=== PATIENT | male | born 1940 | race Caucasian/White ===

== ENCOUNTER 2016-09-23 11:57 | Inpatient (IN) | payer MEDICARE, BC ==
[2016-09-23] MEDS ORDERED: SODIUM CHLORIDE 0.9% 500 ML IV ONE ×2 (12:07→14:13)
[2016-09-23] MEDS ORDERED: ACETAMINOPHEN TAB 500 MG TAB PO STA (12:08)
[2016-09-23 12:25] LABS: Glucose,Whole Blood 149 mg/dL (75-99)
[2016-09-23 12:27] LABS: Basophils % (A) 0 %; CH 32.6; CHCM 36.2; Eosinophils # (A) 0.1 k/uL (0-0.7); Eosinophils % (A) 2 %; HCT 41.7 % (39.0-53.0); HGB 14.3 gm/dL (13.0-17.5); Luc # (Auto) 0.07; Luc % (Auto) 1; Lymphocytes # (A) 0.6 k/uL (1.0-4.8); Lymphocytes % (A) 7 %; MCH 31.2 pg (25.0-35.0); MCHC 34.4 g/dL (31.0-37.0); MCV 90.7 fL (80.0-100.0); Mean Platelet Volume 7.1; Monocytes # (A) 0.5 k/uL (0-1.0); Monocytes % (A) 5 %; Neutrophils # (A) 7.9 k/uL (1.3-7.7); Neutrophils % (A) 86 %; RBC 4.59 m/uL (4.30-5.90); WBC 9.2 k/uL (3.8-10.6); WBC (Perox) 9.36
[2016-09-23 12:37] LABS: ALT 36 U/L (21-72); AST 19 U/L (17-59); Alkaline Phosphatase 99 U/L (38-126); Anion Gap 12 mmol/L; Blood Urea Nitrogen 16 mg/dL (9-20); Calcium 8.7 mg/dL (8.4-10.2); Carbon Dioxide 26 mmol/L (22-30); Chloride 105 mmol/L (98-107); Glucose 163 mg/dL (74-99); Non-African American GFR(MDRD) >60 (>60 ml/min/1.73 sqM); Partial Thromboplastin Time 23.5 sec (22.0-30.0); Potassium 3.6 mmol/L (3.5-5.1); Prothrombin Time 10.5 sec (9.0-12.0); Sodium 143 mmol/L (137-145); Total Bilirubin 0.9 mg/dL (0.2-1.3); Total Protein 6.7 g/dL (6.3-8.2)
[2016-09-23 12:47] LABS: Creatine Kinase 52 U/L (55-170)
--- NOTE | 2016-09-23 12:52 | ED ---
General Adult HPI - General Chief complaint: Altered Mental Status Stated complaint: Altered Mental Time Seen by Provider: 09/23/16 12:00 Source: patient, EMS, RN notes reviewed Mode of arrival: EMS Limitations: no limitations - History of Present Illness Initial comments: This is a 76-year-old male who presents to the emergency department according to family because of altered mental status. The states he started becoming altered last evening and becoming somewhat chilled. According to he had noted a little cough. Patient is normally alert and oriented 1 but can follow simple commands today he cannot. states his altered mental status worsened throughout the night and today he was not able to even do simple things that she would ask so she brought him to the emergency department. She has not noted a fever at home she has not noted any difficulty breathing there has not been any recent vomiting or diarrhea. She does state yesterday he fell and she believes he did hit his head. states yesterday he did fall out of bed and she believes he hit his head on the floor. He did not however lose consciousness. Patient weighs too weak to ambulate which is unusual for the patient. - Related Data Home Medications Medication Instructions Recorded Confirmed Donepezil [Aricept] 15 mg PO HS 07/29/16 09/23/16 Dm/PE/Acetaminophen/Doxylamine 1 cap PO BID PRN 09/23/16 09/23/16 [[facility] [facility] Day-Night [facility]] Previous Rx's Medication Instructions Recorded Memantine [Namenda] 10 mg PO BID #60 tab 02/24/15 Allergies Allergy/AdvReac Type Severity Reaction Status Date / Time No Known Allergies Allergy Verified 09/23/16 13:12 Review of Systems ROS Statement: Those systems with pertinent positive or pertinent negative responses have been documented in the HPI. ROS Other: All systems not noted in ROS Statement are negative. Past Medical History Past Medical History: Dementia, Memory Impairment, Prostate Disorder Additional Past Medical History / Comment(s): Dementia/ALZHEIMERS History of Any Multi-Drug Resistant Organisms: None Reported Past Surgical History: No Surgical Hx Reported Additional Past Surgical History / Comment(s): darrian rotator cuff Additional Past Anesthesia/Blood Transfusion Reaction / Comment(s): difficulty coming out Past Psychological History: No Psychological Hx Reported Smoking Status: Former smoker Past Alcohol Use History: Rare Past Drug Use History: None Reported - Past Family History Father Family Medical History: Cancer Additional Family Medical History / Comment(s): lung ca Mother Family Medical History: Cancer Additional Family Medical History / Comment(s): ovarian cancer Son(s) Family Medical History: Cancer Additional Family Medical History / Comment(s): rhabdomyo sarcoma General Exam - General Exam Comments Initial Comments: GENERAL: Patient is well-developed and well-nourished. Patient is nontoxic and well- hydrated and is in no acute distress. ENT: Neck is soft and supple. No significant lymphadenopathy is noted. Oropharynx is clear. Moist mucous membranes. Neck has full range of motion without eliciting any pain. EYES: The sclera were anicteric and conjunctiva were pink and moist. Extraocular movements were intact and pupils were equal round and reactive to light. Eyelids were unremarkable. PULMONARY: Unlabored respirations. No rales or rhonchi were heard however the patient gives poor effort as it doesn't appear as though he understands my command CARDIOVASCULAR: There is a regular rate and rhythm without any murmurs gallops or rubs. ABDOMEN: Soft and nontender with normal bowel sounds. SKIN: Skin is clear with no lesions or rashes and otherwise unremarkable. NEUROLOGIC: Patient is alert and oriented 1. Cranial nerves II through XII are grossly intact. Motor and sensory are also intact. MUSCULOSKELETAL: Normal extremities with adequate strength and full range of motion. No lower extremity swelling or edema. No calf tenderness. LYMPHATICS: No significant lymphadenopathy is noted PSYCHIATRIC: Normal psychiatric evaluation. Limitations: no limitations Course Vital Signs 09/23/16 09/23/16 09/23/16 12:00 13:06 13:21 Temperature 99.2 F Pulse Rate 98 94 92 Respiratory 20 18 18 Rate Blood Pressure 160/79 131/70 131/70 O2 Sat by Pulse 94 L 93 L 96 Oximetry Medical Decision Making - Medical Decision Making EKG shows normal sinus rhythm at 100 bpm IA interval is on a 66 dresses 80 QT interval 342 QTC is 441 per patient's EKG shows no ST segment elevation or depression or T-wave inversion noted. Chest x-ray shows no obvious pneumonia. I went back into reevaluate the patient family stated that the patient was improving since she's been emergency department. - Lab Data Result diagrams: 09/23/16 12:10 09/23/16 12:10 Lab Results 01/09/23/16 09/23/16 Range/Units 12:10 12:10 12:10 WBC 9.2 (3.8-10.6) k/uL RBC 4.59 (4.30-5.90) m/uL Hgb 14.3 (13.0-17.5) gm/dL Hct 41.7 (39.0-53.0) % MCV 90.7 (80.0-100.0) fL MCH 31.2 (25.0-35.0) pg MCHC 34.4 (31.0-37.0) g/dL RDW 13.0 (11.5-15.5) % Plt Count 251 (150-450) k/uL Neutrophils % 86 % Lymphocytes % 7 % Monocytes % 5 % Eosinophils % 2 % Basophils % 0 % Neutrophils # 7.9 H (1.3-7.7) k/uL Lymphocytes # 0.6 L (1.0-4.8) k/uL Monocytes # 0.5 (0-1.0) k/uL Eosinophils # 0.1 (0-0.7) k/uL Basophils # 0.0 (0-0.2) k/uL PT (9.0-12.0) sec INR (<1.1) APTT (22.0-30.0) sec D-Dimer (<0.60) mg/L FEU Sodium 143 (137-145) mmol/L Potassium 3.6 (3.5-5.1) mmol/L Chloride 105 (98-107) mmol/L Carbon Dioxide 26 (22-30) mmol/L Anion Gap 12 mmol/L BUN 16 (9-20) mg/dL Creatinine 1.13 (0.66-1.25) mg/dL Est GFR (MDRD) Af Amer >60 (>60 ml/min/1.73 sqM) Est GFR (MDRD) Non-Af >60 (>60 ml/min/1.73 sqM) Glucose 163 H (74-99) mg/dL POC Glucose (mg/dL) (75-99) mg/dL POC Glu Attorney ID Plasma Lactic Acid Zohaib (0.7-2.0) mmol/L Calcium 8.7 (8.4-10.2) mg/dL Total Bilirubin 0.9 (0.2-1.3) mg/dL AST 19 (17-59) U/L ALT 36 (21-72) U/L Alkaline Phosphatase 99 (38-126) U/L Total Creatine Kinase 52 L (55-170) U/L CK-MB (CK-2) 0.6 (0.0-2.4) ng/mL CK-MB (CK-2) Rel Index 1.2 Troponin I <0.012 (0.000-0.034) ng/mL Total Protein 6.7 (6.3-8.2) g/dL Albumin 3.8 (3.5-5.0) g/dL Urine Color Urine Appearance (Clear) Urine pH (5.0-8.0) Ur Specific [place] (1.001-1.035) Urine Protein (Negative) Urine Glucose (UA) (Negative) Urine Ketones (Negative) Urine Blood (Negative) Urine Nitrate (Negative) Urine Bilirubin (Negative) Urine Urobilinogen (<2.0) mg/dL Ur Leukocyte Esterase (Negative) Urine RBC (0-5) /hpf Urine WBC (0-5) /hpf Urine Mucus (None) /hpf Influenza Type A RNA (Not Detectd) Influenza Type B (PCR) (Not Detectd) 09/23/16 09/23/16 09/23/16 Range/Units 12:10 12:10 12:10 WBC (3.8-10.6) k/uL RBC (4.30-5.90) m/uL Hgb (13.0-17.5) gm/dL Hct (39.0-53.0) % MCV (80.0-100.0) fL MCH (25.0-35.0) pg MCHC (31.0-37.0) g/dL RDW (11.5-15.5) % Plt Count (150-450) k/uL Neutrophils % % Lymphocytes % % Monocytes % % Eosinophils % % Basophils % % Neutrophils # (1.3-7.7) k/uL Lymphocytes # (1.0-4.8) k/uL Monocytes # (0-1.0) k/uL Eosinophils # (0-0.7) k/uL Basophils # (0-0.2) k/uL PT 10.5 (9.0-12.0) sec INR 1.0 (<1.1) APTT 23.5 (22.0-30.0) sec D-Dimer 0.57 (<0.60) mg/L FEU Sodium (137-145) mmol/L Potassium (3.5-5.1) mmol/L Chloride (98-107) mmol/L Carbon Dioxide (22-30) mmol/L Anion Gap mmol/L BUN (9-20) mg/dL Creatinine (0.66-1.25) mg/dL Est GFR (MDRD) Af Amer (>60 ml/min/1.73 sqM) Est GFR (MDRD) Non-Af (>60 ml/min/1.73 sqM) Glucose (74-99) mg/dL POC Glucose (mg/dL) (75-99) mg/dL POC Glu Attorney ID Plasma Lactic Acid Zohaib 1.6 (0.7-2.0) mmol/L Calcium (8.4-10.2) mg/dL Total Bilirubin (0.2-1.3) mg/dL AST (17-59) U/L ALT (21-72) U/L Alkaline Phosphatase (38-126) U/L Total Creatine Kinase (55-170) U/L CK-MB (CK-2) (0.0-2.4) ng/mL CK-MB (CK-2) Rel Index Troponin I (0.000-0.034) ng/mL Total Protein (6.3-8.2) g/dL Albumin (3.5-5.0) g/dL Urine Color Urine Appearance (Clear) Urine pH (5.0-8.0) Ur Specific [place] (1.001-1.035) Urine Protein (Negative) Urine Glucose (UA) (Negative) Urine Ketones (Negative) Urine Blood (Negative) Urine Nitrate (Negative) Urine Bilirubin (Negative) Urine Urobilinogen (<2.0) mg/dL Ur Leukocyte Esterase (Negative) Urine RBC (0-5) /hpf Urine WBC (0-5) /hpf Urine Mucus (None) /hpf Influenza Type A RNA (Not Detectd) Influenza Type B (PCR) (Not Detectd) 09/23/16 09/23/16 09/23/16 Range/Units 12:22 12:25 13:35 WBC (3.8-10.6) k/uL RBC (4.30-5.90) m/uL Hgb (13.0-17.5) gm/dL Hct (39.0-53.0) % MCV (80.0-100.0) fL MCH (25.0-35.0) pg MCHC (31.0-37.0) g/dL RDW (11.5-15.5) % Plt Count (150-450) k/uL Neutrophils % % Lymphocytes % % Monocytes % % Eosinophils % % Basophils % % Neutrophils # (1.3-7.7) k/uL Lymphocytes # (1.0-4.8) k/uL Monocytes # (0-1.0) k/uL Eosinophils # (0-0.7) k/uL Basophils # (0-0.2) k/uL PT (9.0-12.0) sec INR (<1.1) APTT (22.0-30.0) sec D-Dimer (<0.60) mg/L FEU Sodium (137-145) mmol/L Potassium (3.5-5.1) mmol/L Chloride (98-107) mmol/L Carbon Dioxide (22-30) mmol/L Anion Gap mmol/L BUN (9-20) mg/dL Creatinine (0.66-1.25) mg/dL Est GFR (MDRD) Af Amer (>60 ml/min/1.73 sqM) Est GFR (MDRD) Non-Af (>60 ml/min/1.73 sqM) Glucose (74-99) mg/dL POC Glucose (mg/dL) 149 H (75-99) mg/dL POC Glu Attorney ID Kaila Anthony Plasma Lactic Acid Zohaib (0.7-2.0) mmol/L Calcium (8.4-10.2) mg/dL Total Bilirubin (0.2-1.3) mg/dL AST (17-59) U/L ALT (21-72) U/L Alkaline Phosphatase (38-126) U/L Total Creatine Kinase (55-170) U/L CK-MB (CK-2) (0.0-2.4) ng/mL CK-MB (CK-2) Rel Index Troponin I (0.000-0.034) ng/mL Total Protein (6.3-8.2) g/dL Albumin (3.5-5.0) g/dL Urine Color Yellow Urine Appearance Clear (Clear) Urine pH 5.5 (5.0-8.0) Ur Specific [place] 1.016 (1.001-1.035) Urine Protein Negative (Negative) Urine Glucose (UA) 1+ H (Negative) Urine Ketones Negative (Negative) Urine Blood Trace H (Negative) Urine Nitrate Negative (Negative) Urine Bilirubin Negative (Negative) Urine Urobilinogen <2.0 (<2.0) mg/dL Ur Leukocyte Esterase Negative (Negative) Urine RBC 10 H (0-5) /hpf Urine WBC 1 (0-5) /hpf Urine Mucus Rare H (None) /hpf Influenza Type A RNA Not Detected (Not Detectd) Influenza Type B (PCR) Not Detected (Not Detectd) Disposition Clinical Impression: Altered mental status Disposition: ADMITTED IP TO THIS HOSP Referrals: Tyrone Ferrera MD [Primary Care Provider] - 1-2 days Time of Disposition: 14:12
[2016-09-23 13:00] LABS: Creatine Kinase MB 0.6 ng/mL (0.0-2.4); Troponin I <0.012 ng/mL (0.000-0.034)
--- NOTE | 2016-09-23 13:16 | CT ---
EXAMINATION TYPE: CT brain wo con DATE OF EXAM: 09/23/2016 12:47 PM COMPARISON: Prior head CT 23 February 2015 HISTORY: Altered mental status CT DLP: 1054.2 mGycm Automated exposure control for dose reduction was used. FINDINGS: There is no acute intracranial hemorrhage, mass effect, or midline shift identified. The ventricles and sulci are stable, periventricular white matter demyelination is present, there is cortical atroph y, some prominence of the lateral ventricles. The globes are intact and the visualized sinuses are r emarkable for inflammatory change within the ethmoid air cells, maxillary sinus and sphenoid. IMPRESSION: No acute intracranial hemorrhage, mass effect, or midline shift is seen. Difficult to exclude normal pressure hydrocephalus.
--- NOTE | 2016-09-23 13:17 | XR ---
EXAMINATION TYPE: XR chest 2V DATE OF EXAM: 09/23/2016 12:47 PM COMPARISON: Prior chest x-ray April HISTORY: Altered mental status TECHNIQUE: Frontal and lateral views of the chest are obtained. FINDINGS: Lung volumes are low and the patient is rotated, there are overlying cardiac leads. Heart size may be accentuated by technique. No pneumothorax or pleural effusion evident. Interstitium is mi ldly prominent. IMPRESSION: Expiratory rotated exam, difficult to exclude pulmonary venous hypertension and intersti tial edema, follow-up as indicated
[2016-09-23 13:48] LABS: Appearance,Urine Clear (Clear); Bilirubin,Urine Negative (Negative); Glucose,Urine (UA) 1+ (Negative); Ketones,Urine Negative (Negative); Leukocyte Esterase,Urine Negative (Negative); Mucus,Urine Rare /hpf; Nitrite,Urine Negative (Negative); PH, Urine 5.5 (5.0-8.0); Particle Count 1013; Protein,Urine Negative (Negative); RBC,Urine 10 /hpf (0-5); Specific Gravity,Urine 1.016 (1.001-1.035); UA Billing (MACRO vs. MICRO) MICRO; Urobilinogen,Urine <2.0 mg/dL (<2.0); WBC,Urine 1 /hpf (0-5)
[2016-09-23] MEDS ORDERED: SODIUM CHLORIDE 0.9% 1,000 ML IV ONE (14:13)
[2016-09-23 16:11] VITALS: BMI 26.4
[2016-09-23] MEDS: HEPARIN SODIUM,PORCINE 5,000 UNIT/ML 1 ML VIAL SQ SCH (22:39)
[2016-09-23] MEDS: LEVOFLOXACIN 500 MG TAB PO SCH (22:39)
[2016-09-23] MEDS: DEXTROSE 5%-0.2% NACL 1,000 ML IV SCH (22:40)
[2016-09-23] MEDS: MEMANTINE 10 MG TAB PO SCH (22:40)
[2016-09-24] MEDS: DEXTROSE 5%-0.2% NACL 1,000 ML IV SCH (05:29)
[2016-09-24] MEDS: ASPIRIN 81 MG CHEW PO SCH (08:18)
[2016-09-24] MEDS: MEMANTINE 10 MG TAB PO SCH ×2 (08:18→20:21)
[2016-09-24] MEDS: HEPARIN SODIUM,PORCINE 5,000 UNIT/ML 1 ML VIAL SQ SCH ×2 (08:18→20:22)
[2016-09-24] MEDS: IPRATROPIUM-ALBUTEROL 3 ML NEB INHALATION SCH ×4 (08:27→20:06)
--- NOTE | 2016-09-24 10:02 | P.PN ---
Subjective Principal diagnosis: 76-year-old male being seen on rounds this morning. Patient pulled his IV out sitting up in feeding self. Patient's pleasant oriented to self only. Objective - Vital Signs Vital signs: Vital Signs Temp 96.4 F L 09/24/16 07:00 Pulse 88 09/24/16 08:37 Resp 18 09/24/16 07:00 BP 150/71 09/24/16 07:00 Pulse Ox 95 09/24/16 08:28 Intake & Output 09/23/16 09/24/16 09/24/16 18:59 06:59 18:59 Output Total 150 Balance -150 Weight 81 kg Output: Urine 150 Other: Voiding Method Urinal # Voids 2 - Exam GENERAL APPEARANCE: 76-year-old male patient is alert, oriented, to self only pleasant cooperative pulled IV out in no acute distress. VITAL SIGNS: Reviewed HEENT: Head is normocephalic and atraumatic. Pupils are equal and reactive. The nares are patent. Oropharynx is clear without lesions. NECK: Supple without lymphadenopathy. Traches midline. HEART: S1, S2. Regular rate and rhythm. LUNGS: No crackles or wheezes are heard. Sats are 95% on room air ABDOMEN: Soft, nontender, nondistended with good bowel sounds. No peritoneal signs. No palpable organomegaly or masses. EXTREMITIES: Normal skin color and turgor. No cyanosis, rash, ulceration, clubbing or edema. Radial pedal pulses are 2/4 bilaterally. NEUROLOGICAL: No focal deficits. Strength and sensation are grossly intact. 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 Impression and the plan of care have been dictated as directed. Leandra Salazar nurse practitioner acting as a scribe for dr shrestha
--- NOTE | 2016-09-24 10:24 | XR ---
EXAMINATION TYPE: XR chest 2V DATE OF EXAM: 09/24/2016 10:20 AM HISTORY: Shortness of breath. COMPARISON: 09/23/2016 TECHNIQUE: Single view of the chest is submitted. FINDINGS: Demonstrated are scattered senescent parenchymal change. Mild strandy basilar densities may reflect atelectasis, parenchymal scar or developing infiltrate. Co rrelate clinically. The heart is stable. Hilar and mediastinal structures are within normal limits. Degenerative changes are seen of the dorsal spine. IMPRESSION: 1. Mild strandy basilar densities may reflect atelectasis, parenchymal scar or developing infiltrate . Correlate clinically.
[2016-09-24] MEDS ORDERED: INFLUENZA VACCINE (3YR+) 60 MCG/0.5 ML SYRINGE IM ONE (10:43)
[2016-09-24] MEDS ORDERED: PNEUMOCOCCAL VACC-PNEUMOVAX 23 25 MCG/0.5 ML VIAL IM ONE (10:44)
[2016-09-24 11:46] LABS: Basophils % (A) 0 %; CH 32.3; CHCM 34.6; Eosinophils # (A) 0.1 k/uL (0-0.7); Eosinophils % (A) 1 %; HCT 42.7 % (39.0-53.0); HDW 3.11; HGB 14.3 gm/dL (13.0-17.5); Luc # (Auto) 0.09; Luc % (Auto) 1; Lymphocytes # (A) 0.6 k/uL (1.0-4.8); Lymphocytes % (A) 8 %; MCH 31.5 pg (25.0-35.0); MCHC 33.5 g/dL (31.0-37.0); Mean Platelet Volume 6.5; Monocytes # (A) 0.4 k/uL (0-1.0); Monocytes % (A) 5 %; Neutrophils # (A) 6.5 k/uL (1.3-7.7); Neutrophils % (A) 84 %; RBC 4.54 m/uL (4.30-5.90); WBC 7.7 k/uL (3.8-10.6); WBC (Perox) 8.14
[2016-09-24 11:51] LABS: ALT 34 U/L (21-72); AST 20 U/L (17-59); Alkaline Phosphatase 89 U/L (38-126); Anion Gap 9 mmol/L; Blood Urea Nitrogen 12 mg/dL (9-20); Calcium 8.4 mg/dL (8.4-10.2); Carbon Dioxide 26 mmol/L (22-30); Chloride 102 mmol/L (98-107); Glucose 206 mg/dL (74-99); Non-African American GFR(MDRD) >60 (>60 ml/min/1.73 sqM); Potassium 3.4 mmol/L (3.5-5.1); Sodium 137 mmol/L (137-145); Total Bilirubin 0.8 mg/dL (0.2-1.3); Total Protein 6.6 g/dL (6.3-8.2)
[2016-09-24] MEDS: TOBRA-DEXAMET 0.3-0.1% OPHTH DROPS 2.5 ML BTL BOTH EYES SCH ×3 (12:58→20:21)
--- NOTE | 2016-09-24 18:59 | HP ---
DATE OF ADMISSION: 09/23/2016 CHIEF COMPLAINT: Confusion. HISTORY OF PRESENT ILLNESS: This is another admission for this 76-year-old white male with dementia. He has been ( ) at home and has done fairly well. Dementia is profound. He is on Aricept and Namenda. Family brought him to the hospital when he had a change in mentation, seemed to be agitated was less responsive and seemed to be having difficulty talking. The day before they thought he developed URI. He had no vomiting, diarrhea, urinary complaints, etc., they did not think he had a temperature. In the emergency room, there was no significant abnormality. It was felt that this could be delirium secondary to infection. REVIEW OF SYSTEMS: Unobtainable. Past medical history, family history, personal and social histories are otherwise fairly unremarkable and he has been in good health other than the dementia. He is not allergic to any medication. He is only on the two drugs mentioned. He has a history of hyperlipidemia, elevated PSA, BPH, and vitamin D deficiency. He used to drink moderately and never smoked. PHYSICAL EXAMINATION: VITAL SIGNS: Blood pressure is 106/78 with a pulse of 94 and regular, temperature 99.2, respirations 33. GENERAL: Appeared to be in no acute distress. SKIN: Skin color is normal. Skin is warm and dry. Lymph nodes are not enlarged. Head, ears, eyes, nose, mouth, and throat were normal. NECK: Neck veins not distended. Carotids normal. CHEST: Clear. There are no rales or rhonchi. CARDIAC: demonstrates sinus rhythm and there are no murmurs or extra sounds. ABDOMEN: Soft and nontender. EXTREMITIES: Normal. He did not have any focal neurologic deficits could be identified. He was arousable, but confused, but his speech was normal. Cranial nerves are intact. He was admitted to the hospital with diagnoses: 1. Delirium. 2. Probable upper respiratory tract infection with bronchitis. 3. Dementia. 4. Benign prostatic hypertrophy. 5. Hyperlipidemia. 6. Mild dehydration. PLAN: 1. IV fluids. 2. Blood cultures. 3. Updrafts. 4. ( ) for IV antibiotics. 5. Frequent monitoring of his neurologic status and vital signs.
--- NOTE | 2016-09-24 20:19 | PN ---
DATE OF SERVICE: 09/24/2016 CHIEF COMPLAINT: Delirium. HISTORY OF PRESENT ILLNESS: This gentleman seems to be doing a little bit better; certainly not any worse. He is awake and alert but confused. PHYSICAL EXAMINATION: He has no focal neurologic findings. Carotids are normal. He is in sinus rhythm. IMPRESSION: 1. Delirium. 2. Dementia. PLAN: 1. Await results of labs. 2. Occupational therapy. 3. Continue with antibiotics and updrafts.
[2016-09-24] MEDS: LEVOFLOXACIN 500 MG TAB PO SCH (20:21)
[2016-09-24] MEDS: DONEPEZIL 5 MG TAB PO SCH (20:22)
[2016-09-25] MEDS: TOBRA-DEXAMET 0.3-0.1% OPHTH DROPS 2.5 ML BTL BOTH EYES SCH ×6 (01:34→20:13)
[2016-09-25] MEDS: IPRATROPIUM-ALBUTEROL 3 ML NEB INHALATION PRN (04:06)
[2016-09-25] MEDS: IPRATROPIUM-ALBUTEROL 3 ML NEB INHALATION SCH ×4 (08:10→19:28)
[2016-09-25] MEDS: ASPIRIN 81 MG CHEW PO SCH (08:42)
[2016-09-25] MEDS: MEMANTINE 10 MG TAB PO SCH ×2 (08:42→20:14)
[2016-09-25] MEDS: HEPARIN SODIUM,PORCINE 5,000 UNIT/ML 1 ML VIAL SQ SCH ×2 (08:43→20:14)
--- NOTE | 2016-09-25 10:15 | P.PN ---
Subjective 76-year-old being seen on rounds this morning the son is at the bedside who had spent the night with the patient the son reports he noted that the patient was having periods of apnea not breathing last night lasting about 8 seconds. Additionally the son reports patient was coughing up greenish secretions. Additionally the patient was reportedly experiencing audible wheezing during the night this morning the patient is sitting up in a chair. Is pleasant oriented to self and place. Patient is audibly wheezing currently has a nasal cannula at 2 L with the sats documented 94%. According to the son last night the patient's oxygen was off the pulse ox sat was in the 80s the son states that he sees his father frequently in the outpatient setting and on the day of the event patient was more short of breath and coughing seemed to be choking the son is worried the patient may have aspirated Objective - Vital Signs Vital signs: Vital Signs Temp 97.4 F L 09/25/16 07:00 Pulse 72 09/25/16 08:22 Resp 17 09/25/16 08:00 BP 131/72 09/25/16 07:00 Pulse Ox 96 09/25/16 07:00 - Exam Physical exam 76-year-old male sitting up in a chair pleasant cooperative oriented to person and place appears in no acute distress Lungs diminished at the bases with bilateral prolonged expiratory wheezing noted a dry nonproductive cough noted Heart S1-S2 audible and regular no murmur abdomen soft nontender no reports of nausea vomiting incontinent of urine Extremities no edema noted no calf tenderness - Labs CBC & Chem 7: 09/24/16 11:14 09/24/16 11:14 Assessment and Plan Plan: Impression Chronic encephalopathy with behavior changes Abnormal CAT scan of the brain 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 Progressive dementia with memory impairment Chronic debility Present on admission conjunctivitis involving bilateral eyes Present on admission acute encephalopathy unclear etiology History of a fall 24 hours before admission with a CAT scan of the brain in the emergency room no acute findings Shortness of breath with audible wheezing suspect due to aspiration pneumonia Plan Repeat the chest x-ray this morning Resume home meds as appropriate DVT and GI prophylaxis PT OT eval Treat the conjunctivitis with eyedrops as ordered Start IV antibiotic Levaquin and Rocephin Pulmonary consultation Pulmicort as ordered Aspiration precautions Short burst of IV Solu-Medrol monitor the response Aerosol bronchodilators as ordered The above dictated assessment and findings were discussed with dr shrestha . Impression and the plan of care have been dictated as directed. Leandra Salazar nurse practitioner acting as a scribe for dr shrestha
[2016-09-25 10:54] LABS: Basophils % (A) 0 %; CH 32.4; Eosinophils # (A) 0.2 k/uL (0-0.7); Eosinophils % (A) 2 %; HCT 41.5 % (39.0-53.0); HDW 3.24; HGB 14.6 gm/dL (13.0-17.5); Luc # (Auto) 0.15; Luc % (Auto) 2; Lymphocytes % (A) 13 %; MCH 32.8 pg (25.0-35.0); MCHC 35.2 g/dL (31.0-37.0); MCV 93.2 fL (80.0-100.0); Mean Platelet Volume 6.4; Monocytes # (A) 0.7 k/uL (0-1.0); Monocytes % (A) 9 %; Neutrophils # (A) 5.6 k/uL (1.3-7.7); Neutrophils % (A) 74 %; RBC 4.45 m/uL (4.30-5.90); RDW 13.2 % (11.5-15.5); WBC 7.6 k/uL (3.8-10.6); WBC (Perox) 7.23
[2016-09-25 11:06] LABS: ALT 26 U/L (21-72); AST 23 U/L (17-59); Alkaline Phosphatase 78 U/L (38-126); Anion Gap 13 mmol/L; Blood Urea Nitrogen 10 mg/dL (9-20); Calcium 8.7 mg/dL (8.4-10.2); Carbon Dioxide 23 mmol/L (22-30); Chloride 104 mmol/L (98-107); Glucose 217 mg/dL (74-99); Non-African American GFR(MDRD) >60 (>60 ml/min/1.73 sqM); Sodium 140 mmol/L (137-145); Total Bilirubin 0.8 mg/dL (0.2-1.3); Total Protein 6.5 g/dL (6.3-8.2)
[2016-09-25 11:14] LABS: Potassium 3.5 mmol/L (3.5-5.1)
[2016-09-25] MEDS: methylPREDNISolone SOD SUCCI 40 MG/ML 1 ML VIAL IV SCH ×2 (11:33→17:31)
[2016-09-25] MEDS: FAMOTIDINE 20 MG/2 ML VIAL IV SCH ×2 (11:34→20:14)
[2016-09-25] MEDS: LEVOFLOXACIN 500MG-D5W PMX 500 MG in DEXTROSE/WATER 1 100ML.BAG IVPB SCH (11:34)
[2016-09-25] MEDS: BUDESONIDE 0.5 MG/2 ML NEBU INHALATION SCH ×2 (11:48→19:28)
--- NOTE | 2016-09-25 11:50 | XR ---
EXAMINATION TYPE: XR chest 2V DATE OF EXAM: 09/25/2016 10:36 AM COMPARISON: 09/24/2016 HISTORY: 76-year-old male rule out pneumonia TECHNIQUE: Frontal and lateral views FINDINGS: Low lung volumes and accentuated heart size, likely upper limits of normal. Some strandy atelectasis remaining at the lung bases. There is accentuated peribronchial opacities as compared to recent prior . No zaria consolidation or significant pleural effusion. Suture anchors in the right humeral head fr om prior cuff repair. IMPRESSION: Hypoventilatory changes. New peribronchial densities could reflect bronchitis or uncontrolled asthma. No zaria airspace disease seen.
[2016-09-25 12:22] LABS: Glucose,Whole Blood 194 mg/dL (75-99)
[2016-09-25] MEDS: INSULIN LISPRO (humaLOG) 300 UNIT/3 ML VIAL SQ SCH ×3 (12:52→20:20)
--- NOTE | 2016-09-25 15:27 | CONS ---
DATE OF CONSULTATION: 09/25/2016 Reason for consult is pneumonia. HISTORY OF PRESENTING ILLNESS: Mr. Ky Vaughn is a 76-year-old male, sees Dr. Ferrera for primary care activity. This patient presented into the emergency department with problem was associated with progressive breathing difficulty, increasing shortness of breath and cough. In addition to that, patient has been having some altered mental status as well, which appears to be more major reason for bringing him into the hospital. Symptoms started a few days prior to coming to the hospital. He had some chills as well and because of increased confusion, was brought into the emergency department. It appears that patient has been having intermittent falls as well; however, no loss of consciousness reported, though. Patient does have a baseline dementia. Past medical history is significant for dementia, memory impairment, history of prostate disorder. Past surgical history of bilateral rotator cuff surgery. FAMILY HISTORY AND SOCIAL HISTORY: Significant for smoking, denies any substance use or alcohol consumption. ALLERGIES: No known drug allergy. Medications at home include Namenda 10 mg p.o. 2 times a day. Also on ( ) as needed. Aricept is 15 mg daily. FAMILY HISTORY AND SOCIAL HISTORY: As dictated above. Strong history of lung cancer on paternal side. History of ovarian cancer on maternal side. History of sarcoma involving the son, though. Current medications while in the hospital include DuoNeb unit dose updraft 4 times a day, aspirin 81 mg daily, Pulmicort 2 times a day. Also on Rocephin 1 gm daily, donepezil 15 mg, Pepcid 20 mg q.12, heparin 5000 units subQ, Levaquin is 500 mg daily. Namenda is 10 mg 3 times a day. Solu-Medrol 40 q.8. On examination, blood pressure 130/70, respirations 17, pulse 73, temperature is 97.4, saturation of 96% on 2 L oxygen. HEENT: Atraumatic, normocephalic. Pharynx is clear. NECK: Supple without any lymphadenopathy, jugular venous distention or carotid bruit. No significant lymphadenopathy is present. Coarse breath sounds bilaterally is present with expiratory rhonchi. HEART: Regular rate and rhythm, S1 and S2 audible. ABDOMEN: Soft. No rebound or rigidity. EXTREMITIES: +1 peripheral pulses. NEUROLOGICAL EXAMINATION: Not much change from the baseline. Labs are reviewed. Medications reviewed as well. White cell count is 9,200, hemoglobin and hematocrit are 14 and 41, platelets are 251,000. PT, INR, PTT chemistry is normal as well. Urinalysis unremarkable, influenza A and B are negative. Culture results and report including urine and blood culture, no growth so far. Current medications reviewed as well. The last chest x-ray performed on 09/24 reviewed and compared with 09/23/2016 x-ray, possible pneumonia at the bases bilaterally cannot be excluded. IMPRESSION: 1. Community-acquired pneumonia. 2. Purulent tracheobronchitis. 3. Altered mental status, likely related to a systemic inflammatory response syndrome like process versus sepsis related to above, with baseline dementia. 4. Normal pressure hydrocephalus. Plan and recommendation is continue antibiotics, supportive care. Will send sputum for culture, continue breathing treatments. Continue aspiration precautions. I agree with short course of IV steroids. Will follow.
[2016-09-25 16:49] LABS: Glucose,Whole Blood 264 mg/dL (75-99)
[2016-09-25] MEDS: DONEPEZIL 5 MG TAB PO SCH (20:14)
[2016-09-25 20:28] LABS: Glucose,Whole Blood 272 mg/dL (75-99)
[2016-09-26] MEDS: methylPREDNISolone SOD SUCCI 40 MG/ML 1 ML VIAL IV SCH ×2 (00:22→09:53)
[2016-09-26] MEDS: TOBRA-DEXAMET 0.3-0.1% OPHTH DROPS 2.5 ML BTL BOTH EYES SCH ×7 (00:23→23:40)
[2016-09-26] MEDS: IPRATROPIUM-ALBUTEROL 3 ML NEB INHALATION PRN (01:06)
--- NOTE | 2016-09-26 05:32 | PN ---
CHIEF COMPLAINT: Aspiration pneumonia. HISTORY OF PRESENT ILLNESS: This gentleman is doing better each day. He is much more awake and alert. He is sitting up in a chair eating. He remains confused. He is afebrile. PHYSICAL EXAM: He has rhonchi bilaterally anteriorly and posteriorly. The cardiac exam is normal. IMPRESSION: 1. Probable aspiration pneumonia. 2. Dementia. PLAN: Probably keep on IV fluids and antibiotics for another day or 2.
[2016-09-26 07:21] LABS: Glucose,Whole Blood 251 mg/dL (75-99)
[2016-09-26] MEDS: INSULIN LISPRO (humaLOG) 300 UNIT/3 ML VIAL SQ SCH ×4 (07:59→22:03)
[2016-09-26] MEDS: MEMANTINE 10 MG TAB PO SCH ×2 (07:59→20:22)
[2016-09-26] MEDS: ASPIRIN 81 MG CHEW PO SCH (07:59)
[2016-09-26] MEDS: BUDESONIDE 0.5 MG/2 ML NEBU INHALATION SCH ×2 (08:09→20:48)
[2016-09-26] MEDS: IPRATROPIUM-ALBUTEROL 3 ML NEB INHALATION SCH ×4 (08:09→20:48)
--- NOTE | 2016-09-26 09:31 | P.PN ---
Subjective 76-year-old being seen on rounds. Sitting up in bed taking a diet. at bedside updated on plan of care questions answered the reportedly spent the night patient reportedly had episodes of confusion pulled IV out. Patient had no further episodes of the descending with the oxygen off during the night currently on room air sats were documented at 97% this morning patient is afebrile chest x-ray report done yesterday possible bronchitis peribronchial opacity is noted Objective - Vital Signs Vital signs: Vital Signs Temp 97.6 F 09/26/16 07:00 Pulse 76 09/26/16 08:21 Resp 17 09/26/16 07:00 BP 93/68 09/26/16 07:00 Pulse Ox 97 09/26/16 07:00 Intake & Output 09/25/16 09/26/16 09/26/16 18:59 06:59 18:59 Intake Total 650 Balance 650 Intake: Oral 650 Other: Voiding Method Urinal Urinal Incontinent Incontinent # Voids 1 2 - Exam Physical exam 76-year-old male sitting up in bed taking a diet oriented to person and place pleasant cooperative Lungs diminished at the bases no audible wheezing noted currently on room air no use of accessory muscles to breathe no cough noted sets 97% room air Heart S1-S2 audible and regular no murmur noted Abdomen soft nontender no reports of nausea vomiting Extremities no evidence of edema upper or lower extremities - Labs CBC & Chem 7: 09/25/16 10:39 09/25/16 10:39 Labs: Abnormal Lab Results - Last 24 Hours (Table) 09/25/16 09/25/16 09/25/16 Range/Units 10:39 12:20 16:46 Glucose 217 H (74-99) mg/dL POC Glucose (mg/dL) 194 H 264 H (75-99) mg/dL 09/25/16 09/26/16 Range/Units 20:18 07:19 Glucose (74-99) mg/dL POC Glucose (mg/dL) 272 H 251 H (75-99) mg/dL Assessment and Plan Plan: Impression Chronic encephalopathy with behavior changes Abnormal CAT scan of the brain 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 Progressive dementia with memory impairment Chronic debility Present on admission conjunctivitis involving bilateral eyes Present on admission acute encephalopathy unclear etiology History of a fall 24 hours before admission with a CAT scan of the brain in the emergency room no acute findings Shortness of breath with audible wheezing suspect due to aspiration pneumonia with bronchitis Plan DC IV Solu-Medrol short taper oral prednisone Resume home meds as appropriate DVT and GI prophylaxis PT OT eval Treat the conjunctivitis with eyedrops as ordered Start IV antibiotic Levaquin and Rocephin Set up for visiting nurse home care when discharged Pulmicort as ordered Aspiration precautions Aerosol bronchodilators as ordered The above dictated assessment and findings were discussed with dr shrestha . Impression and the plan of care have been dictated as directed. Leandra Salazar nurse practitioner acting as a scribe for dr shrestha
[2016-09-26] MEDS: LEVOFLOXACIN 500MG-D5W PMX 500 MG in DEXTROSE/WATER 1 100ML.BAG IVPB SCH (09:40)
[2016-09-26] MEDS: HEPARIN SODIUM,PORCINE 5,000 UNIT/ML 1 ML VIAL SQ SCH ×2 (09:44→20:22)
[2016-09-26] MEDS: FAMOTIDINE 20 MG/2 ML VIAL IV SCH (10:47)
[2016-09-26 11:42] LABS: Glucose,Whole Blood 214 mg/dL (75-99)
--- NOTE | 2016-09-26 12:25 | PN ---
Ky Vaughn is a 76-year-old male, seen, evaluated and examined. This patient admitted to hospital with altered mental status and pneumonia. Clinically patient is doing well. Patient, however, noted by family members to have apneic events. Blood pressure is 93/68, respiratory rate 17, pulse 96, temperature 98, saturation 97% on 2 liters oxygen. HEENT: Unremarkable. NECK: Supple. LUNGS: Good air entry bilaterally. HEART: Regular rate and rhythm. ABDOMEN: Soft. NEUROLOGICAL EXAMINATION: Examination not much change. Labs reviewed. Medications reviewed as well. Urine cultures and blood cultures no growth so far. The radiographic studies including a chest x-ray performed yesterday reviewed and compared with the prior x-ray suggestive of bilateral patchy pneumonia predominantly in the bases. Current medications reviewed. 1. Duoneb. 2. Pulmicort. 3. Rocephin. 4. Donepezil. 5. Pepcid. 6. Heparin. 7. Levaquin. 8. Tobrex eye drops. IMPRESSION: 1. Bilateral pneumonia. 2. Episodes of apnea most likely sleep-disordered breathing and sleep apnea to be evaluated further in outpatient setting. 3. Dementia and Alzheimer's disease. PLAN: As above. Continue antibiotics, supportive care. Follow clinical course closely. Further recommendations pending. Plan of care as per clinical response of the patient.
[2016-09-26 17:34] LABS: Glucose,Whole Blood 180 mg/dL (75-99)
[2016-09-26] MEDS: DONEPEZIL 5 MG TAB PO SCH (20:21)
[2016-09-26] MEDS: FAMOTIDINE 20 MG TAB PO SCH (20:22)
[2016-09-26 21:35] LABS: Glucose,Whole Blood 141 mg/dL (75-99)
[2016-09-27] MEDS: IPRATROPIUM-ALBUTEROL 3 ML NEB INHALATION PRN (02:14)
[2016-09-27] MEDS: TOBRA-DEXAMET 0.3-0.1% OPHTH DROPS 2.5 ML BTL BOTH EYES SCH ×6 (03:33→23:49)
[2016-09-27 07:21] LABS: Glucose,Whole Blood 127 mg/dL (75-99)
[2016-09-27] MEDS: IPRATROPIUM-ALBUTEROL 3 ML NEB INHALATION SCH ×4 (07:45→19:53)
[2016-09-27] MEDS: BUDESONIDE 0.5 MG/2 ML NEBU INHALATION SCH ×2 (07:45→19:53)
[2016-09-27] MEDS: MEMANTINE 10 MG TAB PO SCH ×2 (08:46→22:50)
[2016-09-27] MEDS: LEVOFLOXACIN 500 MG TAB PO SCH (08:46)
[2016-09-27] MEDS: FAMOTIDINE 20 MG TAB PO SCH ×2 (08:47→22:50)
[2016-09-27] MEDS: HEPARIN SODIUM,PORCINE 5,000 UNIT/ML 1 ML VIAL SQ SCH ×2 (08:47→22:48)
[2016-09-27] MEDS: ASPIRIN 81 MG CHEW PO SCH (08:47)
[2016-09-27] MEDS: INSULIN LISPRO (humaLOG) 300 UNIT/3 ML VIAL SQ SCH ×4 (08:47→21:52)
--- NOTE | 2016-09-27 10:06 | PN ---
Mr. Vaughn is a 76-year-old male admitted to the hospital with altered mental status. He is relatively more awake and alert. He is breathing comfortably, no obvious distress present. Hemodynamic status is stable. Last set of vitals include blood pressure is 130/70, respiratory rate 16, pulse 85, temperature 98, saturation 94%. HEENT: Unremarkable. NECK: Supple. LUNGS: Good air entry bilaterally. HEART: Regular rate and rhythm. Abdomen is soft. NEUROLOGICAL EXAMINATION: Otherwise, awake, alert. Labs reviewed. Medications reviewed as well. IMPRESSION: 1. Bilateral basal pneumonia. 2. Acute chronic obstructive pulmonary disease exacerbation. 3. ( ) associated with apnea, intermittent while sleeping. 4. Purulent tracheobronchitis. PLAN AND RECOMMENDATION: Continue antibiotics, supportive care. Follow clinical course closely. Follow this patient in outpatient setting. Will follow.
[2016-09-27 12:22] LABS: Glucose,Whole Blood 176 mg/dL (75-99)
--- NOTE | 2016-09-27 13:53 | P.PN ---
Subjective 76-year-old being seen on rounds. Sitting up in bed taking a diet. at bedside updated on plan of care. Patient is noted to be less confused this morning is oriented to self and place. Reportedly has been cooperative this been no agitated behavior continues to have intermittent episodes of audibly wheezing nasal cannula at 2 L keeping a sat 92% harsh nonproductive cough noted Objective - Vital Signs Vital signs: Vital Signs Temp 98.1 F 09/27/16 07:00 Pulse 80 09/27/16 11:37 Resp 19 09/27/16 08:00 BP 146/90 09/27/16 07:00 Pulse Ox 97 09/27/16 07:00 Intake & Output 09/26/16 09/27/16 09/27/16 18:59 06:59 18:59 Intake Total 310 Balance 310 Intake: IV 110 0.9 NS @ 10 ml/hr 110 Oral 200 Other: Voiding Method Urinal Incontinent Incontinent Incontinent # Voids 2 1 # Bowel Movements 1 - Exam Physical exam 76-year-old sitting up in bed feeding self pleasant less confused oriented to self at bedside there were no new events noted during the night Lungs coarse rhonchi throughout with bilateral prolonged expiratory wheezing noted harsh nonproductive cough noted nasal cannula at 2 L sats are 92% Heart S1-S2 audible and regular no chest pain noted no murmur Abdomen soft nontender incontinent of urine no stool Extremities no edema noted to the upper or lower extremities - Labs CBC & Chem 7: 09/25/16 10:39 09/25/16 10:39 Labs: Abnormal Lab Results - Last 24 Hours (Table) 09/26/16 09/26/16 09/27/16 Range/Units 17:32 21:31 07:15 POC Glucose (mg/dL) 180 H 141 H 127 H (75-99) mg/dL 09/27/16 Range/Units 12:21 POC Glucose (mg/dL) 176 H (75-99) mg/dL Assessment and Plan Plan: Impression Chronic encephalopathy with behavior changes Abnormal CAT scan of the brain 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 Progressive dementia with memory impairment Chronic debility Present on admission conjunctivitis involving bilateral eyes Present on admission acute encephalopathy unclear etiology History of a fall 24 hours before admission with a CAT scan of the brain in the emergency room no acute findings Shortness of breath with audible wheezing suspect due to aspiration pneumonia with bronchitis Plan DC IV Solu-Medrol short taper oral prednisone Resume home meds as appropriate DVT and GI prophylaxis PT OT eval Treat the conjunctivitis with eyedrops as ordered Start IV antibiotic Levaquin and Rocephin Indicates that home care is not indicated that she has adequate support Pulmicort as ordered Aspiration precautions Aerosol bronchodilators as ordered The above dictated assessment and findings were discussed with dr shrestha . Impression and the plan of care have been dictated as directed. Leandra Salazar nurse practitioner acting as a scribe for dr shrestha
[2016-09-27] MEDS: predniSONE 20 MG TAB PO SCH (16:27)
[2016-09-27 16:47] LABS: Glucose,Whole Blood 126 mg/dL (75-99)
--- NOTE | 2016-09-27 19:55 | PN ---
DATE OF SERVICE: 09/26/2016 CHIEF COMPLAINT: Aspiration pneumonia. HISTORY OF PRESENT ILLNESS: This gentleman is continuing to have some respiratory issues. He still has a lot of lung congestion and wheezing. Pulse ox was adequate. PHYSICAL EXAMINATION: He has generalized rhonchi throughout with wheezing and decreased breath sounds. Cardiac demonstrates tachycardia. The abdomen is soft. IMPRESSION: 1. Aspiration pneumonia. 2. Dementia. PLAN: Continue with inpatient treatment until his lungs have improved enough to safely go home.
--- NOTE | 2016-09-27 20:07 | PN ---
DATE OF SERVICE: 09/27/2016 CHIEF COMPLAINT: Aspiration pneumonia. HISTORY OF PRESENT ILLNESS: This patient is doing a little bit better, but intermittently he becomes extremely congested and short of breath. He has difficulty coughing up secretions. PHYSICAL EXAMINATION: He is awake and alert, but very confused. Chest demonstrates rhonchi and rales bilaterally, although they are slightly better than yesterday. IMPRESSION: 1. Aspiration pneumonia. 2. Dementia. PLAN: Continue on current program until he is clear enough to go home.
[2016-09-27 21:41] LABS: Glucose,Whole Blood 250 mg/dL (75-99)
[2016-09-27] MEDS: DONEPEZIL 5 MG TAB PO SCH (22:50)
[2016-09-28] MEDS: TOBRA-DEXAMET 0.3-0.1% OPHTH DROPS 2.5 ML BTL BOTH EYES SCH ×5 (04:32→21:37)
[2016-09-28 07:42] LABS: Glucose,Whole Blood 132 mg/dL (75-99)
[2016-09-28] MEDS: IPRATROPIUM-ALBUTEROL 3 ML NEB INHALATION SCH ×4 (07:45→19:51)
[2016-09-28] MEDS: BUDESONIDE 0.5 MG/2 ML NEBU INHALATION SCH ×2 (07:45→19:50)
[2016-09-28] MEDS: INSULIN LISPRO (humaLOG) 300 UNIT/3 ML VIAL SQ SCH ×4 (08:07→21:37)
[2016-09-28] MEDS: MEMANTINE 10 MG TAB PO SCH ×2 (08:07→20:21)
[2016-09-28] MEDS: predniSONE 20 MG TAB PO SCH (08:07)
[2016-09-28] MEDS: LEVOFLOXACIN 500 MG TAB PO SCH (08:07)
[2016-09-28] MEDS: ASPIRIN 81 MG CHEW PO SCH (08:07)
[2016-09-28] MEDS: FAMOTIDINE 20 MG TAB PO SCH ×2 (08:07→20:21)
[2016-09-28] MEDS: HEPARIN SODIUM,PORCINE 5,000 UNIT/ML 1 ML VIAL SQ SCH ×2 (08:09→21:21)
--- NOTE | 2016-09-28 10:32 | P.PN ---
Subjective 76-year-old male being seen on rounds. A sitter at the bedside. Patient reportedly per nursing has had episodes of confusion during the night. Currently patient is up sitting in a chair. On room air sats are documented 93% . Patient's afebrile. Patient continues to have intermittent episodes of confusion. Pleasant cooperative oriented to self and place no recall of event. No shortness of breath noted no cough noted Objective - Vital Signs Vital signs: Vital Signs Temp 97.1 F L 09/28/16 07:00 Pulse 82 09/28/16 08:00 Resp 20 09/28/16 07:00 BP 136/85 09/28/16 07:00 Pulse Ox 93 L 09/28/16 07:00 Intake & Output 09/27/16 09/28/16 09/28/16 18:59 06:59 18:59 Intake Total 110 Balance 110 Intake: IV 110 0.9 NS @ 10 ml/hr 110 Other: Voiding Method Incontinent Incontinent # Voids 2 1 # Bowel Movements 1 - Exam Physical exam 76-year-old male sitting up in a chair appears in no acute distress pleasant oriented to person and place Lungs diminished at the bases otherwise adequate air movement no wheezing noted this morning no cough noted no shortness of breath with conversation no use of accessory muscles to breathe on room air sats are 95% Heart S1-S2 audible and regular denying chest pain no murmur Abdomen soft nontender is incontinent of urine no nausea no vomiting Extremities no edema noted to the upper or lower extremity - Labs CBC & Chem 7: 09/25/16 10:39 09/25/16 10:39 Labs: Abnormal Lab Results - Last 24 Hours (Table) 09/27/16 09/27/16 09/27/16 Range/Units 12:21 16:45 21:30 POC Glucose (mg/dL) 176 H 126 H 250 H (75-99) mg/dL 09/28/16 Range/Units 07:39 POC Glucose (mg/dL) 132 H (75-99) mg/dL Assessment and Plan Plan: Impression Chronic encephalopathy with behavior changes Abnormal CAT scan of the brain 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 Progressive dementia with memory impairment Chronic debility Present on admission conjunctivitis involving bilateral eyes Present on admission acute encephalopathy unclear etiology History of a fall 24 hours before admission with a CAT scan of the brain in the emergency room no acute findings Shortness of breath with audible wheezing suspect due to aspiration pneumonia with bronchitis Plan DC IV Solu-Medrol and oral prednisone suspect contributes to increased confusion Resume home meds as appropriate DVT and GI prophylaxis PT OT eval Treat the conjunctivitis with eyedrops as ordered Start IV antibiotic Levaquin and Rocephin Indicates that home care is not indicated that she has adequate support Pulmicort as ordered Aspiration precautions Aerosol bronchodilators as ordered The above dictated assessment and findings were discussed with dr shrestha . Impression and the plan of care have been dictated as directed. Leandra Salazar nurse practitioner acting as a scribe for dr shrestha
[2016-09-28 11:45] LABS: Glucose,Whole Blood 234 mg/dL (75-99)
--- NOTE | 2016-09-28 15:36 | P.CONS ---
History of Present Illness - Chief Complaint Gait disturbance and confusion - History of Present Illness Had the op to see patient for inpatient rehab consultation with regard to gait disturbance and confusion. He was admitted to [facility] with mental status change. Chest x-rays followed and demonstrated only hypoventilation. Head CT consistent consistent with possible NPH. PT reports supervision for mobility. Ablates 125 feet apparently without device. OT discontinued as patient was thought to be at premorbid functional level. Speech therapy prescribed. Previous functional history: As elicited from patient. 76-year-old right- handed white male who is single and retired. He is unable to give me any other answers to any specific questions including home versus apartment, number floors , etc. Review of Systems Review of systems: The patient was a a poor historian and review of systems elicited from chart and exam. ENT: Denies sneezes or discharge. Eyes: Denies discharge or photophobia. Cardiac: Denies chest pain or palpitation. Pulmonary: Denies cough or shortness of breath. Gastrointestinal: Denies nausea, emesis, constipation, diarrhea. Genitourinary: Denies discharge or frequency. Musculoskeletal: Denies muscle or bone aches. Neurologic: In general confusion. Endocrine: Denies shakes or sweats. Oncology: Denies cancers. Dermatologic: Denies rash, itching, pruritus. ALLERGY/immunology: Denies sneezes, rashes. Past Medical History Past Medical History: Dementia, Memory Impairment, Prostate Disorder Additional Past Medical History / Comment(s): Dementia/ALZHEIMERS History of Any Multi-Drug Resistant Organisms: None Reported Past Surgical History: No Surgical Hx Reported Additional Past Surgical History / Comment(s): darrian rotator cuff. FAMILY STATES OVER 30 YEARS AGO PT HAD SOME TYPE OF PROSTATE PROCEDURE. UNCERTAIN WHAT. Past Anesthesia/Blood Transfusion Reactions: No Reported Reaction Additional Past Anesthesia/Blood Transfusion Reaction / Comm: difficulty coming out Past Psychological History: No Psychological Hx Reported Smoking Status: Never smoker Past Alcohol Use History: Rare Past Drug Use History: None Reported - Past Family History Father Family Medical History: Cancer Additional Family Medical History / Comment(s): lung ca Mother Family Medical History: Cancer Additional Family Medical History / Comment(s): ovarian cancer Son(s) Family Medical History: Cancer Additional Family Medical History / Comment(s): rhabdomyo sarcoma (SON). ADRENOCORTICOSARCONOMA (GRANDSON) Medications and Allergies Home Medications Medication Instructions Recorded Confirmed Type Donepezil [Aricept] 15 mg PO HS 07/29/16 09/23/16 History Dm/PE/Acetaminophen/Doxylamine 1 cap PO BID PRN 09/23/16 09/23/16 History [Tammy-Wellington Plus Day-Night Cp] Allergies Allergy/AdvReac Type Severity Reaction Status Date / Time No Known Allergies Allergy Verified 09/23/16 13:12 Physical Exam Vitals: Vital Signs Temp Pulse Pulse Resp BP Pulse Ox 09/28/16 15:00 96.7 F L 84 19 139/78 93 L 09/28/16 11:45 86 09/28/16 11:44 84 09/28/16 08:00 82 20 09/28/16 07:45 78 09/28/16 07:00 97.1 F L 70 20 136/85 93 L 09/27/16 22:13 98.0 F 82 18 138/89 09/27/16 20:03 84 09/27/16 19:53 84 09/27/16 19:24 16 09/27/16 16:20 80 09/27/16 16:12 76 09/27/16 16:00 19 Intake and Output 09/28/16 09/28/16 09/28/16 06:59 14:59 22:59 Intake Total 110 Balance 110 Intake: IV 110 0.9 NS @ 10 ml/hr 110 Other: Voiding Method Incontinent Incontinent # Voids 1 3 Skin: Good color, texture, turgor. General: Medium build and comfortable appearance. Head: Normocephalic, atraumatic. Eyes: Symmetric. Pupils equal round. Ears: Symmetric. Hearing within normal limits. Mouth: Clear. Neck: Supple. Carotid without bruit. Cardiac: Regular rate and rhythm. Lungs: Clear anteriorly and posteriorly. Abdomen: Soft active nontender. Extremities: Normal tone. Neurological: Mental status: Alert, cooperative, pleasant. He was really unable to answer any questions or factual information. Had difficulty following verbal commands, required verbal and physical commands. Cranial nerves: Symmetric facial tone and trapezius. Motor: Active movement all limbs. Sensation: Intact throughout. DTRs: Symmetric and equal throughout. Mobility: Stands from low Yessica chair with standby assist for safety. Results CBC & Chem 7: 09/25/16 10:39 09/25/16 10:39 Labs: Abnormal Lab Results - Last 24 Hours (Table) 09/27/16 09/27/16 09/28/16 Range/Units 16:45 21:30 07:39 POC Glucose (mg/dL) 126 H 250 H 132 H (75-99) mg/dL 09/28/16 Range/Units 11:43 POC Glucose (mg/dL) 234 H (75-99) mg/dL Chest x-ray: report reviewed (. serial chest x-rays followed and note only hypoventilation. ) CT Scan - head: report reviewed (Consistent with NPH) Assessment and Plan Plan: Impression: 1. Gait disturbance. 2. Mental status change. 3. NPH. 4. History of alcohol abuse. 5. History dementia. Comments and plan: At this time safety concerns are noted would appear to be related poor mentation which could be underlying dementia. As I'm not familiar with patient, cannot comments and how this may be different than prior to admission. I do note that the therapies, PT and OT, have discontinued due to obtaining premorbid functional levels. This includes ambulating 175 feet without device or loss of balance. At this time, would appear that patient would require a disposition that entails 24/7 close supervision. He would need to have advanced ADL activities done for him.
[2016-09-28 17:25] LABS: Glucose,Whole Blood 272 mg/dL (75-99)
--- NOTE | 2016-09-28 17:33 | PN ---
DATE OF SERVICE: Mr. Vaughn was seen, evaluated and examined. Mr. Vaughn is a 76-year-old male was admitted to hospital bilateral pneumonia and confusion. Clinically has been doing well. More awake and alert, breathing comfortably. Blood pressure 140/80, respiratory rate 20, pulse 84, temperature 98.7, 93% on 2 liters. HEENT: Unremarkable. NECK: Supple. LUNGS: Good air entry bilaterally. HEART: Regular rate and rhythm. S1 and S2 audible. ABDOMEN: Soft. No rebound or rigidity. EXTREMITIES: +1 peripheral pulses. NEUROLOGICAL EXAMINATION: Examination not much change. Continued to have issues associated with dementia. IMPRESSION AND PLAN: 1. Bilateral pneumonia continue supportive care. Maintain patient on deep venous thrombosis prophylaxis. 2. Episodes of apnea and likely sleep-disordered breathing and sleep apnea to be sleep study is to be considered in outpatient setting. 3. Generalized weakness and medical debility. The patient is being evaluated by the rehab. Patient likely will be placed in an extended care facility as per recommendation of the rehab. We will follow.
[2016-09-28] MEDS: methylPREDNISolone SOD SUCCI 125 MG/2 ML VIAL IV SCH (18:10)
[2016-09-28] MEDS: MONTELUKAST 10 MG TAB PO SCH (20:21)
[2016-09-28] MEDS: DONEPEZIL 5 MG TAB PO SCH (20:21)
[2016-09-28 21:38] LABS: Glucose,Whole Blood 212 mg/dL (75-99)
[2016-09-29] MEDS: TOBRA-DEXAMET 0.3-0.1% OPHTH DROPS 2.5 ML BTL BOTH EYES SCH ×7 (00:46→23:22)
[2016-09-29] MEDS: methylPREDNISolone SOD SUCCI 125 MG/2 ML VIAL IV SCH (00:47)
[2016-09-29] MEDS: BUDESONIDE 0.5 MG/2 ML NEBU INHALATION SCH ×2 (07:42→19:22)
[2016-09-29] MEDS: IPRATROPIUM-ALBUTEROL 3 ML NEB INHALATION SCH ×4 (07:42→19:22)
[2016-09-29 07:44] LABS: Glucose,Whole Blood 199 mg/dL (75-99)
[2016-09-29] MEDS: ASPIRIN 81 MG CHEW PO SCH (08:14)
[2016-09-29] MEDS: LEVOFLOXACIN 500 MG TAB PO SCH (08:14)
[2016-09-29] MEDS: FAMOTIDINE 20 MG TAB PO SCH ×2 (08:14→20:15)
[2016-09-29] MEDS: INSULIN LISPRO (humaLOG) 300 UNIT/3 ML VIAL SQ SCH ×4 (08:14→21:01)
[2016-09-29] MEDS: HEPARIN SODIUM,PORCINE 5,000 UNIT/ML 1 ML VIAL SQ SCH ×2 (08:14→20:15)
[2016-09-29] MEDS: MEMANTINE 10 MG TAB PO SCH ×2 (08:15→20:15)
--- NOTE | 2016-09-29 10:06 | PN ---
DATE OF SERVICE: 09/29/2016 Mr. Ky Vaughn is a 76-year-old male, seen, evaluated and examined on fourth floor. Clinically patient is doing well. Cough, congestion, shortness of breath is improved. Patient has very advanced dementia. His respiratory symptoms have improved significantly. His last set of vitals include blood pressure 129/76, respiratory rate 19, pulse 72 to 80, temperature ( ), saturation is 92% on room air. HEENT: Unremarkable. NECK: Supple. LUNGS: Good air entry bilaterally. HEART: Regular rate and rhythm. ABDOMEN: Soft. NEUROLOGICAL EXAMINATION: Not much change. LABORATORY DATA: Reviewed. Medications reviewed as well. Urine culture no growth. Blood culture no growth. Last few colony count was seen, which was contaminated in the urine culture though. Last chest x-ray performed 09/25/16 reviewed and compared with prior x-ray, some basal pneumonia cannot be excluded. Current medications reviewed and include DuoNeb updraft 4 times a day, aspirin, Rocephin, donepezil, heparin, sliding scale insulin, Levaquin, Singulair and TobraDex eye drop. IMPRESSION: 1. Bilateral pneumonia. 2. Apneic events likely sleep disorder, breathing and sleep apnea to be evaluated further in outpatient setting. 3. Advanced dementia, Alzheimer's disease. PLAN AND RECOMMENDATIONS: As above. Continue supportive care. Will obtain a follow-up chest x-ray on Saturday.
[2016-09-29 12:14] LABS: Glucose,Whole Blood 284 mg/dL (75-99)
--- NOTE | 2016-09-29 15:35 | PN ---
He was seen on 09/29/2016. He is more awake, alert and following commands. On physical examination, blood pressure 129/76, respiratory rate 19, pulse rate of 72, temperature 97.3, O2 sat on room air is 92%. HEENT is unremarkable. Chest reveals occasional wheeze. Cardiovascular system reveals an S1 and S2. Abdomen is soft. There is no pedal edema. IMPRESSION AT THIS TIME: 1. Bronchospasm for which he received a short course of steroids. 2. Pneumonia. 3. Medical debility. 4. Dementia. At this point in time, patient had been seen by physical medicine and rehab. We will try to see if he is a candidate for inpatient or outpatient physical therapy. Would continue bronchodilators, increase his activity level. I did discuss care plan with the family.
[2016-09-29 17:16] LABS: Glucose,Whole Blood 177 mg/dL (75-99)
[2016-09-29] MEDS: MONTELUKAST 10 MG TAB PO SCH (20:15)
[2016-09-29] MEDS: DONEPEZIL 5 MG TAB PO SCH (20:15)
[2016-09-29 21:04] LABS: Glucose,Whole Blood 222 mg/dL (75-99)
[2016-09-30] MEDS: TOBRA-DEXAMET 0.3-0.1% OPHTH DROPS 2.5 ML BTL BOTH EYES SCH ×6 (04:38→22:56)
[2016-09-30 07:41] LABS: Glucose,Whole Blood 110 mg/dL (75-99)
[2016-09-30 08:05] VITALS: RESP 19
[2016-09-30] MEDS: INSULIN LISPRO (humaLOG) 300 UNIT/3 ML VIAL SQ SCH ×4 (08:23→21:40)
[2016-09-30] MEDS: IPRATROPIUM-ALBUTEROL 3 ML NEB INHALATION SCH ×4 (09:07→20:51)
[2016-09-30] MEDS: BUDESONIDE 0.5 MG/2 ML NEBU INHALATION SCH ×2 (09:07→20:51)
[2016-09-30] MEDS: LEVOFLOXACIN 500 MG TAB PO SCH (09:16)
[2016-09-30] MEDS: FAMOTIDINE 20 MG TAB PO SCH ×2 (09:16→21:39)
[2016-09-30] MEDS: ASPIRIN 81 MG CHEW PO SCH (09:16)
[2016-09-30] MEDS: MEMANTINE 10 MG TAB PO SCH ×2 (09:16→21:39)
[2016-09-30] MEDS: HEPARIN SODIUM,PORCINE 5,000 UNIT/ML 1 ML VIAL SQ SCH ×2 (09:17→21:39)
[2016-09-30 12:01] LABS: Glucose,Whole Blood 135 mg/dL (75-99)
[2016-09-30 17:35] LABS: Glucose,Whole Blood 112 mg/dL (75-99)
[2016-09-30 21:35] LABS: Glucose,Whole Blood 176 mg/dL (75-99)
[2016-09-30] MEDS: MONTELUKAST 10 MG TAB PO SCH (21:39)
[2016-09-30] MEDS: DONEPEZIL 5 MG TAB PO SCH (21:40)
[2016-10-01] MEDS: TOBRA-DEXAMET 0.3-0.1% OPHTH DROPS 2.5 ML BTL BOTH EYES SCH ×3 (03:41→13:26)
[2016-10-01 07:35] LABS: Glucose,Whole Blood 106 mg/dL (75-99)
[2016-10-01] MEDS: IPRATROPIUM-ALBUTEROL 3 ML NEB INHALATION SCH ×2 (07:49→11:28)
[2016-10-01] MEDS: BUDESONIDE 0.5 MG/2 ML NEBU INHALATION SCH (07:49)
[2016-10-01] MEDS: INSULIN LISPRO (humaLOG) 300 UNIT/3 ML VIAL SQ SCH ×2 (08:00→13:26)
[2016-10-01] MEDS: HEPARIN SODIUM,PORCINE 5,000 UNIT/ML 1 ML VIAL SQ SCH (08:02)
[2016-10-01] MEDS: FAMOTIDINE 20 MG TAB PO SCH (08:02)
[2016-10-01] MEDS: ASPIRIN 81 MG CHEW PO SCH (08:02)
[2016-10-01] MEDS: MEMANTINE 10 MG TAB PO SCH (08:02)
[2016-10-01] MEDS: LEVOFLOXACIN 500 MG TAB PO SCH (08:02)
[2016-10-01 09:19] VITALS: BP 156/87; TEMP 97.5
--- NOTE | 2016-10-01 09:21 | XR ---
EXAMINATION TYPE: XR chest 2V DATE OF EXAM: 10/01/2016 9:09 AM COMPARISON: 09/25/2016 HISTORY: Shortness of breath TECHNIQUE: Frontal and lateral views of the chest are obtained. FINDINGS: Scattered senescent parenchymal changes noted. Hyperinflation compatible with COPD. No evidence for infiltrate. No evidence for atelectasis. Heart size is stable. Mediastinal structures are stable and grossly unremarkable. No evidence for hilar prominence. Degenerative changes dorsal spine. IMPRESSION: 1. No evidence for acute pulmonary disease.
--- NOTE | 2016-10-01 10:04 | PN ---
DATE OF SERVICE: 09/30/2016 He has remained hemodynamically stable. He does not seem to be in any respiratory distress. On physical examination, his blood pressure is 122/82, respiratory rate 19, pulse rate of 76, temperature 96.9, O2 sat on room air is 96%. HEENT is unremarkable. Chest is clear today. Cardiovascular S1 and S2. Abdomen is soft. There is no pedal edema. IMPRESSION: 1. Bronchospasm. 2. Pneumonia. 3. Medical debility. 4. Dementia. Continue bronchodilators and aerosolized steroids. Increase his activity level. His prognosis at this time is fair.
--- NOTE | 2016-10-01 10:30 | P.DS ---
Providers Date of admission: 09/25/16 09:53 Expected date of discharge: 10/01/16 Attending physician: Tyrone Ferrera Consults: 09/25/16 09:59 Consult Physician Urgent Consulting Provider: Luis Banegas Consult Reason/Comments: Pulmonary management ? asp pneumonia Do you want consulting provider notified?: Yes 09/28/16 13:57 Consult Physician Routine Consulting Provider: Nithin Ball Consult Reason/Comments: medical debility Do you want consulting provider notified?: Yes Primary care physician: Tyrone Ferrera Hospital Course: 76-year-old presented on the day of admission to the emergency room via the EMS system after family noted patient to be significantly confused would not follow simple commands oriented to self only. Patient does have dementia but the states that he the mental status changes were acute and new. Patient additionally was too weak to ambulate which is unusual for the patient. The stated that she did not note any fever at home. But the patient was noted to be having difficulty in breathing. There was no recent nausea vomiting. The states the patient did fall the day before at the house she believes he hit his head. Given the above clinical presentation the patient was admitted to the services of the attending. A pulmonology consultation was obtained. Patient was treated by pulmonology for bilateral pneumonia and bronchospasm with an exacerbation of COPD. Patient received a short course of steroids. Patient was started on aerosol bronchodilators and monitor closely. Patient this admission did have an episode of apnea could be contributed to a sleep disorder breathing also had an episode on room air patient's pulse ox sat was in the 80s. Over the course of the hospitalization the patient's symptoms significantly improved and on the day of discharge the chest x-ray showed an improvement and patient was felt to be back to his baseline and appropriate to proceed with a discharge to home. Patient was seen by Dr. Ball was felt not to be a candidate for inpatient rehab. 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 Ferrera Impression and the plan of care have been dictated as directed. Leandra Salazar nurse practitioner acting as a scribe for Dr. Ferrera. Plan - Discharge Summary New Discharge Prescriptions: Levofloxacin [Levaquin] 500 mg PO Q24H #7 tab Montelukast [Singulair] 10 mg PO HS #30 tab Discharge Medication List Memantine [Namenda] 10 mg PO BID #60 tab 02/24/15 [Rx] Donepezil [Aricept] 15 mg PO HS 07/29/16 [History] Dm/PE/Acetaminophen/Doxylamine [Tammy-[place] Plus Day-Night Cp] 1 cap PO BID PRN 09/23/16 [History] Aspirin 81 mg PO DAILY chew 10/01/16 [Rx] INSULIN LISPRO (humaLOG) [humaLOG (formulary)] 0 unit SQ ACHS vial 10/01/16 [Rx ] Levofloxacin [Levaquin] 500 mg PO Q24H #7 tab 10/01/16 [Rx] Montelukast [Singulair] 10 mg PO HS #30 tab 10/01/16 [Rx] Follow up Appointment(s)/Referral(s): Tyrone Ferrera MD [Primary Care Provider] - 1-2 days Luis Banegas MD [STAFF PHYSICIAN] - 1 Week Emeterio Roman MD [STAFF PHYSICIAN] - 10/03/16 Discharge Disposition: HOME SELF-CARE
[2016-10-01 11:32] VITALS: PULSE 76
[2016-10-01 12:20] LABS: Glucose,Whole Blood 127 mg/dL (75-99)
== END 2016-10-01 14:06 | disposition home or self-care (01) | DRG 190 ==
LOC: EC 11:57 → 4MS4W 14:15 → OBSVTOIN 09-25 09:53
PROVIDERS: ADMIT Family Medicine; ATTEND Family Medicine
DX: J44.0 Chronic obstructive pulmonary disease with (acute) lower respiratory infection (principal); J69.0 Pneumonitis due to inhalation of food and vomit; G93.41 Metabolic encephalopathy; G91.2 (Idiopathic) normal pressure hydrocephalus; G30.9 Alzheimer's disease, unspecified; J20.9 Acute bronchitis, unspecified; F02.80 Dementia in other diseases classified elsewhere, unspecified severity, without behavioral disturbance, psychotic disturbance, mood disturbance, and anxiety; E11.9 Type 2 diabetes mellitus without complications; J44.1 Chronic obstructive pulmonary disease with (acute) exacerbation; G47.30 Sleep apnea, unspecified; H10.9 Unspecified conjunctivitis; J98.01 Acute bronchospasm; Z87.891 Personal history of nicotine dependence; Z79.899 Other long term (current) drug therapy; Z79.82 Long term (current) use of aspirin
CPT/HCPCS: 36415; 70450; 71020; 80053; 81001; 82550; 82553; 83605; 84439; 84443; 84484; 85025; 85379; 85610; 85730; 87040; 87086; 87502; 93005; 94640; 94760; 96360; 96361; 96372; 99285

== ENCOUNTER 2017-04-20 21:03 | Emergency (ER) | payer MEDICARE, BC ==
[2017-04-20 21:23] VITALS: BP 133/96; PULSE 72; RESP 18; TEMP 97.2
[2017-04-20] MEDS ORDERED: SODIUM CHLORIDE 0.9% 1,000 ML IV STA ×2 (21:47)
[2017-04-20 22:19] LABS: Basophils # (A) 0.1 k/uL (0-0.2); Basophils % (A) 1 %; CH 32.8; CHCM 35.1; Eosinophils # (A) 0.2 k/uL (0-0.7); Eosinophils % (A) 3 %; HDW 2.94; HGB 13.8 gm/dL (13.0-17.5); Luc % (Auto) 1; Lymphocytes # (A) 1.3 k/uL (1.0-4.8); Lymphocytes % (A) 18 %; MCH 31.8 pg (25.0-35.0); MCHC 33.8 g/dL (31.0-37.0); MCV 94.2 fL (80.0-100.0); Mean Platelet Volume 7.3; Monocytes # (A) 0.4 k/uL (0-1.0); Monocytes % (A) 6 %; Neutrophils # (A) 5.1 k/uL (1.3-7.7); Neutrophils % (A) 70 %; RBC 4.35 m/uL (4.30-5.90); RDW 13.9 % (11.5-15.5); WBC 7.3 k/uL (3.8-10.6); WBC (Perox) 7.15
[2017-04-20 22:27] LABS: Potassium 4.2 mmol/L (3.5-5.1); Total Bilirubin 0.3 mg/dL (0.2-1.3); Total Protein 6.1 g/dL (6.3-8.2)
[2017-04-20 22:37] LABS: Creatine Kinase 36 U/L (55-170)
[2017-04-20 22:42] LABS: Partial Thromboplastin Time 22.9 sec (22.0-30.0); Prothrombin Time 10.4 sec (9.0-12.0)
[2017-04-20 22:50] LABS: Creatine Kinase MB 0.3 ng/mL (0.0-2.4); Troponin I <0.012 ng/mL (0.000-0.034)
--- NOTE | 2017-04-20 23:07 | XR ---
EXAM: XR Chest, 2 Views CLINICAL HISTORY: Reason: syncope TECHNIQUE: Frontal and lateral views of the chest. COMPARISON: 10/01/16 FINDINGS: Lungs: Unremarkable. No consolidation. Pleural space: Unremarkable. No pneumothorax. Heart: Mild cardiomegaly. Mediastinum: Unremarkable. Bones/joints: Unremarkable. IMPRESSION: No acute findings.
--- NOTE | 2017-04-20 23:09 | CT ---
EXAM: CT Head Without Intravenous Contrast CLINICAL HISTORY: Reason: syncope TECHNIQUE: Axial computed tomography images of the head/brain without intravenous contrast. DLP is 1860.20 mGy-cm. This CT exam was performed using one or more of the following dose reduction techniques: automated exposure control, adjustment of the mA and/or kV according to patient size, and/or use of iterative reconstruction technique. COMPARISON: 09/23/16 FINDINGS: Brain: Unremarkable. No hemorrhage. No significant white matter disease. No edema. Ventricles: Unremarkable. No ventriculomegaly. Bones/joints: Unremarkable. No acute fracture. Soft tissues: Unremarkable. Sinuses: Unremarkable as visualized. No acute sinusitis. Mastoid air cells: Unremarkable as visualized. No mastoid effusion. Other findings: Generalized atrophy. IMPRESSION: No acute findings.
--- NOTE | 2017-04-20 23:32 | ED ---
General Adult HPI - General Chief complaint: Fall Stated complaint: Fall Time Seen by Provider: 04/20/17 21:33 Source: patient, family, EMS, RN notes reviewed, old records reviewed Mode of arrival: EMS Limitations: no limitations - History of Present Illness Initial comments: Chief complaint history of present illness this is a 68-year-old male brought emergency room by his . Patient has been having diarrhea throughout the day. She helped him into the shower after stepping out of the shower he had what appears to been a syncopal episode. Patient does have dementia Alzheimer' s and his level of alertness and response can change significantly from minute to minute. At this time the patient's making jokes. But on the other hand he does not know where he is at. She reports is normal. He is not able to answer questions a normal fashion but she states that's chronic. He has denying pain. She was standing behind him him when he started to collapse. But now is able to stand. - Related Data Home Medications Medication Instructions Recorded Confirmed Donepezil [Aricept] 15 mg PO HS 07/29/16 09/23/16 Dm/PE/Acetaminophen/Doxylamine 1 cap PO BID PRN 09/23/16 09/23/16 [Tammy-[place] Plus Day-Night Cp] Previous Rx's Medication Instructions Recorded Memantine [Namenda] 10 mg PO BID #60 tab 02/24/15 Aspirin 81 mg PO DAILY chew 10/01/16 INSULIN LISPRO (humaLOG) [humaLOG 0 unit SQ ACHS vial 10/01/16 (formulary)] Levofloxacin [Levaquin] 500 mg PO Q24H #7 tab 10/01/16 Montelukast [Singulair] 10 mg PO HS #30 tab 10/01/16 Allergies Allergy/AdvReac Type Severity Reaction Status Date / Time No Known Allergies Allergy Verified 09/23/16 13:12 Review of Systems ROS Statement: Those systems with pertinent positive or pertinent negative responses have been documented in the HPI. Review of systems patient's denying headache. Denies chest pain. Past medical problems significant for dementia, Alzheimer's, prostate disorder. Never had any surgeries. Family history cancers include ovarian and lung cancers. Patient has no ALLERGIES. Nonsmoker quit drinking years ago. ROS Other: All systems not noted in ROS Statement are negative. Past Medical History Past Medical History: Dementia, Memory Impairment, Prostate Disorder Additional Past Medical History / Comment(s): Dementia/ALZHEIMERS History of Any Multi-Drug Resistant Organisms: None Reported Past Surgical History: No Surgical Hx Reported Additional Past Surgical History / Comment(s): darrian rotator cuff. FAMILY STATES OVER 30 YEARS AGO PT HAD SOME TYPE OF PROSTATE PROCEDURE. UNCERTAIN WHAT. Past Anesthesia/Blood Transfusion Reactions: No Reported Reaction Additional Past Anesthesia/Blood Transfusion Reaction / Comment(s): difficulty coming out Past Psychological History: No Psychological Hx Reported Smoking Status: Never smoker Past Alcohol Use History: Rare Past Drug Use History: None Reported - Past Family History Father Family Medical History: Cancer Additional Family Medical History / Comment(s): lung ca Mother Family Medical History: Cancer Additional Family Medical History / Comment(s): ovarian cancer Son(s) Family Medical History: Cancer Additional Family Medical History / Comment(s): rhabdomyo sarcoma (SON). ADRENOCORTICOSARCONOMA (GRANDSON) General Exam - General Exam Comments Initial Comments: General: The patient is awake and alert, in no distress, patient has Alzheimer's and per his he is acting in normal fashion this time. He is able to answer some questions but others not at all. Vital signs temp 97.2 pulse 72 respiratory rate 18 pulse ox 95% room air blood pressure 133/96. equal, round and reactive to light, extra-ocular movements are intact; there is normal conjunctiva bilaterally. No signs of icterus. Ears, nose, mouth and throat: There are moist mucous membranes and no oral lesions. Neck: The neck is supple, there is no tendernes, no carotid bruit. ascular: There is a regular rate and rhythm. No murmur, rub or gallop is appreciated. Respiratory: Lungs are clear to auscultation, respirations are non-labored, breath sounds are equal. No wheezes, stridor, rales, or rhonchi. Gastrointestinal: Soft, non-distended, non-tender abdomen without masses or organomegaly noted. There is no rebound or guarding present. No CVA tenderness. Bowel sounds are unremarkable. Back: There is no tenderness to palpation in the midline. There is no obvious deformity. No rashes noted. Musculoskeletal: Normal ROM, no tenderness, There is no pedal edema. There is no calf tenderness or swelling. Sensation intact. Pulses equal bilaterally 2+. Neurological: Due to his Alzheimer's the patient does not follow commands at all. He does imitate what I was doing . Skin is warm and dry and no rashes or lesions are noted. Limitations: no limitations Course Vital Signs 04/20/17 21:19 Temperature 97.2 F L Pulse Rate 72 Respiratory 18 Rate Blood Pressure 133/96 O2 Sat by Pulse 95 Oximetry Medical Decision Making - Medical Decision Making Medical decision-making. The patient's white count 7.3 hemoglobin 13.8 hematocrit of 41. INR 1.0, potassium 4.2 with a BUN 15 creatinine 1.4 the GFR 49. Sugar 161. Troponin less than 0.012. Urine is clean no signs of infection. CT of the brain was done and reviewed by the radiologist. The findings were reviewed. The final impression is; no acute findings. As read by Dr. Mcadams I discussed with at bedside and the patient's son and appears the patient may have had a vasovagal episode. Neurologically unchanged. He does have Alzheimer's which makes it very difficult to determine memory loss etc. feels as though he is behaving in normal fashion at this time. I discussed the patient with his son who is also emergency room doctor. The was told to change positions slowly make sure he drinks increase fluids. And follow-up in due course for reevaluation by her family doctor. - Lab Data Result diagrams: 04/20/17 22:02 04/20/17 22:02 Lab Results 04/20/17 04/20/17 04/20/17 Range/Units 22:02 22:02 22:02 WBC 7.3 (3.8-10.6) k/uL RBC 4.35 (4.30-5.90) m/uL Hgb 13.8 (13.0-17.5) gm/dL Hct 41.0 (39.0-53.0) % MCV 94.2 (80.0-100.0) fL MCH 31.8 (25.0-35.0) pg MCHC 33.8 (31.0-37.0) g/dL RDW 13.9 (11.5-15.5) % Plt Count 336 (150-450) k/uL Neutrophils % 70 % Lymphocytes % 18 % Monocytes % 6 % Eosinophils % 3 % Basophils % 1 % Neutrophils # 5.1 (1.3-7.7) k/uL Lymphocytes # 1.3 (1.0-4.8) k/uL Monocytes # 0.4 (0-1.0) k/uL Eosinophils # 0.2 (0-0.7) k/uL Basophils # 0.1 (0-0.2) k/uL PT (9.0-12.0) sec INR (<1.2) APTT (22.0-30.0) sec D-Dimer (<0.60) mg/L FEU Sodium 145 (137-145) mmol/L Potassium 4.2 (3.5-5.1) mmol/L Chloride 109 H (98-107) mmol/L Carbon Dioxide 25 (22-30) mmol/L Anion Gap 11 mmol/L BUN 15 (9-20) mg/dL Creatinine 1.40 H (0.66-1.25) mg/dL Est GFR (MDRD) Af Amer 59 (>60 ml/min/1.73 sqM) Est GFR (MDRD) Non-Af 49 (>60 ml/min/1.73 sqM) Glucose 161 H (74-99) mg/dL Calcium 9.0 (8.4-10.2) mg/dL Total Bilirubin 0.3 (0.2-1.3) mg/dL AST 18 (17-59) U/L ALT 26 (21-72) U/L Alkaline Phosphatase 106 (38-126) U/L Total Creatine Kinase 36 L (55-170) U/L CK-MB (CK-2) 0.3 (0.0-2.4) ng/mL CK-MB (CK-2) Rel Index 0.8 Troponin I <0.012 (0.000-0.034) ng/mL Total Protein 6.1 L (6.3-8.2) g/dL Albumin 3.6 (3.5-5.0) g/dL Urine Color Urine Appearance (Clear) Urine pH (5.0-8.0) Ur Specific [place] (1.001-1.035) Urine Protein (Negative) Urine Glucose (UA) (Negative) Urine Ketones (Negative) Urine Blood (Negative) Urine Nitrite (Negative) Urine Bilirubin (Negative) Urine Urobilinogen (<2.0) mg/dL Ur Leukocyte Esterase (Negative) Urine RBC (0-5) /hpf Urine WBC (0-5) /hpf Urine Mucus (None) /hpf 04/20/17 04/21/17 Range/Units 22:02 00:09 WBC (3.8-10.6) k/uL RBC (4.30-5.90) m/uL Hgb (13.0-17.5) gm/dL Hct (39.0-53.0) % MCV (80.0-100.0) fL MCH (25.0-35.0) pg MCHC (31.0-37.0) g/dL RDW (11.5-15.5) % Plt Count (150-450) k/uL Neutrophils % % Lymphocytes % % Monocytes % % Eosinophils % % Basophils % % Neutrophils # (1.3-7.7) k/uL Lymphocytes # (1.0-4.8) k/uL Monocytes # (0-1.0) k/uL Eosinophils # (0-0.7) k/uL Basophils # (0-0.2) k/uL PT 10.4 (9.0-12.0) sec INR 1.0 (<1.2) APTT 22.9 (22.0-30.0) sec D-Dimer 0.44 (<0.60) mg/L FEU Sodium (137-145) mmol/L Potassium (3.5-5.1) mmol/L Chloride (98-107) mmol/L Carbon Dioxide (22-30) mmol/L Anion Gap mmol/L BUN (9-20) mg/dL Creatinine (0.66-1.25) mg/dL Est GFR (MDRD) Af Amer (>60 ml/min/1.73 sqM) Est GFR (MDRD) Non-Af (>60 ml/min/1.73 sqM) Glucose (74-99) mg/dL Calcium (8.4-10.2) mg/dL Total Bilirubin (0.2-1.3) mg/dL AST (17-59) U/L ALT (21-72) U/L Alkaline Phosphatase (38-126) U/L Total Creatine Kinase (55-170) U/L CK-MB (CK-2) (0.0-2.4) ng/mL CK-MB (CK-2) Rel Index Troponin I (0.000-0.034) ng/mL Total Protein (6.3-8.2) g/dL Albumin (3.5-5.0) g/dL Urine Color Light Yellow Urine Appearance Clear (Clear) Urine pH 6.5 (5.0-8.0) Ur Specific [place] 1.006 (1.001-1.035) Urine Protein Negative (Negative) Urine Glucose (UA) Negative (Negative) Urine Ketones Negative (Negative) Urine Blood Moderate H (Negative) Urine Nitrite Negative (Negative) Urine Bilirubin Negative (Negative) Urine Urobilinogen <2.0 (<2.0) mg/dL Ur Leukocyte Esterase Negative (Negative) Urine RBC 19 H (0-5) /hpf Urine WBC 3 (0-5) /hpf Urine Mucus Rare H (None) /hpf Disposition Clinical Impression: Vasovagal episode Disposition: HOME SELF-CARE Condition: Fair Instructions: Fall Prevention for Older Adults (ED), Hypotension (ED), Syncope (ED) Additional Instructions: Encourage more fluids. Change positions slowly especially after having had bowel movements and getting out of a warm bed. Follow-up with family physician Referrals: Tyrone Ferrera MD [Primary Care Provider] - 1-2 days Time of Disposition: 00:34
[2017-04-21 00:21] LABS: Appearance,Urine Clear (Clear); Bilirubin,Urine Negative (Negative); Glucose,Urine (UA) Negative (Negative); Ketones,Urine Negative (Negative); Leukocyte Esterase,Urine Negative (Negative); Mucus,Urine Rare /hpf; Nitrite,Urine Negative (Negative); PH, Urine 6.5 (5.0-8.0); Particle Count 2506; Protein,Urine Negative (Negative); RBC,Urine 19 /hpf (0-5); Specific Gravity,Urine 1.006 (1.001-1.035); UA Billing (MACRO vs. MICRO) MICRO; Urobilinogen,Urine <2.0 mg/dL (<2.0); WBC,Urine 3 /hpf (0-5)
== END 2017-04-21 00:50 | disposition home or self-care (01) ==
LOC: EC 21:03
DX: R55 Syncope and collapse (principal); R19.7 Diarrhea, unspecified; F03.90 Unspecified dementia, unspecified severity, without behavioral disturbance, psychotic disturbance, mood disturbance, and anxiety; Z79.899 Other long term (current) drug therapy
CPT/HCPCS: 36415; 70450; 71020; 80053; 81001; 82550; 82553; 84484; 85025; 85379; 85610; 85730; 93005; 96360; 96361; 99284

== ENCOUNTER 2017-10-12 13:20 | Inpatient (IN) | payer MEDICARE, BC ==
--- NOTE | 2017-10-12 14:11 | ED ---
General Adult HPI - General Chief complaint: Weakness Stated complaint: Weakness Time Seen by Provider: 10/12/17 13:59 Source: patient, family, EMS, RN notes reviewed Mode of arrival: EMS Limitations: altered mental status - History of Present Illness Initial comments: Patient is a pleasantly demented 77-year-old male presenting to the emergency department concerns for weakness. History is provided by the . Patient states he feels fine and has no complaints. states no change in mental status. Patient was slightly off balance last night. This morning has been unable to get patient out of the bed. Unclear of any isolated area of weakness. No reported fevers. No change in appetite. - Related Data Home Medications Medication Instructions Recorded Confirmed Donepezil [Aricept] 5 mg PO HS 07/29/16 10/12/17 Donepezil [Aricept] 10 mg PO HS 08/13/17 10/12/17 Previous Rx's Medication Instructions Recorded Memantine [Namenda] 10 mg PO BID #60 tab 02/24/15 Allergies Allergy/AdvReac Type Severity Reaction Status Date / Time No Known Allergies Allergy Verified 10/12/17 14:08 Review of Systems ROS Statement: Those systems with pertinent positive or pertinent negative responses have been documented in the HPI. ROS Other: All systems not noted in ROS Statement are negative. Constitutional: Denies: fever Eyes: Reports: other (Chronic eye redness) ENT: Denies: epistaxis Respiratory: Denies: dyspnea Cardiovascular: Denies: chest pain Endocrine: Denies: polydipsia Gastrointestinal: Denies: vomiting Genitourinary: Denies: hematuria Musculoskeletal: Denies: arthralgia Skin: Denies: rash Neurological: Reports: weakness Past Medical History Past Medical History: Dementia, Memory Impairment, Prostate Disorder Additional Past Medical History / Comment(s): Dementia/ALZHEIMERS History of Any Multi-Drug Resistant Organisms: None Reported Past Surgical History: No Surgical Hx Reported Additional Past Surgical History / Comment(s): darrian rotator cuff. FAMILY STATES OVER 30 YEARS AGO PT HAD SOME TYPE OF PROSTATE PROCEDURE. UNCERTAIN WHAT. Past Anesthesia/Blood Transfusion Reactions: No Reported Reaction Additional Past Anesthesia/Blood Transfusion Reaction / Comment(s): difficulty coming out Past Psychological History: No Psychological Hx Reported Smoking Status: Never smoker Past Alcohol Use History: Rare Past Drug Use History: None Reported - Past Family History Father Family Medical History: Cancer Additional Family Medical History / Comment(s): lung ca Mother Family Medical History: Cancer Additional Family Medical History / Comment(s): ovarian cancer Son(s) Family Medical History: Cancer Additional Family Medical History / Comment(s): rhabdomyo sarcoma (SON). ADRENOCORTICOSARCONOMA ([place]) General Exam Limitations: altered mental status General appearance: alert, in no apparent distress Head exam: Present: atraumatic Eye exam: Present: conjunctival injection (Right eye which is reported as normal ) ENT exam: Present: normal exam Neck exam: Present: normal inspection Respiratory exam: Present: normal lung sounds bilaterally Cardiovascular Exam: Present: regular rate, normal rhythm GI/Abdominal exam: Present: soft. Absent: tenderness Extremities exam: Present: normal inspection, full ROM. Absent: tenderness Neurological exam: Present: alert, altered, CN II-XII intact. Absent: motor sensory deficit Expanded Patient oriented to: Present: person. Absent: place, time Motor strength exam: RUE: 5, LUE: 5, RLE: 5, LLE: 5 Eye Response: (4) open spontaneously Motor Response: (6) obeys commands Verbal Response: (4) confused conversation Psychiatric exam: Present: normal affect, normal mood Skin exam: Present: normal color Course Vital Signs 10/12/17 13:31 Temperature 98.8 F Pulse Rate 59 L Respiratory 18 Rate Blood Pressure 169/81 O2 Sat by Pulse 97 Oximetry - Reevaluation(s) Reevaluation #1: 10/12/17 15:56 Patient was reevaluated and resting comfortably in bed. Patient and family are fully updated on results and plan. Case was discussed with Dr. Ferrera, who will admit his patient. No consults at this time. EKG Findings - EKG Comments: EKG Findings:: Normal sinus rhythm 60. FL 178. QRS 88. QT 444. QTC 444. Left axis. Normal QRS. Nonspecific ST-T. Medical Decision Making - Lab Data Result diagrams: 10/12/17 13:35 10/12/17 13:35 Lab Results 10/12/17 10/12/17 10/12/17 Range/Units 13:35 13:35 13:35 WBC 6.0 (3.8-10.6) k/uL RBC 4.17 L (4.30-5.90) m/uL Hgb 12.9 L (13.0-17.5) gm/dL Hct 38.7 L (39.0-53.0) % MCV 92.9 (80.0-100.0) fL MCH 31.0 (25.0-35.0) pg MCHC 33.4 (31.0-37.0) g/dL RDW 12.9 (11.5-15.5) % Plt Count 345 (150-450) k/uL Neutrophils % 61 % Lymphocytes % 26 % Monocytes % 6 % Eosinophils % 4 % Basophils % 1 % Neutrophils # 3.7 (1.3-7.7) k/uL Lymphocytes # 1.6 (1.0-4.8) k/uL Monocytes # 0.4 (0-1.0) k/uL Eosinophils # 0.2 (0-0.7) k/uL Basophils # 0.1 (0-0.2) k/uL PT (9.0-12.0) sec INR (<1.2) APTT (22.0-30.0) sec Sodium 147 H (137-145) mmol/L Potassium 4.8 (3.5-5.1) mmol/L Chloride 109 H (98-107) mmol/L Carbon Dioxide 28 (22-30) mmol/L Anion Gap 10 mmol/L BUN 20 (9-20) mg/dL Creatinine 2.50 H (0.66-1.25) mg/dL Est GFR (MDRD) Af Amer 30 (>60 ml/min/1.73 sqM) Est GFR (MDRD) Non-Af 25 (>60 ml/min/1.73 sqM) Glucose 128 H (74-99) mg/dL Plasma Lactic Acid [place] (0.7-2.0) mmol/L Calcium 9.1 (8.4-10.2) mg/dL Phosphorus 3.2 (2.5-4.5) mg/dL Magnesium 2.5 H (1.6-2.3) mg/dL Total Bilirubin 0.6 (0.2-1.3) mg/dL AST 17 (17-59) U/L ALT 20 L (21-72) U/L Alkaline Phosphatase 101 (38-126) U/L Total Creatine Kinase 33 L (55-170) U/L CK-MB (CK-2) 0.3 (0.0-2.4) ng/mL CK-MB (CK-2) Rel Index 0.9 Troponin I <0.012 (0.000-0.034) ng/mL Total Protein 6.4 (6.3-8.2) g/dL Albumin 3.7 (3.5-5.0) g/dL TSH 2.260 (0.465-4.680) mIU/L Free T4 0.89 (0.78-2.19) ng/dL Free T3 pg/mL 3.2 (2.8-5.3) pg/ml Urine Color Urine Appearance (Clear) Urine pH (5.0-8.0) Ur Specific [place] (1.001-1.035) Urine Protein (Negative) Urine Glucose (UA) (Negative) Urine Ketones (Negative) Urine Blood (Negative) Urine Nitrite (Negative) Urine Bilirubin (Negative) Urine Urobilinogen (<2.0) mg/dL Ur Leukocyte Esterase (Negative) Urine RBC (0-5) /hpf Urine WBC (0-5) /hpf Urine Bacteria (None) /hpf Urine Mucus (None) /hpf 10/12/17 10/12/17 10/12/17 Range/Units 13:35 13:35 14:35 WBC (3.8-10.6) k/uL RBC (4.30-5.90) m/uL Hgb (13.0-17.5) gm/dL Hct (39.0-53.0) % MCV (80.0-100.0) fL MCH (25.0-35.0) pg MCHC (31.0-37.0) g/dL RDW (11.5-15.5) % Plt Count (150-450) k/uL Neutrophils % % Lymphocytes % % Monocytes % % Eosinophils % % Basophils % % Neutrophils # (1.3-7.7) k/uL Lymphocytes # (1.0-4.8) k/uL Monocytes # (0-1.0) k/uL Eosinophils # (0-0.7) k/uL Basophils # (0-0.2) k/uL PT 10.2 (9.0-12.0) sec INR 1.0 (<1.2) APTT 23.9 (22.0-30.0) sec Sodium (137-145) mmol/L Potassium (3.5-5.1) mmol/L Chloride (98-107) mmol/L Carbon Dioxide (22-30) mmol/L Anion Gap mmol/L BUN (9-20) mg/dL Creatinine (0.66-1.25) mg/dL Est GFR (MDRD) Af Amer (>60 ml/min/1.73 sqM) Est GFR (MDRD) Non-Af (>60 ml/min/1.73 sqM) Glucose (74-99) mg/dL Plasma Lactic Acid [place] 1.3 (0.7-2.0) mmol/L Calcium (8.4-10.2) mg/dL Phosphorus (2.5-4.5) mg/dL Magnesium (1.6-2.3) mg/dL Total Bilirubin (0.2-1.3) mg/dL AST (17-59) U/L ALT (21-72) U/L Alkaline Phosphatase (38-126) U/L Total Creatine Kinase (55-170) U/L CK-MB (CK-2) (0.0-2.4) ng/mL CK-MB (CK-2) Rel Index Troponin I (0.000-0.034) ng/mL Total Protein (6.3-8.2) g/dL Albumin (3.5-5.0) g/dL TSH (0.465-4.680) mIU/L Free T4 (0.78-2.19) ng/dL Free T3 pg/mL (2.8-5.3) pg/ml Urine Color Yellow Urine Appearance Clear (Clear) Urine pH 6.0 (5.0-8.0) Ur Specific [place] 1.009 (1.001-1.035) Urine Protein Negative (Negative) Urine Glucose (UA) Trace H (Negative) Urine Ketones Negative (Negative) Urine Blood Negative (Negative) Urine Nitrite Negative (Negative) Urine Bilirubin Negative (Negative) Urine Urobilinogen <2.0 (<2.0) mg/dL Ur Leukocyte Esterase Moderate H (Negative) Urine RBC 3 (0-5) /hpf Urine WBC 13 H (0-5) /hpf Urine Bacteria Rare H (None) /hpf Urine Mucus Rare H (None) /hpf - Radiology Data Radiology results: image reviewed (Chest x-ray shows retrocardiac opacity which could be atelectasis or pneumonia. Computed tomography scan of the brain reveals no acute abnormality.) Disposition Clinical Impression: General weakness, Ataxia Disposition: ADMITTED IP TO THIS HOSP Referrals: Tyrone Ferrera MD [Primary Care Provider] - 1-2 days Decision Time: 15:57
[2017-10-12 14:24] LABS: Basophils # (A) 0.1 k/uL (0-0.2); Basophils % (A) 1 %; Eosinophils # (A) 0.2 k/uL (0-0.7); Eosinophils % (A) 4 %; HCT 38.7 % (39.0-53.0); HGB 12.9 gm/dL (13.0-17.5); Lymphocytes # (A) 1.6 k/uL (1.0-4.8); Lymphocytes % (A) 26 %; MCHC 33.4 g/dL (31.0-37.0); MCV 92.9 fL (80.0-100.0); Mean Platelet Volume 6.8; Monocytes # (A) 0.4 k/uL (0-1.0); Monocytes % (A) 6 %; Neutrophils # (A) 3.7 k/uL (1.3-7.7); Neutrophils % (A) 61 %; Platelet Count 345 k/uL (150-450); RBC 4.17 m/uL (4.30-5.90); RDW 12.9 % (11.5-15.5)
[2017-10-12 14:32] LABS: Partial Thromboplastin Time 23.9 sec (22.0-30.0); Prothrombin Time 10.2 sec (9.0-12.0)
[2017-10-12 14:34] LABS: Albumin 3.7 g/dL (3.5-5.0); Calcium 9.1 mg/dL (8.4-10.2); Magnesium 2.5 mg/dL (1.6-2.3); Phosphorus 3.2 mg/dL (2.5-4.5); Potassium 4.8 mmol/L (3.5-5.1); Total Bilirubin 0.6 mg/dL (0.2-1.3); Total Protein 6.4 g/dL (6.3-8.2)
--- NOTE | 2017-10-12 14:42 | CT ---
EXAMINATION TYPE: CT brain wo con DATE OF EXAM: 10/12/2017 COMPARISON: April 20, 2017 HISTORY: Weakness CT DLP: 2235.6 mGycm Automated exposure control for dose reduction was used. FINDINGS: Diffuse cortical atrophy is identified. There are also chronic white matter ischemic changes. There i s no acute hemorrhage or major vessel territorial infarct. No mass mass effect or midline shift is id entified. The ventricles and sulci demonstrate atrophic changes. The paranasal sinuses and mastoid air cells ar e well aerated. IMPRESSION: NO ACUTE ABNORMALITY IS IDENTIFIED.
--- NOTE | 2017-10-12 14:45 | XR ---
EXAMINATION TYPE: XR chest 2V DATE OF EXAM: 10/12/2017 COMPARISON: August 13, 2017 HISTORY: Weakness and chest pain TECHNIQUE: Frontal and lateral views of the chest are obtained. FINDINGS: There is a retrocardiac opacity best seen on lateral view which could be related to atelec tasis or pneumonia. No pneumothorax or pleural effusion is identified. The cardiac silhouette is unch anged. IMPRESSION: Retrocardiac opacity could be atelectasis or pneumonia.
[2017-10-12 14:50] LABS: Creatine Kinase 33 U/L (55-170); T4, Free (Free Thyroxine) 0.89 ng/dL (0.78-2.19)
[2017-10-12 15:03] LABS: Creatine Kinase MB 0.3 ng/mL (0.0-2.4); Troponin I <0.012 ng/mL (0.000-0.034)
[2017-10-12] MEDS ORDERED: SODIUM CHLORIDE 0.9% 1,000 ML IV STA (15:07)
[2017-10-12 15:08] LABS: Appearance,Urine Clear (Clear); Bacteria,Urine Rare /hpf; Bilirubin,Urine Negative (Negative); Blood,Urine Negative (Negative); Color,Urine Yellow; Glucose,Urine (UA) Trace (Negative); Ketones,Urine Negative (Negative); Leukocyte Esterase,Urine Moderate (Negative); Mucus,Urine Rare /hpf; Nitrite,Urine Negative (Negative); Protein,Urine Negative (Negative); RBC,Urine 3 /hpf (0-5); Specific Gravity,Urine 1.009 (1.001-1.035); Urobilinogen,Urine <2.0 mg/dL (<2.0); WBC,Urine 13 /hpf (0-5)
[2017-10-12] MEDS ORDERED: NALOXONE 0.4 MG/ML 1 ML VIAL IV PRN (15:54)
[2017-10-12] MEDS ORDERED: cefTRIAXone IN SWFI 1,000 MG/10 ML SYRINGE IVP STA (16:15)
[2017-10-12] MEDS: SODIUM CHLORIDE 0.9% 1,000 ML IV SCH (16:22)
[2017-10-12 17:48] VITALS: BMI 24.3
[2017-10-12] MEDS: CIPROFLOXACIN 0.3% OPHTH SOLN 5 ML BTL BOTH EYES SCH ×2 (18:20→21:33)
[2017-10-12] MEDS: MEMANTINE 10 MG TAB PO SCH (19:34)
[2017-10-12] MEDS: DONEPEZIL 10 MG TAB PO SCH (19:35)
[2017-10-12] MEDS: cefTRIAXone IN SWFI 1,000 MG/10 ML SYRINGE IVP SCH (20:54)
[2017-10-13] MEDS: SODIUM CHLORIDE 0.9% 1,000 ML IV SCH ×3 (03:28→18:54)
[2017-10-13 06:01] LABS: Albumin 3.4 g/dL (3.5-5.0); Calcium 8.9 mg/dL (8.4-10.2); Magnesium 2.5 mg/dL (1.6-2.3); Potassium 4.2 mmol/L (3.5-5.1); Total Bilirubin 0.2 mg/dL (0.2-1.3); Total Protein 5.9 g/dL (6.3-8.2)
[2017-10-13] MEDS: cefTRIAXone IN SWFI 1,000 MG/10 ML SYRINGE IVP SCH ×2 (08:39→20:49)
[2017-10-13] MEDS: MEMANTINE 10 MG TAB PO SCH ×2 (08:39→20:49)
[2017-10-13] MEDS: CIPROFLOXACIN 0.3% OPHTH SOLN 5 ML BTL BOTH EYES SCH ×4 (08:39→20:50)
--- NOTE | 2017-10-13 08:53 | US ---
EXAMINATION TYPE: US carotid duplex BILAT DATE OF EXAM: 10/13/2017 COMPARISON: US CLINICAL HISTORY: Ataxia. Patient seemed very confused and unable to answer questions EXAM MEASUREMENTS: RIGHT: Peak Systolic Velocity (PSV) cm/sec ----- Right CCA: 52.3 ----- Right ICA: 62.7 ----- Right ECA: 96.6 ICA/CCA ratio: 1.2 RIGHT: End Diastole cm/sec ----- Right CCA: 10.4 ----- Right ICA: 14.7 ----- Right ECA: 5.4 LEFT: Peak Systolic Velocity (PSV) cm/sec ----- Left CCA: 67.4 ----- Left ICA: 61.2 ----- Left ECA: 72.8 ICA/CCA ratio: 0.9 LEFT: End Diastole cm/sec ----- Left CCA: 7.9 ----- Left ICA: 15.9 ----- Left ECA: 6.8 VERTEBRALS (direction of flow): Right Vertebral: Antegrade Left Vertebral: Antegrade Rhythm: Normal No significant stenosis seen, no elevated velocities, mild plaque noted. IMPRESSION: I DO NOT SEE EVIDENCE OF A HEMODYNAMICALLY SIGNIFICANT STENOSIS IN EITHER CAROTID SYSTEM. Criteria for Assigning % of Stenosis / Diameter reduction (Estimation based on the indirect measurements of the internal carotid artery velocities (ICA PSV). 1. Normal (no stenosis)=ICA PSV < 125 cm/s: ratio < 2.0: ICA EDV<40 cm/s. 2. Less than 50% stenosis=ICA PSV < 125 cm/s: ratio < 2.0: ICA EDV<40 cm/s. 3. 50 to 69% stenosis=ICA PSV of 125 to 230 cm/s: ration 2.0 ? 4.0: ICA EDV 40-100 cm/s. 4. Greater than 70% stenosis to near occlusion= ICA PSV > 230 cm/s: ratio > 4.0: ICA EDV > 100 cm/s. 5. Near occlusion= ICA PSV velocities may be low or undetectable: variable ratio and ICA EDV. 6. Total occlusion=unable to detect flow.
--- NOTE | 2017-10-13 08:54 | US ---
EXAMINATION TYPE: US kidneys/renal and bladder DATE OF EXAM: 10/13/2017 COMPARISON: Previous study dated 07/21/2013 CLINICAL HISTORY: renal failure. EXAM MEASUREMENTS: Right Kidney: 12.9 x 6.3 x 5.9 cm Left Kidney: 12.7 x 5.4 x 5.9 cm exam limited, was done portable and patient unable to cooperate. Also limited by bowel gas obscuring part of kidneys Right Kidney: moderate hydro Left Kidney: moderate hydro Bladder: wnl Bilateral Jets seen: no There is moderate, bilateral hydronephrosis. Neither ureteral jet is visualized. IMPRESSION: MODERATE, BILATERAL HYDRONEPHROSIS OF UNKNOWN ETIOLOGY.
[2017-10-13] MEDS ORDERED: LISINOPRIL 20 MG TAB PO STA (11:43)
--- NOTE | 2017-10-13 13:12 | CT ---
EXAMINATION TYPE: CT abdomen pelvis wo con DATE OF EXAM: 10/13/2017 COMPARISON: NONE HISTORY: Patient poor historian. Hydronephrosis. CT DLP: 1135 mGycm Automated exposure control for dose reduction was used. FINDINGS: There is some dependent atelectasis in the portions of the lungs. There is no pleural or pe ricardial fluid. The heart is mildly enlarged. Within the abdomen, the liver, spleen and gallbladder appear normal. Both adrenal glands appear normal. There is bilateral hydronephrosis and hydroureter to the level of the bladder. Bladder wall appears m ildly thickened. The prostate gland is enlarged. I do not see evidence of obstructing calculi or neph rolithiasis. Limited views of the pancreas are unremarkable. There is no significant retroperitoneal, iliac or inguinal adenopathy. There are scattered diverticula within the sigmoid colon. I do not see radiographic evidence of diver ticulitis. The appendix is normal. Small bowel loops are normal in caliber. There is no free fluid and no free air. There is degenerative disc disease, facet arthropathy and hypertrophic spondylosis throughout the spi ne. IMPRESSION: 1. BILATERAL HYDRONEPHROSIS AND HYDROURETER TO THE LEVEL OF THE BLADDER. 2. ENLARGED PROSTATE WITH THICKENING OF THE BLADDER WALL LIKELY ON THE BASIS OF CHRONIC BLADDER OUTLE T OBSTRUCTION. 3. CARDIOMEGALY. 4. MILD, UNCOMPLICATED DIVERTICULOSIS OF THE SIGMOID COLON. 5. DEGENERATIVE CHANGES WITHIN THE SPINE.
--- NOTE | 2017-10-13 15:38 | P.CNNES ---
History of Present Illness Consult date: 10/13/17 Reason for Consult: Patient admitted with generalized weakness and dementia. History of Present Illness: This patient is a 77-year-old right-handed white male who was admitted to Hospital with symptoms of generalized weakness. According to his who provided the medical history states that he has been having increasing lethargy and inability to ambulate at home. He is normally very active according to the but due to the severe snow and bad weather he has not been able to get outdoors at all. Over the last several months he has been confined to the home. He has some degree of medical debility secondary to deconditioning. Apparently he has very strong otherwise and gets about his day fairly well. He has a history of underlying dementia for which she is on a combination of Aricept and Namenda. feels that his dementia symptoms also or not shown much change or improvement. He does attend a day program through [employer] 5 days a week. Due to his weakness he was brought into the emergency room for further evaluation. He did have a computed tomography scan of the brain performed which revealed no acute abnormality. There was some degree of ventriculomegaly likely secondary to diffuse cortical atrophy. No evidence of acute stroke or hemorrhage. There was evidence of diffuse cortical atrophy. The patient also underwent carotid Doppler study which came back negative for any significant carotid artery stenosis. The feels that his current dose of Aricept and Namenda have not been helping him much. She is wondering whether he would benefit from discontinuation of one of the medications. We explained to the patient this would be hard to know without actually discontinuing the medication for the patient. Each individual is going to respond differently. The patient does seem to be able to follow some simple commands fairly well. He appears to be deconditioned and may benefit from physical therapy evaluation and possible subacute rehab at [facility]. The patient underwent ultrasound of the kidneys and bladder. There is moderate degree of bilateral hydronephrosis noted etiology undetermined. Patient was seen by urology today and he will need a Estevez catheter placement. He has been started on Rocephin but apparently does not have clear evidence of urinary tract infection. We will await further recommendations from physical therapy and occupational therapy regarding this patient's overall assessment. Neurology is now been consulted for further evaluation and recommendations. Review of Systems Constitutional: Denies chills, Denies fever Eyes: denies blurred vision, denies pain Ears, nose, mouth and throat: Denies headache, Denies sore throat Cardiovascular: Denies chest pain, Denies shortness of breath Respiratory: Denies cough Gastrointestinal: Denies abdominal pain, Denies diarrhea, Denies nausea, Denies vomiting Musculoskeletal: Denies myalgias Integumentary: Denies pruritus, Denies rash Neurological: Reports change in mentation, Reports confusion, Reports memory loss, Denies numbness, Denies weakness Psychiatric: Denies anxiety, Denies depression Endocrine: Denies fatigue, Denies weight change Past Medical History Past Medical History: Asthma, Dementia, Memory Impairment, Prostate Disorder Additional Past Medical History / Comment(s): Dementia/ALZHEIMERS, chronic bronchitis, per pt aspirates a lot History of Any Multi-Drug Resistant Organisms: None Reported Past Surgical History: No Surgical Hx Reported Additional Past Surgical History / Comment(s): darrian rotator cuff. FAMILY STATES OVER 30 YEARS AGO PT HAD SOME TYPE OF PROSTATE PROCEDURE. UNCERTAIN WHAT. Past Anesthesia/Blood Transfusion Reactions: No Reported Reaction Additional Past Anesthesia/Blood Transfusion Reaction / Comment(s): difficulty coming out Past Psychological History: No Psychological Hx Reported Smoking Status: Never smoker Past Alcohol Use History: Rare Past Drug Use History: None Reported - Past Family History Father Family Medical History: Cancer Additional Family Medical History / Comment(s): lung ca Mother Family Medical History: Cancer Additional Family Medical History / Comment(s): ovarian cancer Son(s) Family Medical History: Cancer Additional Family Medical History / Comment(s): rhabdomyo sarcoma (SON). ADRENOCORTICOSARCONOMA (GRANDSON) Medications and Allergies Home Medications Medication Instructions Recorded Confirmed Type Memantine [Namenda] 10 mg PO BID #60 tab 02/24/15 10/12/17 Rx Donepezil [Aricept] 5 mg PO HS 07/29/16 10/12/17 History Donepezil [Aricept] 10 mg PO HS 08/13/17 10/12/17 History Ciprofloxacin Ophth Soln [Cipro 2 drops BOTH EYES QID 10/12/17 10/12/17 History 0.3% Ophth Soln] Allergies Allergy/AdvReac Type Severity Reaction Status Date / Time No Known Allergies Allergy Verified 10/12/17 14:08 Physical Examination - Vital Signs Vital Signs: Vital Signs Temp Pulse Pulse Resp BP BP Pulse Ox 10/13/17 12:00 97.2 F L 67 16 177/85 95 10/13/17 08:00 96.9 F L 60 18 175/86 93 L 10/13/17 04:00 60 18 176/90 97 10/13/17 03:32 18 10/12/17 23:01 18 10/12/17 22:57 61 18 160/82 95 10/12/17 19:18 18 10/12/17 19:15 97.7 F 75 18 174/81 97 10/12/17 18:13 56 L 16 10/12/17 17:00 97 10/12/17 16:50 97.6 F 56 L 16 186/84 96 10/12/17 16:21 97.0 F L 60 18 162/76 98 10/12/17 13:31 98.8 F 59 L 18 169/81 97 Intake and Output 10/12/17 10/13/17 10/13/17 22:59 06:59 14:59 Intake Total 800 Balance 800 Intake: IV 600 Sodium Chloride 0.9% 1, 600 000 ml @ 120 mls/hr IV . Q8H20M [facility] Rx#:[id number] Oral 200 Other: Voiding Method Diaper Diaper Diaper # Voids 1 1 1 # Bowel Movements 1 1 Weight 77.111 kg - Constitutional General appearance: average body habitus, cooperative - EENT EENT: PERRL, mucous membranes moist - Respiratory Respiratory: lungs clear, normal breath sounds - Cardiovascular Cardiovascular: regular rate, normal S1, normal S2 Extremities: no peripheral edema bilaterally - Gastrointestinal Gastrointestinal: normoactive bowel sounds - Integumentary Integumentary: normal - Neurologic Cranial nerve examination: PERRL, EOMI, V1/V2/V3 grossly intact, face symmetric , tongue midline, intact gag reflex, intact corneal reflex, normal palatal elevation Speech examination: intact Sensorimotor examination: intact Detailed motor examination: grossly full strength in all extremities Motor examination - right side: 4/5: biceps, triceps, wrist flexion, wrist extension, package checker, hip flexors, knee extensors, dorsiflexion, toe extension (EHL) , plantarflexion Motor examination - left side: 4/5: biceps, triceps, wrist flexion, wrist extension, package checker, hip flexors, knee extensors, dorsiflexion, toe extension (EHL) , plantarflexion Detailed sensory examination: intact Reflex and gait examination: intact Reflexes: 1+: ankle, bicep, knee, tricep - Musculoskeletal Musculoskeletal: no pain - Psychiatric Psychiatric: mood/affect appropriate, cooperative Results - Laboratory Findings CBC and BMP: 10/12/17 13:35 10/13/17 05:27 Abnormal Lab Findings: Abnormal Labs 10/12/17 10/12/17 10/12/17 13:35 13:35 13:35 RBC 4.17 L Hgb 12.9 L Hct 38.7 L Sodium 147 H Chloride 109 H Creatinine 2.50 H Glucose 128 H Magnesium 2.5 H AST ALT 20 L Total Creatine Kinase 33 L Total Protein Albumin Urine Glucose (UA) Ur Leukocyte Esterase Urine WBC Urine Bacteria Urine Mucus 10/12/17 10/13/17 14:35 05:27 RBC Hgb Hct Sodium 148 H Chloride 113 H Creatinine 2.40 H Glucose 119 H Magnesium 2.5 H AST 11 L ALT Total Creatine Kinase Total Protein 5.9 L Albumin 3.4 L Urine Glucose (UA) Trace H Ur Leukocyte Esterase Moderate H Urine WBC 13 H Urine Bacteria Rare H Urine Mucus Rare H Assessment and Plan (1) Dementia of the Alzheimer's type Current Visit: Yes Status: Acute Code(s): G30.9 - ALZHEIMER'S DISEASE, UNSPECIFIED; F02.80 - DEMENTIA IN OTH DISEASES CLASSD ELSWHR W/O BEHAVRL DISTURB SNOMED Code(s): 82430948 (2) Acute encephalopathy Current Visit: Yes Status: Acute Code(s): G93.40 - ENCEPHALOPATHY, UNSPECIFIED SNOMED Code(s): 38387099 (3) Acquired hydronephrosis due to obstruction of bladder Current Visit: Yes Status: Acute Priority: High Code(s): N13.30 - UNSPECIFIED HYDRONEPHROSIS; N32.89 - OTHER SPECIFIED DISORDERS OF BLADDER SNOMED Code(s): 434334995 (4) General weakness Current Visit: Yes Status: Acute Code(s): R53.1 - WEAKNESS SNOMED Code(s) : 67466578 Plan: This patient is a 77-year-old male who was admitted to hospital with generalized weakness. He underwent a ultrasound of the kidneys and pelvis which reveals bilateral hydronephrosis. He will have to undergo further urological treatment with a Estevez catheter placement. He shouldn't has a long- standing history of underlying dementia. He is currently been taking a combination of Aricept and Namenda. He has been evaluated in the dementia clinic at [facility] for this condition in the past. The patient apparently has been very deconditioned over the last several months as he is been confined to his home and not able to ambulate outdoors. We would recommend physical therapy and occupational therapy consultation to see if he would benefit from inpatient rehab. is wondering whether he needs to continue on both Aricept and Namenda as he is not showing much improvement with his underlying dementia of the Alzheimer's type. We recommend to leave him on his current dose at this time until his strength improves and he is much more ambulatory. We will await further recommendations from urology regarding his bilateral hydronephrosis. He should also be monitored for early renal failure. He is being placed on Rocephin as precautionary means for UTI presentation. We will await to see if this helps improve his overall mental status as well. His overall prognosis at this time remains guarded. Time with Patient: Greater than 30
--- NOTE | 2017-10-13 16:39 | P.GSCN ---
History of Present Illness Consult date: 10/13/17 Reason for Consult: Hydronephrosis Requesting physician: Tyrone Ferrera History of present illness: The patient is a 77 year old male evaluated by Dr. Thurston in 2015 for evaluation of voiding difficulty and inconitnence. He has progressive Alzheimers dementia. His post-void residual at that time was 286 cc. He was given a trial of Rapaflo , but his states that this did not help and she recalls quitting the medication due to side effects. He is incontinent of urine. She is unaware of him having difficulty voiding. Review of Systems - Constitutional Reports weakness, Denies fever - Genitourinary Reports incontinence, Denies hematuria Past Medical History Past Medical History: Asthma, Dementia, Memory Impairment, Prostate Disorder Additional Past Medical History / Comment(s): Dementia/ALZHEIMERS, chronic bronchitis, per pt aspirates a lot History of Any Multi-Drug Resistant Organisms: None Reported Past Surgical History: No Surgical Hx Reported Additional Past Surgical History / Comment(s): darrian rotator cuff. FAMILY STATES OVER 30 YEARS AGO PT HAD SOME TYPE OF PROSTATE PROCEDURE. UNCERTAIN WHAT. Past Anesthesia/Blood Transfusion Reactions: No Reported Reaction Additional Past Anesthesia/Blood Transfusion Reaction / Comm: difficulty coming out Past Psychological History: No Psychological Hx Reported Smoking Status: Never smoker Past Alcohol Use History: Rare Past Drug Use History: None Reported - Past Family History Father Family Medical History: Cancer Additional Family Medical History / Comment(s): lung ca Mother Family Medical History: Cancer Additional Family Medical History / Comment(s): ovarian cancer Son(s) Family Medical History: Cancer Additional Family Medical History / Comment(s): rhabdomyo sarcoma (SON). ADRENOCORTICOSARCONOMA (GRANDSON) Medications and Allergies Home Medications Medication Instructions Recorded Confirmed Type Memantine [Namenda] 10 mg PO BID #60 tab 02/24/15 10/12/17 Rx Donepezil [Aricept] 5 mg PO HS 07/29/16 10/12/17 History Donepezil [Aricept] 10 mg PO HS 08/13/17 10/12/17 History Ciprofloxacin Ophth Soln [Cipro 2 drops BOTH EYES QID 10/12/17 10/12/17 History 0.3% Ophth Soln] Allergies Allergy/AdvReac Type Severity Reaction Status Date / Time No Known Allergies Allergy Verified 10/12/17 14:08 Surgical - Exam Vital Signs Temp Pulse Resp BP Pulse Ox 98.8 F 59 L 18 169/81 97 10/12/17 13:31 10/12/17 13:31 10/12/17 13:31 10/12/17 13:31 10/12/17 13:31 - General well developed, well nourished, no distress - Respiratory normal respiratory effort - Abdomen Abdomen: soft, non tender, no masses, no guarding, no rigid, no rebound, distended (Suprapubic distention is noted) - Genitourinary normal penis with no external lesions, testicles non-tender - Rectum Prostate mildly enlarged, smooth in consistency Rectum: normal sphincter tone, no masses, other - Psychiatric oriented to person, no memory intact Results - Labs 10/12/17 13:35 10/13/17 05:27 Abnormal Lab Results - Last 24 Hours (Table) 10/12/17 10/12/17 10/12/17 Range/Units 13:35 13:35 13:35 RBC 4.17 L (4.30-5.90) m/uL Hgb 12.9 L (13.0-17.5) gm/dL Hct 38.7 L (39.0-53.0) % Sodium 147 H (137-145) mmol/L Chloride 109 H (98-107) mmol/L Creatinine 2.50 H (0.66-1.25) mg/dL Glucose 128 H (74-99) mg/dL Magnesium 2.5 H (1.6-2.3) mg/dL AST (17-59) U/L ALT 20 L (21-72) U/L Total Creatine Kinase 33 L (55-170) U/L Total Protein (6.3-8.2) g/dL Albumin (3.5-5.0) g/dL Urine Glucose (UA) (Negative) Ur Leukocyte Esterase (Negative) Urine WBC (0-5) /hpf Urine Bacteria (None) /hpf Urine Mucus (None) /hpf 10/12/17 10/13/17 Range/Units 14:35 05:27 RBC (4.30-5.90) m/uL Hgb (13.0-17.5) gm/dL Hct (39.0-53.0) % Sodium 148 H (137-145) mmol/L Chloride 113 H (98-107) mmol/L Creatinine 2.40 H (0.66-1.25) mg/dL Glucose 119 H (74-99) mg/dL Magnesium 2.5 H (1.6-2.3) mg/dL AST 11 L (17-59) U/L ALT (21-72) U/L Total Creatine Kinase (55-170) U/L Total Protein 5.9 L (6.3-8.2) g/dL Albumin 3.4 L (3.5-5.0) g/dL Urine Glucose (UA) Trace H (Negative) Ur Leukocyte Esterase Moderate H (Negative) Urine WBC 13 H (0-5) /hpf Urine Bacteria Rare H (None) /hpf Urine Mucus Rare H (None) /hpf Microbiology - Last 24 Hours (Table) 10/12/17 14:35 Urine Culture - Preliminary Urine,Voided Diabetes panel 10/12/17 10/13/17 Range/Units 13:35 05:27 Sodium 147 H 148 H (137-145) mmol/L Potassium 4.8 4.2 (3.5-5.1) mmol/L Chloride 109 H 113 H (98-107) mmol/L Carbon Dioxide 28 27 (22-30) mmol/L BUN 20 19 (9-20) mg/dL Creatinine 2.50 H 2.40 H (0.66-1.25) mg/dL Glucose 128 H 119 H (74-99) mg/dL Calcium 9.1 8.9 (8.4-10.2) mg/dL AST 17 11 L (17-59) U/L ALT 20 L 23 (21-72) U/L Alkaline Phosphatase 101 116 (38-126) U/L Total Protein 6.4 5.9 L (6.3-8.2) g/dL Albumin 3.7 3.4 L (3.5-5.0) g/dL Thyroid panel 10/12/17 Range/Units 13:35 TSH 2.260 (0.465-4.680) mIU/L Calcium panel 10/12/17 10/13/17 Range/Units 13:35 05:27 Calcium 9.1 8.9 (8.4-10.2) mg/dL Phosphorus 3.2 (2.5-4.5) mg/dL Albumin 3.7 3.4 L (3.5-5.0) g/dL Pituitary panel 10/12/17 10/13/17 Range/Units 13:35 05:27 Sodium 147 H 148 H (137-145) mmol/L Potassium 4.8 4.2 (3.5-5.1) mmol/L Chloride 109 H 113 H (98-107) mmol/L Carbon Dioxide 28 27 (22-30) mmol/L BUN 20 19 (9-20) mg/dL Creatinine 2.50 H 2.40 H (0.66-1.25) mg/dL Glucose 128 H 119 H (74-99) mg/dL Calcium 9.1 8.9 (8.4-10.2) mg/dL TSH 2.260 (0.465-4.680) mIU/L Adrenal panel 10/12/17 10/13/17 Range/Units 13:35 05:27 Sodium 147 H 148 H (137-145) mmol/L Potassium 4.8 4.2 (3.5-5.1) mmol/L Chloride 109 H 113 H (98-107) mmol/L Carbon Dioxide 28 27 (22-30) mmol/L BUN 20 19 (9-20) mg/dL Creatinine 2.50 H 2.40 H (0.66-1.25) mg/dL Glucose 128 H 119 H (74-99) mg/dL Calcium 9.1 8.9 (8.4-10.2) mg/dL Total Bilirubin 0.6 0.2 (0.2-1.3) mg/dL AST 17 11 L (17-59) U/L ALT 20 L 23 (21-72) U/L Alkaline Phosphatase 101 116 (38-126) U/L Total Protein 6.4 5.9 L (6.3-8.2) g/dL Albumin 3.7 3.4 L (3.5-5.0) g/dL - Imaging CT scan - abdomen: report reviewed, image reviewed Assessment and Plan (1) Urinary retention Current Visit: Yes Status: Acute Priority: High Code(s): R33.9 - RETENTION OF URINE, UNSPECIFIED SNOMED Code(s): 722553966 (2) Acquired hydronephrosis due to obstruction of bladder Current Visit: Yes Status: Acute Priority: High Code(s): N13.30 - UNSPECIFIED HYDRONEPHROSIS; N32.89 - OTHER SPECIFIED DISORDERS OF BLADDER SNOMED Code(s): 183363344 Plan: The patient is a 77-year-old white male with a known history of BPH. He was admitted with weakness. A computed tomography scan shows evidence of bilateral hydronephrosis, likely due to urinary retention. A Estevez catheter will be placed, and my expectation is that his renal function will improve. 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 It will be my recommendation that he be discharged home with a Estevez catheter, and arrangements will be made for him to undergo urodynamic testing in our office in approximately 3 weeks.
[2017-10-13] MEDS: DONEPEZIL 10 MG TAB PO SCH (20:49)
[2017-10-14] MEDS: SODIUM CHLORIDE 0.9% 1,000 ML IV SCH ×2 (02:54→09:15)
[2017-10-14 07:14] LABS: Calcium 8.7 mg/dL (8.4-10.2); Potassium 4.4 mmol/L (3.5-5.1)
[2017-10-14] MEDS: CIPROFLOXACIN 0.3% OPHTH SOLN 5 ML BTL BOTH EYES SCH ×4 (07:53→21:27)
[2017-10-14] MEDS: MEMANTINE 10 MG TAB PO SCH ×2 (07:53→21:27)
[2017-10-14] MEDS: cefTRIAXone IN SWFI 1,000 MG/10 ML SYRINGE IVP SCH ×2 (07:54→21:27)
[2017-10-14] MEDS ORDERED: LISINOPRIL 20 MG TAB PO SCH (09:00)
[2017-10-14] MEDS ORDERED: DEXTROSE 5% IN WATER 1,000 ML IV ONE (10:36)
[2017-10-14] MEDS ORDERED: LISINOPRIL 20 MG TAB PO STA (10:41)
--- NOTE | 2017-10-14 14:43 | PN ---
PROGRESS NOTE CHIEF COMPLAINT: Debility and failure to thrive. HISTORY OF PRESENT ILLNESS: This gentleman is doing a little bit better, but he is a bit more awake and alert. Hydration is improved. Estevez catheter was replaced and there was gross hematuria. There is no blood on the initial urine from the emergency room. Blood pressure is also still slightly elevated. PHYSICAL EXAM: Chest is clear. The cardiac exam is normal. Abdomen is soft, nontender. IMPRESSION: 1. Dementia. 2. Dehydration. 3. Renal failure. 4. Hydronephrosis. 5. Hematuria. 6. Elevated blood pressure. PLAN: 1. Increase Lotensin from 20 to 40 mg a day. 2. Change IV fluids to improve his hypernatremia and hyperkalemia. MMODL / IJN: [id number] /
--- NOTE | 2017-10-14 15:01 | PN ---
PROGRESS NOTE CHIEF COMPLAINT: Weakness, malaise and general debility. HISTORY OF PRESENT ILLNESS: This gentleman is doing better. Color is improved and he is more alert since he is being rehydrated. His sodium and chloride are slightly elevated. He has been seen by Urology and Estevez catheter has been placed. There is gross hematuria. PHYSICAL EXAM: Vital signs revealed his blood pressure is still up slightly. He is more responsive and alert. Chest is clear and the cardiac exam is normal. The abdomen is soft, nontender. IMPRESSION: 1. General weakness and debility. 2. Dehydration. 3. Obstructive uropathy. 4. Renal failure with hydronephrosis. 5. Dementia. 6. Electrolyte imbalance. 7. Hematuria. PLAN: 1. Change IV solution. 2. Continue with rehydration and Estevez catheter drainage. MMODL / SHARANN: [id number] /
--- NOTE | 2017-10-14 16:28 | HP ---
HISTORY AND PHYSICAL CHIEF COMPLAINT: Weakness, malaise and inability to ambulate. HISTORY OF PRESENT ILLNESS: This is another admission for this 77-year-old white male with dementia. Dementia has become profound. In the last several days, patient's family has noted that they were unable to get him to stand. Normally he can stand, walk and move about. They brought him to the hospital. It looks like he may have a UTI and he was dehydrated. He is admitted for further evaluation and rule out sepsis. He was not running a fever. He has not been complaining of any pain, shortness of breath, nausea, vomiting, diarrhea, urinary complaints, etc. PAST MEDICAL HISTORY, FAMILY HISTORY, PERSONAL AND SOCIAL HISTORIES: Unobtainable, but are significant in that he is taking Aricept and Namenda. He has never smoked and did not abuse alcohol. His blood pressure is slightly elevated. PHYSICAL EXAMINATION: Blood pressure is 172/94 with a pulse 78, respirations of 32 and he is afebrile. In general, he appeared to be slightly dehydrated. He was awake and alert, but disoriented and not appropriately responsive. Head, ears, eyes, nose, mouth, and throat were normal except for some slight crusting of mucus on the eyelids. Mucous membranes are somewhat dehydrated. Neck was supple. Neck veins were not distended. Chest is clear to auscultation. Cardiac exam demonstrated sinus rhythm. No murmurs or extra sounds. Abdomen is soft. No masses or visceromegaly. Extremities are normal and neurologically he is profoundly demented, but had no focal neurologic signs or symptoms. She is admitted to the hospital diagnoses: 1. Acute deterioration in ability to ambulate. 2. Dehydration. 3. Probable urinary tract infection. 4. Rule out sepsis. 5. Rule out acute neurologic event. PLAN: 1. Bed rest. 2. IV fluids. 3. Urine culture. 4. Antibiotics. 5. Consult with Neurology. 6. OT and PT. MMODL / IJN: [id number] /
--- NOTE | 2017-10-14 18:43 | P.PN ---
Subjective Progress Note Date: 10/14/17 This patient is a 77-year-old male who was admitted with generalized weakness and worsening dementia. Patient's dementia has been progressively getting worse. He is also been noted by family is having increasing difficulty to ambulate. He was brought into the emergency room and underwent a computed tomography scan of the brain which came back negative for any evidence of acute stroke or hemorrhage. There was evidence of moderate frontotemporal cortical atrophy noted on CAT scan. Patient is being treated for dementia and is currently on a combination of Aricept and Namenda. He was seen by physical therapy this morning but was not able to participate due to fatigue and tiredness. According to his he is more active in the late afternoon. He usually is very slow at home in the morning hours as well. Physical therapy is going to work with him tomorrow afternoon. We would like to see the assessment from physical therapy in terms of his strength and gait. Would recommend evaluation by Dr. Ball for possible subacute rehab. It appears he would benefit from some short-term inpatient rehab to strengthen his overall gait and walking ability. As noted his computed tomography scan of the brain failed to reveal any acute changes of stroke or hemorrhage. His weakness seems to be more generalized in nature at this time. He was seen by urology for evaluation of hydronephrosis. He is having a Estevez catheter in place at this time. He is being treated for urinary tract infection as well. We have discussed his findings today in detail with the patient's at bedside. She would like to get a Yessica chair in the room so that he may sit up during the day. We have recommended this to the nurse property maintenance supervisor on the floor today. We will continue to monitor his progress closely. His overall prognosis at this time remains guarded. Objective - Vital Signs Vital signs: Vital Signs Temp 97.2 F L 10/14/17 15:00 Pulse 71 10/14/17 15:00 Resp 16 10/14/17 15:00 BP 166/82 10/14/17 15:00 Pulse Ox 96 10/14/17 15:00 Intake & Output 10/13/17 10/14/17 10/14/17 18:59 06:59 18:59 Intake Total 1320 1200 Output Total 1225 2200 1900 Balance -1225 -880 -700 Intake: IV 480 Sodium Chloride 0.9% 1, 480 000 ml @ 120 mls/hr IV . Q8H20M [facility] Rx#:[id number] Intake, IV Titration 840 Amount Sodium Chloride 0.9% 1, 840 000 ml @ 120 mls/hr IV . Q8H20M [facility] Rx#:[id number] Oral 0 1200 Output: Urine 1225 2200 1900 Uretheral (Estevez) 1900 Other: Voiding Method Diaper Indwelling Catheter Indwelling Catheter Indwelling Catheter # Voids 1 # Bowel Movements 1 1 - Exam Physical examination: PHYSICAL EXAMINATION: Patient is resting comfortably in bed. VITAL SIGNS: Blood pressure is [165/82]. Heart rate is [71]. Respiration is [16] . Temperature is [97.2]. HEENT: Head is atraumatic, neck is supple, there were no carotid bruits. CHEST: Lungs are clear to auscultation and percussion. CARDIAC: S1, S2 normal rate and rhythm. There is no murmur. ABDOMEN: Soft and nontender. Bowel sounds are present. EXTREMITIES: There is no pedal edema. Peripheral pulses are present. Neurological examination: Patient's neurological examination is unchanged from yesterday. - Labs CBC & Chem 7: 10/12/17 13:35 10/14/17 06:21 Labs: Abnormal Lab Results - Last 24 Hours (Table) 10/14/17 Range/Units 06:21 Sodium 152 H (137-145) mmol/L Chloride 119 H (98-107) mmol/L Creatinine 2.23 H (0.66-1.25) mg/dL Glucose 113 H (74-99) mg/dL Microbiology - Last 24 Hours (Table) 10/12/17 14:35 Urine Culture - Final Urine,Voided Assessment and Plan (1) Dementia of the Alzheimer's type Current Visit: Yes Status: Acute Code(s): G30.9 - ALZHEIMER'S DISEASE, UNSPECIFIED; F02.80 - DEMENTIA IN OTH DISEASES CLASSD ELSWHR W/O BEHAVRL DISTURB SNOMED Code(s): 01007167 (2) Acute encephalopathy Current Visit: Yes Status: Acute Code(s): G93.40 - ENCEPHALOPATHY, UNSPECIFIED SNOMED Code(s): 75810273 (3) Acquired hydronephrosis due to obstruction of bladder Current Visit: Yes Status: Acute Priority: High Code(s): N13.30 - UNSPECIFIED HYDRONEPHROSIS; N32.89 - OTHER SPECIFIED DISORDERS OF BLADDER SNOMED Code(s): 663688281 (4) General weakness Current Visit: Yes Status: Acute Code(s): R53.1 - WEAKNESS SNOMED Code(s) : 42057006 Plan: This patient is a 77-year-old male who has a history of advanced dementia. He was admitted to Hospital with inability to ambulate and generalized weakness. He is being treated for bilateral hydronephrosis and was seen by urology. He has a Estevez catheter in place. He is being treated for probable urinary tract infection as well. Patient is to be evaluated further by physical therapy. We have also suggested evaluation for subacute rehab for more aggressive PT/OT evaluation. Would consider consultation with Dr. Ball for further evaluation. He is being treated for advanced dementia and is currently on a combination of Aricept and Namenda. Would recommend to continue on the same. We will await PT OT evaluation for the patient tomorrow and will continue to follow his progress closely. Case was discussed at length with the patient's at bedside. All her questions were answered. She is aware of our treatment plan and recommendations.
[2017-10-14] MEDS: DONEPEZIL 10 MG TAB PO SCH (21:27)
--- NOTE | 2017-10-14 22:51 | P.PN ---
Progress Note - Text Progress Note Date: 10/14/17 A Estevez catheter was placed yesterday. It cannot be determined from the nursing records how much urine was obtained upon initial catheter insertion. The Estevez catheter remains in place, draining blood-tinged urine. The serum creatinine level has decreased to 2.23. The catheter will remain in place, and he is urologically stable for discharge. Arrangements will be made for him to undergo urodynamic testing in the office in 3 weeks. Please notify me if I can be of any further assistance during this hospitalization.
[2017-10-15] MEDS: cefTRIAXone IN SWFI 1,000 MG/10 ML SYRINGE IVP SCH ×2 (08:59→20:41)
[2017-10-15] MEDS: MEMANTINE 10 MG TAB PO SCH ×2 (08:59→20:41)
[2017-10-15] MEDS: CIPROFLOXACIN 0.3% OPHTH SOLN 5 ML BTL BOTH EYES SCH ×4 (08:59→20:47)
[2017-10-15] MEDS: LISINOPRIL 20 MG TAB PO SCH (09:00)
[2017-10-15 12:07] LABS: Albumin 3.3 g/dL (3.5-5.0); Phosphorus 3.4 mg/dL (2.5-4.5); Potassium 4.2 mmol/L (3.5-5.1)
--- NOTE | 2017-10-15 13:45 | CDI ---
Last Revision, August 2017 Documentation Clarification Form Date: 10/15/2017 1:36:00 PM From: Bridget CollinsWatersFRANCIE, CCDS Admit Date: 10/13/2017 12:30:00 PM Patient Name: Ky Vaughn Visit Number: [id number] Discharge Date: ATTENTION: The Clinical Documentation Specialists (CDI) and [facility] Coding Staff appreciate your assistance in clarifying documentation. Please respond to the clarification below the line at the bottom and electronically sign. The CDI & [facility] Coding staff will review the response and follow-up if needed. Please note: Queries are made part of the Legal Health Record. If you have any questions, please contact the author of this message via ITS. Dr. Tyrone Ferrera: Admitted with dehydration and probable UTI. History/Risk Factors: Dementia & Alzheimer's Disease. Admission BUN/Cr/GFR: / 2.50 / Current BUN/Cr/GFR: 17 / 2. / 32 Treatment: Neuro assessment, Fall precautions, IV fl 100, IV Narcan, IV Rocephin Consults: Urology, Neuro In order to capture the severity of condition, please clarify if the condition signifies: Acute renal failure Acute on chronic renal failure If Chronic, please specify the stage if known: CKD Stage 1 GFR >90 CKD Stage 2 GFR 60-89 CKD Stage 3 GFR 30-59 CKD Stage 4 GFR 15-29 CKD Stage 5 GFR <15 ESRD Other, please specify Unable to determine Please continue to document in your progress notes and discharge summary in order to capture severity of illness and risk of mortality. Include clinical findings that support your diagnosis. MTDD
--- NOTE | 2017-10-15 14:07 | PN ---
PROGRESS NOTE DATE OF SERVICE: 10/15/2017. CHIEF COMPLAINT: 1. Generalized weakness and debility. 2. Dehydration. HISTORY OF PRESENT ILLNESS: This gentleman is improving as he is rehydrated. He still has elevated sodium and chloride. He also has developed conjunctivitis. Other than that, he has been doing well. The urine is clearing. PHYSICAL EXAM: He is a little bit more alert and responsive. He does have bilateral conjunctivitis. The chest is clear. The cardiac exam is normal and the abdomen is soft, nontender. The Estevez catheter is in place. IMPRESSION: 1. Dehydration. 2. General debility. 3. Dementia. 4. Renal failure-improving. 5. Conjunctivitis. PLAN: IV fluids continued and will start to work on discharge plan. MMODL / IJN: [id number] /
--- NOTE | 2017-10-15 17:15 | P.PN ---
Subjective Progress Note Date: 10/15/17 This patient is a 77-year-old male who was admitted with generalized weakness and worsening dementia. Patient's dementia has been progressively getting worse. He is also been noted by family is having increasing difficulty to ambulate. He was brought into the emergency room and underwent a computed tomography scan of the brain which came back negative for any evidence of acute stroke or hemorrhage. There was evidence of moderate frontotemporal cortical atrophy noted on CAT scan. Patient is being treated for dementia and is currently on a combination of Aricept and Namenda. He was seen by physical therapy this morning but was not able to participate due to fatigue and tiredness. According to his he is more active in the late afternoon. He usually is very slow at home in the morning hours as well. Physical therapy is going to work with him tomorrow afternoon. We would like to see the assessment from physical therapy in terms of his strength and gait. Would recommend evaluation by Dr. Ball for possible subacute rehab. It appears he would benefit from some short-term inpatient rehab to strengthen his overall gait and walking ability. As noted his computed tomography scan of the brain failed to reveal any acute changes of stroke or hemorrhage. His weakness seems to be more generalized in nature at this time. He was seen by urology for evaluation of hydronephrosis. He is having a Estevez catheter in place at this time. He is being treated for urinary tract infection as well. We have discussed his findings today in detail with the patient's at bedside. She would like to get a Yessica chair in the room so that he may sit up during the day. The patient was able to sit up in the chair today for several hours. He was also able to work with physical therapy this afternoon and ambulated in the hallway with minimal assistance. He did not require a walker. He seems to be making good progress. His Estevez catheter also showing clearing of his urine as well. He will need to be discharged with a Estevez catheter and will follow-up with urology. We did discuss with the today possibility of subacute rehab in the inpatient rehab unit that [facility]. She will discuss this with Dr. Ferrera. His overall prognosis at this time remains guarded. Objective - Vital Signs Vital signs: Vital Signs Temp 97.0 F L 10/15/17 07:49 Pulse 67 10/15/17 07:49 Resp 16 10/15/17 08:00 BP 164/82 10/15/17 07:49 Pulse Ox 97 10/15/17 07:49 Intake & Output 10/14/17 10/15/17 10/15/17 18:59 06:59 18:59 Intake Total 1500 Output Total 1900 1800 600 Balance -400 -1800 -600 Intake: Oral 1500 Output: Urine 1900 1800 600 Uretheral (Estevez) 1900 1000 Other: Voiding Method Indwelling Catheter Indwelling Catheter Indwelling Catheter # Voids 1 # Bowel Movements 1 - Exam Physical examination: PHYSICAL EXAMINATION: Patient is resting comfortably in bed. VITAL SIGNS: Blood pressure is [164/82]. Heart rate is [67]. Respiration is [16] . Temperature is [97.0]. HEENT: Head is atraumatic, neck is supple, there were no carotid bruits. CHEST: Lungs are clear to auscultation and percussion. CARDIAC: S1, S2 normal rate and rhythm. There is no murmur. ABDOMEN: Soft and nontender. Bowel sounds are present. EXTREMITIES: There is no pedal edema. Peripheral pulses are present. Neurological examination: Patient's neurological examination is unchanged from yesterday. The patient was able to stand and ambulate today and walk fairly well without any gait imbalance. Recommend he continue to work with physical therapy. - Labs CBC & Chem 7: 10/12/17 13:35 10/15/17 11:24 Labs: Abnormal Lab Results - Last 24 Hours (Table) 10/15/17 Range/Units 11:24 Chloride 110 H (98-107) mmol/L Creatinine 2.01 H (0.66-1.25) mg/dL Glucose 118 H (74-99) mg/dL Albumin 3.3 L (3.5-5.0) g/dL Assessment and Plan (1) Dementia of the Alzheimer's type Current Visit: Yes Status: Acute Code(s): G30.9 - ALZHEIMER'S DISEASE, UNSPECIFIED; F02.80 - DEMENTIA IN OTH DISEASES CLASSD ELSWHR W/O BEHAVRL DISTURB SNOMED Code(s): 30243440 (2) Acute encephalopathy Current Visit: Yes Status: Acute Code(s): G93.40 - ENCEPHALOPATHY, UNSPECIFIED SNOMED Code(s): 49286190 (3) Acquired hydronephrosis due to obstruction of bladder Current Visit: Yes Status: Acute Priority: High Code(s): N13.30 - UNSPECIFIED HYDRONEPHROSIS; N32.89 - OTHER SPECIFIED DISORDERS OF BLADDER SNOMED Code(s): 292930827 (4) General weakness Current Visit: Yes Status: Acute Code(s): R53.1 - WEAKNESS SNOMED Code(s) : 10193235 Plan: This patient is a 77-year-old male who is being evaluated for generalized weakness and dementia. He is showing slight improvement in that he was able to ambulate today without the use of a walker with physical therapy. Apparently walked around the hallway. He was able to sit up in the Yessica chair today as well. Case was discussed at length with the patient's at bedside. She was updated in his progress. He may still be considered for possibility of inpatient rehab at [facility]. We will continue to see his progress and the recommendations of PTOT. His overall dementia symptoms remain stable. He is to continue on his current medications. We will continue to follow him closely during this admission.
[2017-10-15] MEDS: DONEPEZIL 10 MG TAB PO SCH (20:41)
[2017-10-16] MEDS: LISINOPRIL 20 MG TAB PO SCH (09:42)
[2017-10-16] MEDS: MEMANTINE 10 MG TAB PO SCH ×2 (09:42→22:57)
[2017-10-16] MEDS: CIPROFLOXACIN 0.3% OPHTH SOLN 5 ML BTL BOTH EYES SCH ×4 (09:42→22:57)
[2017-10-16] MEDS: cefTRIAXone IN SWFI 1,000 MG/10 ML SYRINGE IVP SCH ×2 (11:07→23:14)
--- NOTE | 2017-10-16 11:56 | CDI ---
Last Revision, August 2017 Documentation Clarification Form Date: 10/15/2017 1:36:00 PM From: Bridget CollinsWatersFRANCIE, CCDS Admit Date: 10/13/2017 12:30:00 PM Patient Name: Ky Vaughn Visit Number: [id number] Discharge Date: ATTENTION: The Clinical Documentation Specialists (CDI) and [facility] Coding Staff appreciate your assistance in clarifying documentation. Please respond to the clarification below the line at the bottom and electronically sign. The CDI & [facility] Coding staff will review the response and follow-up if needed. Please note: Queries are made part of the Legal Health Record. If you have any questions, please contact the author of this message via ITS. Dr. Tyrone Ferrera: Admitted with dehydration and probable UTI. History/Risk Factors: Dementia & Alzheimer's Disease. Admission BUN/Cr/GFR: 20 / 2.50 / 25 Current BUN/Cr/GFR: 17 / 2. / 32 Treatment: Neuro assessment, Fall precautions, IV fl 100, IV Narcan, IV Rocephin Consults: Urology, Neuro In order to capture the severity of condition, please clarify if the condition signifies: Acute renal failure Acute on chronic renal failure If Chronic, please specify the stage if known: CKD Stage 1 GFR >90 CKD Stage 2 GFR 60-89 CKD Stage 3 GFR 30-59 CKD Stage 4 GFR 15-29 CKD Stage 5 GFR <15 ESRD Other, please specify Unable to determine Please continue to document in your progress notes and discharge summary in order to capture severity of illness and risk of mortality. Include clinical findings that support your diagnosis. MTDD
[2017-10-16] MEDS: SULFACETAMIDE SOD 10% OPHTH DROPS 15 ML BTL BOTH EYES SCH ×3 (13:21→23:13)
--- NOTE | 2017-10-16 16:38 | PN ---
PROGRESS NOTE DATE OF SERVICE: 10/16/2017 CHIEF COMPLAINT: Generalized weakness, obstructive uropathy and renal failure. HISTORY OF PRESENT ILLNESS: This gentleman has developed significant conjunctivitis bilaterally and this will be treated. Other than that, there has been no interval change. Kidney function is about the same. His urine is clearing in the catheter bag. PHYSICAL EXAMINATION: His chest is clear. The cardiac exam is normal. The abdomen is soft and nontender. Extremities are normal. He does have bilateral purulent conjunctivitis and ectropion on the right. IMPRESSION: 1. Failure to thrive and general debility. 2. Dementia. 3. Obstructive uropathy. 4. Renal failure. 5. Conjunctivitis. PLAN: 1. Sulfacetamide eye drops. 2. He should probably be able to go home soon. MMODL / IJN: [id number] /
--- NOTE | 2017-10-16 18:33 | P.PN ---
Subjective Progress Note Date: 10/16/17 This patient is a 77-year-old male who was admitted with generalized weakness and worsening dementia. Patient's dementia has been progressively getting worse. He is also been noted by family is having increasing difficulty to ambulate. He was brought into the emergency room and underwent a computed tomography scan of the brain which came back negative for any evidence of acute stroke or hemorrhage. There was evidence of moderate frontotemporal cortical atrophy noted on CAT scan. Patient is being treated for dementia and is currently on a combination of Aricept and Namenda. He was seen by physical therapy this morning and was able to sit up in a Yessica chair. According to his he is more active in the late afternoon. He usually is very slow at home in the morning hours as well. Physical therapy is going to work with him tomorrow afternoon. We would like to see the assessment from physical therapy in terms of his strength and gait. Would recommend evaluation by Dr. Ball for possible subacute rehab. It appears he would benefit from some short-term inpatient rehab to strengthen his overall gait and walking ability. As noted his computed tomography scan of the brain failed to reveal any acute changes of stroke or hemorrhage. His weakness seems to be more generalized in nature at this time. He was seen by urology for evaluation of hydronephrosis. He is having a Estevez catheter in place at this time. He is being treated for urinary tract infection as well. We have discussed his findings today in detail with the patient's at bedside. She would like to get a Yessica chair in the room so that he may sit up during the day. The patient was able to sit up in the chair today for a few hours. He was also able to work with physical therapy this afternoon. He seems to be making some progress. His Estevez catheter also showing clearing of his urine as well. He will need to be discharged with a Estevez catheter and will follow-up with urology. We did discuss with the today possibility of subacute rehab in the inpatient rehab unit that [facility]. She will bring this up with Dr. Ferrera tomorrow. Would continue his current treatment plan and discharge planning as well. His overall prognosis at this time remains guarded. Objective - Vital Signs Vital signs: Vital Signs Temp 97.6 F 10/16/17 15:00 Pulse 61 10/16/17 15:00 Resp 17 10/16/17 15:00 BP 131/76 10/16/17 15:00 Pulse Ox 93 L 10/16/17 15:00 Intake & Output 10/15/17 10/16/17 10/16/17 18:59 06:59 18:59 Intake Total 240 Output Total 1100 1175 1200 Balance -1100 -1175 -960 Intake: Oral 240 Output: Urine 1100 1175 1200 Other: Voiding Method Indwelling Catheter Indwelling Catheter Indwelling Catheter # Voids 1 # Bowel Movements 2 0 - Exam Physical examination: PHYSICAL EXAMINATION: Patient is resting comfortably in bed. VITAL SIGNS: Blood pressure is [131/76]. Heart rate is [61]. Respiration is [17] . Temperature is [97.7]. HEENT: Head is atraumatic, neck is supple, there were no carotid bruits. CHEST: Lungs are clear to auscultation and percussion. CARDIAC: S1, S2 normal rate and rhythm. There is no murmur. ABDOMEN: Soft and nontender. Bowel sounds are present. EXTREMITIES: There is no pedal edema. Peripheral pulses are present. Neurological examination: Patient's neurological examination is unchanged from yesterday. The patient was able to work with physical therapy today. He is able to sit up in the Mckinley chair for short period of time. His remaining neurological examination remains unchanged. - Labs CBC & Chem 7: 10/12/17 13:35 10/15/17 11:24 Assessment and Plan (1) Dementia of the Alzheimer's type Current Visit: Yes Status: Acute Code(s): G30.9 - ALZHEIMER'S DISEASE, UNSPECIFIED; F02.80 - DEMENTIA IN OTH DISEASES CLASSD ELSWHR W/O BEHAVRL DISTURB SNOMED Code(s): 09282294 (2) Acute encephalopathy Current Visit: Yes Status: Acute Code(s): G93.40 - ENCEPHALOPATHY, UNSPECIFIED SNOMED Code(s): 05689977 (3) Acquired hydronephrosis due to obstruction of bladder Current Visit: Yes Status: Acute Priority: High Code(s): N13.30 - UNSPECIFIED HYDRONEPHROSIS; N32.89 - OTHER SPECIFIED DISORDERS OF BLADDER SNOMED Code(s): 070692773 (4) General weakness Current Visit: Yes Status: Acute Code(s): R53.1 - WEAKNESS SNOMED Code(s) : 62023030 Plan: This patient is a 77-year-old male being evaluated for generalized weakness and renal failure. Patient was found to have evidence of severe conjunctivitis bilaterally and has been placed on antibiotic eye drops. He was able to work with physical therapy somewhat today and was able to sit up in the Yessica chair. Patient may benefit from inpatient rehab and we will wait further recommendations from PT and OT. Patient has history of underlying dementia and is currently on treatment with Aricept and Namenda. Would increase his activity as he tolerates with physical therapy and is being considered for possible discharge home soon. We will await further recommendations from Dr. sultana regarding discharge planning. He is showing no significant change in his overall cognitive functioning today as compared to initial presentation. He does have evidence of acute renal failure and his Estevez catheter is now showing clearing. We will continue to follow his progress closely during this admission. His overall prognosis remains guarded. This case was discussed at length with the patient's at bedside. All of her questions were answered. She is aware of his guarded condition.
--- NOTE | 2017-10-16 20:14 | MISC ---
MISCELLANOUS REPORT QUERY: The question was staging of his kidney failure, stage III. It is chronic renal failure. MMODL / IJN: [id number] /
[2017-10-16] MEDS: DONEPEZIL 10 MG TAB PO SCH (22:57)
[2017-10-17] MEDS: SULFACETAMIDE SOD 10% OPHTH DROPS 15 ML BTL BOTH EYES SCH ×3 (06:56→18:03)
[2017-10-17 07:51] VITALS: RESP 18
[2017-10-17] MEDS: MEMANTINE 10 MG TAB PO SCH ×2 (09:35→21:18)
[2017-10-17] MEDS: cefTRIAXone IN SWFI 1,000 MG/10 ML SYRINGE IVP SCH ×2 (09:35→21:18)
[2017-10-17] MEDS: LISINOPRIL 20 MG TAB PO SCH (09:35)
[2017-10-17] MEDS: CIPROFLOXACIN 0.3% OPHTH SOLN 5 ML BTL BOTH EYES SCH ×4 (09:36→20:53)
--- NOTE | 2017-10-17 16:15 | PN ---
PROGRESS NOTE DATE OF SERVICE: 10/17/2017 CHIEF COMPLAINT: General debility and failure to thrive. HISTORY OF PRESENT ILLNESS: This gentleman is stable and he can probably go home. The is now requesting that he be referred for physical therapy at [facility] and this will be addressed. PHYSICAL EXAM: Chest is clear. Cardiac exam is normal. Abdomen is soft, nontender. Urine is clearing. IMPRESSION: 1. General debility. 2. Dementia. 3. Failure to thrive. 4. Renal failure. 5. Obstructive uropathy. 6. Conjunctivitis. PLAN: Look into correction placement at [facility]. MMODL / IJN: [id number] /
--- NOTE | 2017-10-17 17:32 | P.PN ---
Subjective Progress Note Date: 10/17/17 This patient is a 77-year-old male who was admitted with generalized weakness and worsening dementia. Patient's dementia has been progressively getting worse. He is also been noted by family is having increasing difficulty to ambulate. He was brought into the emergency room and underwent a computed tomography scan of the brain which came back negative for any evidence of acute stroke or hemorrhage. There was evidence of moderate frontotemporal cortical atrophy noted on CAT scan. Patient is being treated for dementia and is currently on a combination of Aricept and Namenda. He was seen by physical therapy this morning and was able to sit up in a Yessica chair. According to his he is more active in the late afternoon. He usually is very slow at home in the morning hours as well. Physical therapy is going to work with him tomorrow afternoon. We would like to see the assessment from physical therapy in terms of his strength and gait. Would recommend evaluation by Dr. aBll for possible subacute rehab. It appears he would benefit from some short-term inpatient rehab to strengthen his overall gait and walking ability. As noted his computed tomography scan of the brain failed to reveal any acute changes of stroke or hemorrhage. His weakness seems to be more generalized in nature at this time. He was seen by urology for evaluation of hydronephrosis. He is having a Estevez catheter in place at this time. He is being treated for urinary tract infection as well. We have discussed his findings today in detail with the patient's at bedside. She would like to get a Yessica chair in the room so that he may sit up during the day. The patient was able to sit up in the chair today for a few hours. He was also able to work with physical therapy this afternoon. He seems to be making some progress. His Estevez catheter also showing clearing of his urine as well. He will need to be discharged with a Estevez catheter and will follow-up with urology. The patient's did discuss possibility of physical therapy and rehab at [facility]. She did discuss this today with Dr. Ferrera. We will await further recommendations from merchandise planner. His overall prognosis at this time remains guarded. Objective - Vital Signs Vital signs: Vital Signs Temp 97.2 F L 10/17/17 15:00 Pulse 85 10/17/17 15:00 Resp 18 10/17/17 15:00 BP 100/58 10/17/17 15:00 Pulse Ox 95 10/17/17 15:00 Intake & Output 10/16/17 10/17/17 10/17/17 18:59 06:59 18:59 Intake Total 240 300 480 Output Total 1200 900 Balance -960 -600 480 Intake: Oral 240 300 480 Output: Urine 1200 900 Other: Voiding Method Indwelling Catheter Indwelling Catheter Indwelling Catheter # Voids 0 # Bowel Movements 0 0 - Exam Physical examination: PHYSICAL EXAMINATION: Patient is resting comfortably in bed. VITAL SIGNS: Blood pressure is [100/58]. Heart rate is [85]. Respiration is [18] . Temperature is [97.2]. HEENT: Head is atraumatic, neck is supple, there were no carotid bruits. CHEST: Lungs are clear to auscultation and percussion. CARDIAC: S1, S2 normal rate and rhythm. There is no murmur. ABDOMEN: Soft and nontender. Bowel sounds are present. EXTREMITIES: There is no pedal edema. Peripheral pulses are present. Neurological examination: Patient's neurological examination is unchanged from yesterday. The patient was able to work with physical therapy today. He is able to sit up in the Mckinley chair for short period of time. His remaining neurological examination remains unchanged. - Labs CBC & Chem 7: 10/12/17 13:35 10/15/17 11:24 Assessment and Plan (1) Dementia of the Alzheimer's type Current Visit: Yes Status: Acute Code(s): G30.9 - ALZHEIMER'S DISEASE, UNSPECIFIED; F02.80 - DEMENTIA IN OTH DISEASES CLASSD ELSWHR W/O BEHAVRL DISTURB SNOMED Code(s): 18449438 (2) Acute encephalopathy Current Visit: Yes Status: Acute Code(s): G93.40 - ENCEPHALOPATHY, UNSPECIFIED SNOMED Code(s): 21515555 (3) Acquired hydronephrosis due to obstruction of bladder Current Visit: Yes Status: Acute Priority: High Code(s): N13.30 - UNSPECIFIED HYDRONEPHROSIS; N32.89 - OTHER SPECIFIED DISORDERS OF BLADDER SNOMED Code(s): 376885671 (4) General weakness Current Visit: Yes Status: Acute Code(s): R53.1 - WEAKNESS SNOMED Code(s) : 45031065 Plan: This patient is a 77-year-old male being evaluated for generalized weakness and dementia. Patient has general medical debility and is now being considered for possible physical therapy at [facility]. Patient is also being treated for acute onset of conjunctivitis. He has been able to work with physical therapy in-house and apparently showed some improvement with his gait. His would like him to continue with physical therapy at [facility]. This was discussed today by the and Dr. Ferrera. We will await further recommendations from the merchandise planner. Would continue the patient on current medications for treatment of underlying dementia. His obstructive uropathy has been treated and he is to follow up with urology. Case was discussed at length with the patient's at bedside. All of her questions were answered. We will continue to follow his progress closely during this admission.
[2017-10-17] MEDS: DONEPEZIL 10 MG TAB PO SCH (21:18)
[2017-10-18] MEDS: SULFACETAMIDE SOD 10% OPHTH DROPS 15 ML BTL BOTH EYES SCH ×3 (00:05→07:48)
[2017-10-18] MEDS: CIPROFLOXACIN 0.3% OPHTH SOLN 5 ML BTL BOTH EYES SCH ×2 (07:48→12:45)
[2017-10-18] MEDS: MEMANTINE 10 MG TAB PO SCH (07:48)
[2017-10-18] MEDS: LISINOPRIL 20 MG TAB PO SCH (07:48)
[2017-10-18] MEDS: cefTRIAXone IN SWFI 1,000 MG/10 ML SYRINGE IVP SCH (07:48)
[2017-10-18 08:02] VITALS: BP 111/63; PULSE 68; TEMP 97.5
--- NOTE | 2017-10-18 11:49 | DS ---
DISCHARGE SUMMARY DATE OF SERVICE: 10/18/2017 CHIEF COMPLAINT: Weakness and failure to thrive with dehydration. HISTORY OF PRESENT ILLNESS AND PHYSICAL EXAM: Details of this man's history and physical can be found in the initial workup. LABORATORY STUDIES: While he is in the hospital, he had laboratory studies, details of which can be found in the laboratory section of his chart. COURSE IN HOSPITAL: After admission, he was placed in bedrest, started on intravenous fluids and he was rehydrated. He improved. He was found to have hydronephrosis and renal failure probably secondary to obstructive uropathy. Estevez catheter was placed. There was hematuria for several days, but this cleared. Urology felt that he should continue with the indwelling Estevez catheter indefinitely. He was stabilized and doing fairly well and his requested that he go to rehab. Arrangements were made for him to go to [facility] on the and he will be followed there. FINAL DIAGNOSES: 1. Dehydration. 2. Chronic renal failure. 3. Obstructive uropathy. 4. Dementia. 5. Hypertension. 6. Hyperlipidemia. OPERATIONS: None. CONSULTATIONS: Neurology and Urology. He is improved. MMODL / IJN: [id number] /
--- NOTE | 2017-10-22 22:12 | MISC ---
MISCELLANOUS REPORT QUERY: Renal failure is chronic and stage IV. MMODL / IJN: [id number] /
--- NOTE | 2017-10-23 08:49 | CDI ---
Last Revision, August 2017 Documentation Clarification Form Date: 10/23/2017 8:13:00 AM From: Katie Cadet Phone: If you have a question regarding this query, please contact Lea Eng [employer] Sheet Metal Pattern Cutter at [phone] between 8am and 5pm. Admit Date: 10/13/2017 12:30:00 PM Patient Name: Ky Vaughn Visit Number: [id number] Discharge Date: ATTENTION: The Clinical Documentation Specialists (CDI) and [facility] Coding Staff appreciate your assistance in clarifying documentation. Please respond to the clarification below the line at the bottom and electronically sign. The CDI & [facility] Coding staff will review the response and follow-up if needed. Please note: Queries are made part of the Legal Health Record. If you have any questions, please contact the author of this message via ITS. Dr. Tyrone Ferrera Acute Encephalopathy is documented in the neurology consult note and progress notes. History/Risk factors: Patient was admitted with dehydration. Clinical Indicators: Altered mental status per documentation in the ED note. Per H&P, the patient had a probable UTI. CT/MRI Brain: No acute abnormality is identified. Treatment: Patient was rehydrated and placed on IV Rocephin. Consults: Acute encephalopathy per Neurology Consult. In your professional opinion, can you please clarify the specific type of encephalopathy, if known? Anoxic Encephalopathy Hypertensive Encephalopathy Metabolic Encephalopathy Septic Encephalopathy Toxic Encephalopathy Traumatic Encephalopathy Hepatic Encephalopathy, if indicated, please clarify: Indicate if any complications: Coma, other disease process? Indicate whether acute, sub-acute or chronic? Causal Condition: Alcoholism, Hepatitis, other disease process? Other, please specify Unable to determine Please continue to document in your progress notes and discharge summary in order to capture severity of illness and risk of mortality. Include clinical findings that support your diagnosis. MTDD
--- NOTE | 2017-10-23 09:12 | CDI ---
Last Revision, August 2017 Documentation Clarification Form Date: 10/23/2017 8:50:00 AM From: Katie Cadet Phone: If you have a question regarding this query, please contact Lea Eng [employer] Sorter at [phone] between 8am and 5pm. Admit Date: 10/13/2017 12:30:00 PM Patient Name: Ky Vaughn Visit Number: [id number] Discharge Date: ATTENTION: The Clinical Documentation Specialists (CDI) and [facility] Coding Staff appreciate your assistance in clarifying documentation. Please respond to the clarification below the line at the bottom and electronically sign. The CDI & [facility] Coding staff will review the response and follow-up if needed. Please note: Queries are made part of the Legal Health Record. If you have any questions, please contact the author of this message via ITS. Dr. Tyrone Ferrera Probable UTI was documented in the H&P only. Neurology documented that the patient has been started on Rocephin but apparently does not have clear evidence of urinary tract infection. Urology consult only documents urinary retention and acquired hydronephrosis due to obstruction of bladder. History/Risk Factors: (Estevez POA? incontinent?) Patient has ostruction of bladder with urinary retention and hydronephrosis. Clinical Indicators: Altered mental status, confusion and urinary retention. Vital Signs: T. 98.8 on admission and downt to 96.9 next day, P. 56, R. 18, BP 169/81 WBC: 6.0 Urinalysis: Moderate leukocyte esterase, 13 WBCs, Bacteria rare, mucus rare Urine Culture: No growth after 18 hours Antibiotics: IV Rocephin In your professional opinion, please clarify if UTI was: Ruled In Ruled Out Please continue to document in your progress notes and discharge summary in order to capture severity of illness and risk of mortality. Include clinical findings that support your diagnosis. MTDD
--- NOTE | 2017-10-23 09:21 | CDI ---
Last Revision, August 2017 Documentation Clarification Form Date: 10/23/2017 9:13:00 AM From: Katie Cadet Phone: If you have a question regarding this query, please contact Lea Eng at [phone] Admit Date: 10/13/2017 12:30:00 PM Patient Name: Ky Vaughn Visit Number: [id number] Discharge Date: ATTENTION: The Clinical Documentation Specialists (CDI) and [facility] Coding Staff appreciate your assistance in clarifying documentation. Please respond to the clarification below the line at the bottom and electronically sign. The CDI & [facility] Coding staff will review the response and follow-up if needed. Please note: Queries are made part of the Legal Health Record. If you have any questions, please contact the author of this message via ITS. Dr. Tyrone Ferrera Rule out sepsis is documented in the H&P. History/Risk Factors: Patient was admitted with altered mental status and probable UTI. Clinical Indicators: Altered mental status. WBC/Left Shift: 6.0/3.7 Lactic acid: 1.3 Blood cultures: Not obtained Vitals signs on admission: T. 98.8, P. 59, R. 18, BP 169/81 Antibiotics: IV Rocephin In your professional opinion, please clarify on of the following: Sepsis ruled out SIRS, without underlying infectious process Sepsis Severe Sepsis Septic Shock Other, please specify Unable to determine SIRS Criteria..2 or more of the following may indicate SIRS: Temperature < 96.8F (36C) or > 101.0F (38.3C) Heart Rate > 90 bpm Respiratory Rate > 20 breaths/min or PaCO2 < 32 mmHg White Blood Cell Count > 12,000 or < 4,000 cells/mm3 or > 10% bands Lactate >2.0 mmol/L (>4.0 is equivalent to septic shock) Please continue to document in your progress notes and discharge summary in order to capture severity of illness and risk of mortality. Include clinical findings that support your diagnosis. MTDD
--- NOTE | 2017-10-31 08:15 | CDI ---
Last Revision, August 2017 Documentation Clarification Form Date: 10/23/2017 9:13:00 AM From: Katie Cadet Phone: If you have a question regarding this query, please contact Lea Eng Spool Cleaner Hand at [phone] Admit Date: 10/13/2017 12:30:00 PM Patient Name: Ky Vaughn Visit Number: [id number] Discharge Date:10/18/17 ATTENTION: The Clinical Documentation Specialists (CDI) and [facility] Coding Staff appreciate your assistance in clarifying documentation. Please respond to the clarification below the line at the bottom and electronically sign. The CDI & [facility] Coding staff will review the response and follow-up if needed. Please note: Queries are made part of the Legal Health Record. If you have any questions, please contact the author of this message via ITS. Dr. Tyrone Ferrera Rule out sepsis is documented in the H&P. History/Risk Factors: Patient was admitted with altered mental status and probable UTI. Clinical Indicators: Altered mental status. WBC/Left Shift: 6.0/3.7 Lactic acid: 1.3 Blood cultures: Not obtained Vitals signs on admission: T. 98.8, P. 59, R. 18, BP 169/81 Antibiotics: IV Rocephin In your professional opinion, please clarify on of the following: Sepsis ruled out SIRS, without underlying infectious process Sepsis Severe Sepsis Septic Shock Other, please specify Unable to determine MTDD
--- NOTE | 2017-10-31 08:24 | CDI ---
Last Revision, August 2017 Documentation Clarification Form Date: 10/23/2017 8:50:00 AM From: Katie Cadet Phone: If you have a question regarding this query, please contact Lea Eng Manufacturing Clerk at [phone] between 8am and 5pm. Admit Date: 10/13/2017 12:30:00 PM Patient Name: Ky Vaughn Visit Number: [id number] Discharge Date: 10/18/17 ATTENTION: The Clinical Documentation Specialists (CDI) and [facility] Coding Staff appreciate your assistance in clarifying documentation. Please respond to the clarification below the line at the bottom and electronically sign. The CDI & [facility] Coding staff will review the response and follow-up if needed. Please note: Queries are made part of the Legal Health Record. If you have any questions, please contact the author of this message via ITS. Dr. Tyrone Ferrera Probable UTI was documented in the H&P only. Neurology documented that the patient has been started on Rocephin but apparently does not have clear evidence of urinary tract infection. Urology consult only documents urinary retention and acquired hydronephrosis due to obstruction of bladder. History/Risk Factors: (Estevez POA? incontinent?) Patient has bostruction of bladder with urinary retention and hydronephrosis. Clinical Indicators: Altered mental status, confusion and urinary retention. Vital Signs: T. 98.8 on admission and downt to 96.9 next day, P. 56, R. 18, BP 169/81 WBC: 6.0 Urinalysis: Moderate leukocyte esterase, 13 WBCs, Bacteria rare, mucus rare Urine Culture: No growth after 18 hours Antibiotics: IV Rocephin In your professional opinion, please clarify if UTI was: Ruled In Ruled Out __ MTDD
--- NOTE | 2017-10-31 08:31 | CDI ---
Last Revision, August 2017 Documentation Clarification Form Date: 10/23/2017 8:13:00 AM From: Katie Cadet Phone: If you have a question regarding this query, please contact Lea Eng Varnish Supervisor at [phone] between 8am and 5pm. Admit Date: 10/13/2017 12:30:00 PM Patient Name: Ky Vaughn Visit Number: [id number] Discharge Date: 10/18/17 ATTENTION: The Clinical Documentation Specialists (CDI) and [facility] Coding Staff appreciate your assistance in clarifying documentation. Please respond to the clarification below the line at the bottom and electronically sign. The CDI & [facility] Coding staff will review the response and follow-up if needed. Please note: Queries are made part of the Legal Health Record. If you have any questions, please contact the author of this message via ITS. Dr. Tyrone Ferrera Encephalopathy is documented in the neurology consult note and progress notes. History/Risk factors: Patient was admitted with dehydration. Clinical Indicators: Altered mental status per documentation in the ED note. Per H&P, the patient had a probable UTI. CT/MRI Brain: No acute abnormality is identified. Treatment: Patient was rehydrated and placed on IV Rocephin. Consults: Acute encephalopathy per Neurology Consult. In your professional opinion, can you please clarify the specific type of encephalopathy, if known? Hypertensive Encephalopathy Metabolic Encephalopathy Toxic Encephalopathy Indicate if any complications: Coma, other disease process? Causal Condition: Alcoholism, Hepatitis, other disease process? Other, please specify Unable to determine MTDD
--- NOTE | 2017-10-31 11:37 | CONS ---
CONSULTATION QUESTION: Was there sepsis? ANSWER: Sepsis was ruled out. QUESTION: Clarify if UTI. ANSWER: It was ruled in. QUESTION: Type of encephalopathy, if other please specify. ANSWER: Dementia, Alzheimer's type. MMODL / IJN: [id number] /
== END 2017-10-18 14:05 | DRG 641 ==
LOC: EC 13:20 → 3SUR 15:54 → OBSVTOIN 10-13 12:30 → 4MS4W 10-15 18:44
PROVIDERS: ADMIT Family Medicine; ATTEND Family Medicine
DX: E86.0 Dehydration (principal); G93.89 Other specified disorders of brain; E87.8 Other disorders of electrolyte and fluid balance, not elsewhere classified; N13.30 Unspecified hydronephrosis; N39.0 Urinary tract infection, site not specified; F02.80 Dementia in other diseases classified elsewhere, unspecified severity, without behavioral disturbance, psychotic disturbance, mood disturbance, and anxiety; N18.3 Chronic kidney disease, stage 3 (moderate); R31.0 Gross hematuria; G30.9 Alzheimer's disease, unspecified; E78.5 Hyperlipidemia, unspecified; I12.9 Hypertensive chronic kidney disease with stage 1 through stage 4 chronic kidney disease, or unspecified chronic kidney disease; J42 Unspecified chronic bronchitis; J45.909 Unspecified asthma, uncomplicated; H10.89 Other conjunctivitis; R32 Unspecified urinary incontinence; R62.7 Adult failure to thrive; Z79.899 Other long term (current) drug therapy
CPT/HCPCS: 36415; 70450; 71046; 74176; 76770; 80048; 80053; 80069; 81001; 82550; 82553; 82565; 83605; 83735; 84100; 84439; 84443; 84481; 84484; 85025; 85610; 85730; 87086; 93005; 93880; 94760; 99285

== ENCOUNTER 2017-11-21 17:27 | Inpatient (IN) | payer MEDICARE, BC ==
--- NOTE | 2017-11-21 18:32 | ED ---
Wound/Laceration HPI - General Chief Complaint: Wound/Laceration Stated Complaint: sore/infection on foot Time Seen by Provider: 11/21/17 17:59 Source: patient, family, RN notes reviewed Mode of arrival: wheelchair Limitations: altered mental status - History of Present Illness Initial Comments: This is a 77-year-old male who was just discharged from a [place] [facility] 2 days ago who is in today for evaluation for a wound on his left great toe. It started out as a small little area and now is getting larger did have some drainage and the toes now turning red. The patient has dementia so information from him as not reliable but per family he seemed to have a lot of pain when he removed his shoe earlier no trauma is reported. The patient is an indwelling Estevez from his last admission - Related Data Home Medications Medication Instructions Recorded Confirmed Donepezil [Aricept] 10 mg PO HS 08/13/17 11/21/17 Pedi Multivit No.25/Folic Acid 2 tab PO DAILY 11/21/17 11/21/17 [Flintstones Multivit Chew Tab] Previous Rx's Medication Instructions Recorded Memantine [Namenda] 10 mg PO BID #60 tab 02/24/15 Allergies Allergy/AdvReac Type Severity Reaction Status Date / Time No Known Allergies Allergy Verified 11/21/17 18:11 Review of Systems ROS Statement: Those systems with pertinent positive or pertinent negative responses have been documented in the HPI. ROS Other: All systems not noted in ROS Statement are negative. Past Medical History Past Medical History: Asthma, Dementia, Memory Impairment, Prostate Disorder Additional Past Medical History / Comment(s): Dementia/ALZHEIMERS, chronic bronchitis, per pt aspirates a lot History of Any Multi-Drug Resistant Organisms: None Reported Past Surgical History: No Surgical Hx Reported Additional Past Surgical History / Comment(s): darrian rotator cuff. FAMILY STATES OVER 30 YEARS AGO PT HAD SOME TYPE OF PROSTATE PROCEDURE. UNCERTAIN WHAT. Past Anesthesia/Blood Transfusion Reactions: No Reported Reaction Additional Past Anesthesia/Blood Transfusion Reaction / Comment(s): difficulty coming out Past Psychological History: No Psychological Hx Reported Smoking Status: Never smoker Past Alcohol Use History: Rare Past Drug Use History: None Reported - Past Family History Father Family Medical History: Cancer Additional Family Medical History / Comment(s): lung ca Mother Family Medical History: Cancer Additional Family Medical History / Comment(s): ovarian cancer Son(s) Family Medical History: Cancer Additional Family Medical History / Comment(s): rhabdomyo sarcoma (SON). ADRENOCORTICOSARCONOMA (GRANDSON) General Exam - General Exam Comments Initial Comments: This is a well-developed well-nourished awake alert confused male Limitations: altered mental status General appearance: alert, in no apparent distress Head exam: Present: atraumatic, normocephalic, normal inspection Eye exam: Present: normal appearance, PERRL, EOMI. Absent: scleral icterus, conjunctival injection, periorbital swelling ENT exam: Present: normal exam, mucous membranes moist Neck exam: Present: normal inspection. Absent: tenderness, meningismus, lymphadenopathy Respiratory exam: Present: normal lung sounds bilaterally. Absent: respiratory distress, wheezes, rales, rhonchi, stridor Cardiovascular Exam: Present: regular rate, normal rhythm, normal heart sounds. Absent: systolic murmur, diastolic murmur, rubs, gallop, clicks GI/Abdominal exam: Present: soft, normal bowel sounds. Absent: distended, tenderness, guarding, rebound, rigid Extremities exam: Present: full ROM, normal capillary refill, other (There is erythema to the left great toe with evidence of an open wound approximately 1/2 cm diameter over the dorsal aspect of the great toe some drainage is seen localized erythema no lymphangitis however. Capillary refill approximately 2 seconds). Absent: tenderness, pedal edema, joint swelling, calf tenderness Back exam: Present: normal inspection Neurological exam: Present: alert, altered, CN II-XII intact Psychiatric exam: Present: normal affect, normal mood Skin exam: Present: warm, dry, intact, normal color. Absent: rash Course Vital Signs 11/21/17 17:53 Temperature 98.5 F Pulse Rate 101 H Respiratory 18 Rate Blood Pressure 104/68 O2 Sat by Pulse 96 Oximetry Medical Decision Making - Medical Decision Making I did discuss findings with Dr. Evangelista and with the family patient will be admitted for IV antibiotics consultation by Dr. Barahona and surgery for evaluation of the toe patient does have elevated white blood cell count increased renal insufficiency. - Lab Data Result diagrams: 11/21/17 18:53 11/21/17 18:53 Lab Results 11/21/17 11/21/17 11/21/17 Range/Units 18:53 18:53 18:53 WBC 13.1 H (3.8-10.6) k/uL RBC 4.27 L (4.30-5.90) m/uL Hgb 13.5 (13.0-17.5) gm/dL Hct 38.8 L (39.0-53.0) % MCV 91.0 D (80.0-100.0) fL MCH 31.7 (25.0-35.0) pg MCHC 34.8 (31.0-37.0) g/dL RDW 12.7 (11.5-15.5) % Plt Count 445 (150-450) k/uL Neutrophils % 78 % Lymphocytes % 14 % Monocytes % 4 % Eosinophils % 2 % Basophils % 0 % Neutrophils # 10.3 H (1.3-7.7) k/uL Lymphocytes # 1.8 (1.0-4.8) k/uL Monocytes # 0.6 (0-1.0) k/uL Eosinophils # 0.3 (0-0.7) k/uL Basophils # 0.0 (0-0.2) k/uL Sodium (137-145) mmol/L Potassium (3.5-5.1) mmol/L Chloride (98-107) mmol/L Carbon Dioxide (22-30) mmol/L Anion Gap mmol/L BUN (9-20) mg/dL Creatinine (0.66-1.25) mg/dL Est GFR (CKD-EPI)AfAm (>60 ml/min/1.73 sqM) Est GFR (CKD-EPI)NonAf (>60 ml/min/1.73 sqM) Glucose (74-99) mg/dL Calcium (8.4-10.2) mg/dL Magnesium 2.7 H (1.6-2.3) mg/dL Total Bilirubin (0.2-1.3) mg/dL AST (17-59) U/L ALT (21-72) U/L Alkaline Phosphatase (38-126) U/L Total Creatine Kinase 74 (55-170) U/L CK-MB (CK-2) 0.6 (0.0-2.4) ng/mL CK-MB (CK-2) Rel Index 0.8 Total Protein (6.3-8.2) g/dL Albumin (3.5-5.0) g/dL 11/21/17 Range/Units 18:53 WBC (3.8-10.6) k/uL RBC (4.30-5.90) m/uL Hgb (13.0-17.5) gm/dL Hct (39.0-53.0) % MCV (80.0-100.0) fL MCH (25.0-35.0) pg MCHC (31.0-37.0) g/dL RDW (11.5-15.5) % Plt Count (150-450) k/uL Neutrophils % % Lymphocytes % % Monocytes % % Eosinophils % % Basophils % % Neutrophils # (1.3-7.7) k/uL Lymphocytes # (1.0-4.8) k/uL Monocytes # (0-1.0) k/uL Eosinophils # (0-0.7) k/uL Basophils # (0-0.2) k/uL Sodium 152 H (137-145) mmol/L Potassium 5.0 (3.5-5.1) mmol/L Chloride 114 H (98-107) mmol/L Carbon Dioxide 22 (22-30) mmol/L Anion Gap 16 mmol/L BUN 38 H (9-20) mg/dL Creatinine 2.20 H (0.66-1.25) mg/dL Est GFR (CKD-EPI)AfAm 32 (>60 ml/min/1.73 sqM) Est GFR (CKD-EPI)NonAf 28 (>60 ml/min/1.73 sqM) Glucose 196 H (74-99) mg/dL Calcium 9.3 (8.4-10.2) mg/dL Magnesium (1.6-2.3) mg/dL Total Bilirubin 0.5 (0.2-1.3) mg/dL AST 13 L (17-59) U/L ALT <6 L (21-72) U/L Alkaline Phosphatase 165 H (38-126) U/L Total Creatine Kinase (55-170) U/L CK-MB (CK-2) (0.0-2.4) ng/mL CK-MB (CK-2) Rel Index Total Protein 7.7 (6.3-8.2) g/dL Albumin 3.8 (3.5-5.0) g/dL - Radiology Data Radiology results: report reviewed (I did review the imaging and report no definite acute findings. No fractures are seen.), image reviewed Disposition Clinical Impression: Cellulitis of great toe of left foot, Acute on chronic renal failure, Dehydration, Leukocytosis Disposition: ADMITTED IP TO THIS [facility] Condition: Stable Referrals: Tyrone Ferrera MD [Primary Care Provider] - 1-2 days
[2017-11-21 19:06] LABS: Basophils % (A) 0 %; Eosinophils # (A) 0.3 k/uL (0-0.7); Eosinophils % (A) 2 %; HCT 38.8 % (39.0-53.0); HGB 13.5 gm/dL (13.0-17.5); Lymphocytes # (A) 1.8 k/uL (1.0-4.8); Lymphocytes % (A) 14 %; MCH 31.7 pg (25.0-35.0); MCHC 34.8 g/dL (31.0-37.0); Mean Platelet Volume 7.4; Monocytes # (A) 0.6 k/uL (0-1.0); Monocytes % (A) 4 %; Neutrophils # (A) 10.3 k/uL (1.3-7.7); Neutrophils % (A) 78 %; Platelet Count 445 k/uL (150-450); RBC 4.27 m/uL (4.30-5.90); RDW 12.7 % (11.5-15.5); WBC 13.1 k/uL (3.8-10.6)
--- NOTE | 2017-11-21 19:29 | XR ---
EXAMINATION TYPE: XR foot limited LT DATE OF EXAM: 11/21/2017 CLINICAL HISTORY: pain TECHNIQUE: Frontal, lateral images of the left foot are obtained. COMPARISON: None. FINDINGS: There is no acute fracture/dislocation evident. The joint spaces appear within normal carrion its. The overlying soft tissue appears unremarkable. IMPRESSION: There is no acute fracture or dislocation. ICD 10 NO FRACTURE, INITIAL EVALUATION
[2017-11-21 19:35] LABS: Creatine Kinase MB 0.6 ng/mL (0.0-2.4)
[2017-11-21 20:06] LABS: ALT <6 U/L (21-72); AST 13 U/L (17-59); Albumin 3.8 g/dL (3.5-5.0); Alkaline Phosphatase 165 U/L (38-126); Anion Gap 16 mmol/L; Blood Urea Nitrogen 38 mg/dL (9-20); Calcium 9.3 mg/dL (8.4-10.2); Carbon Dioxide 22 mmol/L (22-30); Chloride 114 mmol/L (98-107); Glucose 196 mg/dL (74-99); Sodium 152 mmol/L (137-145); Total Bilirubin 0.5 mg/dL (0.2-1.3); Total Protein 7.7 g/dL (6.3-8.2)
[2017-11-21] MEDS ORDERED: PIPERACILLIN-TAZOBACTAM 3.375 GM in DEXTROSE/WATER 1 50ML.BAG IVPB STA (20:47)
[2017-11-21] MEDS ORDERED: NALOXONE 0.4 MG/ML 1 ML VIAL IV PRN (21:04)
[2017-11-21] MEDS ORDERED: ACETAMINOPHEN TAB 325 MG TAB PO PRN (21:04)
[2017-11-21] MEDS ORDERED: SODIUM CHLORIDE 0.9% 500 ML IV STA (21:09)
[2017-11-21] MEDS ORDERED: VANCOMYCIN IV PER PHARMACY 1 EACH MISC MISCELLANE PRN (21:09)
[2017-11-21] MEDS ORDERED: VANCOMYCIN 1,500 MG in SODIUM CHLORIDE 0.9% 250 ML IVPB STA (21:16)
[2017-11-21] MEDS: SODIUM CHLORIDE 0.9% 1,000 ML IV SCH (21:29)
[2017-11-22] MEDS: VANCOMYCIN 1,500 MG in SODIUM CHLORIDE 0.9% 250 ML IVPB SCH ×2 (02:07→12:55)
[2017-11-22] MEDS: MEMANTINE 10 MG TAB PO SCH ×2 (08:35→21:42)
[2017-11-22] MEDS: HEPARIN SODIUM,PORCINE 5,000 UNIT/ML 1 ML VIAL SQ SCH ×2 (08:35→21:42)
[2017-11-22] MEDS: PIPERACILLIN-TAZOBACTAM 3.375 GM in DEXTROSE/WATER 1 50ML.BAG IVPB SCH ×3 (08:35→23:20)
--- NOTE | 2017-11-22 09:06 | P.CONS ---
History of Present Illness - Reason for Consult Consult date: 11/22/17 Wound left great toe - History of Present Illness This is a 77-year-old male patient who presented to the emergency center on November 21 due to a wound to the left great toe. Patient was found to be afebrile, white count 13.1, BUN 38 and creatinine 2.2. Appears patient's baseline creatinine is 2.0. Sodium was 142, potassium 5.0, chloride 114 and CO2 22. Blood sugar was 196 but it does not appear patient has history of diabetes. Alkaline phosphatase 165. Blood cultures status received. Patient was recently discharged from it [facility] 2 days prior. He does have a chronic Estevez catheter in place that was last changed on November 10. He underwent x-ray of the left foot that showed no fracture. [facility] and started on Zosyn and vancomycin. Patient has underlying dementia and is unable to provide any history. Patient is slow to respond to direction. Apparently patient is more responsive when his is present. Review of Systems ROS unobtainable: due to mental status Past Medical History Past Medical History: Asthma, Dementia, Memory Impairment, Prostate Disorder Additional Past Medical History / Comment(s): Dementia/ALZHEIMERS, chronic bronchitis, previouslycharted-per pt aspirates a lot ,idc-last changed november 09 or 2017. pt weak needs assist of 2 to stand and transfer to chair.needs to be prompted to eat/drink. incont of stool wears attends. History of Any Multi-Drug Resistant Organisms: None Reported Past Surgical History: No Surgical Hx Reported Additional Past Surgical History / Comment(s): darrian rotator cuff. FAMILY STATES OVER 30 YEARS AGO PT HAD SOME TYPE OF PROSTATE PROCEDURE. UNCERTAIN WHAT. Past Anesthesia/Blood Transfusion Reactions: No Reported Reaction Additional Past Anesthesia/Blood Transfusion Reaction / Comm: difficulty coming out Smoking Status: Never smoker - Past Family History Father Family Medical History: Cancer Additional Family Medical History / Comment(s): lung ca Mother Family Medical History: Cancer Additional Family Medical History / Comment(s): ovarian cancer Son(s) Family Medical History: Cancer Additional Family Medical History / Comment(s): rhabdomyo sarcoma (SON). ADRENOCORTICOSARCONOMA (GRANDSON) Medications and Allergies Home Medications Medication Instructions Recorded Confirmed Type Memantine [Namenda] 10 mg PO BID #60 tab 02/24/15 11/21/17 Rx Donepezil [Aricept] 10 mg PO HS 08/13/17 11/21/17 History Pedi Multivit No.25/Folic Acid 2 tab PO DAILY 11/21/17 11/21/17 History [Flintstones Multivit Chew Tab] Allergies Allergy/AdvReac Type Severity Reaction Status Date / Time No Known Allergies Allergy Verified 11/21/17 18:11 Physical Exam Vitals: Vital Signs Temp Pulse Pulse Resp BP BP Pulse Ox 11/22/17 07:00 97.2 F L 74 16 95/62 93 L 11/22/17 00:36 82 18 11/21/17 22:55 97.8 F 82 18 148/77 93 L 11/21/17 21:33 97 F L 63 18 137/76 95 11/21/17 17:53 98.5 F 101 H 18 104/68 96 Intake and Output 11/21/17 11/22/17 11/22/17 22:59 06:59 14:59 Intake Total 220 Output Total 650 Balance -650 220 Intake: Oral 220 Output: Urine 650 Other: Voiding Method Indwelling Catheter Weight 81.647 kg Gen: This is a pleasantly confused 77-year-old male patient. He is sitting up in bed and appears to be comfortable and in no acute distress. HEENT: Head is atraumatic, normocephalic. Pupils equal, round. Sclerae is anicteric. Oral mucous membranes are slightly dry. Dentition is in poor order. NECK: Supple. No JVD. No lymphadenopathy. No thyromegaly. LUNGS: Clear to auscultation. No wheezes or rhonchi. No intercostal retractions. HEART: Regular rate and rhythm. No murmur. ABDOMEN: Soft. Bowel sounds are present. No masses. No tenderness. EXTREMITIES: No pedal edema. No calf tenderness. Dorsalis pedis is +2 bilaterally. Patient has a small wound to the dorsal surface of the left great toe with surrounding erythema and edema. No active drainage. No foul odor. This does not extend into the foot. Onychomycosis noted to toes bilaterally. NEUROLOGICAL: Patient is awake, alert and oriented x1. Results Results: Laboratory Results WBC 13.1 k/uL (3.8-10.6) H 11/21/17 18:53 RBC 4.27 m/uL (4.30-5.90) L 11/21/17 18:53 Hgb 13.5 gm/dL (13.0-17.5) 11/21/17 18:53 Hct 38.8 % (39.0-53.0) L 11/21/17 18:53 MCV 91.0 fL (80.0-100.0) D 11/21/17 18:53 MCH 31.7 pg (25.0-35.0) 11/21/17 18:53 MCHC 34.8 g/dL (31.0-37.0) 11/21/17 18:53 RDW 12.7 % (11.5-15.5) 11/21/17 18:53 Plt Count 445 k/uL (150-450) 11/21/17 18:53 Neutrophils % 78 % 11/21/17 18:53 Lymphocytes % 14 % 11/21/17 18:53 Monocytes % 4 % 11/21/17 18:53 Eosinophils % 2 % 11/21/17 18:53 Basophils % 0 % 11/21/17 18:53 Neutrophils # 10.3 k/uL (1.3-7.7) H 11/21/17 18:53 Lymphocytes # 1.8 k/uL (1.0-4.8) 11/21/17 18:53 Monocytes # 0.6 k/uL (0-1.0) 11/21/17 18:53 Eosinophils # 0.3 k/uL (0-0.7) 11/21/17 18:53 Basophils # 0.0 k/uL (0-0.2) 11/21/17 18:53 Sodium 152 mmol/L (137-145) H 11/21/17 18:53 Potassium 5.0 mmol/L (3.5-5.1) 11/21/17 18:53 Chloride 114 mmol/L (98-107) H 11/21/17 18:53 Carbon Dioxide 22 mmol/L (22-30) 11/21/17 18:53 Anion Gap 16 mmol/L 11/21/17 18:53 BUN 38 mg/dL (9-20) H 11/21/17 18:53 Creatinine 2.20 mg/dL (0.66-1.25) H 11/21/17 18:53 Est GFR (CKD-EPI)AfAm 32 (>60 ml/min/1.73 sqM) 11/21/17 18:53 Est GFR (CKD-EPI)NonAf 28 (>60 ml/min/1.73 sqM) 11/21/17 18:53 Glucose 196 mg/dL (74-99) H 11/21/17 18:53 Calcium 9.3 mg/dL (8.4-10.2) 11/21/17 18:53 Magnesium 2.7 mg/dL (1.6-2.3) H 11/21/17 18:53 Total Bilirubin 0.5 mg/dL (0.2-1.3) 11/21/17 18:53 AST 13 U/L (17-59) L 11/21/17 18:53 ALT <6 U/L (21-72) L 11/21/17 18:53 Alkaline Phosphatase 165 U/L (38-126) H 11/21/17 18:53 Total Creatine Kinase 74 U/L (55-170) 11/21/17 18:53 CK-MB (CK-2) 0.6 ng/mL (0.0-2.4) 11/21/17 18:53 CK-MB (CK-2) Rel Index 0.8 11/21/17 18:53 Total Protein 7.7 g/dL (6.3-8.2) 11/21/17 18:53 Albumin 3.8 g/dL (3.5-5.0) 11/21/17 18:53 CBC & Chem 7: 11/21/17 18:53 11/22/17 10:25 Labs: Abnormal Lab Results - Last 24 Hours (Table) 11/21/17 11/21/17 11/21/17 Range/Units 18:53 18:53 18:53 WBC 13.1 H (3.8-10.6) k/uL RBC 4.27 L (4.30-5.90) m/uL Hct 38.8 L (39.0-53.0) % Neutrophils # 10.3 H (1.3-7.7) k/uL Sodium 152 H (137-145) mmol/L Chloride 114 H (98-107) mmol/L BUN 38 H (9-20) mg/dL Creatinine 2.20 H (0.66-1.25) mg/dL Glucose 196 H (74-99) mg/dL Magnesium 2.7 H (1.6-2.3) mg/dL AST 13 L (17-59) U/L ALT <6 L (21-72) U/L Alkaline Phosphatase 165 H (38-126) U/L Assessment and Plan Plan: This is a 77-year-old male patient presented to the hospital due to a wound to the left great toe. Wound culture will be attempted but currently no drainage. Blood culture is in progress. Patient is currently on Zosyn and vancomycin which will be evaluated. Patient is noted to have an elevated blood sugar 196 which may be addressed by attending. We will add in a NovoLog scale for now. Continue supportive care. Further recommendations as patient progresses. The above dictated assessment and findings were discussed with Dr. Barahona. The impression and plan of care have been directed as dictated. Michelle Joy nurse practitioner acting as scribe for Dr. Barahona.
[2017-11-22 11:16] LABS: Calcium 8.4 mg/dL (8.4-10.2); Potassium 4.8 mmol/L (3.5-5.1)
[2017-11-22 11:35] LABS: Glucose,Whole Blood 154 mg/dL (75-99)
[2017-11-22] MEDS: MULTIVITAMINS, THERA 1 EACH TAB PO SCH (14:11)
[2017-11-22] MEDS: SODIUM CHLORIDE 0.9% 1,000 ML IV SCH ×2 (16:48→16:53)
[2017-11-22 17:19] LABS: Hepatitis A Ab, Total Reactive (Non-Reactive); Hepatitis B Surface AB- Quant 3.5 mIU/mL; Hepatitis C IgG Antibody Non-Reactive (Non-Reactive)
[2017-11-22 17:27] LABS: Glucose,Whole Blood 139 mg/dL (75-99)
[2017-11-22 17:29] LABS: Hemoglobin A1C 6.8 % (4.0-6.0)
--- NOTE | 2017-11-22 17:32 | HP ---
HISTORY AND PHYSICAL CHIEF COMPLAINT: Infected abrasion on the dorsum of the left great toe and deteriorating renal function. HISTORY OF PRESENT ILLNESS: This is another recent admission for this 77-year-old white male with advanced dementia. He was just at [facility] for rehab and had gone home. The family noted an abrasion on the dorsum of the left great toe which became infected with surrounding cellulitis of the toe and distal foot and he was brought to the emergency room. He was admitted for IV antibiotics. 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 However, creatinine has gone up slightly. He is dehydrated, and this could be the explanation for his deteriorating renal function. Other than that, there has been no interval change. REVIEW OF SYSTEMS: There is no history of any change in mental status, shaking chills, fever, vomiting, diarrhea, etc. Laboratory studies reveal the rise in his creatinine. He also has an elevated blood sugar and liver function studies are up as well. These will be looked into. Past medical history, family history, and personal and social histories are otherwise unremarkable and noncontributory or unchanged. PHYSICAL EXAMINATION: Blood pressure is 138/64 with a pulse of 77, respirations of 28 and temperature of 100. GENERAL: He appeared to be well developed, well nourished, in no acute distress. Hydration was adequate. Head, ears, eyes, nose, mouth and throat were normal. Chest was clear. Cardiac exam demonstrated sinus rhythm and there were no murmurs or extra sounds. Abdomen is soft and nontender. The extremities demonstrated the cellulitis and inflammation of the left toe, particularly on the dorsal aspect with progression into the dorsal distal foot, and this all emanated from the scab. Pulses could not be appreciated. The capillary refill was excellent. Neurologically he was intact except for his profound dementia. IMPRESSION: 1. Abrasion or ulcer on the dorsal left great toe with cellulitis. 2. Chronic renal failure. 3. Dehydration. 4. Prerenal azotemia. 5. Elevated blood sugar. 6. Elevated liver function studies. PLAN: 1. Bed rest. 2. IV fluids. 3. IV antibiotics. 4. Evaluate renal function changes, elevated liver enzymes and elevated blood sugar. MMODL / IJN: [id number] /
[2017-11-22] MEDS: INSULIN ASPART 100 UNIT/ML 1 ML 10 ML VIAL SQ SCH ×2 (18:13→21:41)
--- NOTE | 2017-11-22 18:17 | PN ---
PROGRESS NOTE DATE OF SERVICE: 11/22/2017 CHIEF COMPLAINT: Dementia, renal failure, and cellulitis of the left great toe. HISTORY OF PRESENT ILLNESS: This gentleman is doing fairly well. The redness on the toe is receding. He does have abnormal blood sugar and liver function studies, and these will be looked into. PHYSICAL EXAMINATION: He is awake and alert but confused. Chest is clear. The cardiac exam is normal. The abdomen is soft, nontender and there are no masses. Extremities are normal except for the receding cellulitis of the left great toe. IMPRESSION: 1. Cellulitis of the left great toe, probably due to methicillin-resistant Staphylococcus aeruginosa secondary to abrasion. 2. Dementia. 3. Chronic renal failure. 4. Dehydration. 5. Prerenal azotemia. 6. Elevated blood sugar. 7. Elevated liver function studies. PLAN: 1. Rehydrate and continue with IV fluids and antibiotics. 2. Hemoglobin A1c. MMODL / IJN: [id number] /
[2017-11-22 21:13] LABS: Glucose,Whole Blood 167 mg/dL (75-99)
[2017-11-22] MEDS: DONEPEZIL 10 MG TAB PO SCH (21:42)
--- NOTE | 2017-11-22 23:33 | P.CON ---
Consult Note - . Consult date: 11/22/17 Assessment/Plan:: This is a 77-year-old male patient who presented to the emergency center on November 21 due to a wound to the left great toe. Patient was found to be afebrile, white count 13.1, BUN 38 and creatinine 2.2. Appears patient's baseline creatinine is 2.0. Sodium was 142, potassium 5.0, chloride 114 and CO2 22. Blood sugar was 196 but it does not appear patient has history of diabetes. Alkaline phosphatase 165. Blood cultures status received. Patient was recently discharged from [facility] 2 days prior. He does have a chronic Estevez catheter in place that was last changed on November 10. He underwent x-ray of the left foot that showed no fracture. Patient has been admitted to the [facility] floor and started on Zosyn and vancomycin. Patient has underlying dementia and is unable to provide any history. Patient is slow to respond to direction. Apparently patient is more responsive when his is present. Please see the consult note as dictated by nurse practitioner Mrs. Michelle Joy. Demented 77-year-old male who was comfortable at this time. He has noted there is evidence of the renal failure as well as a eschar to the left great toe. This is evaluated carefully and there is no expressible purulence. There is no surrounding erythema. It is time will be treated for the cellulitis to the toe and the foot while cultures of the bladder in process. There was no material to culture from the toe itself. Evaluation imagings are being done. He has evidence of an elevated glucose and is now receiving some treatment for what may be new onset diabetes or situational hyperglycemia. His mental status is poor but not newly poor. Hopefully with hydration and improvement in blood sugars to creatinine will rapidly improved. His of the leukocytosis likely related to the mild cellulitis of the great toe. A urine evaluation, assessment and plan as dictated by nurse practitioner Mrs. Michelle Joy.
[2017-11-23] MEDS: SODIUM CHLORIDE 0.9% 1,000 ML IV SCH ×5 (06:20→23:47)
[2017-11-23 07:17] LABS: Glucose,Whole Blood 100 mg/dL (75-99)
[2017-11-23] MEDS: INSULIN ASPART 100 UNIT/ML 1 ML 10 ML VIAL SQ SCH ×4 (07:35→20:49)
[2017-11-23] MEDS: HEPARIN SODIUM,PORCINE 5,000 UNIT/ML 1 ML VIAL SQ SCH ×2 (07:36→20:44)
[2017-11-23] MEDS: PIPERACILLIN-TAZOBACTAM 3.375 GM in DEXTROSE/WATER 1 50ML.BAG IVPB SCH ×3 (07:36→23:46)
[2017-11-23] MEDS: MEMANTINE 10 MG TAB PO SCH ×2 (07:37→20:44)
[2017-11-23 08:16] LABS: Calcium 8.1 mg/dL (8.4-10.2); Potassium 4.6 mmol/L (3.5-5.1)
--- NOTE | 2017-11-23 10:59 | PN ---
PROGRESS NOTE DATE OF SERVICE: 11/23/2017. CHIEF COMPLAINT: Cellulitis of the left toe. HISTORY OF PRESENT ILLNESS: This gentleman is doing well and the redness and swelling are decreasing in the left great toe. PHYSICAL EXAM: Chest clear and cardiac exam is normal. The abdomen is soft, nontender. Erythema in the toe in the distal foot are improving. IMPRESSION: Cellulitis and abrasion on the dorsum of the left great toe. PLAN: 1. Continue with IV fluids and antibiotics. 2. Follow labs while working on discharge plan, he likely will be going back home. MMODL / IJN: [id number] /
[2017-11-23 11:36] LABS: Glucose,Whole Blood 120 mg/dL (75-99)
--- NOTE | 2017-11-23 12:37 | P.NPCON ---
History of Present Illness - Reason for Consult acute renal failure - History of Present Illness Reason for consultation: Acute kidney injury History of present illness: Patient is a 77-year-old male seen in renal consultation for acute kidney injury. His creatinine in September 2016 was 1. However from April 2017 through October 2017 his creatinine has been in the range of 1.4-2.5. Patient was recently discharged for [facility] and went home and was noted to have drainage from his left toe which was noticed by his home care nurse. He was initially sent to the hospital for further care. Patient has history of BPH and urinary retention and has a Estevez catheter in place. Patient follows with urology as an outpatient in the catheter was changed 2 weeks ago. He was noted to be hyponatremic on admission with sodium level of 152 which is down to 141 today. He is currently maintained on normal saline at 150 mL an hour. His urinalysis from October 2017 was benign. He is currently maintained on Zosyn and vancomycin. There is concern for urinary tract infection as well as left toe infection. Infectious disease is following. Oral intake is fair. No vomiting or diarrhea. Creatinine was 2.2 on admission and is down to 1.7 today. Denies use of NSAIDs. Vital signs are stable. General: The patient appeared well nourished and normally developed. HEENT: Head exam is unremarkable. Neck is without jugular venous distension. LUNGS: Lungs are clear to auscultation and percussion. Breath sounds decreased. HEART: Rate and Rhythm are regular. First and second heart sounds normal. No murmurs, rubs or gallops. ABDOMEN: Abdominal exam reveals normal bowel sounds. Non-tender and non- distended. No evidence of peritonitis. EXTREMITITES: No clubbing, cyanosis, or edema. Left great toe ulceration noted. No obvious drainage. Past Medical History Past Medical History: Asthma, Dementia, Memory Impairment, Prostate Disorder Additional Past Medical History / Comment(s): Dementia/ALZHEIMERS, chronic bronchitis, previouslycharted-per pt aspirates a lot ,idc-last changed november 09 or 2017. pt weak needs assist of 2 to stand and transfer to chair.needs to be prompted to eat/drink. incont of stool wears attends. History of Any Multi-Drug Resistant Organisms: None Reported Past Surgical History: No Surgical Hx Reported Additional Past Surgical History / Comment(s): darrian rotator cuff. FAMILY STATES OVER 30 YEARS AGO PT HAD SOME TYPE OF PROSTATE PROCEDURE. UNCERTAIN WHAT. Past Anesthesia/Blood Transfusion Reactions: No Reported Reaction Additional Past Anesthesia/Blood Transfusion Reaction / Comment(s): difficulty coming out Smoking Status: Never smoker - Past Family History Father Family Medical History: Cancer Additional Family Medical History / Comment(s): lung ca Mother Family Medical History: Cancer Additional Family Medical History / Comment(s): ovarian cancer Son(s) Family Medical History: Cancer Additional Family Medical History / Comment(s): rhabdomyo sarcoma (SON). ADRENOCORTICOSARCONOMA (GRANDSON) Medications and Allergies Home Medications Medication Instructions Recorded Confirmed Type Memantine [Namenda] 10 mg PO BID #60 tab 02/24/15 11/21/17 Rx Donepezil [Aricept] 10 mg PO HS 08/13/17 11/21/17 History Pedi Multivit No.25/Folic Acid 2 tab PO DAILY 11/21/17 11/21/17 History [Flintstones Multivit Chew Tab] Allergies Allergy/AdvReac Type Severity Reaction Status Date / Time No Known Allergies Allergy Verified 11/21/17 18:11 Physical Exam Vitals: Vital Signs Temp Pulse Resp BP Pulse Ox 11/23/17 07:00 97.3 F L 90 18 95/63 98 11/22/17 23:00 96.6 F L 72 16 141/86 94 L 11/22/17 15:00 98.3 F 71 16 105/65 96 Intake and Output 11/22/17 11/23/17 11/23/17 22:59 06:59 14:59 Intake Total 590 1200 Output Total 650 650 Balance -60 1200 -650 Intake: Intake, IV Titration 1000 Amount Sodium Chloride 0.9% 1, 1000 000 ml @ 150 mls/hr IV . Q6H40M [facility] Rx#:[id number] Oral 590 200 Output: Urine 650 650 Other: Voiding Method Indwelling Catheter Indwelling Catheter Indwelling Catheter Weight 81.647 kg Results - Lab Results Most recent lab results Calcium 8.1 mg/dL (8.4-10.2) L 11/23/17 07:34 Magnesium 2.7 mg/dL (1.6-2.3) H 11/21/17 18:53 11/21/17 18:53 11/23/17 07:34 Assessment and Plan Plan: Assessment: #1. Nonoliguric acute kidney injury mostly prerenal secondary to UTI. Creatinine was 2.1 admission and is down to 1.7 today. His creatinine in September 2016 was 1 recently has been in the range of 1.4-2.5. Recent urinalysis was benign. #2. Hypernatremia secondary to lack of oral water intake. Improved. #3. Left great toe infection. #4. Chronic indwelling Estevez due to BPH and urinary retention being followed by urology. Catheter was exchanged 2 weeks ago. #5. Likely UTI. #6. History of BPH. Plan: I will decrease a rate of normal saline to 100 mL an hour. Repeat UA. Check renal ultrasound. Encouraged oral intake. Avoid nephrotoxic agents and hypotensive episodes. Repeat electrolytes in the morning. Vancomycin dose to be adjusted for renal function. Monitor levels closely. Follow-up cultures. Thank you for the consultation. I will continue to follow the patient with you during his hospital stay.
[2017-11-23] MEDS: VANCOMYCIN 1,500 MG in SODIUM CHLORIDE 0.9% 250 ML IVPB SCH (12:50)
[2017-11-23] MEDS: MULTIVITAMINS, THERA 1 EACH TAB PO SCH (12:51)
[2017-11-23 13:19] LABS: Appearance,Urine Turbid (Clear); Bilirubin,Urine Negative (Negative); Blood,Urine Moderate (Negative); Color,Urine Yellow; Glucose,Urine (UA) Negative (Negative); Hyaline Casts,Urine 9 /lpf (0-2); Ketones,Urine Negative (Negative); Leukocyte Esterase,Urine Large (Negative); Mucus,Urine Rare /hpf; Nitrite,Urine Positive (Negative); Protein,Urine 1+ (Negative); RBC,Urine 59 /hpf (0-5); Specific Gravity,Urine 1.019 (1.001-1.035); Urobilinogen,Urine <2.0 mg/dL (<2.0); WBC,Urine >182 /hpf (0-5)
--- NOTE | 2017-11-23 15:51 | US ---
EXAMINATION TYPE: US kidneys/renal and bladder DATE OF EXAM: 11/23/2017 COMPARISON: US 10/13/[address] also dated 10/13/2017 CLINICAL HISTORY: karely. Renal failure, h/o hydro EXAM MEASUREMENTS: Right Kidney: 10.6 x 5.6 x 5.0 cm Limited exam, pt confused, unable to ambulate, resistive when tech tried to scan left kidney Right Kidney: Appeared wnl, hydro resolved when compared to previous exam Left Kidney: Unable to visualize, pt confused, combative Bladder: Pt has cath in place There is no evidence for hydronephrosis at this point in time. No nephrolithiasis is seen. No rhonda s are identified. The urinary bladder is anechoic. Bilateral ureteral jets are seen. Cortical medullary differentiation is maintained within the right kidney, there is interval resolutio n of hydronephrosis. IMPRESSION: Exam is limited. Interval resolution of right hydronephrosis, bladder is catheterized. Left kidney no t visualized due to lack of cooperation
[2017-11-23 17:07] LABS: Glucose,Whole Blood 126 mg/dL (75-99)
[2017-11-23] MEDS: DONEPEZIL 10 MG TAB PO SCH (20:44)
[2017-11-23 20:46] LABS: Glucose,Whole Blood 184 mg/dL (75-99)
--- NOTE | 2017-11-23 22:43 | P.PN ---
Subjective Progress Note Date: 11/23/17 Principal diagnosis: Altered mental status This is a 77-year-old male patient who presented to the emergency center on November 21 due to a wound to the left great toe. Patient was found to be afebrile, white count 13.1, BUN 38 and creatinine 2.2. Appears patient's baseline creatinine is 2.0. Sodium was 142, potassium 5.0, chloride 114 and CO2 22. Blood sugar was 196 but it does not appear patient has history of diabetes. Alkaline phosphatase 165. Blood cultures status received. Patient was recently discharged from [facility] 2 days prior. He does have a chronic Estevez catheter in place that was last changed on November 10. He underwent x-ray of the left foot that showed no fracture. Patient has been admitted to the [facility] floor and started on Zosyn and vancomycin. Patient has underlying dementia and is unable to provide any history. Patient is slow to respond to direction. Apparently patient is more responsive when his is present. 11/23/2017 reveals the patient to be sitting upright and seemed to be more comfortable. He did eat some of his lunch. He otherwise has no voiced complaint but with his dementia is difficult to discern the content of his speech. Objective - Vital Signs Vital signs: Vital Signs Temp 97.6 F 11/23/17 15:00 Pulse 71 11/23/17 16:00 Resp 18 11/23/17 16:00 BP 102/61 11/23/17 15:00 Pulse Ox 97 11/23/17 15:00 Intake & Output 11/23/17 11/23/17 11/24/17 06:59 18:59 06:59 Intake Total 1790 1310 Output Total 1900 Balance 1790 -590 Weight 81.647 kg Intake: Intake, IV Titration 1000 900 Amount Piperacillin-Tazobactam 3 50 .375 gm In Dextrose/Water 1 50ml.bag @ 12.5 mls/hr IVPB Q8HR [facility] Rx#: [id number] Sodium Chloride 0.9% 1, 1000 600 000 ml @ 100 mls/hr IV . Q10H [facility] Rx#:[id number] Vancomycin 1,500 mg In 250 Sodium Chloride 0.9% 250 ml @ 125 mls/hr IVPB Q24H [facility] Rx#:[id number] Oral 790 410 Output: Urine 1900 Other: Voiding Method Indwelling Catheter Indwelling Catheter # Voids 1 # Bowel Movements 1 - Exam Gen: This is a pleasantly confused 77-year-old male patient. He is sitting up in bed and appears to be comfortable and in no acute distress. HEENT: Head is atraumatic, normocephalic. Pupils equal, round. Sclerae is anicteric. Oral mucous membranes are slightly dry. Dentition is in poor order. NECK: Supple. No JVD. No lymphadenopathy. No thyromegaly. LUNGS: Clear to auscultation. No wheezes or rhonchi. No intercostal retractions. HEART: Regular rate and rhythm. No murmur. ABDOMEN: Soft. Bowel sounds are present. No masses. No tenderness. EXTREMITIES: No pedal edema. No calf tenderness. Dorsalis pedis is +2 bilaterally. Patient has a small wound to the dorsal surface of the left great toe with surrounding erythema and edema. No active drainage. No foul odor. This does not extend into the foot. Onychomycosis noted to toes bilaterally. NEUROLOGICAL: Patient is awake, alert and oriented x1. - Labs CBC & Chem 7: 11/21/17 18:53 11/23/17 07:34 Labs: Abnormal Lab Results - Last 24 Hours (Table) 11/22/17 11/22/17 11/23/17 Range/Units 10:25 10:25 07:16 Chloride (98-107) mmol/L BUN (9-20) mg/dL Creatinine (0.66-1.25) mg/dL Glucose (74-99) mg/dL POC Glucose (mg/dL) 100 H (75-99) mg/dL Hemoglobin A1c 6.8 H (4.0-6.0) % Calcium (8.4-10.2) mg/dL Urine Protein (Negative) Urine Blood (Negative) Ur Leukocyte Esterase (Negative) Urine RBC (0-5) /hpf Urine WBC (0-5) /hpf Urine WBC Clumps (None) /hpf Hyaline Casts (0-2) /lpf Urine Mucus (None) /hpf Hepatitis A Ab Total Reactive H (Non-Reactive) 11/23/17 11/23/17 11/23/17 Range/Units 07:34 11:34 12:50 Chloride 112 H (98-107) mmol/L BUN 25 H (9-20) mg/dL Creatinine 1.70 H (0.66-1.25) mg/dL Glucose 104 H (74-99) mg/dL POC Glucose (mg/dL) 120 H (75-99) mg/dL Hemoglobin A1c (4.0-6.0) % Calcium 8.1 L (8.4-10.2) mg/dL Urine Protein 1+ H (Negative) Urine Blood Moderate H (Negative) Ur Leukocyte Esterase Large H (Negative) Urine RBC 59 H (0-5) /hpf Urine WBC >182 H (0-5) /hpf Urine WBC Clumps Many H (None) /hpf Hyaline Casts 9 H (0-2) /lpf Urine Mucus Rare H (None) /hpf Hepatitis A Ab Total (Non-Reactive) 11/23/17 11/23/17 Range/Units 17:05 20:44 Chloride (98-107) mmol/L BUN (9-20) mg/dL Creatinine (0.66-1.25) mg/dL Glucose (74-99) mg/dL POC Glucose (mg/dL) 126 H 184 H (75-99) mg/dL Hemoglobin A1c (4.0-6.0) % Calcium (8.4-10.2) mg/dL Urine Protein (Negative) Urine Blood (Negative) Ur Leukocyte Esterase (Negative) Urine RBC (0-5) /hpf Urine WBC (0-5) /hpf Urine WBC Clumps (None) /hpf Hyaline Casts (0-2) /lpf Urine Mucus (None) /hpf Hepatitis A Ab Total (Non-Reactive) Microbiology - Last 24 Hours (Table) 11/21/17 18:53 Blood Culture - Preliminary Blood No Growth after 48 hours 11/23/17 12:50 Urine Culture - Preliminary Urine,Catheterized Laboratory Results WBC 13.1 k/uL (3.8-10.6) H 11/21/17 18:53 RBC 4.27 m/uL (4.30-5.90) L 11/21/17 18:53 Hgb 13.5 gm/dL (13.0-17.5) 11/21/17 18:53 Hct 38.8 % (39.0-53.0) L 11/21/17 18:53 MCV 91.0 fL (80.0-100.0) D 11/21/17 18:53 MCH 31.7 pg (25.0-35.0) 11/21/17 18:53 MCHC 34.8 g/dL (31.0-37.0) 11/21/17 18:53 RDW 12.7 % (11.5-15.5) 11/21/17 18:53 Plt Count 445 k/uL (150-450) 11/21/17 18:53 Neutrophils % 78 % 11/21/17 18:53 Lymphocytes % 14 % 11/21/17 18:53 Monocytes % 4 % 11/21/17 18:53 Eosinophils % 2 % 11/21/17 18:53 Basophils % 0 % 11/21/17 18:53 Neutrophils # 10.3 k/uL (1.3-7.7) H 11/21/17 18:53 Lymphocytes # 1.8 k/uL (1.0-4.8) 11/21/17 18:53 Monocytes # 0.6 k/uL (0-1.0) 11/21/17 18:53 Eosinophils # 0.3 k/uL (0-0.7) 11/21/17 18:53 Basophils # 0.0 k/uL (0-0.2) 11/21/17 18:53 Sodium 141 mmol/L (137-145) 11/23/17 07:34 Potassium 4.6 mmol/L (3.5-5.1) 11/23/17 07:34 Chloride 112 mmol/L (98-107) H 11/23/17 07:34 Carbon Dioxide 22 mmol/L (22-30) 11/23/17 07:34 Anion Gap 7 mmol/L 11/23/17 07:34 BUN 25 mg/dL (9-20) H 11/23/17 07:34 Creatinine 1.70 mg/dL (0.66-1.25) H 11/23/17 07:34 Est GFR (CKD-EPI)AfAm 44 (>60 ml/min/1.73 sqM) 11/23/17 07:34 Est GFR (CKD-EPI)NonAf 38 (>60 ml/min/1.73 sqM) 11/23/17 07:34 Glucose 104 mg/dL (74-99) H 11/23/17 07:34 POC Glucose (mg/dL) 184 mg/dL (75-99) H 11/23/17 20:44 POC Glu [employer] Medical [employer] ID Linette Marsh 11/23/17 20:[address] Glu mg/dL 148 11/22/17 10:25 Hemoglobin A1c 6.8 % (4.0-6.0) H 11/22/17 10:25 Calcium 8.1 mg/dL (8.4-10.2) L 11/23/17 07:34 Magnesium 2.7 mg/dL (1.6-2.3) H 11/21/17 18:53 Total Bilirubin 0.5 mg/dL (0.2-1.3) 11/21/17 18:53 AST 13 U/L (17-59) L 11/21/17 18:53 ALT <6 U/L (21-72) L 11/21/17 18:53 Alkaline Phosphatase 165 U/L (38-126) H 11/21/17 18:53 Total Creatine Kinase 74 U/L (55-170) 11/21/17 18:53 CK-MB (CK-2) 0.6 ng/mL (0.0-2.4) 11/21/17 18:53 CK-MB (CK-2) Rel Index 0.8 11/21/17 18:53 Total Protein 7.7 g/dL (6.3-8.2) 11/21/17 18:53 Albumin 3.8 g/dL (3.5-5.0) 11/21/17 18:53 Urine Color Yellow 11/23/17 12:50 Urine Appearance Turbid (Clear) 11/23/17 12:50 Urine pH 6.0 (5.0-8.0) 11/23/17 12:50 Ur Specific [place] 1.019 (1.001-1.035) 11/23/17 12:50 Urine Protein 1+ (Negative) H 11/23/17 12:50 Urine Glucose (UA) Negative (Negative) 11/23/17 12:50 Urine Ketones Negative (Negative) 11/23/17 12:50 Urine Blood Moderate (Negative) H 11/23/17 12:50 Urine Nitrite Positive (Negative) 11/23/17 12:50 Urine Bilirubin Negative (Negative) 11/23/17 12:50 Urine Urobilinogen <2.0 mg/dL (<2.0) 11/23/17 12:50 Ur Leukocyte Esterase Large (Negative) H 11/23/17 12:50 Urine RBC 59 /hpf (0-5) H 11/23/17 12:50 Urine WBC >182 /hpf (0-5) H 11/23/17 12:50 Urine WBC Clumps Many /hpf (None) H 11/23/17 12:50 Hyaline Casts 9 /lpf (0-2) H 11/23/17 12:50 Urine Mucus Rare /hpf (None) H 11/23/17 12:50 Hepatitis A Ab Total Reactive (Non-Reactive) H 11/22/17 10:25 Hep Bs Antibody Non-Reactive (Non-Reactive) 11/22/17 10:25 Hep Bs Antibody, Quant 3.5 mIU/mL 11/22/17 10:25 Hep B Core Total Ab Non-Reactive (Non-Reactive) 11/22/17 10:25 Hep C IgG Ab Non-Reactive (Non-Reactive) 11/22/17 10:25 Assessment and Plan (1) Cellulitis of great toe of left foot Narrative/Plan: Demented 77-year-old male who was comfortable at this time. He has noted there is evidence of the renal failure as well as a eschar to the left great toe. This is evaluated carefully and there is no expressible purulence. There is no surrounding erythema. It is time will be treated for the cellulitis to the toe and the foot while cultures of the bladder in process. There was no material to culture from the toe itself. Evaluation imagings are being done. He has evidence of an elevated glucose and is now receiving some treatment for what may be new onset diabetes or situational hyperglycemia. His mental status is poor but not newly poor. Hopefully with hydration and improvement in blood sugars to creatinine will rapidly improved. His of the leukocytosis likely related to the mild cellulitis of the great toe. 11/23/2017 reveals the patient to be more comfortable today. He has been able to eat some of his food. The mild cellulitis of the foot is improved. The urinalysis is abnormal and urine culture is pending continue current antibiotic therapy until further culture data is available. Unclear what the discharge plan will be at this time. Current Visit: Yes Status: Acute Code(s): L03.032 - CELLULITIS OF LEFT TOE SNOMED Code(s): 12295685 (2) Acute on chronic renal failure Current Visit: Yes Status: Acute Code(s): N17.9 - ACUTE KIDNEY FAILURE, UNSPECIFIED; N18.9 - CHRONIC KIDNEY DISEASE, UNSPECIFIED SNOMED Code(s): 710112235 (3) Dementia of the Alzheimer's type Current Visit: No Status: Acute Code(s): G30.9 - ALZHEIMER'S DISEASE, UNSPECIFIED; F02.80 - DEMENTIA IN OTH DISEASES CLASSD ELSWHR W/O BEHAVRL DISTURB SNOMED Code(s): 28502992
[2017-11-24 07:07] LABS: Glucose,Whole Blood 126 mg/dL (75-99)
[2017-11-24] MEDS: INSULIN ASPART 100 UNIT/ML 1 ML 10 ML VIAL SQ SCH ×4 (07:09→20:00)
[2017-11-24] MEDS: PIPERACILLIN-TAZOBACTAM 3.375 GM in DEXTROSE/WATER 1 50ML.BAG IVPB SCH ×3 (07:39→23:19)
[2017-11-24] MEDS: MEMANTINE 10 MG TAB PO SCH ×2 (07:51→19:59)
[2017-11-24] MEDS: HEPARIN SODIUM,PORCINE 5,000 UNIT/ML 1 ML VIAL SQ SCH ×2 (07:51→19:59)
[2017-11-24 08:00] LABS: Calcium 8.5 mg/dL (8.4-10.2); Potassium 4.6 mmol/L (3.5-5.1)
[2017-11-24] MEDS: SODIUM CHLORIDE 0.9% 1,000 ML IV SCH ×2 (08:00→23:21)
[2017-11-24 11:12] LABS: Glucose,Whole Blood 108 mg/dL (75-99)
[2017-11-24] MEDS: VANCOMYCIN 1,500 MG in SODIUM CHLORIDE 0.9% 250 ML IVPB SCH (11:23)
--- NOTE | 2017-11-24 11:35 | P.PN ---
Subjective Patient is seen in follow-up for acute kidney injury. Renal function continues to improve with creatinine down to 1.6 today. Sodium level is stable at 142. Patient's currently resting in bed. He is not a very reliable historian due to history of dementia. Oral intake is gradually improving. No vomiting or diarrhea. Vital signs are stable. General: The patient appeared well nourished and normally developed. HEENT: Head exam is unremarkable. Neck is without jugular venous distension. LUNGS: Lungs are clear to auscultation and percussion. Breath sounds decreased. HEART: Rate and Rhythm are regular. First and second heart sounds normal. No murmurs, rubs or gallops. ABDOMEN: Abdominal exam reveals normal bowel sounds. Non-tender and non- distended. No evidence of peritonitis. EXTREMITITES: No clubbing, cyanosis, or edema. Objective - Vital Signs Vital signs: Vital Signs Temp 98 F 11/24/17 07:00 Pulse 71 11/24/17 07:00 Resp 18 11/24/17 07:00 BP 119/65 11/24/17 07:00 Pulse Ox 98 11/24/17 07:00 Intake & Output 11/23/17 11/24/17 11/24/17 18:59 06:59 18:59 Intake Total 1310 2100 Output Total 1900 2250 Balance -590 -150 Weight 81.647 kg Intake: Intake, IV Titration 900 900 Amount Piperacillin-Tazobactam 3 50 50 .375 gm In Dextrose/Water 1 50ml.bag @ 12.5 mls/hr IVPB Q8HR [facility] Rx#: [id number] Sodium Chloride 0.9% 1, 600 850 000 ml @ 100 mls/hr IV . Q10H [facility] Rx#:[id number] Vancomycin 1,500 mg In 250 Sodium Chloride 0.9% 250 ml @ 125 mls/hr IVPB Q24H [facility] Rx#:[id number] Oral 410 1200 Output: Urine 1900 2250 Uretheral (Estevez) 2250 Other: Voiding Method Indwelling Catheter Indwelling Catheter Indwelling Catheter # Voids 1 # Bowel Movements 1 - Labs CBC & Chem 7: 11/21/17 18:53 11/24/17 07:27 Labs: Abnormal Lab Results - Last 24 Hours (Table) 03/24/18 03/24/18 03/24/18 Range/Units 11:34 12:50 17:05 Chloride (98-107) mmol/L BUN (9-20) mg/dL Creatinine (0.66-1.25) mg/dL Glucose (74-99) mg/dL POC Glucose (mg/dL) 120 H 126 H (75-99) mg/dL Urine Protein 1+ H (Negative) Urine Blood Moderate H (Negative) Ur Leukocyte Esterase Large H (Negative) Urine RBC 59 H (0-5) /hpf Urine WBC >182 H (0-5) /hpf Urine WBC Clumps Many H (None) /hpf Hyaline Casts 9 H (0-2) /lpf Urine Mucus Rare H (None) /hpf 11/23/17 11/24/17 11/24/17 Range/Units 20:44 07:05 07:27 Chloride 111 H (98-107) mmol/L BUN 21 H (9-20) mg/dL Creatinine 1.60 H (0.66-1.25) mg/dL Glucose 124 H (74-99) mg/dL POC Glucose (mg/dL) 184 H 126 H (75-99) mg/dL Urine Protein (Negative) Urine Blood (Negative) Ur Leukocyte Esterase (Negative) Urine RBC (0-5) /hpf Urine WBC (0-5) /hpf Urine WBC Clumps (None) /hpf Hyaline Casts (0-2) /lpf Urine Mucus (None) /hpf 11/24/17 Range/Units 11:06 Chloride (98-107) mmol/L BUN (9-20) mg/dL Creatinine (0.66-1.25) mg/dL Glucose (74-99) mg/dL POC Glucose (mg/dL) 108 H (75-99) mg/dL Urine Protein (Negative) Urine Blood (Negative) Ur Leukocyte Esterase (Negative) Urine RBC (0-5) /hpf Urine WBC (0-5) /hpf Urine WBC Clumps (None) /hpf Hyaline Casts (0-2) /lpf Urine Mucus (None) /hpf Microbiology - Last 24 Hours (Table) 11/21/17 18:53 Blood Culture - Preliminary Blood No Growth after 48 hours 11/23/17 12:50 Urine Culture - Preliminary Urine,Catheterized Assessment and Plan Plan: Assessment: #1. Nonoliguric acute kidney injury mostly prerenal secondary to UTI. Creatinine was 2.1 admission and is down to 1.6 today. His creatinine in September 2016 was 1 recently has been in the range of 1.4-2.5. Recent urinalysis was benign. No evidence of hydronephrosis noted on renal ultrasound of the left kidney was not visualized. #2. Hypernatremia secondary to lack of oral water intake. Improved. #3. Left great toe infection. #4. Chronic indwelling Estevez due to BPH and urinary retention being followed by urology. Catheter was exchanged 2 weeks ago. #5. Likely UTI maintain on antibiotics per infectious disease recommendations. #6. History of BPH. Plan: I will decrease a rate of normal saline to 50 mL an hour. Encouraged oral intake. Avoid nephrotoxic agents and hypotensive episodes. Repeat electrolytes in the morning. Vancomycin dose to be adjusted for renal function. Monitor levels closely. Follow-up cultures.
[2017-11-24] MEDS: MULTIVITAMINS, THERA 1 EACH TAB PO SCH (13:45)
[2017-11-24 17:08] LABS: Glucose,Whole Blood 104 mg/dL (75-99)
[2017-11-24] MEDS: DONEPEZIL 10 MG TAB PO SCH (19:59)
[2017-11-24 20:01] LABS: Glucose,Whole Blood 130 mg/dL (75-99)
[2017-11-25 07:42] LABS: Glucose,Whole Blood 119 mg/dL (75-99)
[2017-11-25] MEDS: INSULIN ASPART 100 UNIT/ML 1 ML 10 ML VIAL SQ SCH ×4 (08:49→20:48)
[2017-11-25] MEDS: MEMANTINE 10 MG TAB PO SCH ×2 (08:52→20:48)
[2017-11-25] MEDS: HEPARIN SODIUM,PORCINE 5,000 UNIT/ML 1 ML VIAL SQ SCH ×2 (08:52→20:48)
[2017-11-25] MEDS: PIPERACILLIN-TAZOBACTAM 3.375 GM in DEXTROSE/WATER 1 50ML.BAG IVPB SCH ×3 (08:52→23:31)
--- NOTE | 2017-11-25 10:09 | P.PN ---
Subjective Patient is seen in follow-up for acute kidney injury. Renal function continues to improve with creatinine down to 1.6 as of yesterday. Sodium level is stable at 142. Patient's currently resting in bed. He is not a very reliable historian due to history of dementia. Oral intake is gradually improving. No vomiting or diarrhea. Hemodynamically stable. Vital signs are stable. General: The patient appeared well nourished and normally developed. HEENT: Head exam is unremarkable. Neck is without jugular venous distension. LUNGS: Lungs are clear to auscultation and percussion. Breath sounds decreased. HEART: Rate and Rhythm are regular. First and second heart sounds normal. No murmurs, rubs or gallops. ABDOMEN: Abdominal exam reveals normal bowel sounds. Non-tender and non- distended. No evidence of peritonitis. EXTREMITITES: No clubbing, cyanosis, or edema. Objective - Vital Signs Vital signs: Vital Signs Temp 97.7 F 11/25/17 07:00 Pulse 73 11/25/17 07:00 Resp 16 11/25/17 07:00 BP 133/75 11/25/17 07:00 Pulse Ox 97 11/25/17 07:00 Intake & Output 11/24/17 11/25/17 11/25/17 18:59 06:59 18:59 Intake Total 1440 200 Output Total 600 700 Balance 840 -500 Weight 81.647 kg Intake: Intake, IV Titration 900 150 Amount Piperacillin-Tazobactam 3 50 .375 gm In Dextrose/Water 1 50ml.bag @ 12.5 mls/hr IVPB Q8HR [facility] Rx#: [id number] Sodium Chloride 0.9% 1, 600 150 000 ml @ 50 mls/hr IV . Q20H [facility] Rx#:[id number] Vancomycin 1,500 mg In 250 Sodium Chloride 0.9% 250 ml @ 125 mls/hr IVPB Q24H [facility] Rx#:[id number] Oral 540 50 Output: Urine 600 700 Uretheral (Estevez) 700 Other: Voiding Method Indwelling Catheter Indwelling Catheter Indwelling Catheter # Voids 1 # Bowel Movements 1 1 - Labs CBC & Chem 7: 11/21/17 18:53 11/24/17 07:27 Labs: Abnormal Lab Results - Last 24 Hours (Table) 11/24/17 11/24/17 11/24/17 Range/Units 11:06 17:06 20:00 POC Glucose (mg/dL) 108 H 104 H 130 H (75-99) mg/dL 11/25/17 Range/Units 07:38 POC Glucose (mg/dL) 119 H (75-99) mg/dL Microbiology - Last 24 Hours (Table) 11/21/17 18:53 Blood Culture - Preliminary Blood No Growth after 72 hours Assessment and Plan Plan: Assessment: #1. Nonoliguric acute kidney injury mostly prerenal secondary to UTI. Creatinine was 2.1 admission and is down to 1.6 as of yesterday. His creatinine in September 2016 was 1 recently has been in the range of 1.4-2.5. Recent urinalysis was benign. No evidence of hydronephrosis noted on renal ultrasound of the left kidney was not visualized. #2. Hypernatremia secondary to lack of oral water intake. Improved. #3. Left great toe infection. #4. Chronic indwelling Estevez due to BPH and urinary retention being followed by urology. Catheter was exchanged 2 weeks ago. #5. Likely UTI maintain on antibiotics per infectious disease recommendations. #6. History of BPH. Plan: Maintain normal saline at 50 mL an hour. Encouraged oral intake. Avoid nephrotoxic agents and hypotensive episodes. Repeat electrolytes in the morning. Vancomycin dose to be adjusted for renal function. Monitor levels closely. Follow-up cultures.
[2017-11-25] MEDS ORDERED: VANCOMYCIN TROUGH DUE 1 EACH MISC MISCELLANE ONE (11:00)
[2017-11-25 11:24] LABS: Glucose,Whole Blood 162 mg/dL (75-99)
[2017-11-25 11:26] LABS: Calcium 8.7 mg/dL (8.4-10.2); Magnesium 2.1 mg/dL (1.6-2.3); Potassium 4.3 mmol/L (3.5-5.1)
[2017-11-25] MEDS: MULTIVITAMINS, THERA 1 EACH TAB PO SCH (12:40)
[2017-11-25] MEDS: VANCOMYCIN 1,500 MG in SODIUM CHLORIDE 0.9% 250 ML IVPB SCH (14:11)
--- NOTE | 2017-11-25 16:59 | PN ---
PROGRESS NOTE DATE OF SERVICE: 11/24/17. CHIEF COMPLAINT: Infected abrasion laceration with cellulitis left great toe and renal failure. HISTORY OF PRESENT ILLNESS: This gentleman is doing fairly well. His kidney function has improved. He continues on IV antibiotics. PHYSICAL EXAM: The toes less erythematous and swollen. Pulses are good. Chest is clear. Cardiac exam is normal. Abdomen is soft, nontender. IMPRESSION: 1. Infected abrasion laceration on the dorsal left 2nd toe with cellulitis. 2. Renal failure-improving. 3. Dementia. PLAN: Continue on IV fluids and antibiotics for another day or 2 before discharge. MMODL / IJN: [id number] /
--- NOTE | 2017-11-25 17:17 | PN ---
PROGRESS NOTE DATE OF SERVICE: 11/25/17. CHIEF COMPLAINT: Cellulitis left great toe and renal failure. HISTORY OF PRESENT ILLNESS: This gentleman continues to do well. Renal function is back to his baseline. PHYSICAL EXAM: CHEST: Clear. The cardiac exam is normal. The abdomen is soft, nontender. Toe is improving. He has he is alert, although he remains confused due to his dementia. IMPRESSION: 1. Cellulitis left great toe. 2. Chronic renal failure. 3. Dementia. PLAN: Probably home tomorrow. MMODL / IJN: [id number] /
[2017-11-25 17:41] LABS: Glucose,Whole Blood 134 mg/dL (75-99)
[2017-11-25 20:28] LABS: Glucose,Whole Blood 175 mg/dL (75-99)
[2017-11-25] MEDS: DONEPEZIL 10 MG TAB PO SCH (20:48)
[2017-11-25] MEDS: SODIUM CHLORIDE 0.9% 1,000 ML IV SCH (20:49)
--- NOTE | 2017-11-25 23:22 | P.PN ---
Subjective Progress Note Date: 11/25/17 Principal diagnosis: Altered mental status This is a 77-year-old male patient who presented to the emergency center on November 21 due to a wound to the left great toe. Patient was found to be afebrile, white count 13.1, BUN 38 and creatinine 2.2. Appears patient's baseline creatinine is 2.0. Sodium was 142, potassium 5.0, chloride 114 and CO2 22. Blood sugar was 196 but it does not appear patient has history of diabetes. Alkaline phosphatase 165. Blood cultures status received. Patient was recently discharged from [facility] 2 days prior. He does have a chronic Estevez catheter in place that was last changed on November 10. He underwent x-ray of the left foot that showed no fracture. Patient has been admitted to the [facility] floor and started on Zosyn and vancomycin. Patient has underlying dementia and is unable to provide any history. Patient is slow to respond to direction. Apparently patient is more responsive when his is present. 11/23/2017 reveals the patient to be sitting upright and seemed to be more comfortable. He did eat some of his lunch. He otherwise has no voiced complaint but with his dementia is difficult to discern the content of his speech. 11/25/2017 reveals the patient has had some further improvement. He has significant dementia and is denying any complaints. Objective - Vital Signs Vital signs: Vital Signs Temp 97.4 F L 11/25/17 23:00 Pulse 70 11/25/17 23:00 Resp 18 11/25/17 23:00 BP 138/60 11/25/17 23:00 Pulse Ox 97 11/25/17 23:00 Intake & Output 11/25/17 11/25/17 11/26/17 06:59 18:59 06:59 Intake Total 200 450 50 Output Total 700 1600 Balance -500 -1150 50 Intake: IV 50 Piperacillin-Tazobactam 3 50 .375 gm In Dextrose/Water 1 50ml.bag @ 12.5 mls/hr IVPB Q8HR [facility] Rx#: [id number] Intake, IV Titration 150 450 Amount Piperacillin-Tazobactam 3 50 .375 gm In Dextrose/Water 1 50ml.bag @ 12.5 mls/hr IVPB Q8HR [facility] Rx#: [id number] Sodium Chloride 0.9% 1, 150 400 000 ml @ 50 mls/hr IV . Q20H [facility] Rx#:[id number] Oral 50 Output: Urine 700 1600 Uretheral (Estevez) 700 1000 Other: Voiding Method Indwelling Catheter Indwelling Catheter # Bowel Movements 1 - Exam Gen: This is a pleasantly confused 77-year-old male patient. He is sitting up in bed and appears to be comfortable and in no acute distress. HEENT: Head is atraumatic, normocephalic. Pupils equal, round. Sclerae is anicteric. Oral mucous membranes are slightly dry. Dentition is in poor order. NECK: Supple. No JVD. No lymphadenopathy. No thyromegaly. LUNGS: Clear to auscultation. No wheezes or rhonchi. No intercostal retractions. HEART: Regular rate and rhythm. No murmur. ABDOMEN: Soft. Bowel sounds are present. No masses. No tenderness. EXTREMITIES: No pedal edema. No calf tenderness. Dorsalis pedis is +2 bilaterally. Patient has a small wound to the dorsal surface of the left great toe with resolution of the prior erythema and swelling No active drainage. No foul odor. This does not extend into the foot. Onychomycosis noted to toes bilaterally. NEUROLOGICAL: Patient is awake, alert and oriented x1. - Labs CBC & Chem 7: 11/21/17 18:53 11/25/17 10:45 Labs: Abnormal Lab Results - Last 24 Hours (Table) 11/25/17 11/25/17 11/25/17 Range/Units 07:38 10:45 11:22 Sodium 146 H (137-145) mmol/L Chloride 113 H (98-107) mmol/L Carbon Dioxide 21 L (22-30) mmol/L Creatinine 1.60 H (0.66-1.25) mg/dL Glucose 171 H (74-99) mg/dL POC Glucose (mg/dL) 119 H 162 H (75-99) mg/dL 11/25/17 11/25/17 Range/Units 17:19 20:14 Sodium (137-145) mmol/L Chloride (98-107) mmol/L Carbon Dioxide (22-30) mmol/L Creatinine (0.66-1.25) mg/dL Glucose (74-99) mg/dL POC Glucose (mg/dL) 134 H 175 H (75-99) mg/dL Microbiology - Last 24 Hours (Table) 11/21/17 18:53 Blood Culture - Preliminary Blood No Growth after 96 hours 11/23/17 12:50 Urine Culture - Final Urine,Catheterized Laboratory Results WBC 13.1 k/uL (3.8-10.6) H 11/21/17 18:53 RBC 4.27 m/uL (4.30-5.90) L 11/21/17 18:53 Hgb 13.5 gm/dL (13.0-17.5) 11/21/17 18:53 Hct 38.8 % (39.0-53.0) L 11/21/17 18:53 MCV 91.0 fL (80.0-100.0) D 11/21/17 18:53 MCH 31.7 pg (25.0-35.0) 11/21/17 18:53 MCHC 34.8 g/dL (31.0-37.0) 11/21/17 18:53 RDW 12.7 % (11.5-15.5) 11/21/17 18:53 Plt Count 445 k/uL (150-450) 11/21/17 18:53 Neutrophils % 78 % 11/21/17 18:53 Lymphocytes % 14 % 11/21/17 18:53 Monocytes % 4 % 11/21/17 18:53 Eosinophils % 2 % 11/21/17 18:53 Basophils % 0 % 11/21/17 18:53 Neutrophils # 10.3 k/uL (1.3-7.7) H 11/21/17 18:53 Lymphocytes # 1.8 k/uL (1.0-4.8) 11/21/17 18:53 Monocytes # 0.6 k/uL (0-1.0) 11/21/17 18:53 Eosinophils # 0.3 k/uL (0-0.7) 11/21/17 18:53 Basophils # 0.0 k/uL (0-0.2) 11/21/17 18:53 Sodium 146 mmol/L (137-145) H 11/25/17 10:45 Potassium 4.3 mmol/L (3.5-5.1) 11/25/17 10:45 Chloride 113 mmol/L (98-107) H 11/25/17 10:45 Carbon Dioxide 21 mmol/L (22-30) L 11/25/17 10:45 Anion Gap 12 mmol/L 11/25/17 10:45 BUN 15 mg/dL (9-20) 11/25/17 10:45 Creatinine 1.60 mg/dL (0.66-1.25) H 11/25/17 10:45 Est GFR (CKD-EPI)AfAm 47 (>60 ml/min/1.73 sqM) 11/25/17 10:45 Est GFR (CKD-EPI)NonAf 41 (>60 ml/min/1.73 sqM) 11/25/17 10:45 Glucose 171 mg/dL (74-99) H 11/25/17 10:45 POC Glucose (mg/dL) 175 mg/dL (75-99) H 11/25/17 20:14 POC Glu [employer] ID Katie Reyes 11/25/17 20:[address] Glu mg/dL 148 11/22/17 10:25 Hemoglobin A1c 6.8 % (4.0-6.0) H 11/22/17 10:25 Calcium 8.7 mg/dL (8.4-10.2) 11/25/17 10:45 Magnesium 2.1 mg/dL (1.6-2.3) 11/25/17 10:45 Total Bilirubin 0.5 mg/dL (0.2-1.3) 11/21/17 18:53 AST 13 U/L (17-59) L 11/21/17 18:53 ALT <6 U/L (21-72) L 11/21/17 18:53 Alkaline Phosphatase 165 U/L (38-126) H 11/21/17 18:53 Total Creatine Kinase 74 U/L (55-170) 11/21/17 18:53 CK-MB (CK-2) 0.6 ng/mL (0.0-2.4) 11/21/17 18:53 CK-MB (CK-2) Rel Index 0.8 11/21/17 18:53 Total Protein 7.7 g/dL (6.3-8.2) 11/21/17 18:53 Albumin 3.8 g/dL (3.5-5.0) 11/21/17 18:53 Urine Color Yellow 11/23/17 12:50 Urine Appearance Turbid (Clear) 11/23/17 12:50 Urine pH 6.0 (5.0-8.0) 11/23/17 12:50 Ur Specific [place] 1.019 (1.001-1.035) 11/23/17 12:50 Urine Protein 1+ (Negative) H 11/23/17 12:50 Urine Glucose (UA) Negative (Negative) 11/23/17 12:50 Urine Ketones Negative (Negative) 11/23/17 12:50 Urine Blood Moderate (Negative) H 11/23/17 12:50 Urine Nitrite Positive (Negative) 11/23/17 12:50 Urine Bilirubin Negative (Negative) 11/23/17 12:50 Urine Urobilinogen <2.0 mg/dL (<2.0) 11/23/17 12:50 Ur Leukocyte Esterase Large (Negative) H 11/23/17 12:50 Urine RBC 59 /hpf (0-5) H 11/23/17 12:50 Urine WBC >182 /hpf (0-5) H 11/23/17 12:50 Urine WBC Clumps Many /hpf (None) H 11/23/17 12:50 Hyaline Casts 9 /lpf (0-2) H 11/23/17 12:50 Urine Mucus Rare /hpf (None) H 11/23/17 12:50 Vancomycin Trough 18.0 ug/mL 11/25/17 10:45 Hepatitis A IgM Ab Non-Reactive (Non-Reactive) 11/23/17 07:34 Hepatitis A Ab Total Reactive (Non-Reactive) H 11/22/17 10:25 Hep Bs Antibody Non-Reactive (Non-Reactive) 11/22/17 10:25 Hep Bs Antibody, Quant 3.5 mIU/mL 11/22/17 10:25 Hep B Core Total Ab Non-Reactive (Non-Reactive) 11/22/17 10:25 Hep C IgG Ab Non-Reactive (Non-Reactive) 11/22/17 10:25 Microbiology 11/21/17 18:53 Blood Blood Culture - Preliminary No Growth after 96 hours 11/23/17 12:50 Urine,Catheterized Urine Culture - Final Assessment and Plan (1) Cellulitis of great toe of left foot Narrative/Plan: Demented 77-year-old male who was comfortable at this time. He has noted there is evidence of the renal failure as well as a eschar to the left great toe. This is evaluated carefully and there is no expressible purulence. There is no surrounding erythema. It is time will be treated for the cellulitis to the toe and the foot while cultures of the bladder in process. There was no material to culture from the toe itself. Evaluation imagings are being done. He has evidence of an elevated glucose and is now receiving some treatment for what may be new onset diabetes or situational hyperglycemia. His mental status is poor but not newly poor. Hopefully with hydration and improvement in blood sugars to creatinine will rapidly improved. His of the leukocytosis likely related to the mild cellulitis of the great toe. 11/23/2017 reveals the patient to be more comfortable today. He has been able to eat some of his food. The mild cellulitis of the foot is improved. The urinalysis is abnormal and urine culture is pending continue current antibiotic therapy until further culture data is available. Unclear what the discharge plan will be at this time. 11/25/2017 reveals the patient to be comfortable. He is eating well. The cellulitis to the foot has generally resolved. With negative cultures can be transitioned to oral antibiotic therapy and transferred back to his usual home environment. A minimal dressing such as a Band-Aid and antibiotic ointment can be utilized to these minimal eschar of the toe. The patient did have evidence of some abnormal liver function tests. Hepatitis testing was performed, and confirmatory tests show that he has evidence of immunity to hepatitis A, does not have active infection. Current Visit: Yes Status: Acute Code(s): L03.032 - CELLULITIS OF LEFT TOE SNOMED Code(s): 75464256 (2) Acute on chronic renal failure Current Visit: Yes Status: Acute Code(s): N17.9 - ACUTE KIDNEY FAILURE, UNSPECIFIED; N18.9 - CHRONIC KIDNEY DISEASE, UNSPECIFIED SNOMED Code(s): 130225116 (3) Dementia of the Alzheimer's type Current Visit: No Status: Acute Code(s): G30.9 - ALZHEIMER'S DISEASE, UNSPECIFIED; F02.80 - DEMENTIA IN OTH DISEASES CLASSD ELSWHR W/O BEHAVRL DISTURB SNOMED Code(s): 17212290
[2017-11-26 07:32] LABS: Glucose,Whole Blood 111 mg/dL (75-99)
[2017-11-26] MEDS: INSULIN ASPART 100 UNIT/ML 1 ML 10 ML VIAL SQ SCH ×4 (07:42→21:56)
[2017-11-26] MEDS: MEMANTINE 10 MG TAB PO SCH ×2 (07:58→21:56)
[2017-11-26] MEDS: HEPARIN SODIUM,PORCINE 5,000 UNIT/ML 1 ML VIAL SQ SCH ×2 (07:58→21:56)
[2017-11-26] MEDS: PIPERACILLIN-TAZOBACTAM 3.375 GM in DEXTROSE/WATER 1 50ML.BAG IVPB SCH ×3 (07:58→23:39)
[2017-11-26 08:45] LABS: Calcium 8.6 mg/dL (8.4-10.2); Potassium 4.8 mmol/L (3.5-5.1)
--- NOTE | 2017-11-26 10:22 | P.PN ---
Subjective Patient is seen in follow-up for acute kidney injury. Renal function has improved since admission with creatinine now stable near 1.6 Sodium level is stable at 144. Patient's currently resting in bed. He is not a very reliable historian due to history of dementia. Oral intake is gradually improving. No vomiting or diarrhea. Hemodynamically stable. Vital signs are stable. General: The patient appeared well nourished and normally developed. HEENT: Head exam is unremarkable. Neck is without jugular venous distension. LUNGS: Lungs are clear to auscultation and percussion. Breath sounds decreased. HEART: Rate and Rhythm are regular. First and second heart sounds normal. No murmurs, rubs or gallops. ABDOMEN: Abdominal exam reveals normal bowel sounds. Non-tender and non- distended. No evidence of peritonitis. EXTREMITITES: No clubbing, cyanosis, or edema. Objective - Vital Signs Vital signs: Vital Signs Temp 97.3 F L 11/26/17 07:00 Pulse 58 L 11/26/17 07:00 Resp 18 11/26/17 07:00 BP 116/73 11/26/17 07:00 Pulse Ox 96 11/26/17 07:00 Intake & Output 11/25/17 11/26/17 11/26/17 18:59 06:59 18:59 Intake Total 450 500 Output Total 1600 600 Balance -1150 -100 Intake: IV 500 Piperacillin-Tazobactam 3 100 .375 gm In Dextrose/Water 1 50ml.bag @ 12.5 mls/hr IVPB Q8HR [facility] Rx#: [id number] Sodium Chloride 0.9% 1, 400 000 ml @ 50 mls/hr IV . Q20H [facility] Rx#:[id number] Intake, IV Titration 450 Amount Piperacillin-Tazobactam 3 50 .375 gm In Dextrose/Water 1 50ml.bag @ 12.5 mls/hr IVPB Q8HR [facility] Rx#: [id number] Sodium Chloride 0.9% 1, 400 000 ml @ 50 mls/hr IV . Q20H [facility] Rx#:[id number] Output: Urine 1600 600 Uretheral (Estevez) 1000 600 Other: Voiding Method Indwelling Catheter Indwelling Catheter - Labs CBC & Chem 7: 11/21/17 18:53 11/26/17 07:44 Labs: Abnormal Lab Results - Last 24 Hours (Table) 11/25/17 11/25/17 11/25/17 Range/Units 10:45 11:22 17:19 Sodium 146 H (137-145) mmol/L Chloride 113 H (98-107) mmol/L Carbon Dioxide 21 L (22-30) mmol/L Creatinine 1.60 H (0.66-1.25) mg/dL Glucose 171 H (74-99) mg/dL POC Glucose (mg/dL) 162 H 134 H (75-99) mg/dL 11/25/17 11/26/17 11/26/17 Range/Units 20:14 07:28 07:44 Sodium (137-145) mmol/L Chloride 114 H (98-107) mmol/L Carbon Dioxide 20 L (22-30) mmol/L Creatinine 1.58 H (0.66-1.25) mg/dL Glucose 104 H (74-99) mg/dL POC Glucose (mg/dL) 175 H 111 H (75-99) mg/dL Microbiology - Last 24 Hours (Table) 11/21/17 18:53 Blood Culture - Preliminary Blood No Growth after 96 hours 11/23/17 12:50 Urine Culture - Final Urine,Catheterized Assessment and Plan Plan: Assessment: #1. Nonoliguric acute kidney injury mostly prerenal secondary to UTI. Creatinine was 2.1 admission and is stable near 1.6. His creatinine in September 2016 was 1 recently has been in the range of 1.4-2.5. Recent urinalysis was benign. No evidence of hydronephrosis noted on renal ultrasound of the left kidney was not visualized. #2. Hypernatremia secondary to lack of oral water intake. Improved. #3. Left great toe infection. #4. Chronic indwelling Estevez due to BPH and urinary retention being followed by urology. Catheter was exchanged 2 weeks ago. #5. Likely UTI maintain on antibiotics per infectious disease recommendations. #6. History of BPH. #7. Metabolic acidosis secondary to IV fluids. Plan: Maintain normal saline at 50 mL an hour. Encouraged oral intake. Avoid nephrotoxic agents and hypotensive episodes. Repeat electrolytes in the morning. Vancomycin dose to be adjusted for renal function. Monitor levels closely. Follow-up cultures. No changes from nephrology standpoint.
[2017-11-26 11:21] LABS: Glucose,Whole Blood 163 mg/dL (75-99)
[2017-11-26] MEDS: MULTIVITAMINS, THERA 1 EACH TAB PO SCH (12:47)
[2017-11-26] MEDS: VANCOMYCIN 1,500 MG in SODIUM CHLORIDE 0.9% 250 ML IVPB SCH (12:48)
[2017-11-26 17:29] LABS: Glucose,Whole Blood 111 mg/dL (75-99)
--- NOTE | 2017-11-26 18:07 | PN ---
PROGRESS NOTE DATE OF SERVICE: 11/26/2017 CHIEF COMPLAINT: Cellulitis of the left toe and dementia with renal failure. HISTORY OF PRESENT ILLNESS: His was to have taken the patient home today; now she wants him to go back to [facility]. PHYSICAL EXAMINATION: There has been no change. The toes have almost completely healed. IMPRESSION: 1. Cellulitis of the left great toe. 2. Renal failure. 3. Dementia. PLAN: Refer back to discharge planning for placement at [facility]. JOE / SHARANN: [id number] /
[2017-11-26 20:24] LABS: Glucose,Whole Blood 197 mg/dL (75-99)
[2017-11-26] MEDS: SODIUM CHLORIDE 0.9% 1,000 ML IV SCH (21:56)
[2017-11-26] MEDS: DONEPEZIL 10 MG TAB PO SCH (21:56)
--- NOTE | 2017-11-27 00:14 | P.PN ---
Subjective Progress Note Date: 11/26/17 Principal diagnosis: Altered mental status This is a 77-year-old male patient who presented to the emergency center on November 21 due to a wound to the left great toe. Patient was found to be afebrile, white count 13.1, BUN 38 and creatinine 2.2. Appears patient's baseline creatinine is 2.0. Sodium was 142, potassium 5.0, chloride 114 and CO2 22. Blood sugar was 196 but it does not appear patient has history of diabetes. Alkaline phosphatase 165. Blood cultures status received. Patient was recently discharged from [facility] 2 days prior. He does have a chronic Estevez catheter in place that was last changed on November 10. He underwent x-ray of the left foot that showed no fracture. Patient has been admitted to the [facility] floor and started on Zosyn and vancomycin. Patient has underlying dementia and is unable to provide any history. Patient is slow to respond to direction. Apparently patient is more responsive when his is present. 11/23/2017 reveals the patient to be sitting upright and seemed to be more comfortable. He did eat some of his lunch. He otherwise has no voiced complaint but with his dementia is difficult to discern the content of his speech. 11/25/2017 reveals the patient has had some further improvement. He has significant dementia and is denying any complaints. 11/26/2017 patient stable and being ready for transfer to rehab and extended care. Ulcerations of the toe is really improved and he has no complaints but again has profound dementia. Objective - Vital Signs Vital signs: Vital Signs Temp 97.1 F L 11/26/17 21:47 Pulse 85 11/26/17 21:47 Resp 16 11/26/17 21:47 BP 135/69 11/26/17 21:47 Pulse Ox 91 L 11/26/17 21:47 Intake & Output 11/26/17 11/26/17 11/27/17 06:59 18:59 06:59 Intake Total 500 700 590 Output Total 600 1325 Balance -100 -625 590 Intake: IV 500 450 Piperacillin-Tazobactam 3 100 50 .375 gm In Dextrose/Water 1 50ml.bag @ 12.5 mls/hr IVPB Q8HR RICHELLE Rx#: [id number] Sodium Chloride 0.9% 1, 400 400 000 ml @ 50 mls/hr IV . Q20H RICHELLE Rx#:[id number] Intake, IV Titration 250 Amount Vancomycin 1,500 mg In 250 Sodium Chloride 0.9% 250 ml @ 125 mls/hr IVPB Q24H RICHELLE Rx#:[id number] Oral 590 Output: Urine 600 1325 Uretheral (Estevez) 600 1325 Other: Voiding Method Indwelling Catheter Indwelling Catheter # Voids 1 # Bowel Movements 1 - Exam Gen: This is a pleasantly confused 77-year-old male patient. He is sitting up in bed and appears to be comfortable and in no acute distress. HEENT: Head is atraumatic, normocephalic. Pupils equal, round. Sclerae is anicteric. Oral mucous membranes are slightly dry. Dentition is in poor order. NECK: Supple. No JVD. No lymphadenopathy. No thyromegaly. LUNGS: Clear to auscultation. No wheezes or rhonchi. No intercostal retractions. HEART: Regular rate and rhythm. No murmur. ABDOMEN: Soft. Bowel sounds are present. No masses. No tenderness. EXTREMITIES: No pedal edema. No calf tenderness. Dorsalis pedis is +2 bilaterally. Patient has a small wound to the dorsal surface of the left great toe with resolution of the prior erythema and swelling No active drainage. No foul odor. This does not extend into the foot. Onychomycosis noted to toes bilaterally. NEUROLOGICAL: Patient is awake, alert and oriented x1. - Labs CBC & Chem 7: 11/21/17 18:53 11/26/17 07:44 Labs: Abnormal Lab Results - Last 24 Hours (Table) 11/26/17 11/26/17 11/26/17 Range/Units 07:28 07:44 11:18 Chloride 114 H (98-107) mmol/L Carbon Dioxide 20 L (22-30) mmol/L Creatinine 1.58 H (0.66-1.25) mg/dL Glucose 104 H (74-99) mg/dL POC Glucose (mg/dL) 111 H 163 H (75-99) mg/dL 11/26/17 11/26/17 Range/Units 17:12 20:22 Chloride (98-107) mmol/L Carbon Dioxide (22-30) mmol/L Creatinine (0.66-1.25) mg/dL Glucose (74-99) mg/dL POC Glucose (mg/dL) 111 H 197 H (75-99) mg/dL Microbiology - Last 24 Hours (Table) 11/21/17 18:53 Blood Culture - Preliminary Blood No Growth after 120 hours 11/23/17 12:50 Urine Culture - Final Urine,Catheterized Laboratory Results WBC 13.1 k/uL (3.8-10.6) H 11/21/17 18:53 RBC 4.27 m/uL (4.30-5.90) L 11/21/17 18:53 Hgb 13.5 gm/dL (13.0-17.5) 11/21/17 18:53 Hct 38.8 % (39.0-53.0) L 11/21/17 18:53 MCV 91.0 fL (80.0-100.0) D 11/21/17 18:53 MCH 31.7 pg (25.0-35.0) 11/21/17 18:53 MCHC 34.8 g/dL (31.0-37.0) 11/21/17 18:53 RDW 12.7 % (11.5-15.5) 11/21/17 18:53 Plt Count 445 k/uL (150-450) 11/21/17 18:53 Neutrophils % 78 % 11/21/17 18:53 Lymphocytes % 14 % 11/21/17 18:53 Monocytes % 4 % 11/21/17 18:53 Eosinophils % 2 % 11/21/17 18:53 Basophils % 0 % 11/21/17 18:53 Neutrophils # 10.3 k/uL (1.3-7.7) H 11/21/17 18:53 Lymphocytes # 1.8 k/uL (1.0-4.8) 11/21/17 18:53 Monocytes # 0.6 k/uL (0-1.0) 11/21/17 18:53 Eosinophils # 0.3 k/uL (0-0.7) 11/21/17 18:53 Basophils # 0.0 k/uL (0-0.2) 11/21/17 18:53 Sodium 144 mmol/L (137-145) 11/26/17 07:44 Potassium 4.8 mmol/L (3.5-5.1) 11/26/17 07:44 Chloride 114 mmol/L (98-107) H 11/26/17 07:44 Carbon Dioxide 20 mmol/L (22-30) L 11/26/17 07:44 Anion Gap 10 mmol/L 11/26/17 07:44 BUN 13 mg/dL (9-20) 11/26/17 07:44 Creatinine 1.58 mg/dL (0.66-1.25) H 11/26/17 07:44 Est GFR (CKD-EPI)AfAm 48 (>60 ml/min/1.73 sqM) 11/26/17 07:44 Est GFR (CKD-EPI)NonAf 41 (>60 ml/min/1.73 sqM) 11/26/17 07:44 Glucose 104 mg/dL (74-99) H 11/26/17 07:44 POC Glucose (mg/dL) 197 mg/dL (75-99) H 11/26/17 20:22 POC Glu [employer] Linette Estrada 11/26/17 20:[address] Glu mg/dL 148 11/22/17 10:25 Hemoglobin A1c 6.8 % (4.0-6.0) H 11/22/17 10:25 Calcium 8.6 mg/dL (8.4-10.2) 11/26/17 07:44 Magnesium 2.1 mg/dL (1.6-2.3) 11/25/17 10:45 Total Bilirubin 0.5 mg/dL (0.2-1.3) 11/21/17 18:53 AST 13 U/L (17-59) L 11/21/17 18:53 ALT <6 U/L (21-72) L 11/21/17 18:53 Alkaline Phosphatase 165 U/L (38-126) H 11/21/17 18:53 Total Creatine Kinase 74 U/L (55-170) 11/21/17 18:53 CK-MB (CK-2) 0.6 ng/mL (0.0-2.4) 11/21/17 18:53 CK-MB (CK-2) Rel Index 0.8 11/21/17 18:53 Total Protein 7.7 g/dL (6.3-8.2) 11/21/17 18:53 Albumin 3.8 g/dL (3.5-5.0) 11/21/17 18:53 Urine Color Yellow 11/23/17 12:50 Urine Appearance Turbid (Clear) 11/23/17 12:50 Urine pH 6.0 (5.0-8.0) 11/23/17 12:50 Ur Specific [place] 1.019 (1.001-1.035) 11/23/17 12:50 Urine Protein 1+ (Negative) H 11/23/17 12:50 Urine Glucose (UA) Negative (Negative) 11/23/17 12:50 Urine Ketones Negative (Negative) 11/23/17 12:50 Urine Blood Moderate (Negative) H 11/23/17 12:50 Urine Nitrite Positive (Negative) 11/23/17 12:50 Urine Bilirubin Negative (Negative) 11/23/17 12:50 Urine Urobilinogen <2.0 mg/dL (<2.0) 11/23/17 12:50 Ur Leukocyte Esterase Large (Negative) H 11/23/17 12:50 Urine RBC 59 /hpf (0-5) H 11/23/17 12:50 Urine WBC >182 /hpf (0-5) H 11/23/17 12:50 Urine WBC Clumps Many /hpf (None) H 11/23/17 12:50 Hyaline Casts 9 /lpf (0-2) H 11/23/17 12:50 Urine Mucus Rare /hpf (None) H 11/23/17 12:50 Vancomycin Trough 18.0 ug/mL 11/25/17 10:45 Hepatitis A IgM Ab Non-Reactive (Non-Reactive) 11/23/17 07:34 Hepatitis A Ab Total Reactive (Non-Reactive) H 11/22/17 10:25 Hep Bs Antibody Non-Reactive (Non-Reactive) 11/22/17 10:25 Hep Bs Antibody, Quant 3.5 mIU/mL 11/22/17 10:25 Hep B Core Total Ab Non-Reactive (Non-Reactive) 11/22/17 10:25 Hep C IgG Ab Non-Reactive (Non-Reactive) 11/22/17 10:25 Microbiology 11/21/17 18:53 Blood Blood Culture - Preliminary No Growth after 120 hours 11/23/17 12:50 Urine,Catheterized Urine Culture - Final Assessment and Plan (1) Cellulitis of great toe of left foot Narrative/Plan: Demented 77-year-old male who was comfortable at this time. He has noted there is evidence of the renal failure as well as a eschar to the left great toe. This is evaluated carefully and there is no expressible purulence. There is no surrounding erythema. It is time will be treated for the cellulitis to the toe and the foot while cultures of the bladder in process. There was no material to culture from the toe itself. Evaluation imagings are being done. He has evidence of an elevated glucose and is now receiving some treatment for what may be new onset diabetes or situational hyperglycemia. His mental status is poor but not newly poor. Hopefully with hydration and improvement in blood sugars to creatinine will rapidly improved. His of the leukocytosis likely related to the mild cellulitis of the great toe. 11/23/2017 reveals the patient to be more comfortable today. He has been able to eat some of his food. The mild cellulitis of the foot is improved. The urinalysis is abnormal and urine culture is pending continue current antibiotic therapy until further culture data is available. Unclear what the discharge plan will be at this time. 11/25/2017 reveals the patient to be comfortable. He is eating well. The cellulitis to the foot has generally resolved. With negative cultures can be transitioned to oral antibiotic therapy and transferred back to his usual home environment. A minimal dressing such as a Band-Aid and antibiotic ointment can be utilized to these minimal eschar of the toe. The patient did have evidence of some abnormal liver function tests. Hepatitis testing was performed, and confirmatory tests show that he has evidence of immunity to hepatitis A, does not have active infection. 11/26/2017 patient is comfortable and plans are for transition to extended care. Local wound care with antibiotic ointment such as Polysporin and Band- Aid can be utilized for the toe. Especially since he has great difficulty leaving dressings in place. As noted has evidence of immunity to hepatitis A not active infection. For antibiotic therapy will transition from intravenous antibiotic therapy to oral Augmentin to complete a week of therapy for the cellulitis of the left foot. Current Visit: Yes Status: Acute Code(s): L03.032 - CELLULITIS OF LEFT TOE SNOMED Code(s): 33147575 (2) Acute on chronic renal failure Current Visit: Yes Status: Acute Code(s): N17.9 - ACUTE KIDNEY FAILURE, UNSPECIFIED; N18.9 - CHRONIC KIDNEY DISEASE, UNSPECIFIED SNOMED Code(s): 132506249 (3) Dementia of the Alzheimer's type Current Visit: No Status: Acute Code(s): G30.9 - ALZHEIMER'S DISEASE, UNSPECIFIED; F02.80 - DEMENTIA IN OTH DISEASES CLASSD ELSWHR W/O BEHAVRL DISTURB SNOMED Code(s): 71311035
[2017-11-27 07:42] LABS: Glucose,Whole Blood 112 mg/dL (75-99)
[2017-11-27 08:37] LABS: Calcium 8.6 mg/dL (8.4-10.2); Potassium 4.4 mmol/L (3.5-5.1)
[2017-11-27] MEDS: AMOXIC-POT CLAV 875-125MG 1 EACH TAB PO SCH ×2 (08:55→22:04)
[2017-11-27] MEDS: INSULIN ASPART 100 UNIT/ML 1 ML 10 ML VIAL SQ SCH ×4 (08:55→22:04)
[2017-11-27] MEDS: HEPARIN SODIUM,PORCINE 5,000 UNIT/ML 1 ML VIAL SQ SCH ×2 (08:56→22:05)
[2017-11-27] MEDS: MEMANTINE 10 MG TAB PO SCH ×2 (08:56→22:04)
[2017-11-27] MEDS: MULTIVITAMINS, THERA 1 EACH TAB PO SCH (08:56)
--- NOTE | 2017-11-27 11:13 | P.PN ---
Subjective Patient is seen in follow-up for acute kidney injury. Renal function has improved since admission with creatinine now stable near 1.6 Sodium level is stable at 143. Patient's currently resting in bed. He is not a very reliable historian due to history of dementia. Oral intake is gradually improving. No vomiting or diarrhea. Hemodynamically stable. Vital signs are stable. General: The patient appeared well nourished and normally developed. HEENT: Head exam is unremarkable. Neck is without jugular venous distension. LUNGS: Lungs are clear to auscultation and percussion. Breath sounds decreased. HEART: Rate and Rhythm are regular. First and second heart sounds normal. No murmurs, rubs or gallops. ABDOMEN: Abdominal exam reveals normal bowel sounds. Non-tender and non- distended. No evidence of peritonitis. EXTREMITITES: No clubbing, cyanosis, or edema. Objective - Vital Signs Vital signs: Vital Signs Temp 98.4 F 11/27/17 07:00 Pulse 68 11/27/17 07:00 Resp 18 11/27/17 07:00 BP 122/67 11/27/17 07:00 Pulse Ox 95 11/27/17 07:00 Intake & Output 11/26/17 11/27/17 11/27/17 18:59 06:59 18:59 Intake Total 700 1040 Output Total 1325 1300 Balance -625 -260 Intake: IV 450 450 Piperacillin-Tazobactam 3 50 .375 gm In Dextrose/Water 1 50ml.bag @ 12.5 mls/hr IVPB Q8HR RICHELLE Rx#: [id number] Sodium Chloride 0.9% 1, 400 450 000 ml @ 50 mls/hr IV . Q20H RICHELLE Rx#:[id number] Intake, IV Titration 250 Amount Vancomycin 1,500 mg In 250 Sodium Chloride 0.9% 250 ml @ 125 mls/hr IVPB Q24H RICHELLE Rx#:[id number] Oral 590 Output: Urine 1325 1300 Uretheral (Estevez) 1325 1300 Other: Voiding Method Indwelling Catheter Indwelling Catheter Indwelling Catheter # Voids 1 # Bowel Movements 1 1 - Labs CBC & Chem 7: 11/21/17 18:53 11/27/17 08:05 Labs: Abnormal Lab Results - Last 24 Hours (Table) 11/26/17 11/26/17 11/26/17 Range/Units 11:18 17:12 20:22 Chloride (98-107) mmol/L Carbon Dioxide (22-30) mmol/L Creatinine (0.66-1.25) mg/dL Glucose (74-99) mg/dL POC Glucose (mg/dL) 163 H 111 H 197 H (75-99) mg/dL 11/27/17 11/27/17 Range/Units 07:29 08:05 Chloride 112 H (98-107) mmol/L Carbon Dioxide 20 L (22-30) mmol/L Creatinine 1.59 H (0.66-1.25) mg/dL Glucose 110 H (74-99) mg/dL POC Glucose (mg/dL) 112 H (75-99) mg/dL Microbiology - Last 24 Hours (Table) 11/21/17 18:53 Blood Culture - Preliminary Blood No Growth after 120 hours 11/23/17 12:50 Urine Culture - Final Urine,Catheterized Assessment and Plan Plan: Assessment: #1. Nonoliguric acute kidney injury mostly prerenal secondary to UTI. Creatinine was 2.1 admission and is stable near 1.6. His creatinine in September 2016 was 1 recently has been in the range of 1.4-2.5. Recent urinalysis was benign. No evidence of hydronephrosis noted on renal ultrasound of the left kidney was not visualized. #2. Hypernatremia secondary to lack of oral water intake. Improved. #3. Left great toe infection. #4. Chronic indwelling Estevez due to BPH and urinary retention being followed by urology. Catheter was exchanged 2 weeks ago. #5. Likely UTI maintain on antibiotics per infectious disease recommendations. #6. History of BPH. #7. Metabolic acidosis secondary to IV fluids. Plan: Maintain normal saline at 50 mL an hour. Encouraged oral intake. Avoid nephrotoxic agents and hypotensive episodes. Repeat electrolytes in the morning. Vancomycin has been discontinued. Now on Augmentin. Follow-up cultures. Monitor bicarb.
[2017-11-27 11:34] LABS: Glucose,Whole Blood 148 mg/dL (75-99)
[2017-11-27 17:04] LABS: Glucose,Whole Blood 143 mg/dL (75-99)
--- NOTE | 2017-11-27 17:47 | PN ---
PROGRESS NOTE DATE OF SERVICE: 11/27/2017 CHIEF COMPLAINT: Cellulitis of the left great toe and dementia. HISTORY OF PRESENT ILLNESS: This gentleman was to have been discharged to [facility] today, but now they will not take him. PHYSICAL EXAMINATION: CHEST: Clear. Cardiac exam is normal. Abdomen is soft, nontender. The left great toe has lost nearly all of its erythema. IMPRESSION: 1. Cellulitis of the left great toe. 2. Dementia. 3. Renal failure. PLAN: Work on discharge to a different residential. MMODL / IJN: [id number] /
[2017-11-27] MEDS: SODIUM CHLORIDE 0.9% 1,000 ML IV SCH ×2 (17:49→22:03)
[2017-11-27 22:00] LABS: Glucose,Whole Blood 186 mg/dL (75-99)
[2017-11-27] MEDS: DONEPEZIL 10 MG TAB PO SCH (22:04)
--- NOTE | 2017-11-27 23:55 | P.PN ---
Subjective Progress Note Date: 11/27/17 Principal diagnosis: Altered mental status This is a 77-year-old male patient who presented to the emergency center on November 21 due to a wound to the left great toe. Patient was found to be afebrile, white count 13.1, BUN 38 and creatinine 2.2. Appears patient's baseline creatinine is 2.0. Sodium was 142, potassium 5.0, chloride 114 and CO2 22. Blood sugar was 196 but it does not appear patient has history of diabetes. Alkaline phosphatase 165. Blood cultures status received. Patient was recently discharged from [facility] 2 days prior. He does have a chronic Estevez catheter in place that was last changed on November 10. He underwent x-ray of the left foot that showed no fracture. Patient has been admitted to the [facility] floor and started on Zosyn and vancomycin. Patient has underlying dementia and is unable to provide any history. Patient is slow to respond to direction. Apparently patient is more responsive when his is present. 11/23/2017 reveals the patient to be sitting upright and seemed to be more comfortable. He did eat some of his lunch. He otherwise has no voiced complaint but with his dementia is difficult to discern the content of his speech. 11/25/2017 reveals the patient has had some further improvement. He has significant dementia and is denying any complaints. 11/26/2017 patient stable and being ready for transfer to rehab and extended care. Ulcerations of the toe is really improved and he has no complaints but again has profound dementia. 11/27/2017 reveals the patient to be stable. He has no other new complaints. Transition to oral antibiotic therapy with no troubles. Awaiting placement. Objective - Vital Signs Vital signs: Vital Signs Temp 98.0 F 11/27/17 21:15 Pulse 77 11/27/17 21:15 Resp 16 11/27/17 21:15 BP 133/67 11/27/17 21:15 Pulse Ox 98 11/27/17 21:15 Intake & Output 11/27/17 11/27/17 11/28/17 06:59 18:59 06:59 Intake Total 1040 400 Output Total 1300 1525 Balance -260 -1125 Intake: IV 450 400 Sodium Chloride 0.9% 1, 450 400 000 ml @ 50 mls/hr IV . Q20H [facility] Rx#:[id number] Oral 590 Output: Urine 1300 1525 Uretheral (Estevez) 1300 Other: Voiding Method Indwelling Catheter Indwelling Catheter # Voids 1 # Bowel Movements 1 - Exam Gen: This is a pleasantly confused 77-year-old male patient. He is sitting up in bed and appears to be comfortable and in no acute distress. HEENT: Head is atraumatic, normocephalic. Pupils equal, round. Sclerae is anicteric. Oral mucous membranes are slightly dry. Dentition is in poor order. NECK: Supple. No JVD. No lymphadenopathy. No thyromegaly. LUNGS: Clear to auscultation. No wheezes or rhonchi. No intercostal retractions. HEART: Regular rate and rhythm. No murmur. ABDOMEN: Soft. Bowel sounds are present. No masses. No tenderness. EXTREMITIES: No pedal edema. No calf tenderness. Dorsalis pedis is +2 bilaterally. Patient has a small wound to the dorsal surface of the left great toe with resolution of the prior erythema and swelling No active drainage. No foul odor. This does not extend into the foot. Onychomycosis noted to toes bilaterally. NEUROLOGICAL: Patient is awake, alert and oriented x1. - Labs CBC & Chem 7: 11/21/17 18:53 11/27/17 08:05 Labs: Abnormal Lab Results - Last 24 Hours (Table) 11/27/17 11/27/17 11/27/17 Range/Units 07:29 08:05 11:27 Chloride 112 H (98-107) mmol/L Carbon Dioxide 20 L (22-30) mmol/L Creatinine 1.59 H (0.66-1.25) mg/dL Glucose 110 H (74-99) mg/dL POC Glucose (mg/dL) 112 H 148 H (75-99) mg/dL 11/27/17 11/27/17 Range/Units 17:02 21:59 Chloride (98-107) mmol/L Carbon Dioxide (22-30) mmol/L Creatinine (0.66-1.25) mg/dL Glucose (74-99) mg/dL POC Glucose (mg/dL) 143 H 186 H (75-99) mg/dL Microbiology - Last 24 Hours (Table) 11/21/17 18:53 Blood Culture - Final Blood No Growth after 144 hours Laboratory Results WBC 13.1 k/uL (3.8-10.6) H 11/21/17 18:53 RBC 4.27 m/uL (4.30-5.90) L 11/21/17 18:53 Hgb 13.5 gm/dL (13.0-17.5) 11/21/17 18:53 Hct 38.8 % (39.0-53.0) L 11/21/17 18:53 MCV 91.0 fL (80.0-100.0) D 11/21/17 18:53 MCH 31.7 pg (25.0-35.0) 11/21/17 18:53 MCHC 34.8 g/dL (31.0-37.0) 11/21/17 18:53 RDW 12.7 % (11.5-15.5) 11/21/17 18:53 Plt Count 445 k/uL (150-450) 11/21/17 18:53 Neutrophils % 78 % 11/21/17 18:53 Lymphocytes % 14 % 11/21/17 18:53 Monocytes % 4 % 11/21/17 18:53 Eosinophils % 2 % 11/21/17 18:53 Basophils % 0 % 11/21/17 18:53 Neutrophils # 10.3 k/uL (1.3-7.7) H 11/21/17 18:53 Lymphocytes # 1.8 k/uL (1.0-4.8) 11/21/17 18:53 Monocytes # 0.6 k/uL (0-1.0) 11/21/17 18:53 Eosinophils # 0.3 k/uL (0-0.7) 11/21/17 18:53 Basophils # 0.0 k/uL (0-0.2) 11/21/17 18:53 Sodium 143 mmol/L (137-145) 11/27/17 08:05 Potassium 4.4 mmol/L (3.5-5.1) 11/27/17 08:05 Chloride 112 mmol/L (98-107) H 11/27/17 08:05 Carbon Dioxide 20 mmol/L (22-30) L 11/27/17 08:05 Anion Gap 11 mmol/L 11/27/17 08:05 BUN 11 mg/dL (9-20) 11/27/17 08:05 Creatinine 1.59 mg/dL (0.66-1.25) H 11/27/17 08:05 Est GFR (CKD-EPI)AfAm 47 (>60 ml/min/1.73 sqM) 11/27/17 08:05 Est GFR (CKD-EPI)NonAf 41 (>60 ml/min/1.73 sqM) 11/27/17 08:05 Glucose 110 mg/dL (74-99) H 11/27/17 08:05 POC Glucose (mg/dL) 186 mg/dL (75-99) H 11/27/17 21:59 POC Glu Project Assistant ID Linette Marsh 11/27/17 21:[address] Glu mg/dL 148 11/22/17 10:25 Hemoglobin A1c 6.8 % (4.0-6.0) H 11/22/17 10:25 Calcium 8.6 mg/dL (8.4-10.2) 11/27/17 08:05 Magnesium 2.1 mg/dL (1.6-2.3) 11/25/17 10:45 Total Bilirubin 0.5 mg/dL (0.2-1.3) 11/21/17 18:53 AST 13 U/L (17-59) L 11/21/17 18:53 ALT <6 U/L (21-72) L 11/21/17 18:53 Alkaline Phosphatase 165 U/L (38-126) H 11/21/17 18:53 Total Creatine Kinase 74 U/L (55-170) 11/21/17 18:53 CK-MB (CK-2) 0.6 ng/mL (0.0-2.4) 11/21/17 18:53 CK-MB (CK-2) Rel Index 0.8 11/21/17 18:53 Total Protein 7.7 g/dL (6.3-8.2) 11/21/17 18:53 Albumin 3.8 g/dL (3.5-5.0) 11/21/17 18:53 Urine Color Yellow 11/23/17 12:50 Urine Appearance Turbid (Clear) 11/23/17 12:50 Urine pH 6.0 (5.0-8.0) 11/23/17 12:50 Ur Specific [place] 1.019 (1.001-1.035) 11/23/17 12:50 Urine Protein 1+ (Negative) H 11/23/17 12:50 Urine Glucose (UA) Negative (Negative) 11/23/17 12:50 Urine Ketones Negative (Negative) 11/23/17 12:50 Urine Blood Moderate (Negative) H 11/23/17 12:50 Urine Nitrite Positive (Negative) 11/23/17 12:50 Urine Bilirubin Negative (Negative) 11/23/17 12:50 Urine Urobilinogen <2.0 mg/dL (<2.0) 11/23/17 12:50 Ur Leukocyte Esterase Large (Negative) H 11/23/17 12:50 Urine RBC 59 /hpf (0-5) H 11/23/17 12:50 Urine WBC >182 /hpf (0-5) H 11/23/17 12:50 Urine WBC Clumps Many /hpf (None) H 11/23/17 12:50 Hyaline Casts 9 /lpf (0-2) H 11/23/17 12:50 Urine Mucus Rare /hpf (None) H 11/23/17 12:50 Vancomycin Trough 18.0 ug/mL 11/25/17 10:45 Hepatitis A IgM Ab Non-Reactive (Non-Reactive) 11/23/17 07:34 Hepatitis A Ab Total Reactive (Non-Reactive) H 11/22/17 10:25 Hep Bs Antibody Non-Reactive (Non-Reactive) 11/22/17 10:25 Hep Bs Antibody, Quant 3.5 mIU/mL 11/22/17 10:25 Hep B Core Total Ab Non-Reactive (Non-Reactive) 11/22/17 10:25 Hep C IgG Ab Non-Reactive (Non-Reactive) 11/22/17 10:25 Microbiology 11/21/17 18:53 Blood Blood Culture - Final No Growth after 144 hours 11/23/17 12:50 Urine,Catheterized Urine Culture - Final Assessment and Plan (1) Cellulitis of great toe of left foot Narrative/Plan: Demented 77-year-old male who was comfortable at this time. He has noted there is evidence of the renal failure as well as a eschar to the left great toe. This is evaluated carefully and there is no expressible purulence. There is no surrounding erythema. It is time will be treated for the cellulitis to the toe and the foot while cultures of the bladder in process. There was no material to culture from the toe itself. Evaluation imagings are being done. He has evidence of an elevated glucose and is now receiving some treatment for what may be new onset diabetes or situational hyperglycemia. His mental status is poor but not newly poor. Hopefully with hydration and improvement in blood sugars to creatinine will rapidly improved. His of the leukocytosis likely related to the mild cellulitis of the great toe. 11/23/2017 reveals the patient to be more comfortable today. He has been able to eat some of his food. The mild cellulitis of the foot is improved. The urinalysis is abnormal and urine culture is pending continue current antibiotic therapy until further culture data is available. Unclear what the discharge plan will be at this time. 11/25/2017 reveals the patient to be comfortable. He is eating well. The cellulitis to the foot has generally resolved. With negative cultures can be transitioned to oral antibiotic therapy and transferred back to his usual home environment. A minimal dressing such as a Band-Aid and antibiotic ointment can be utilized to these minimal eschar of the toe. The patient did have evidence of some abnormal liver function tests. Hepatitis testing was performed, and confirmatory tests show that he has evidence of immunity to hepatitis A, does not have active infection. 11/26/2017 patient is comfortable and plans are for transition to extended care. Local wound care with antibiotic ointment such as Polysporin and Band- Aid can be utilized for the toe. Especially since he has great difficulty leaving dressings in place. As noted has evidence of immunity to hepatitis A not active infection. For antibiotic therapy will transition from intravenous antibiotic therapy to oral Augmentin to complete a week of therapy for the cellulitis of the left foot. 11/19/2017 patient's therapy is in transition to oral antibiotic therapy. Tolerating it well. Local care only to the toe. The weight transition to extended care facility. Current Visit: Yes Status: Acute Code(s): L03.032 - CELLULITIS OF LEFT TOE SNOMED Code(s): 53676982 (2) Acute on chronic renal failure Current Visit: Yes Status: Acute Code(s): N17.9 - ACUTE KIDNEY FAILURE, UNSPECIFIED; N18.9 - CHRONIC KIDNEY DISEASE, UNSPECIFIED SNOMED Code(s): 800297225 (3) Dementia of the Alzheimer's type Current Visit: No Status: Acute Code(s): G30.9 - ALZHEIMER'S DISEASE, UNSPECIFIED; F02.80 - DEMENTIA IN OTH DISEASES CLASSD ELSWHR W/O BEHAVRL DISTURB SNOMED Code(s): 34365837
[2017-11-28 07:23] LABS: Glucose,Whole Blood 105 mg/dL (75-99)
[2017-11-28] MEDS: INSULIN ASPART 100 UNIT/ML 1 ML 10 ML VIAL SQ SCH ×3 (07:57→17:58)
[2017-11-28 09:01] VITALS: RESP 18
[2017-11-28 09:46] LABS: Calcium 9.2 mg/dL (8.4-10.2)
[2017-11-28 09:57] LABS: Potassium 4.4 mmol/L (3.5-5.1)
[2017-11-28] MEDS: MEMANTINE 10 MG TAB PO SCH (10:31)
[2017-11-28] MEDS: AMOXIC-POT CLAV 875-125MG 1 EACH TAB PO SCH (10:31)
[2017-11-28] MEDS: HEPARIN SODIUM,PORCINE 5,000 UNIT/ML 1 ML VIAL SQ SCH (10:31)
--- NOTE | 2017-11-28 10:36 | P.PN ---
Subjective Patient is seen in follow-up for acute kidney injury. Renal function has improved since admission and creatinine today is down to 1.25. Sodium level is stable at 143. Patient's currently resting in bed. He is not a very reliable historian due to history of dementia. Oral intake is gradually improving. No vomiting or diarrhea. Hemodynamically stable. Vital signs are stable. General: The patient appeared well nourished and normally developed. HEENT: Head exam is unremarkable. Neck is without jugular venous distension. LUNGS: Lungs are clear to auscultation and percussion. Breath sounds decreased. HEART: Rate and Rhythm are regular. First and second heart sounds normal. No murmurs, rubs or gallops. ABDOMEN: Abdominal exam reveals normal bowel sounds. Non-tender and non- distended. No evidence of peritonitis. EXTREMITITES: No clubbing, cyanosis, or edema. Objective - Vital Signs Vital signs: Vital Signs Temp 97.9 F 11/28/17 07:00 Pulse 77 11/28/17 07:00 Resp 18 11/28/17 07:00 BP 123/77 11/28/17 07:00 Pulse Ox 95 11/28/17 07:00 Intake & Output 11/27/17 11/28/17 11/28/17 18:59 06:59 18:59 Intake Total 400 1050 Output Total 1525 1300 Balance -1125 -250 Intake: IV 400 450 Sodium Chloride 0.9% 1, 400 450 000 ml @ 50 mls/hr IV . Q20H [facility] Rx#:[id number] Oral 600 Output: Urine 1525 1300 Uretheral (Estevez) 1300 Other: Voiding Method Indwelling Catheter Indwelling Catheter # Bowel Movements 1 - Labs CBC & Chem 7: 11/21/17 18:53 11/28/17 08:37 Labs: Abnormal Lab Results - Last 24 Hours (Table) 11/27/17 11/27/17 11/27/17 Range/Units 11:27 17:02 21:59 Chloride (98-107) mmol/L Glucose (74-99) mg/dL POC Glucose (mg/dL) 148 H 143 H 186 H (75-99) mg/dL 11/28/17 11/28/17 Range/Units 07:16 08:37 Chloride 111 H (98-107) mmol/L Glucose 103 H (74-99) mg/dL POC Glucose (mg/dL) 105 H (75-99) mg/dL Microbiology - Last 24 Hours (Table) 11/21/17 18:53 Blood Culture - Final Blood No Growth after 144 hours Assessment and Plan Plan: Assessment: #1. Nonoliguric acute kidney injury mostly prerenal secondary to UTI. Creatinine was 2.1 admission and is down to 1.25 today. His creatinine in September 2016 was 1 recently has been in the range of 1.4-2.5. Recent urinalysis was benign. No evidence of hydronephrosis noted on renal ultrasound of the left kidney was not visualized. #2. Hypernatremia secondary to lack of oral water intake. Improved. #3. Left great toe infection. #4. Chronic indwelling Estevez due to BPH and urinary retention being followed by urology. Catheter was exchanged 2 weeks ago. #5. Likely UTI maintain on antibiotics per infectious disease recommendations. #6. History of BPH. #7. Metabolic acidosis secondary to IV fluids. Improved. Plan: Maintain normal saline at 50 mL an hour. Encouraged oral intake. Avoid nephrotoxic agents and hypotensive episodes. Repeat electrolytes in the morning. Vancomycin has been discontinued. Now on Augmentin. Follow-up cultures. Monitor bicarb. No changes from nephrology standpoint.
[2017-11-28 11:38] LABS: Glucose,Whole Blood 99 mg/dL (75-99)
--- NOTE | 2017-11-28 12:42 | DS ---
DISCHARGE SUMMARY CHIEF COMPLAINT: Infected abrasion on the dorsum of the left toe. HISTORY OF PRESENT ILLNESS AND PHYSICAL EXAM: The details of this man's history and physical can be found in the initial workup. LABORATORY STUDIES: While he was in a hospital he had laboratory studies, details which can be found in the laboratory section of his chart. COURSE IN THE HOSPITAL: After admission, he was placed at bedrest, started on intravenous fluids and IV antibiotics. The cellulitis improved quite quickly. When he was admitted, his BUN and creatinine were elevated compared to his discharge. He was rehydrated and renal function improved greatly. At that point, the rest of his hospitalization was spent trying to either get him home or the said she wanted him back at rehab. She wanted him to go to [facility], but he was refused there and ultimately was seeking bed at [facility]. He will go there with Estevez catheter in place. FINAL DIAGNOSES: 1. Cellulitis and infected abrasion on the dorsum of the left great toe. 2. Dementia. 3. Chronic renal failure. 4. Prerenal azotemia. 5. Dehydration. OPERATIONS: None. CONSULTATION: None. He is improved. MMODL / IJN: [id number] /
[2017-11-28 12:55] VITALS: BMI 25.8
[2017-11-28] MEDS: MULTIVITAMINS, THERA 1 EACH TAB PO SCH (13:02)
[2017-11-28 17:23] VITALS: BP 130/76; TEMP 97.5
[2017-11-28 17:57] VITALS: PULSE 75
--- NOTE | 2017-11-28 21:04 | P.PN ---
Subjective Progress Note Date: 11/28/17 Principal diagnosis: Altered mental status This is a 77-year-old male patient who presented to the emergency center on November 21 due to a wound to the left great toe. Patient was found to be afebrile, white count 13.1, BUN 38 and creatinine 2.2. Appears patient's baseline creatinine is 2.0. Sodium was 142, potassium 5.0, chloride 114 and CO2 22. Blood sugar was 196 but it does not appear patient has history of diabetes. Alkaline phosphatase 165. Blood cultures status received. Patient was recently discharged from [facility] (formerly [facility]) 2 days prior. He does have a chronic Estevez catheter in place that was last changed on November 10. He underwent x-ray of the left foot that showed no fracture. Patient has been admitted to the [facility] floor and started on Zosyn and vancomycin. Patient has underlying dementia and is unable to provide any history. Patient is slow to respond to direction. Apparently patient is more responsive when his is present. 11/23/2017 reveals the patient to be sitting upright and seemed to be more comfortable. He did eat some of his lunch. He otherwise has no voiced complaint but with his dementia is difficult to discern the content of his speech. 11/25/2017 reveals the patient has had some further improvement. He has significant dementia and is denying any complaints. 11/26/2017 patient stable and being ready for transfer to rehab and extended care. Ulcerations of the toe is really improved and he has no complaints but again has profound dementia. 11/27/2017 reveals the patient to be stable. He has no other new complaints. Transition to oral antibiotic therapy with no troubles. Awaiting placement. 11/28/2017 patient is stable. Doing well with oral antibiotic therapy with no worsening to the left foot toe eschar. Patient is the most calm but I've seen because his is present. Objective - Vital Signs Vital signs: Vital Signs Temp 97.5 F L 11/28/17 15:00 Pulse 75 11/28/17 16:00 Resp 18 11/28/17 16:00 BP 130/76 11/28/17 15:00 Pulse Ox 97 11/28/17 15:00 Intake & Output 11/28/17 11/28/17 11/29/17 06:59 18:59 06:59 Intake Total 1050 1220 Output Total 1300 4200 Balance -250 -2980 Weight 81.647 kg Intake: IV 450 300 Sodium Chloride 0.9% 1, 450 300 000 ml @ 50 mls/hr IV . Q20H [facility] Rx#:[id number] Oral 600 920 Output: Urine 1300 4200 Uretheral (Estevez) 1300 1800 Other: Voiding Method Indwelling Catheter Indwelling Catheter # Voids 1 # Bowel Movements 1 1 - Exam Gen: This is a pleasantly confused 77-year-old male patient. He is sitting up in bed and appears to be comfortable and in no acute distress. HEENT: Head is atraumatic, normocephalic. Pupils equal, round. Sclerae is anicteric. Oral mucous membranes are slightly dry. Dentition is in poor order. NECK: Supple. No JVD. No lymphadenopathy. No thyromegaly. LUNGS: Clear to auscultation. No wheezes or rhonchi. No intercostal retractions. HEART: Regular rate and rhythm. No murmur. ABDOMEN: Soft. Bowel sounds are present. No masses. No tenderness. EXTREMITIES: No pedal edema. No calf tenderness. Dorsalis pedis is +2 bilaterally. Patient has a small wound to the dorsal surface of the left great toe with resolution of the prior erythema and swelling No active drainage. No foul odor. This does not extend into the foot. Onychomycosis noted to toes bilaterally. NEUROLOGICAL: Patient is awake, alert and oriented x1. - Labs CBC & Chem 7: 11/21/17 18:53 11/28/17 08:37 Labs: Abnormal Lab Results - Last 24 Hours (Table) 11/27/17 11/28/17 11/28/17 Range/Units 21:59 07:16 08:37 Chloride 111 H (98-107) mmol/L Glucose 103 H (74-99) mg/dL POC Glucose (mg/dL) 186 H 105 H (75-99) mg/dL Microbiology - Last 24 Hours (Table) 11/21/17 18:53 Blood Culture - Final Blood No Growth after 144 hours Laboratory Results WBC 13.1 k/uL (3.8-10.6) H 11/21/17 18:53 RBC 4.27 m/uL (4.30-5.90) L 11/21/17 18:53 Hgb 13.5 gm/dL (13.0-17.5) 11/21/17 18:53 Hct 38.8 % (39.0-53.0) L 11/21/17 18:53 MCV 91.0 fL (80.0-100.0) D 11/21/17 18:53 MCH 31.7 pg (25.0-35.0) 11/21/17 18:53 MCHC 34.8 g/dL (31.0-37.0) 11/21/17 18:53 RDW 12.7 % (11.5-15.5) 11/21/17 18:53 Plt Count 445 k/uL (150-450) 11/21/17 18:53 Neutrophils % 78 % 11/21/17 18:53 Lymphocytes % 14 % 11/21/17 18:53 Monocytes % 4 % 11/21/17 18:53 Eosinophils % 2 % 11/21/17 18:53 Basophils % 0 % 11/21/17 18:53 Neutrophils # 10.3 k/uL (1.3-7.7) H 11/21/17 18:53 Lymphocytes # 1.8 k/uL (1.0-4.8) 11/21/17 18:53 Monocytes # 0.6 k/uL (0-1.0) 11/21/17 18:53 Eosinophils # 0.3 k/uL (0-0.7) 11/21/17 18:53 Basophils # 0.0 k/uL (0-0.2) 11/21/17 18:53 Sodium 143 mmol/L (137-145) 11/28/17 08:37 Potassium 4.4 mmol/L (3.5-5.1) 11/28/17 08:37 Chloride 111 mmol/L (98-107) H 11/28/17 08:37 Carbon Dioxide 22 mmol/L (22-30) 11/28/17 08:37 Anion Gap 10 mmol/L 11/28/17 08:37 BUN 10 mg/dL (9-20) 11/28/17 08:37 Creatinine 1.25 mg/dL (0.66-1.25) 11/28/17 08:37 Est GFR (CKD-EPI)AfAm 63 (>60 ml/min/1.73 sqM) 11/28/17 08:37 Est GFR (CKD-EPI)NonAf 55 (>60 ml/min/1.73 sqM) 11/28/17 08:37 Glucose 103 mg/dL (74-99) H 11/28/17 08:37 POC Glucose (mg/dL) 99 mg/dL (75-99) 11/28/17 11:30 POC Glu Software Architect ID Liane Arriaga 11/28/17 11:[address] Glu mg/dL 148 11/22/17 10:25 Hemoglobin A1c 6.8 % (4.0-6.0) H 11/22/17 10:25 Calcium 9.2 mg/dL (8.4-10.2) 11/28/17 08:37 Magnesium 2.1 mg/dL (1.6-2.3) 11/25/17 10:45 Total Bilirubin 0.5 mg/dL (0.2-1.3) 11/21/17 18:53 AST 13 U/L (17-59) L 11/21/17 18:53 ALT <6 U/L (21-72) L 11/21/17 18:53 Alkaline Phosphatase 165 U/L (38-126) H 11/21/17 18:53 Total Creatine Kinase 74 U/L (55-170) 11/21/17 18:53 CK-MB (CK-2) 0.6 ng/mL (0.0-2.4) 11/21/17 18:53 CK-MB (CK-2) Rel Index 0.8 11/21/17 18:53 Total Protein 7.7 g/dL (6.3-8.2) 11/21/17 18:53 Albumin 3.8 g/dL (3.5-5.0) 11/21/17 18:53 Urine Color Yellow 11/23/17 12:50 Urine Appearance Turbid (Clear) 11/23/17 12:50 Urine pH 6.0 (5.0-8.0) 11/23/17 12:50 Ur Specific Bonnie 1.019 (1.001-1.035) 11/23/17 12:50 Urine Protein 1+ (Negative) H 11/23/17 12:50 Urine Glucose (UA) Negative (Negative) 11/23/17 12:50 Urine Ketones Negative (Negative) 11/23/17 12:50 Urine Blood Moderate (Negative) H 11/23/17 12:50 Urine Nitrite Positive (Negative) 11/23/17 12:50 Urine Bilirubin Negative (Negative) 11/23/17 12:50 Urine Urobilinogen <2.0 mg/dL (<2.0) 11/23/17 12:50 Ur Leukocyte Esterase Large (Negative) H 11/23/17 12:50 Urine RBC 59 /hpf (0-5) H 11/23/17 12:50 Urine WBC >182 /hpf (0-5) H 11/23/17 12:50 Urine WBC Clumps Many /hpf (None) H 11/23/17 12:50 Hyaline Casts 9 /lpf (0-2) H 11/23/17 12:50 Urine Mucus Rare /hpf (None) H 11/23/17 12:50 Vancomycin Trough 18.0 ug/mL 11/25/17 10:45 Hepatitis A IgM Ab Non-Reactive (Non-Reactive) 11/23/17 07:34 Hepatitis A Ab Total Reactive (Non-Reactive) H 11/22/17 10:25 Hep Bs Antibody Non-Reactive (Non-Reactive) 11/22/17 10:25 Hep Bs Antibody, Quant 3.5 mIU/mL 11/22/17 10:25 Hep B Core Total Ab Non-Reactive (Non-Reactive) 11/22/17 10:25 Hep C IgG Ab Non-Reactive (Non-Reactive) 11/22/17 10:25 Microbiology 11/21/17 18:53 Blood Blood Culture - Final No Growth after 144 hours 11/23/17 12:50 Urine,Catheterized Urine Culture - Final Assessment and Plan (1) Cellulitis of great toe of left foot Narrative/Plan: Demented 77-year-old male who was comfortable at this time. He has noted there is evidence of the renal failure as well as a eschar to the left great toe. This is evaluated carefully and there is no expressible purulence. There is no surrounding erythema. It is time will be treated for the cellulitis to the toe and the foot while cultures of the bladder in process. There was no material to culture from the toe itself. Evaluation imagings are being done. He has evidence of an elevated glucose and is now receiving some treatment for what may be new onset diabetes or situational hyperglycemia. His mental status is poor but not newly poor. Hopefully with hydration and improvement in blood sugars to creatinine will rapidly improved. His of the leukocytosis likely related to the mild cellulitis of the great toe. 11/23/2017 reveals the patient to be more comfortable today. He has been able to eat some of his food. The mild cellulitis of the foot is improved. The urinalysis is abnormal and urine culture is pending continue current antibiotic therapy until further culture data is available. Unclear what the discharge plan will be at this time. 11/25/2017 reveals the patient to be comfortable. He is eating well. The cellulitis to the foot has generally resolved. With negative cultures can be transitioned to oral antibiotic therapy and transferred back to his usual home environment. A minimal dressing such as a Band-Aid and antibiotic ointment can be utilized to these minimal eschar of the toe. The patient did have evidence of some abnormal liver function tests. Hepatitis testing was performed, and confirmatory tests show that he has evidence of immunity to hepatitis A, does not have active infection. 11/26/2017 patient is comfortable and plans are for transition to extended care. Local wound care with antibiotic ointment such as Polysporin and Band- Aid can be utilized for the toe. Especially since he has great difficulty leaving dressings in place. As noted has evidence of immunity to hepatitis A not active infection. For antibiotic therapy will transition from intravenous antibiotic therapy to oral Augmentin to complete a week of therapy for the cellulitis of the left foot. 11/27/2017 patient's therapy is in transition to oral antibiotic therapy. Tolerating it well. Local care only to the toe. The weight transition to extended care facility. 11/28/2017 patient is stable. No new acute troubles are noted. He voices no new complaints. He has tolerated oral antibiotic therapy well with no worsening to the difficulty of the ulceration and eschar to the left great toe. It's actually improved. Extensive cellulitis is resolved. Complete 5 days of antibiotic therapy at the rehab center. Status: Acute Code(s): L03.032 - CELLULITIS OF LEFT TOE SNOMED Code(s): 85178482 (2) Acute on chronic renal failure Status: Acute Code(s): N17.9 - ACUTE KIDNEY FAILURE, UNSPECIFIED; N18.9 - CHRONIC KIDNEY DISEASE, UNSPECIFIED SNOMED Code(s): 661713421 (3) Dementia of the Alzheimer's type Status: Acute Code(s): G30.9 - ALZHEIMER'S DISEASE, UNSPECIFIED; F02.80 - DEMENTIA IN OTH DISEASES CLASSD ELSWHR W/O BEHAVRL DISTURB SNOMED Code(s): 91119281
--- NOTE | 2017-12-16 10:03 | CDI ---
Date: 12/16/2017 12:00:00 AM From: MELISSA Cortés; Lea Eng, Communicable Disease Specialist Phone: If you have a question about this query, please contact Lea Eng Communicable Disease Specialist at [phone] between 8am and 5pm. Admit Date: 11/21/2017 8:47:00 PM Patient Name: Ky Vaughn Visit Number: [id number] Discharge Date: 11/25/2017 ATTENTION: The Clinical Documentation Specialists (CDI) and [facility] Coding Staff appreciate your assistance in clarifying documentation. Please respond to the clarification below the line at the bottom and electronically sign. The CDI & [facility] Coding staff will review the response and follow-up if needed. Please note: Queries are made part of the Legal Health Record. If you have any questions, please contact the author of this message via ITS. Dr. Tyrone Ferrera A diagnosis of UTI has been documented in progress notes and consultation. Per documentation in the consultation, this patient was admitted with an indwelling Estevez catheter. History/Risk factors: BPH with urinary retention; follows with urology as outpatient. Catheter was changed 2 weeks ago. Treatment: IV antibiotics In your professional opinion, can you please clarify the etiology of the UTI, if known? Estevez catheter UTI not related to catheter/urostomy Other condition, please specify Unable to determine MTDD
--- NOTE | 2017-12-19 11:52 | MISC ---
MISCELLANOUS REPORT Etiology of UTI. Other condition specify indwelling Estevez catheter. MMODL / IJN: [id number] /
== END 2017-11-28 19:33 | DRG 603 ==
LOC: EC 17:27 → 5MS5E 20:47
PROVIDERS: ADMIT Family Medicine; ATTEND Family Medicine
DX: L03.032 Cellulitis of left toe (principal); N17.9 Acute kidney failure, unspecified; E87.0 Hyperosmolality and hypernatremia; E87.2 Acidosis; L97.529 Non-pressure chronic ulcer of other part of left foot with unspecified severity; N39.0 Urinary tract infection, site not specified; T83.511A Infection and inflammatory reaction due to indwelling urethral catheter, initial encounter; B35.1 Tinea unguium; G30.9 Alzheimer's disease, unspecified; F02.80 Dementia in other diseases classified elsewhere, unspecified severity, without behavioral disturbance, psychotic disturbance, mood disturbance, and anxiety; E86.0 Dehydration; J42 Unspecified chronic bronchitis; N18.9 Chronic kidney disease, unspecified; N40.1 Benign prostatic hyperplasia with lower urinary tract symptoms; R33.8 Other retention of urine; S90.412A Abrasion, left great toe, initial encounter; N13.9 Obstructive and reflux uropathy, unspecified; J45.909 Unspecified asthma, uncomplicated; Y84.6 Urinary catheterization as the cause of abnormal reaction of the patient, or of later complication, without mention of misadventure at the time of the procedure; Z79.899 Other long term (current) drug therapy; Z80.1 Family history of malignant neoplasm of trachea, bronchus and lung
CPT/HCPCS: 36415; 76770; 80048; 80053; 80202; 81001; 82550; 82553; 83036; 83735; 85025; 86704; 86706; 86708; 86709; 86803; 87040; 87086; 96365; 99284

== ENCOUNTER 2017-12-19 11:08 | Day surgery (SDC) | payer MEDICARE, BC ==
[2017-12-16 17:37] VITALS: BMI 25.8
[~2017-12-19 11:08] MED LIST: LEVOFLOXACIN 500MG-D5W PMX 500 MG in DEXTROSE/WATER 1 100ML.BAG IVPB ONE
[2017-12-19] MEDS: LACTATED RINGERS 1,000 ML IV SCH ×2 (11:41→12:33)
[2017-12-19] MEDS ORDERED: LIDOCAINE 1% 20 ML VIAL (10MG/ML) FOR IV START INTRADERMA ONE (11:41)
[2017-12-19] MEDS ORDERED: ONDANSETRON 4 MG/2 ML VIAL IVP ONE (11:41)
[2017-12-19] MEDS ORDERED: ONDANSETRON 4 MG/2 ML VIAL ONE (11:43)
[2017-12-19] MEDS ORDERED: fentaNYL (PF) 50 MCG/ML 2 ML AMP ONE (12:35)
[2017-12-19] MEDS ORDERED: MIDAZOLAM 2 MG/2 ML VIAL ONE (12:35)
[2017-12-19] MEDS ORDERED: GLYCOPYRROLATE 0.2 MG/ML 2 ML VIAL ONE (12:35)
[2017-12-19] MEDS ORDERED: ePHEDrine SULFATE/0.9% NACL/PF 50 MG/5 ML SYRINGE IV ONE (12:35)
[2017-12-19] MEDS ORDERED: LIDOCAINE 1% INJ 10MG/ML (20 ML MDV) ONE (12:35)
[2017-12-19] MEDS ORDERED: SUCCINYLCHOLINE CHLORIDE 100 MG/5 ML SYR IV ONE (12:35)
[2017-12-19] MEDS ORDERED: PHENYLEPHRINE-0.9% NACL SYG 1 MG/10 ML SYRINGE ONE (12:35)
[2017-12-19] MEDS ORDERED: ROCURONIUM BROMIDE 10 MG/ML 10 ML VIAL IV ONE (12:35)
[2017-12-19] MEDS ORDERED: PROPOFOL 10 MG/ML 20 ML VIAL IV ONE (12:35)
[2017-12-19] MEDS ORDERED: NEOSTIGMINE 1 MG/ML 10 ML VIAL ONE (12:35)
[2017-12-19] MEDS ORDERED: LACTATED RINGERS 1,000 ML IV ONE (14:01)
[2017-12-19] MEDS ORDERED: ACETAMINOPHEN TAB 325 MG TAB PO PRN (15:29)
[2017-12-19] MEDS ORDERED: BELLADONNA-OPIUM 16.2-60 MG 1 EACH SUPP RECTAL PRN (15:29)
[2017-12-19] MEDS ORDERED: MAG HYDROX/AL HYDROX/SIMETH 30 ML CUP PO PRN (15:29)
--- NOTE | 2017-12-19 15:29 | P.OP ---
Date of Procedure: 12/19/17 Preoperative Diagnosis: Urinary Retention Secondary to BPH Postoperative Diagnosis: Same Procedure(s) Performed: Cystoscopy, Bipolar Transurethral Resection of Prostate (TURP) Anesthesia: ALIZA Surgeon: Nikolay Knight Estimated Blood Loss (ml): 100 IV fluids (ml): 1,000 Pathology: other (Prostate chips) Condition: stable Disposition: PACU Indications for Procedure: The patient was recently hospitalized with ARF/hydronephrosis due to urinary retention. His renal function improved with catheter drainage. A CMG suggests normal bladder tone, and he now comes for a TURP. Operative Findings: Trilobar BPH Description of Procedure: The patient was taken in the operating room and placed in the dorsolithotomy position, The external genitalia was prepped and draped sterilely. The 25- [employer] resectoscope sheath was introduced into the bladder. The bladder was inspected. Both ureteral orifices were of normal anatomic location and configuration, and clear urine effluxed from both. No tumors or foreign bodies were seen. Examination of the prostate revealed complete obstruction with a trilobar configuration. Using the bipolar cutting loop, the lateral lobes were resected down to the surgical capsule. The floor of the prostate was then resected, proximal to the verumontanum. Lastly, any remaining anterior tissue was resected. The prostatic fossa was then carefully examined. The remaining apical tissue was then carefully resected. The resection was carried down to the surgical capsule in all 4 quadrants. The prostatic fossa was then carefully examined, and any areas of bleeding were controlled with electrocautery. Excellent hemostasis was attained. The resectoscope was withdrawn into the bulbous urethra. The external urinary sphincter remained intact. The prostatic fossa was open. The [employer] evacuator was used to remove all prostate chips from the bladder. These were saved and sent for pathologic examination. The resectoscope was removed, and a 20 Iranian Estevez catheter was placed. The return was essentially clear. The patient tolerated the procedure well was taken to the recovery room in stable condition.
[2017-12-19] MEDS ORDERED: DONEPEZIL 5 MG TAB PO SCH (21:00)
[2017-12-19] MEDS: DOCUSATE 100 MG CAP PO SCH (21:03)
[2017-12-19] MEDS: MEMANTINE 10 MG TAB PO SCH (21:03)
[2017-12-19] MEDS: DEXTROSE 5%-0.45% NACL 1,000 ML IV SCH (21:03)
[2017-12-20] MEDS: LACTATED RINGERS 1,000 ML IV SCH (01:19)
[2017-12-20] MEDS: DEXTROSE 5%-0.45% NACL 1,000 ML IV SCH (04:59)
[2017-12-20 07:40] VITALS: BP 111/67; PULSE 71; RESP 14; TEMP 98.2
--- NOTE | 2017-12-20 07:55 | P.DS ---
Providers Expected date of discharge: 12/20/17 Attending physician: Nikolay Knight Primary care physician: Stated None Hospital Course: On the day of admission, the patient underwent an uncomplicated bipolar TURP. The perioperative course was uncomplicated. He remained afebrile with stable vital signs. He was seen on POD #1. He was comfortable and in stable condition. The abdomen was soft, non-tender, and non-distended. The Estevez catheter was draining clear yellow urine. Procedures: Cystoscopy, bipolar TURP on 12/19/2017. Patient Condition at Discharge: Good Plan - Discharge Summary Discharge Rx Participant: Yes New Discharge Prescriptions: No Action Memantine [Namenda] 10 mg PO BID #60 tab Donepezil [Aricept] 15 mg PO HS Levofloxacin [Levaquin] 500 mg PO DAILY Discharge Medication List Memantine [Namenda] 10 mg PO BID #60 tab 02/24/15 [Rx] Donepezil [Aricept] 15 mg PO HS 08/13/17 [History] Levofloxacin [Levaquin] 500 mg PO DAILY 12/16/17 [History] Follow up Appointment(s)/Referral(s): Nikolay Knight MD [STAFF PHYSICIAN] - 12/25/17 Activity/Diet/Wound Care/Special Instructions: Discharge home with Estevez catheter. Encourage oral fluid intake. Continue Levaquin until complete. Discharge Disposition: HOME SELF-CARE
[2017-12-20] MEDS: MEMANTINE 10 MG TAB PO SCH ×2 (09:18→14:17)
[2017-12-20] MEDS: DOCUSATE 100 MG CAP PO SCH ×2 (09:18→14:17)
[2017-12-20] MEDS ORDERED: LEVOFLOXACIN 500 MG TAB PO SCH (12:00)
== END 2017-12-20 14:15 | disposition home or self-care (01) ==
LOC: OR 11:08 → 3SUR 15:39 → OR 12-20 14:15
PROVIDERS: ATTEND Urology
DX: N40.1 Benign prostatic hyperplasia with lower urinary tract symptoms (principal); R33.8 Other retention of urine; N13.8 Other obstructive and reflux uropathy; R35.0 Frequency of micturition; R35.1 Nocturia; N39.41 Urge incontinence; N41.1 Chronic prostatitis; G30.9 Alzheimer's disease, unspecified; F02.80 Dementia in other diseases classified elsewhere, unspecified severity, without behavioral disturbance, psychotic disturbance, mood disturbance, and anxiety; J45.909 Unspecified asthma, uncomplicated; Z79.2 Long term (current) use of antibiotics; Z79.899 Other long term (current) drug therapy
CPT/HCPCS: 88305; 52601; J2405; J1956

== ENCOUNTER 2018-01-14 18:13 | Observation (INO) | payer MEDICARE, BC ==
--- NOTE | 2018-01-14 19:05 | ED ---
General Adult HPI - General Chief complaint: Recheck/Abnormal Lab/Rx Stated complaint: Cannot stay awake Time Seen by Provider: 01/14/18 18:20 Source: EMS Mode of arrival: EMS Limitations: altered mental status - History of Present Illness Initial comments: Patient is a 77-year-old male with a history of progressive dementia, and recent urosepsis secondary to a postobstructive uropathy from prostatic hypertrophy, subsequent TURP and discharged to rehab facility who presents with a chief complaint of altered mental status. He is here with his . The patient is unable to offer any history. The patient's states they were sent and for concerns of sepsis. I spoke with the patient's son over the phone who is an ER physician who states that the patient has been acting less cognizant over the last few days. There are no focal symptoms. They cannot identify an inciting incident. There are no aggravating or alleviating factors. - Related Data Home Medications Medication Instructions Recorded Confirmed Donepezil [Aricept] 10 mg PO HS 08/13/17 01/14/18 Ciprofloxacin Ophth Soln [Cipro 1 drops BOTH EYES DAILY 01/14/18 01/14/18 0.3% Ophth Soln] Donepezil [Aricept] 5 mg PO HS 01/14/18 01/14/18 Previous Rx's Medication Instructions Recorded Memantine [Namenda] 10 mg PO BID #60 tab 02/24/15 Allergies Allergy/AdvReac Type Severity Reaction Status Date / Time No Known Allergies Allergy Verified 01/14/18 19:37 Review of Systems ROS Statement: Those systems with pertinent positive or pertinent negative responses have been documented in the HPI. ROS Other: All systems not noted in ROS Statement are negative. Limitations: ROS unobtainable due to patients medical condition (Severe dementia , altered mental status) Past Medical History Past Medical History: Asthma, Dementia, Memory Impairment, Prostate Disorder Additional Past Medical History / Comment(s): Dementia/ALZHEIMERS, chronic bronchitis, History of Any Multi-Drug Resistant Organisms: MRSA Date of last positivie culture/infection: 12/24/17 MDRO Source:: CATH SITE Past Surgical History: No Surgical Hx Reported Additional Past Surgical History / Comment(s): darrian rotator cuff. FAMILY STATES OVER 30 YEARS AGO PT HAD SOME TYPE OF PROSTATE PROCEDURE. UNCERTAIN WHAT. prostate scraping to permit drainage Past Anesthesia/Blood Transfusion Reactions: No Reported Reaction Additional Past Anesthesia/Blood Transfusion Reaction / Comment(s): difficulty coming out slow to wake up Past Psychological History: No Psychological Hx Reported Smoking Status: Never smoker Past Alcohol Use History: None Reported Past Drug Use History: None Reported - Past Family History Father Family Medical History: Cancer Additional Family Medical History / Comment(s): lung ca Mother Family Medical History: Cancer Additional Family Medical History / Comment(s): ovarian cancer Son(s) Family Medical History: Cancer Additional Family Medical History / Comment(s): rhabdomyo sarcoma (SON). ADRENOCORTICOSARCONOMA (GRANDSON) General Exam Limitations: altered mental status General appearance: in no apparent distress Head exam: Present: atraumatic, normocephalic Eye exam: Present: normal appearance, PERRL ENT exam: Present: normal exam, mucous membranes moist Neck exam: Present: normal inspection Respiratory exam: Present: normal lung sounds bilaterally. Absent: respiratory distress, wheezes Cardiovascular Exam: Present: regular rate, normal rhythm GI/Abdominal exam: Present: soft. Absent: distended, tenderness Rectal exam: Present: deferred Extremities exam: Present: normal inspection Back exam: Present: normal inspection Neurological exam: Present: alert, altered, other (Patient is alert but unable to answer questions.) Psychiatric exam: Present: normal affect, normal mood Skin exam: Present: warm, dry, intact Course Vital Signs 01/14/18 01/14/18 18:23 21:00 Temperature 97.0 F L Pulse Rate 73 72 Respiratory 18 18 Rate Blood Pressure 127/66 130/71 O2 Sat by Pulse 98 97 Oximetry Medical Decision Making - Medical Decision Making Patient presents with a chief complaint of altered mental status. On initial evaluation, vital signs are stable, patient is in no acute distress. Patient is unable to offer history therefore it was obtained by his and his son over the phone. Patient to be evaluated with basic, abdominal, and cardiac labs. He'll be sent for a chest x-ray and computed tomography scan of the head. Patient will also be evaluated with lactic acid and a VBG though at this time given his stable vital signs, sepsis is lower on the differential. 9:46 PM Evaluation is unremarkable except for evidence of a urinary tract infection. I discussed with the family the results, they feel unsafe take patient home as he is less functional than normal. This case was discussed with the patient's son , Tien, who is agreeable with admission. Case discussed with Dr. Ferrera who accepts admission for IV antibiotics. - Lab Data Result diagrams: 01/14/18 19:00 01/14/18 19:00 Lab Results 01/14/18 01/14/18 01/14/18 Range/Units 19:00 19:00 19:00 WBC 8.3 (3.8-10.6) k/uL RBC 3.99 L (4.30-5.90) m/uL Hgb 11.9 L (13.0-17.5) gm/dL Hct 36.1 L (39.0-53.0) % MCV 90.5 (80.0-100.0) fL MCH 29.9 (25.0-35.0) pg MCHC 33.0 (31.0-37.0) g/dL RDW 13.4 (11.5-15.5) % Plt Count 381 (150-450) k/uL Neutrophils % 67 % Lymphocytes % 20 % Monocytes % 7 % Eosinophils % 5 % Basophils % 0 % Neutrophils # 5.6 (1.3-7.7) k/uL Lymphocytes # 1.7 (1.0-4.8) k/uL Monocytes # 0.6 (0-1.0) k/uL Eosinophils # 0.4 (0-0.7) k/uL Basophils # 0.0 (0-0.2) k/uL VBG pH (7.31-7.41) VBG pCO2 (37-51) mmHg VBG HCO3 (24-28) mmol/L Sodium 139 (137-145) mmol/L Potassium 4.6 (3.5-5.1) mmol/L Chloride 103 (98-107) mmol/L Carbon Dioxide 24 (22-30) mmol/L Anion Gap 12 mmol/L BUN 19 (9-20) mg/dL Creatinine 1.31 H (0.66-1.25) mg/dL Est GFR (CKD-EPI)AfAm 60 (>60 ml/min/1.73 sqM) Est GFR (CKD-EPI)NonAf 52 (>60 ml/min/1.73 sqM) Glucose 130 H (74-99) mg/dL Plasma Lactic Acid Zohaib (0.7-2.0) mmol/L Calcium 8.9 (8.4-10.2) mg/dL Total Bilirubin 0.3 (0.2-1.3) mg/dL AST 15 L (17-59) U/L ALT 24 (21-72) U/L Alkaline Phosphatase 107 (38-126) U/L Troponin I (0.000-0.034) ng/mL NT-Pro-B Natriuret Pep pg/mL Total Protein 5.9 L (6.3-8.2) g/dL Albumin 3.5 (3.5-5.0) g/dL Lipase 130 (23-300) U/L Urine Color Yellow Urine Appearance Cloudy (Clear) Urine pH 6.0 (5.0-8.0) Ur Specific [place] 1.017 (1.001-1.035) Urine Protein 1+ H (Negative) Urine Glucose (UA) Negative (Negative) Urine Ketones Negative (Negative) Urine Blood Small H (Negative) Urine Nitrite Negative (Negative) Urine Bilirubin Negative (Negative) Urine Urobilinogen <2.0 (<2.0) mg/dL Ur Leukocyte Esterase Large H (Negative) Urine RBC 20 H (0-5) /hpf Urine WBC 74 H (0-5) /hpf Urine WBC Clumps Few H (None) /hpf Urine Bacteria Few H (None) /hpf Hyaline Casts 3 H (0-2) /lpf Urine Mucus Rare H (None) /hpf Urine Yeast (Budding) Occasional H (None) /hpf 01/14/18 01/14/18 01/14/18 Range/Units 19:00 19:00 19:16 WBC (3.8-10.6) k/uL RBC (4.30-5.90) m/uL Hgb (13.0-17.5) gm/dL Hct (39.0-53.0) % MCV (80.0-100.0) fL MCH (25.0-35.0) pg MCHC (31.0-37.0) g/dL RDW (11.5-15.5) % Plt Count (150-450) k/uL Neutrophils % % Lymphocytes % % Monocytes % % Eosinophils % % Basophils % % Neutrophils # (1.3-7.7) k/uL Lymphocytes # (1.0-4.8) k/uL Monocytes # (0-1.0) k/uL Eosinophils # (0-0.7) k/uL Basophils # (0-0.2) k/uL VBG pH (7.31-7.41) VBG pCO2 (37-51) mmHg VBG HCO3 (24-28) mmol/L Sodium (137-145) mmol/L Potassium (3.5-5.1) mmol/L Chloride (98-107) mmol/L Carbon Dioxide (22-30) mmol/L Anion Gap mmol/L BUN (9-20) mg/dL Creatinine (0.66-1.25) mg/dL Est GFR (CKD-EPI)AfAm (>60 ml/min/1.73 sqM) Est GFR (CKD-EPI)NonAf (>60 ml/min/1.73 sqM) Glucose (74-99) mg/dL Plasma Lactic Acid Zohaib 1.5 (0.7-2.0) mmol/L Calcium (8.4-10.2) mg/dL Total Bilirubin (0.2-1.3) mg/dL AST (17-59) U/L ALT (21-72) U/L Alkaline Phosphatase (38-126) U/L Troponin I <0.012 (0.000-0.034) ng/mL NT-Pro-B Natriuret Pep 81 pg/mL Total Protein (6.3-8.2) g/dL Albumin (3.5-5.0) g/dL Lipase (23-300) U/L Urine Color Urine Appearance (Clear) Urine pH (5.0-8.0) Ur Specific [place] (1.001-1.035) Urine Protein (Negative) Urine Glucose (UA) (Negative) Urine Ketones (Negative) Urine Blood (Negative) Urine Nitrite (Negative) Urine Bilirubin (Negative) Urine Urobilinogen (<2.0) mg/dL Ur Leukocyte Esterase (Negative) Urine RBC (0-5) /hpf Urine WBC (0-5) /hpf Urine WBC Clumps (None) /hpf Urine Bacteria (None) /hpf Hyaline Casts (0-2) /lpf Urine Mucus (None) /hpf Urine Yeast (Budding) (None) /hpf 01/14/18 Range/Units 19:16 WBC (3.8-10.6) k/uL RBC (4.30-5.90) m/uL Hgb (13.0-17.5) gm/dL Hct (39.0-53.0) % MCV (80.0-100.0) fL MCH (25.0-35.0) pg MCHC (31.0-37.0) g/dL RDW (11.5-15.5) % Plt Count (150-450) k/uL Neutrophils % % Lymphocytes % % Monocytes % % Eosinophils % % Basophils % % Neutrophils # (1.3-7.7) k/uL Lymphocytes # (1.0-4.8) k/uL Monocytes # (0-1.0) k/uL Eosinophils # (0-0.7) k/uL Basophils # (0-0.2) k/uL VBG pH 7.34 (7.31-7.41) VBG pCO2 50 (37-51) mmHg VBG HCO3 26 (24-28) mmol/L Sodium (137-145) mmol/L Potassium (3.5-5.1) mmol/L Chloride (98-107) mmol/L Carbon Dioxide (22-30) mmol/L Anion Gap mmol/L BUN (9-20) mg/dL Creatinine (0.66-1.25) mg/dL Est GFR (CKD-EPI)AfAm (>60 ml/min/1.73 sqM) Est GFR (CKD-EPI)NonAf (>60 ml/min/1.73 sqM) Glucose (74-99) mg/dL Plasma Lactic Acid Zohaib (0.7-2.0) mmol/L Calcium (8.4-10.2) mg/dL Total Bilirubin (0.2-1.3) mg/dL AST (17-59) U/L ALT (21-72) U/L Alkaline Phosphatase (38-126) U/L Troponin I (0.000-0.034) ng/mL NT-Pro-B Natriuret Pep pg/mL Total Protein (6.3-8.2) g/dL Albumin (3.5-5.0) g/dL Lipase (23-300) U/L Urine Color Urine Appearance (Clear) Urine pH (5.0-8.0) Ur Specific [place] (1.001-1.035) Urine Protein (Negative) Urine Glucose (UA) (Negative) Urine Ketones (Negative) Urine Blood (Negative) Urine Nitrite (Negative) Urine Bilirubin (Negative) Urine Urobilinogen (<2.0) mg/dL Ur Leukocyte Esterase (Negative) Urine RBC (0-5) /hpf Urine WBC (0-5) /hpf Urine WBC Clumps (None) /hpf Urine Bacteria (None) /hpf Hyaline Casts (0-2) /lpf Urine Mucus (None) /hpf Urine Yeast (Budding) (None) /hpf Disposition Clinical Impression: UTI (urinary tract infection), Dementia Disposition: ADMITTED IP TO THIS [facility] Condition: Good Is patient prescribed a controlled substance at d/c from ED?: No Referrals: Tyrone Ferrera MD [Primary Care Provider] - 1-2 days Decision to Admit Reason: Admit from [facility] - Out of Hospital Transfer - Req. Specs Out of Hospital Transfer - Requested Specifics: Other Non-Acute
[2018-01-14 19:23] LABS: Basophils % (A) 0 %; Eosinophils # (A) 0.4 k/uL (0-0.7); Eosinophils % (A) 5 %; HCT 36.1 % (39.0-53.0); HGB 11.9 gm/dL (13.0-17.5); Lymphocytes # (A) 1.7 k/uL (1.0-4.8); Lymphocytes % (A) 20 %; MCH 29.9 pg (25.0-35.0); MCV 90.5 fL (80.0-100.0); Mean Platelet Volume 7.5; Monocytes # (A) 0.6 k/uL (0-1.0); Monocytes % (A) 7 %; Neutrophils # (A) 5.6 k/uL (1.3-7.7); Neutrophils % (A) 67 %; Platelet Count 381 k/uL (150-450); RBC 3.99 m/uL (4.30-5.90); RDW 13.4 % (11.5-15.5); WBC 8.3 k/uL (3.8-10.6)
[2018-01-14 19:32] LABS: Albumin 3.5 g/dL (3.5-5.0); Calcium 8.9 mg/dL (8.4-10.2); Potassium 4.6 mmol/L (3.5-5.1); Total Bilirubin 0.3 mg/dL (0.2-1.3); Total Protein 5.9 g/dL (6.3-8.2)
[2018-01-14 19:32] LABS: VBG PH 7.34 (7.31-7.41)
[2018-01-14 19:33] LABS: Appearance,Urine Cloudy (Clear); Bacteria,Urine Few /hpf; Bilirubin,Urine Negative (Negative); Blood,Urine Small (Negative); Budding Yeast,Urine Occasional /hpf; Color,Urine Yellow; Glucose,Urine (UA) Negative (Negative); Hyaline Casts,Urine 3 /lpf (0-2); Ketones,Urine Negative (Negative); Leukocyte Esterase,Urine Large (Negative); Mucus,Urine Rare /hpf; Nitrite,Urine Negative (Negative); Protein,Urine 1+ (Negative); RBC,Urine 20 /hpf (0-5); Specific Gravity,Urine 1.017 (1.001-1.035); Urobilinogen,Urine <2.0 mg/dL (<2.0); WBC,Urine 74 /hpf (0-5)
--- NOTE | 2018-01-14 20:17 | CT ---
EXAMINATION TYPE: CT brain wo con DATE OF EXAM: 01/14/2018 HISTORY: Altered mental status. CT DLP: 758 mGycm. Automated Exposure Control for Dose Reduction was Utilized. TECHNIQUE: CT scan of the head is performed without contrast. COMPARISON: CT brain October 12, 2017 FINDINGS: There is no acute intracranial hemorrhage or midline shift identified. There is diffuse v entricular and sulcal prominence consistent with diffuse age-related cerebral atrophy. Increased bila teral frontal and temporal lobe atrophy is present. Degree of ventricular dilatation remains out of p roportion to degree of sulcal effacement and a normal pressure hydrocephalus cannot be excluded. Four th ventricle is not dilated. There is low-attenuation in the periventricular white matter consistent with chronic small vessel ischemic change. The globes are intact and the visualized sinuses are ree r. IMPRESSION: No acute intracranial hemorrhage or midline shift. There is persistent moderate to jeff re diffuse age-related cerebral atrophy most prominent involving bilateral frontal and temporal lobes and mild to moderate chronic small vessel ischemic change redemonstrated. No significant change fro m prior CT.
--- NOTE | 2018-01-14 20:22 | XR ---
EXAMINATION TYPE: XR chest 1V DATE OF EXAM: 01/14/2018 COMPARISON: Chest x-ray December 23, 2017. HISTORY: Altered mental status and weakness. TECHNIQUE: Single frontal view of the chest is obtained. FINDINGS: Low lung volumes are redemonstrated. There is chronic left basilar opacity or scarring. The re is no new suspicious focal air space opacity, pleural effusion, or pneumothorax seen. The cardiac silhouette size is stable and enlarged. The osseous structures are intact. IMPRESSION: Low lung volumes with chronic left basilar opacity. No suspicious new acute pulmonary pr ocess.
[2018-01-14] MEDS ORDERED: SODIUM CHLORIDE 0.9% 1,000 ML IV ONE (20:36)
[2018-01-14] MEDS: cefTRIAXone IN SWFI 1,000 MG/10 ML SYRINGE IVP SCH (20:50)
[2018-01-14] MEDS ORDERED: NALOXONE 0.4 MG/ML 1 ML VIAL IV PRN (21:53)
[2018-01-15 01:37] VITALS: BMI 23.5
[2018-01-15 07:52] LABS: Basophils # (A) 0.1 k/uL (0-0.2); Basophils % (A) 1 %; Eosinophils # (A) 0.4 k/uL (0-0.7); Eosinophils % (A) 7 %; HCT 34.9 % (39.0-53.0); HGB 11.3 gm/dL (13.0-17.5); Lymphocytes # (A) 1.6 k/uL (1.0-4.8); Lymphocytes % (A) 24 %; MCH 29.7 pg (25.0-35.0); MCHC 32.4 g/dL (31.0-37.0); MCV 91.5 fL (80.0-100.0); Mean Platelet Volume 6.6; Monocytes # (A) 0.5 k/uL (0-1.0); Monocytes % (A) 7 %; Neutrophils # (A) 3.9 k/uL (1.3-7.7); Neutrophils % (A) 59 %; Platelet Count 343 k/uL (150-450); RBC 3.81 m/uL (4.30-5.90); RDW 13.6 % (11.5-15.5); WBC 6.6 k/uL (3.8-10.6)
[2018-01-15 08:04] LABS: Calcium 8.4 mg/dL (8.4-10.2); Potassium 4.5 mmol/L (3.5-5.1)
--- NOTE | 2018-01-15 13:25 | HP ---
HISTORY AND PHYSICAL CHIEF COMPLAINT: Urinary tract infection and dementia. HISTORY OF PRESENT ILLNESS: This is another admission for this 77-year-old white male. He is being taken care of at home by his family and he was brought in and admitted with urinary tract infection. The situation is growing extremely difficult for the family. He is essentially taken care of solely by his and one son. His dementia is progressing and he is requiring more and more care. There is no other history at this time. There is no history any fever, vomiting, etc. Past medical history, family history, and personal and social history are all otherwise unchanged from his recent admitting and discharge summaries. PHYSICAL EXAM: Blood pressure is 127/78, pulse is 64, respirations are 11, and he is afebrile. GENERAL: He appeared to be slightly dehydrated. He was lethargic. Head, ears, eyes, nose, mouth, and throat were grossly normal. Neck veins not distended. Thyroid is not enlarged. Chest is clear. Cardiac exam is normal. Abdomen is soft, nontender. EXTREMITIES: Normal. Neurologically, he is . IMPRESSION: 1. Urinary tract infection. 2. Recent TURP. 3. Profound dementia. PLAN: 1. Bed rest. 2. IV fluids. 3. IV antibiotics. MMODL / IJN: [id number] /
--- NOTE | 2018-01-15 13:32 | PN ---
PROGRESS NOTE DATE OF SERVICE: 01/15/2018 CHIEF COMPLAINT: Urinary tract infection and dementia. HISTORY OF PRESENT ILLNESS: This gentleman has been stable and vital signs have been normal. PHYSICAL EXAM: Skin is dry. Head, ears, eyes, nose, mouth and throat are normal, though he is not arousable. Chest is clear. Cardiac exam is normal. Abdomen is soft, nontender. IMPRESSION: 1. Urinary tract infection. 2. Dehydration. 3. Dementia. PLAN: 1. Continue with IV fluids and antibiotics. 2. Discuss hospice with the family. MMODL / IJN: [id number] /
[2018-01-15] MEDS: SODIUM CHLORIDE 0.9% 1,000 ML IV SCH ×2 (13:48→23:02)
[2018-01-15] MEDS: MEMANTINE 10 MG TAB PO SCH (21:57)
[2018-01-15] MEDS: DONEPEZIL 10 MG TAB PO SCH (21:57)
[2018-01-15] MEDS: cefTRIAXone IN SWFI 1,000 MG/10 ML SYRINGE IVP SCH (21:58)
[2018-01-16] MEDS: SODIUM CHLORIDE 0.9% 1,000 ML IV SCH ×4 (00:58→16:06)
[2018-01-16] MEDS: CIPROFLOXACIN 0.3% OPHTH SOLN 5 ML BTL BOTH EYES SCH (10:42)
[2018-01-16] MEDS: MEMANTINE 10 MG TAB PO SCH ×2 (10:42→20:49)
--- NOTE | 2018-01-16 15:45 | PN ---
PROGRESS NOTE CHIEF COMPLAINT: Urinary tract infection. HISTORY OF PRESENT ILLNESS: This gentleman is doing well. Vital signs have been normal. Hydration is improved and he is more alert. PHYSICAL EXAM: Hydration is improved. He is more alert and color is good. Chest is clear. Cardiac exam is normal. Abdomen is soft, nontender. IMPRESSION: 1. Urinary tract infection. 2. Dementia. 3. Dehydration. PLAN: Continue with IV fluids and antibiotics before he returns home. MMODL / IJN: [id number] /
--- NOTE | 2018-01-16 16:39 | PN ---
PROGRESS NOTE CHIEF COMPLAINT: UTI and dementia. HISTORY OF PRESENT ILLNESS: The patient is doing better today. He is more alert. Hydration status is improving. PHYSICAL EXAM: ABDOMEN: Soft and nontender. LUNGS: Clear to auscultation. Heart rate regular rhythm. IMPRESSION: UTI and dementia. PLAN: The plan is to continue IV antibiotics and IV fluids. I performed a History & Physical Examination of the patient and discussed their management with nurse practitioner. I reviewed the nurse practitioner's note and agree with the documented findings and plan of care. MMODL / IJN: [id number] /
[2018-01-16] MEDS: cefTRIAXone IN SWFI 1,000 MG/10 ML SYRINGE IVP SCH (20:48)
[2018-01-16] MEDS: DONEPEZIL 10 MG TAB PO SCH (20:49)
[2018-01-17] MEDS: SODIUM CHLORIDE 0.9% 1,000 ML IV SCH ×3 (04:55→23:36)
[2018-01-17] MEDS: MEMANTINE 10 MG TAB PO SCH ×2 (09:00→20:37)
[2018-01-17] MEDS: CIPROFLOXACIN 0.3% OPHTH SOLN 5 ML BTL BOTH EYES SCH (09:00)
--- NOTE | 2018-01-17 15:02 | P.PN ---
Subjective 77-year-old gentleman was admitted for the urinary tract infection patient apparently has multiple hospitalizations recently. Patient appears to have moderate advanced dementia. Dr. Ricken his primary care physician yesterday and recommended hospice. Had extensive discussion with the patient and family with further goals of care. Patient's is at bedside patient has 3 sons one of them is a an emergency physician. Patient is alert oriented 1-2. He appears to be his baseline never had any his agitation episodes denied any recent falls. is not keen on hospice yet. His functionality is fairly good at this time. I had extensive discussion for long time today with his . She will set up everything for him by tomorrow. Meantime will obtain PT or OT consultation today. Patient probably can be discharged home tomorrow on for more days of Ceftin. Urine cultures so far didn't show any bacteria. Objective - Vital Signs Vital signs: Vital Signs Temp 96.4 F L 01/17/18 14:20 Pulse 91 01/17/18 14:20 Resp 16 01/17/18 14:20 BP 172/79 01/17/18 14:20 Pulse Ox 97 01/17/18 14:20 Intake & Output 01/16/18 01/17/18 01/17/18 18:59 06:59 18:59 Intake Total 237 60 Balance 237 60 Weight 74.389 kg Intake: Oral 237 60 Other: Voiding Method Diaper Diaper Diaper Incontinent Incontinent Incontinent # Voids 2 1 1 # Bowel Movements 0 1 - Exam PHYSICAL EXAMINATION: GENERAL: The patient is alert and oriented x1-2, not in any acute distress. Well developed, well nourished. HEENT: Pupils are round and equally reacting to light. EOMI. No scleral icterus. No conjunctival pallor. Normocephalic, atraumatic. No pharyngeal erythema. No thyromegaly. CARDIOVASCULAR: S1 and S2 present. No murmurs, rubs, or gallops. PULMONARY: Chest is clear to auscultation, no wheezing or crackles. ABDOMEN: Soft, nontender, nondistended, normoactive bowel sounds. No palpable organomegaly. MUSCULOSKELETAL: No joint swelling or deformity. EXTREMITIES: No cyanosis, clubbing, or pedal edema. NEUROLOGICAL: Gross neurological examination did not reveal any focal deficits. SKIN: No rashes. - Labs CBC & Chem 7: 01/15/18 06:49 01/15/18 06:49 Labs: Microbiology - Last 24 Hours (Table) 01/14/18 19:00 Urine Culture - Final Urine,Catheterized Assessment and Plan Plan: -Possible urinary tract infection: Patient is on ceftriaxone which is being continued patient probably can be discharged on Ceftin for 4 more days. -Dementia appears to be moderate to advanced. Unsure of the etiology of dementia at this time -Asthma without any acute exacerbation -Benign prostatic hypertrophy and the urinary retention in the recent past patient doesn't have any Estevez catheter able to urinate okay now.
[2018-01-17] MEDS: cefTRIAXone IN SWFI 1,000 MG/10 ML SYRINGE IVP SCH (20:37)
[2018-01-17] MEDS: DONEPEZIL 10 MG TAB PO SCH (20:37)
[2018-01-18] MEDS: MEMANTINE 5 MG TAB PO SCH ×2 (09:24→21:15)
[2018-01-18] MEDS: CIPROFLOXACIN 0.3% OPHTH SOLN 5 ML BTL BOTH EYES SCH (09:25)
[2018-01-18] MEDS: SODIUM CHLORIDE 0.9% 1,000 ML IV SCH ×2 (12:34→21:14)
[2018-01-18] MEDS: DONEPEZIL 10 MG TAB PO SCH (21:14)
[2018-01-18] MEDS: cefTRIAXone IN SWFI 1,000 MG/10 ML SYRINGE IVP SCH (21:14)
[2018-01-19] MEDS: MEMANTINE 5 MG TAB PO SCH ×2 (08:20→21:00)
[2018-01-19] MEDS: CIPROFLOXACIN 0.3% OPHTH SOLN 5 ML BTL BOTH EYES SCH (08:20)
[2018-01-19] MEDS: SODIUM CHLORIDE 0.9% 1,000 ML IV SCH ×2 (08:21→18:02)
[2018-01-19] MEDS: cefTRIAXone IN SWFI 1,000 MG/10 ML SYRINGE IVP SCH (21:00)
[2018-01-19] MEDS: DONEPEZIL 10 MG TAB PO SCH (21:00)
--- NOTE | 2018-01-19 23:38 | P.PN ---
Subjective Progress Note Date: 01/18/18 Principal diagnosis: Acute urinary tract infection and generalized weakness 77-year-old gentleman was admitted for the urinary tract infection patient apparently has multiple hospitalizations recently. Patient appears to have moderate advanced dementia. Dr. Ricken his primary care physician yesterday and recommended hospice. Had extensive discussion with the patient and family with further goals of care. Patient's is at bedside patient has 3 sons one of them is a an emergency physician. Patient is alert oriented 1-2. He appears to be his baseline never had any his agitation episodes denied any recent falls. is not keen on hospice yet. His functionality is fairly good at this time. I had extensive discussion for long time today with his . She will set up everything for him by tomorrow. Meantime will obtain PT or OT consultation today. Patient probably can be discharged home tomorrow on for more days of Ceftin. Urine cultures so far didn't show any bacteria. 01 18 2018 Patient is awake alert but oriented 1-2. Currently patient needs assistance with all activities. Still incontinent. Family says they cannot able to take care of him at home. PT OT is following possible transfer to rehab on Saturday. Patient was recommended with hospice care. Urine culture showed skin aung. Complete review of systems could not be obtained from the patient Current medications reviewed. Objective - Vital Signs Vital signs: Vital Signs Temp 97.0 F L 01/18/18 14:29 Pulse 74 01/18/18 14:29 Resp 16 01/18/18 14:29 BP 146/81 01/18/18 14:29 Pulse Ox 95 01/18/18 14:29 Intake & Output 01/17/18 01/18/18 01/18/18 18:59 06:59 18:59 Intake Total 340 1234 Output Total 2 3 Balance 338 1231 Weight 74.389 kg Intake: Intake, IV Titration 400 Amount Sodium Chloride 0.9% 1, 400 000 ml @ 100 mls/hr IV . Q10H [facility] Rx#:[id number] Oral 340 834 Output: Stool 1 3 Urine/Stool Mix 1 Other: Voiding Method Diaper Diaper Diaper Incontinent Incontinent Incontinent # Voids 1 2 4 - Exam GENERAL: The patient is alert and oriented x1-2, not in any acute distress. Well developed, well nourished. HEENT: Pupils are round and equally reacting to light. EOMI. No scleral icterus. No conjunctival pallor. Normocephalic, atraumatic. No pharyngeal erythema. No thyromegaly. CARDIOVASCULAR: S1 and S2 present. No murmurs, rubs, or gallops. PULMONARY: Chest is clear to auscultation, no wheezing or crackles. ABDOMEN: Soft, nontender, nondistended, normoactive bowel sounds. No palpable organomegaly. MUSCULOSKELETAL: No joint swelling or deformity. EXTREMITIES: No cyanosis, clubbing, or pedal edema. NEUROLOGICAL: Gross neurological examination did not reveal any focal deficits. SKIN: No rashes. - Labs CBC & Chem 7: 01/15/18 06:49 01/15/18 06:49 Assessment and Plan Assessment: -Possible urinary tract infection: Patient is on ceftriaxone which is being continued patient probably can be discharged on Ceftin for a total of 7 days. -Dementia appears to be moderate to advanced. Unsure of the etiology of dementia at this time -Asthma without any acute exacerbation -Benign prostatic hypertrophy and the urinary retention in the recent past patient doesn't have any Estevez catheter able to urinate spontaneously now but incontinent. . Time with Patient: Greater than 30
--- NOTE | 2018-01-19 23:39 | P.PN ---
Subjective Progress Note Date: 01/19/18 Principal diagnosis: Acute urinary tract infection and generalized weakness 77-year-old gentleman was admitted for the urinary tract infection patient apparently has multiple hospitalizations recently. Patient appears to have moderate advanced dementia. Dr. Ferrera his primary care physician yesterday and recommended hospice. Had extensive discussion with the patient and family with further goals of care. Patient's is at bedside patient has 3 sons one of them is a an emergency physician. Patient is alert oriented 1-2. He appears to be his baseline never had any his agitation episodes denied any recent falls. is not keen on hospice yet. His functionality is fairly good at this time. I had extensive discussion for long time today with his . She will set up everything for him by tomorrow. Meantime will obtain PT or OT consultation today. Patient probably can be discharged home tomorrow on for more days of Ceftin. Urine cultures so far didn't show any bacteria. 01 18 2018 Patient is awake alert but oriented 1-2. Currently patient needs assistance with all activities. Still incontinent. Family says they cannot able to take care of him at home. PT OT is following possible transfer to rehab on Saturday. Patient was recommended with hospice care. Urine culture showed skin aung. 01/19/2018 Currently patient denied any new complaints. Overall clinical condition remains the same. PT OT and possible rehab on Saturday. Possibly with hospice care. blogs manager is following. Otherwise continue with antibiotics for possible urinary tract infection. We will discuss the family regarding treatment goals again.. Complete review of systems could not be obtained from the patient Current medications reviewed. Objective - Vital Signs Vital signs: Vital Signs Temp 97.1 F L 01/19/18 15:00 Pulse 72 01/19/18 15:00 Resp 16 01/19/18 15:00 BP 120/64 01/19/18 15:00 Pulse Ox 95 01/19/18 15:00 Intake & Output 01/18/18 01/19/18 01/19/18 18:59 06:59 18:59 Intake Total 1234 240 Output Total 3 Balance 1231 240 Weight 74.389 kg Intake: Intake, IV Titration 400 Amount Sodium Chloride 0.9% 1, 400 000 ml @ 100 mls/hr IV . Q10H [facility] Rx#:[id number] Oral 834 240 Output: Stool 3 Other: Voiding Method Diaper Diaper Diaper Incontinent Incontinent Incontinent # Voids 1 1 1 # Bowel Movements 1 1 - Exam GENERAL: The patient is alert and oriented x1-2, not in any acute distress. Well developed, well nourished. HEENT: Pupils are round and equally reacting to light. EOMI. No scleral icterus. No conjunctival pallor. Normocephalic, atraumatic. No pharyngeal erythema. No thyromegaly. CARDIOVASCULAR: S1 and S2 present. No murmurs, rubs, or gallops. PULMONARY: Chest is clear to auscultation, no wheezing or crackles. ABDOMEN: Soft, nontender, nondistended, normoactive bowel sounds. No palpable organomegaly. MUSCULOSKELETAL: No joint swelling or deformity. EXTREMITIES: No cyanosis, clubbing, or pedal edema. NEUROLOGICAL: Gross neurological examination did not reveal any focal deficits. SKIN: No rashes. - Labs CBC & Chem 7: 01/15/18 06:49 01/15/18 06:49 Assessment and Plan Assessment: -Possible urinary tract infection: Patient is on ceftriaxone which is being continued patient probably can be discharged on Ceftin for a total of 7 days. -Dementia appears to be moderate to advanced. Unsure of the etiology of dementia at this time -Asthma without any acute exacerbation -Benign prostatic hypertrophy and the urinary retention in the recent past patient doesn't have any Estevez catheter able to urinate spontaneously now but incontinent. . Time with Patient: Greater than 30
[2018-01-20] MEDS: SODIUM CHLORIDE 0.9% 1,000 ML IV SCH ×3 (06:20→21:53)
[2018-01-20] MEDS: CIPROFLOXACIN 0.3% OPHTH SOLN 5 ML BTL BOTH EYES SCH (08:33)
[2018-01-20] MEDS: MEMANTINE 10 MG TAB PO SCH ×2 (08:34→22:25)
[2018-01-20 08:46] LABS: Basophils # (A) 0.1 k/uL (0-0.2); Basophils % (A) 1 %; Eosinophils # (A) 0.5 k/uL (0-0.7); Eosinophils % (A) 7 %; HCT 34.6 % (39.0-53.0); HGB 11.5 gm/dL (13.0-17.5); Lymphocytes # (A) 1.9 k/uL (1.0-4.8); Lymphocytes % (A) 24 %; MCH 30.3 pg (25.0-35.0); MCHC 33.3 g/dL (31.0-37.0); MCV 91.1 fL (80.0-100.0); Mean Platelet Volume 6.7; Monocytes # (A) 0.4 k/uL (0-1.0); Monocytes % (A) 5 %; Neutrophils # (A) 4.8 k/uL (1.3-7.7); Neutrophils % (A) 62 %; Platelet Count 375 k/uL (150-450); RDW 13.5 % (11.5-15.5); WBC 7.6 k/uL (3.8-10.6)
[2018-01-20 08:58] LABS: Calcium 8.7 mg/dL (8.4-10.2); Potassium 4.3 mmol/L (3.5-5.1)
--- NOTE | 2018-01-20 15:11 | P.DS ---
Providers Date of admission: 01/14/18 21:53 Expected date of discharge: 01/20/18 Attending physician: Tyrone Dawson Primary care physician: Tyrone Ferrera Hospital Course: This note to be used as either progress note or discharge summary for Dr. Dawson. Final Diagnoses: -Possible urinary tract infection. -Dementia appears to be moderate to advanced. Unsure of the etiology of dementia at this time -Asthma without any acute exacerbation -Benign prostatic hypertrophy and the urinary retention in the recent past patient doesn't have any Estevez catheter able to urinate spontaneously now but incontinent. . Hospital course:Acute urinary tract infection and generalized weakness 77-year-old gentleman was admitted for the urinary tract infection patient apparently has multiple hospitalizations recently. Patient appears to have moderate advanced dementia. Dr. Ferrera his primary care physician yesterday and recommended hospice. Had extensive discussion with the patient and family with further goals of care. Patient's is at bedside patient has 3 sons one of them is a an emergency physician. Patient is alert oriented 1-2. He appears to be his baseline never had any his agitation episodes denied any recent falls. is not keen on hospice yet. His functionality is fairly good at this time. I had extensive discussion for long time today with his . She will set up everything for him by tomorrow. Meantime will obtain PT or OT consultation today. Patient probably can be discharged home tomorrow on for more days of Ceftin. Urine cultures so far didn't show any bacteria. 01 18 2018 Patient is awake alert but oriented 1-2. Currently patient needs assistance with all activities. Still incontinent. Family says they cannot able to take care of him at home. PT OT is following possible transfer to rehab on Saturday. Patient was recommended with hospice care. Urine culture showed skin aung. 01/19/2018 Currently patient denied any new complaints. Overall clinical condition remains the same. PT OT and possible rehab on Saturday. Possibly with hospice care. advertising operations manager is following. Otherwise continue with antibiotics for possible urinary tract infection. We will discuss the family regarding treatment goals again.. Complete review of systems could not be obtained from the patient Current medications reviewed. 01/20/2018 no overnight events. Maintained on IV antibiotics. Significant clinical improvement. Social work attempting to meet with , discuss ECF placement. Patient is being discharged to ECF in a stable condition with guarded prognosis. GENERAL: The patient is alert and oriented x1-2, not in any acute distress. Well developed, well nourished. HEENT: Pupils are round and equally reacting to light. EOMI. No scleral icterus. No conjunctival pallor. Normocephalic, atraumatic. No pharyngeal erythema. No thyromegaly. CARDIOVASCULAR: S1 and S2 present. No murmurs, rubs, or gallops. PULMONARY: Chest is clear to auscultation, no wheezing or crackles. ABDOMEN: Soft, nontender, nondistended, normoactive bowel sounds. No palpable organomegaly. MUSCULOSKELETAL: No joint swelling or deformity. EXTREMITIES: No cyanosis, clubbing, or pedal edema. NEUROLOGICAL: Gross neurological examination did not reveal any focal deficits. SKIN: No rashes. The impression and plan of care has been dictated as directed. : I performed a history and examination of this patient, discussed the same with the dictator. I agree with the dictator's note ,documented as a scribe. Any additional findings or plans will be noted. Time taken, 35 minutes Patient Condition at Discharge: Stable Plan - Discharge Summary Discharge Rx Participant: Yes New Discharge Prescriptions: New Cefuroxime Axetil [Ceftin] 500 mg PO BID #6 tab Continue Memantine [Namenda] 10 mg PO BID #60 tab Donepezil [Aricept] 10 mg PO HS Ciprofloxacin Ophth Soln [Cipro 0.3% Ophth Soln] 1 drops BOTH EYES DAILY Discontinued Donepezil [Aricept] 5 mg PO HS Discharge Medication List Memantine [Namenda] 10 mg PO BID #60 tab 02/24/15 [Rx] Donepezil [Aricept] 10 mg PO HS 08/13/17 [History] Ciprofloxacin Ophth Soln [Cipro 0.3% Ophth Soln] 1 drops BOTH EYES DAILY [History] Cefuroxime Axetil [Ceftin] 500 mg PO BID #6 tab 01/20/18 [Rx] Follow up Appointment(s)/Referral(s): Tyrone Ferrera MD [Primary Care Provider] - 3 Days Ambulatory/Diagnostic Orders: Complete Blood Count w/diff [LAB.AMB] Time Frame: 3 Days, Location: Determined By Patient Activity/Diet/Wound Care/Special Instructions: ECF as per significant other Discharge Disposition: TRANSFER TO SNF/ECF
[2018-01-20] MEDS: cefTRIAXone IN SWFI 1,000 MG/10 ML SYRINGE IVP SCH (21:54)
[2018-01-20] MEDS: DONEPEZIL 10 MG TAB PO SCH (21:54)
--- NOTE | 2018-01-20 22:41 | P.PN ---
Subjective Progress Note Date: 01/20/18 Principal diagnosis: Acute urinary tract infection and generalized weakness 77-year-old gentleman was admitted for the urinary tract infection patient apparently has multiple hospitalizations recently. Patient appears to have moderate advanced dementia. Dr. Ferrera his primary care physician yesterday and recommended hospice. Had extensive discussion with the patient and family with further goals of care. Patient's is at bedside patient has 3 sons one of them is a an emergency physician. Patient is alert oriented 1-2. He appears to be his baseline never had any his agitation episodes denied any recent falls. is not keen on hospice yet. His functionality is fairly good at this time. I had extensive discussion for long time today with his . She will set up everything for him by tomorrow. Meantime will obtain PT or OT consultation today. Patient probably can be discharged home tomorrow on for more days of Ceftin. Urine cultures so far didn't show any bacteria. 01 18 2018 Patient is awake alert but oriented 1-2. Currently patient needs assistance with all activities. Still incontinent. Family says they cannot able to take care of him at home. PT OT is following possible transfer to rehab on Saturday. Patient was recommended with hospice care. Urine culture showed skin aung. 01/19/2018 Currently patient denied any new complaints. Overall clinical condition remains the same. PT OT and possible rehab on Saturday. Possibly with hospice care. manager ecommerce is following. Otherwise continue with antibiotics for possible urinary tract infection. We will discuss the family regarding treatment goals again.. 01/20/2018 Patient is awake alert but could not provide any history. Able to tolerate oral diet slowly. Awaiting placement to [facility] care facility. Continued on IV antibiotics for urinary tract infection. Complete review of systems could not be obtained from the patient Current medications reviewed. Objective - Vital Signs Vital signs: Vital Signs Temp 99.0 F 01/20/18 15:00 Pulse 69 01/20/18 16:00 Resp 18 01/20/18 16:00 BP 125/73 01/20/18 15:00 Pulse Ox 98 01/20/18 15:00 Intake & Output 01/20/18 01/20/18 01/21/18 06:59 18:59 06:59 Intake Total 600 Balance 600 Weight 74.389 kg Intake: Oral 600 Other: Voiding Method Diaper Diaper Incontinent Incontinent # Voids 4 3 # Bowel Movements 1 3 - Exam GENERAL: The patient is alert and oriented x1-2, not in any acute distress. Well developed, well nourished. HEENT: Pupils are round and equally reacting to light. EOMI. No scleral icterus. No conjunctival pallor. Normocephalic, atraumatic. No pharyngeal erythema. No thyromegaly. CARDIOVASCULAR: S1 and S2 present. No murmurs, rubs, or gallops. PULMONARY: Chest is clear to auscultation, no wheezing or crackles. ABDOMEN: Soft, nontender, nondistended, normoactive bowel sounds. No palpable organomegaly. MUSCULOSKELETAL: No joint swelling or deformity. EXTREMITIES: No cyanosis, clubbing, or pedal edema. NEUROLOGICAL: Gross neurological examination did not reveal any focal deficits. SKIN: No rashes. - Labs CBC & Chem 7: 01/20/18 08:21 01/20/18 08:21 Labs: Abnormal Lab Results - Last 24 Hours (Table) 01/20/18 01/20/18 Range/Units 08:21 08:21 RBC 3.80 L (4.30-5.90) m/uL Hgb 11.5 L (13.0-17.5) gm/dL Hct 34.6 L (39.0-53.0) % Chloride 108 H (98-107) mmol/L Glucose 158 H (74-99) mg/dL Assessment and Plan Assessment: -Possible urinary tract infection: Patient is on ceftriaxone which is being continued . Can be changed to Ceftin to complete antibiotic course for a total of 7 days. -Dementia appears to be moderate to advanced. Unsure of the etiology of dementia at this time -Asthma without any acute exacerbation -Benign prostatic hypertrophy and the urinary retention in the recent past patient doesn't have any Estevez catheter able to urinate spontaneously now but incontinent. .
[2018-01-21] MEDS: SODIUM CHLORIDE 0.9% 1,000 ML IV SCH (07:59)
[2018-01-21] MEDS: CIPROFLOXACIN 0.3% OPHTH SOLN 5 ML BTL BOTH EYES SCH (08:00)
[2018-01-21] MEDS: MEMANTINE 10 MG TAB PO SCH (08:00)
[2018-01-21 13:53] VITALS: BP 140/71; PULSE 77; RESP 16; TEMP 99.1
--- NOTE | 2018-01-22 06:00 | DS ---
DISCHARGE SUMMARY DATE OF SERVICE: 01/21/2018. FINAL DIAGNOSES: 1. Urinary tract infection, acute. 2. Dementia. 3. Asthma. 4. Benign prostatic hypertrophy. DISCHARGE DISPOSITION: The patient will be discharged in stable condition with guarded prognosis. HISTORY OF PRESENT ILLNESS: This 77-year-old gentleman with a past medical history of multiple medical problems being followed by Dr. Ferrera in the outpatient setting admitted with weakness and UTI, treated symptomatically. Patient improved significantly. The patient was discharged in stable condition with guarded prognosis. Please refer to the previous dictation done by Ashia Christina on 01/20/2018, 14:49 for other detailed diagnoses and as well as history of medications. Recommend close follow up with Dr. Ferrera in the outpatient setting. Ceftin outpatient is being recommended. MMODL / IJN: [id number] /
--- NOTE | 2018-01-24 20:12 | DS ---
DISCHARGE SUMMARY DATE OF SERVICE: 01/21/18. CHIEF COMPLAINT: Urinary tract infection and dementia. HISTORY OF PRESENT ILLNESS AND PHYSICAL EXAM: The details of this man's history and physical can be found in the initial workup. LABORATORY STUDIES: While he was in the hospital, he had laboratory studies, details of which can be found in the laboratory section of his chart. COURSE IN HOSPITAL: After admission, he was placed on bedrest, started on intravenous fluids and antibiotics. He stabilized quickly and arrangements were made for him to be discharged back home on January 21. FINAL DIAGNOSES: 1. Urinary tract infection. 2. Dementia. OPERATIONS: None. CONSULTATIONS: None. He is improved. MMODL / IJN: [id number] /
== END 2018-01-21 18:28 | disposition home or self-care (01) ==
LOC: EC 18:13 → 3SUR 21:53 → 4MS4W 01-16 10:51
PROVIDERS: ADMIT Family Medicine; ATTEND Family Medicine
DX: N39.0 Urinary tract infection, site not specified (principal); F03.90 Unspecified dementia, unspecified severity, without behavioral disturbance, psychotic disturbance, mood disturbance, and anxiety; E86.0 Dehydration; J45.909 Unspecified asthma, uncomplicated; N40.1 Benign prostatic hyperplasia with lower urinary tract symptoms; R33.8 Other retention of urine; R32 Unspecified urinary incontinence; Z79.899 Other long term (current) drug therapy; Z79.2 Long term (current) use of antibiotics; Z86.14 Personal history of Methicillin resistant Staphylococcus aureus infection; Z80.1 Family history of malignant neoplasm of trachea, bronchus and lung; Z80.8 Family history of malignant neoplasm of other organs or systems; Z80.41 Family history of malignant neoplasm of ovary
CPT/HCPCS: 99285 ×2; 96374 ×2; 96361 ×8; 96376 ×6; 36415; 93005; 97162; 83880; 80053; 80048 ×2; 82803; 83605; 83690; 84484; 85025 ×3; 81001; 87086; 71045; 70450; G0378 ×8; J0696 ×7

== ENCOUNTER 2018-02-13 14:35 | Emergency (ER) | payer MEDICARE, BC ==
--- NOTE | 2018-02-13 15:07 | ED ---
General Adult HPI - General Stated complaint: fall Time Seen by Provider: 02/13/18 14:40 Source: patient, family, EMS, RN notes reviewed, old records reviewed - History of Present Illness Initial comments: Chief complaint and history of present illness a 77-year-old male here with dementia Alzheimer's. Patient was poorly sitting in a wheelchair when he leaned forward to picker / packer something off the floor he fell forward. He presents with a bruise to his left for it area. The patient does appear to be having sundowner's type situation. reports that normal in the afternoon he becomes tired and the Alzheimer's becomes worse. With her help though the patient was more cooperative. Patient will have a CAT scan of the brain and cervical spine. Report from the site of the injury was that the patient did not lose consciousness. Nose no apparent seizure activity. - Related Data Home Medications Medication Instructions Recorded Confirmed Donepezil [Aricept] 10 mg PO HS 08/13/17 02/13/18 Previous Rx's Medication Instructions Recorded Memantine [Namenda] 10 mg PO BID #60 tab 02/24/15 Allergies Allergy/AdvReac Type Severity Reaction Status Date / Time No Known Allergies Allergy Verified 02/13/18 14:50 Review of Systems ROS Statement: Those systems with pertinent positive or pertinent negative responses have been documented in the HPI. Review of systems; patient has dementiaAlzheimer's. Fell out of his wheelchair while trying to pick something up. No apparent loss of consciousness per health care providers at the facility. Upon arrival to emergency room the did show up she was able to have him answer simple questions. Moving extremities. Patient will have CAT scan of the rain and cervical spine. The patient for the most part does not answer any questions. History includes BPH, previous dementia Alzheimer's, surgeries bilateral rotator cuff repairs. Family history Dr. Garrido no known ALLERGIES. ROS Other: All systems not noted in ROS Statement are negative. Past Medical History Past Medical History: Asthma, Dementia, Memory Impairment, Prostate Disorder Additional Past Medical History / Comment(s): Dementia/ALZHEIMERS, chronic bronchitis, History of Any Multi-Drug Resistant Organisms: MRSA Date of last positivie culture/infection: 12/24/17 MDRO Source:: CATH SITE Past Surgical History: No Surgical Hx Reported Additional Past Surgical History / Comment(s): darrian rotator cuff. FAMILY STATES OVER 30 YEARS AGO PT HAD SOME TYPE OF PROSTATE PROCEDURE. UNCERTAIN WHAT. prostate scraping to permit drainage Past Anesthesia/Blood Transfusion Reactions: No Reported Reaction Additional Past Anesthesia/Blood Transfusion Reaction / Comment(s): difficulty coming out slow to wake up Past Psychological History: No Psychological Hx Reported Additional Psychological History / Comment(s): was discharged from [facility] to home with . [facility] care servieced received, pt uses w/c and assist d/t weakness. has hospital bed and idc. Smoking Status: Never smoker Past Alcohol Use History: None Reported Past Drug Use History: None Reported - Past Family History Father Family Medical History: Cancer Additional Family Medical History / Comment(s): lung ca Mother Family Medical History: Cancer Additional Family Medical History / Comment(s): ovarian cancer Son(s) Family Medical History: Cancer Additional Family Medical History / Comment(s): rhabdomyo sarcoma (SON). ADRENOCORTICOSARCONOMA (GRANDSON) General Exam - General Exam Comments Initial Comments: General: The patient is awake, has Alzheimer's, this prevents him from communicating a normal fashion. His is able to ask him questions and get answers to her satisfaction. He does have oozing to his left forehead area. was able to have him move his extremities except his left arm which she kept still. Eye: Pupils are equal, round and reactive to light, extra-ocular movements are intact ; there is normal conjunctiva bilaterally. No signs of icterus. Ears, nose, mouth and throat: There are moist mucous membranes Neck: Patient presents to the emergency room with a Mouthcard collar in place. Cardiovascular: There is a regular rate and rhythm. No murmur, rub or gallop is appreciated. Respiratory: Lungs are clear to auscultation, respirations are non-labored, breath sounds are equal. No wheezes, stridor, rales, or rhonchi. Gastrointestinal: Soft, non-distended, non-tender abdomen without masses or organomegaly noted. There is no rebound or guarding present. No CVA tenderness. Bowel sounds are unremarkable. Back: No apparent tenderness with gentle movement. Musculoskeletal: Normal ROM, no tenderness, There is no pedal edema. There is no calf tenderness or swelling. Patient did not lift his left arm and his was unable to make him do so. Neurological: Neurologically unable to examine the patient due to his severe dementia Alzheimer's. Not cooperative. Skin: Skin is warm and dry and no rashes or lesions are noted. 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 Sundowner syndrome. Course Vital Signs 02/13/18 14:44 Temperature 97.6 F Pulse Rate 76 Respiratory 18 Rate Blood Pressure 151/72 O2 Sat by Pulse 98 Oximetry Medical Decision Making - Medical Decision Making Medical decision making; this is a 77-year-old male with Alzheimer's. He reportedly fell out of his wheelchair today leaned forward to picker / packer something off the ground. Bruising left for it. It was that time no apparent loss of consciousness or seizures. CAT scan of the brain and cervical spine were done and reviewed by radiologist the entire report was reviewed. Final impression is there is no acute fracture dislocation evident in the cervical spine. No acute intracranial hemorrhage, mass effect, or midline shift seen. Diffuse age- related cerebral atrophy and chronic small vessel ischemic change noted. Ventricular prominence could alternatively relate to normal pressure hydrocephalus, degree dilatation appears similar to the prior of 01-14-2018. Extensive multilevel degenerative disc creating mild spinal canal stenosis at C3 -C4, C5-C6, C6-C7 in addition to variable degrees of neural foraminal narrowing. As read by Dr. wong The findings were relayed to the . She'll be taking him home. The patient at this time is denying any pain. Disposition Clinical Impression: Fall Disposition: HOME SELF-CARE Condition: Fair Instructions: Fall Prevention for Older Adults (ED) Additional Instructions: Change positions slowly. Do not lean over a near wheelchair. Take Tylenol for pain. Bacitracin on the bruise on her for it. Follow-up with family physician Is patient prescribed a controlled substance at d/c from ED?: No Referrals: Tyrone Ferrera MD [Primary Care Provider] - 1-2 days Time of Disposition: 16:13
--- NOTE | 2018-02-13 15:52 | CT ---
EXAMINATION TYPE: CT brain hailey ramos con DATE OF EXAM: 02/13/2018 COMPARISON: 01/14/2018 HISTORY: Left frontal injury today. Head and neck pain. CT DLP: 1623 mGycm. Automated Exposure Control for Dose Reduction was Utilized. TECHNIQUE: CT scan of the head and cervical spine are performed without contrast. FINDINGS: There is no acute intracranial hemorrhage or midline shift identified. There is diffuse v entricular and sulcal prominence consistent with diffuse age-related cerebral atrophy. No suspicious extra-axial fluid collection. There is low-attenuation in the periventricular white matter consisten t with chronic small vessel ischemic change. Scant mucosal thickening is noted within the ethmoid si nuses. The globes are intact and the remaining visualized sinuses are clear. Cervical spine is visualized in its entirety from C1 through upper thoracic levels and demonstrates s atisfactory alignment without evidence of acute fracture or dislocation. Prevertebral soft tissue ap pears within normal limits. The C1-C2 articulation is unremarkable. Extensive multilevel degenerati ve disc disease of the cervical spine is seen. There is mild retrolisthesis of C3 on C4 and mild ante rolisthesis of C4 and C5. This is likely on a degenerative basis. There is straightening of usual cer vical lordosis. There is osseous fusion of the right facets at C4-C5. Small disc osteophyte complexes are seen at C3-C4, C5-C6 and C6-C7 creating mild spinal canal stenosis. Multilevel uncovertebral hyp ertrophy creates variable degrees of neural foraminal narrowing. This could be further assessed with MRI if clinically indicated. Very mild centrilobular emphysematous changes are seen at the lung apice s with dependent subsegmental atelectasis. IMPRESSION: 1. There is no acute fracture or dislocation evident in the cervical spine. 2. No acute intracranial hemorrhage, mass effect, or midline shift is seen. Diffuse age-related cere bral atrophy and chronic small vessel ischemic change noted. Ventricular prominence could alternative ly relate to normal pressure hydrocephalus, degree dilatation appears similar to the prior of 01/15/20 18. 3. Extensive multilevel degenerative disc creating mild spinal canal stenosis at C3-C4, C5-C6 and C6- 7 in addition to variable degrees of neural foraminal narrowing.
[2018-02-13 17:05] VITALS: BP 123/57; PULSE 66; RESP 19; TEMP 97.8
== END 2018-02-13 17:01 | disposition home or self-care (01) ==
LOC: EC 14:35
DX: S00.83XA Contusion of other part of head, initial encounter (principal); G31.9 Degenerative disease of nervous system, unspecified; I67.82 Cerebral ischemia; M48.02 Spinal stenosis, cervical region; M99.71 Connective tissue and disc stenosis of intervertebral foramina of cervical region; M50.31 Other cervical disc degeneration, high cervical region; G30.9 Alzheimer's disease, unspecified; F02.80 Dementia in other diseases classified elsewhere, unspecified severity, without behavioral disturbance, psychotic disturbance, mood disturbance, and anxiety; F05 Delirium due to known physiological condition; Z79.899 Other long term (current) drug therapy; Z86.14 Personal history of Methicillin resistant Staphylococcus aureus infection; W05.0XXA Fall from non-moving wheelchair, initial encounter; Y93.89 Activity, other specified
CPT/HCPCS: 70450; 72125; 99284

== ENCOUNTER 2020-05-09 18:36 | Observation (INO) | payer MEDICARE, BC ==
[2020-05-09] MEDS ORDERED: LORazepam 2 MG/ML INJ IV STA (18:49)
--- NOTE | 2020-05-09 19:33 | CT ---
EXAMINATION TYPE: CT brain wo con DATE OF EXAM: 05/09/2020 COMPARISON: 02/13/2018 HISTORY: 79-year-old male Seizure TECHNIQUE: Examination was done in axial plane without intravenous contrast. Coronal and sagittal r econstructions performed. CT DLP: 2554.4 mGycm Automated exposure control for dose reduction was used. FINDINGS: The head was scanned twice but there is persistent motion degradation. There is moderate hydrocephalus which appears increased from 02/13/2018. Very limited, motion degraded exam. No obvious acute intracranial hemorrhage, midline shift, or herniation. No effacement of basal subara chnoid cisterns. Not evident extra-axial fluid collection. Leftward nasal septal deviation. Seems to be some fluid trapped within the inferior mastoid air cells on both sides. IMPRESSION: 1. The exam is motion degraded despite being scanned twice. 2. Moderate hydrocephalus which appears slightly increased from 2018. Consider the possibility of nor mal pressure hydrocephalus. 3. No definite acute intracranial hemorrhage or midline shift. No obvious extra-axial fluid collectio n.
--- NOTE | 2020-05-09 19:34 | XR ---
EXAMINATION TYPE: XR chest 2V DATE OF EXAM: 05/09/2020 COMPARISON: 01/14/2018 HISTORY: 79-year-old male confusion, pain TECHNIQUE: AP and lateral views FINDINGS: Heart borderline enlarged. Diffuse interstitial prominence is unchanged from 2018. No obvious consoli dation or pleural effusion. Limitation due to patient body habitus and portable technique. IMPRESSION: Borderline heart size and chronic appearing interstitial changes. No definite acute process.
[2020-05-09 19:53] LABS: Basophils % (A) 0 %; Eosinophils # (A) 0.2 k/uL (0-0.7); Eosinophils % (A) 2 %; HCT 44.9 % (39.0-53.0); HGB 15.1 gm/dL (13.0-17.5); Lymphocytes # (A) 1.4 k/uL (1.0-4.8); Lymphocytes % (A) 15 %; MCH 31.7 pg (25.0-35.0); MCHC 33.7 g/dL (31.0-37.0); MCV 94.3 fL (80.0-100.0); Mean Platelet Volume 7.3; Monocytes # (A) 0.5 k/uL (0-1.0); Monocytes % (A) 5 %; Neutrophils # (A) 6.8 k/uL (1.3-7.7); Neutrophils % (A) 76 %; Platelet Count 283 k/uL (150-450); RBC 4.77 m/uL (4.30-5.90); RDW 13.2 % (11.5-15.5); WBC 8.9 k/uL (3.8-10.6)
[2020-05-09 19:57] LABS: Albumin 3.9 g/dL (3.5-5.0); Calcium 9.4 mg/dL (8.4-10.2); Potassium 4.6 mmol/L (3.5-5.1); Total Bilirubin 0.4 mg/dL (0.2-1.3); Total Protein 7.1 g/dL (6.3-8.2)
[2020-05-09 20:04] LABS: Partial Thromboplastin Time 25.9 sec (22.0-30.0); Prothrombin Time 10.2 sec (9.0-12.0)
--- NOTE | 2020-05-09 20:43 | ED ---
Seizure HPI - General Chief Complaint: Seizure Stated Complaint: Seizure Time Seen by Provider: 05/09/20 18:40 Source: patient, EMS Mode of arrival: EMS Limitations: altered mental status - History of Present Illness Initial Comments: Patient is an 79-year-old male with past medical history of Alzheimer's disease who presents emergency room and after he had a new onset seizure. Son is at bedside and helps provide history. He states around 5:45 PM the patient had a tonic-clonic seizure. Cleansed his arms and fists. He did having a right lateral gaze. Resolved after 7.5 minutes and he was post ictal at 6:02 PM. EMS was called and patient transported to the hospital. No history of recent strokes or seizures. No reported blunt head trauma. Patient has been acting his normal baseline. He is nonverbal. There recent fevers or chills. No n ausea or vomiting. No other alleviating, precipitating or modifying factors - Related Data Home Medications Medication Instructions Recorded Confirmed Aspirin [Adult Low Dose Aspirin EC] 81 mg PO DAILY 05/09/20 05/09/20 Previous Rx's Medication Instructions Recorded Amoxicillin 250 mg PO Q8H 10 Days #150 ml 05/11/20 Allergies Allergy/AdvReac Type Severity Reaction Status Date / Time No Known Allergies Allergy Verified 05/09/20 22:48 Review of Systems ROS Statement: Those systems with pertinent positive or pertinent negative responses have been documented in the HPI. ROS Other: All systems not noted in ROS Statement are negative. Past Medical History Past Medical History: Asthma, Dementia, Memory Impairment, Prostate Disorder Additional Past Medical History / Comment(s): Dementia/ALZHEIMERS, chronic bronchitis, History of Any Multi-Drug Resistant Organisms: MRSA Date of last positivie culture/infection: 12/24/17 MDRO Source:: CATH SITE Past Surgical History: No Surgical Hx Reported Additional Past Surgical History / Comment(s): darrian rotator cuff. FAMILY STATES OVER 30 YEARS AGO PT HAD SOME TYPE OF PROSTATE PROCEDURE. UNCERTAIN WHAT. prostate scraping to permit drainage Past Anesthesia/Blood Transfusion Reactions: No Reported Reaction Additional Past Anesthesia/Blood Transfusion Reaction / Comment(s): difficulty coming out slow to wake up Past Psychological History: No Psychological Hx Reported Past Alcohol Use History: None Reported Past Drug Use History: None Reported - Past Family History Father Family Medical History: Cancer Additional Family Medical History / Comment(s): lung ca Mother Family Medical History: Cancer Additional Family Medical History / Comment(s): ovarian cancer Son(s) Family Medical History: Cancer Additional Family Medical History / Comment(s): rhabdomyo sarcoma (SON). ADRENOCORTICOSARCONOMA (GRANDSON) General Exam Limitations: altered mental status General appearance: alert, in no apparent distress Head exam: Present: atraumatic, normocephalic, normal inspection Eye exam: Present: normal appearance, PERRL, EOMI. Absent: scleral icterus, con junctival injection, periorbital swelling ENT exam: Present: normal exam, mucous membranes moist Neck exam: Present: normal inspection. Absent: tenderness, meningismus, lymphadenopathy Respiratory exam: Present: normal lung sounds bilaterally. Absent: respiratory distress, wheezes, rales, rhonchi, stridor Cardiovascular Exam: Present: regular rate, normal rhythm, normal heart sounds. Absent: systolic murmur, diastolic murmur, rubs, gallop, clicks GI/Abdominal exam: Present: soft, normal bowel sounds. Absent: distended, tenderness, guarding, rebound, rigid Neurological exam: Present: alert, other (confused, nonverbal, does not follow commands - which are patients baseline. ) Skin exam: Present: warm, dry, intact, normal color. Absent: rash Course Vital Signs 05/09/20 18:40 Temperature 97.5 F L Pulse Rate 78 Respiratory 16 Rate Blood Pressure 129/87 O2 Sat by Pulse 95 Oximetry Medical Decision Making - Medical Decision Making The patient was placed into room 10. No further seizure-like activities with this. He is placed on continuous pulse ox and cardiac monitoring. 12-lead EKG was performed. patient was immediately sent for CT of his brain which demonstrates enlarged ventricles with concern for possible normal pressure hydrocephalus. Laboratory studies were conducted. Patient does provide a urine sample which is grossly positive for infection. Patient is given a dose of Ro cephin. I discussed the treatment plans with the patient's son. We did call discuss the case with Dr. Ferrera who recommended admission. The patient placed on Depakote 250 mg twice a day per Dr. Godoy request. Patient was given 1 mg of Ativan upon hospital arrival. The patient's son agree to this and the patient was transported in stable condition - Lab Data Result diagrams: 05/10/20 08:24 05/10/20 08:24 Lab Results 05/09/20 05/09/20 05/09/20 Range/Units 19:38 19:38 19:38 WBC 8.9 (3.8-10.6) k/uL RBC 4.77 (4.30-5.90) m/uL Hgb 15.1 (13.0-17.5) gm/dL Hct 44.9 (39.0-53.0) % MCV 94.3 (80.0-100.0) fL MCH 31.7 (25.0-35.0) pg MCHC 33.7 (31.0-37.0) g/dL RDW 13.2 (11.5-15.5) % Plt Count 283 (150-450) k/uL Neutrophils % 76 % Lymphocytes % 15 % Monocytes % 5 % Eosinophils % 2 % Basophils % 0 % Neutrophils # 6.8 (1.3-7.7) k/uL Lymphocytes # 1.4 (1.0-4.8) k/uL Monocytes # 0.5 (0-1.0) k/uL Eosinophils # 0.2 (0-0.7) k/uL Basophils # 0.0 (0-0.2) k/uL PT 10.2 (9.0-12.0) sec INR 1.0 (<1.2) APTT 25.9 (22.0-30.0) sec Sodium 137 (137-145) mmol/L Potassium 4.6 (3.5-5.1) mmol/L Chloride 105 (98-107) mmol/L Carbon Dioxide 22 (22-30) mmol/L Anion Gap 10 mmol/L BUN 21 H (9-20) mg/dL Creatinine 1.27 H (0.66-1.25) mg/dL Est GFR (CKD-EPI)AfAm 61 (>60 ml/min/1.73 sqM) Est GFR (CKD-EPI)NonAf 53 (>60 ml/min/1.73 sqM) Glucose 106 H (74-99) mg/dL Calcium 9.4 (8.4-10.2) mg/dL Total Bilirubin 0.4 (0.2-1.3) mg/dL AST 25 (17-59) U/L ALT 26 (4-49) U/L Alkaline Phosphatase 129 H (38-126) U/L Troponin I (0.000-0.034) ng/mL Total Protein 7.1 (6.3-8.2) g/dL Albumin 3.9 (3.5-5.0) g/dL Urine Color Urine Appearance (Clear) Urine pH (5.0-8.0) Ur Specific [place] (1.001-1.035) Urine Protein (Negative) Urine Glucose (UA) (Negative) Urine Ketones (Negative) Urine Blood (Negative) Urine Nitrite (Negative) Urine Bilirubin (Negative) Urine Urobilinogen (<2.0) mg/dL Ur Leukocyte Esterase (Negative) Urine RBC (0-5) /hpf Urine WBC (0-5) /hpf Urine WBC Clumps (None) /hpf Urine Bacteria (None) /hpf 05/09/20 05/09/20 Range/Units 19:38 20:51 WBC (3.8-10.6) k/uL RBC (4.30-5.90) m/uL Hgb (13.0-17.5) gm/dL Hct (39.0-53.0) % MCV (80.0-100.0) fL MCH (25.0-35.0) pg MCHC (31.0-37.0) g/dL RDW (11.5-15.5) % Plt Count (150-450) k/uL Neutrophils % % Lymphocytes % % Monocytes % % Eosinophils % % Basophils % % Neutrophils # (1.3-7.7) k/uL Lymphocytes # (1.0-4.8) k/uL Monocytes # (0-1.0) k/uL Eosinophils # (0-0.7) k/uL Basophils # (0-0.2) k/uL PT (9.0-12.0) sec INR (<1.2) APTT (22.0-30.0) sec Sodium (137-145) mmol/L Potassium (3.5-5.1) mmol/L Chloride (98-107) mmol/L Carbon Dioxide (22-30) mmol/L Anion Gap mmol/L BUN (9-20) mg/dL Creatinine (0.66-1.25) mg/dL Est GFR (CKD-EPI)AfAm (>60 ml/min/1.73 sqM) Est GFR (CKD-EPI)NonAf (>60 ml/min/1.73 sqM) Glucose (74-99) mg/dL Calcium (8.4-10.2) mg/dL Total Bilirubin (0.2-1.3) mg/dL AST (17-59) U/L ALT (4-49) U/L Alkaline Phosphatase (38-126) U/L Troponin I <0.012 (0.000-0.034) ng/mL Total Protein (6.3-8.2) g/dL Albumin (3.5-5.0) g/dL Urine Color Light Yellow Urine Appearance Cloudy (Clear) Urine pH 6.5 (5.0-8.0) Ur Specific [place] 1.012 (1.001-1.035) Urine Protein 1+ H (Negative) Urine Glucose (UA) Negative (Negative) Urine Ketones Negative (Negative) Urine Blood Small H (Negative) Urine Nitrite Negative (Negative) Urine Bilirubin Negative (Negative) Urine Urobilinogen <2.0 (<2.0) mg/dL Ur Leukocyte Esterase Large H (Negative) Urine RBC 9 H (0-5) /hpf Urine WBC >182 H (0-5) /hpf Urine WBC Clumps Occasional H (None) /hpf Urine Bacteria Rare H (None) /hpf - EKG Data EKG Comments: EKG demonstrates a sinus rhythm with a ventricular rate of 75. NC 182. QRS 96 per QTC of 457. Incomplete right bundle-branch block. Mild ST depression in 2. No acute ST segment elevations. Mild baseline artifact Disposition Clinical Impression: New onset seizure, UTI (urinary tract infection), Dementia Disposition: ADMITTED IP TO THIS HOSP Condition: Stable Is patient prescribed a controlled substance at d/c from ED?: No Decision to Admit Reason: Admit from EC Decision Date: 05/09/20 Decision Time: 21:50
[2020-05-09 21:07] LABS: Appearance,Urine Cloudy (Clear); Bacteria,Urine Rare /hpf; Bilirubin,Urine Negative (Negative); Blood,Urine Small (Negative); Color,Urine Light Yellow; Glucose,Urine (UA) Negative (Negative); Ketones,Urine Negative (Negative); Leukocyte Esterase,Urine Large (Negative); Nitrite,Urine Negative (Negative); PH, Urine 6.5 (5.0-8.0); Protein,Urine 1+ (Negative); RBC,Urine 9 /hpf (0-5); Specific Gravity,Urine 1.012 (1.001-1.035); Urobilinogen,Urine <2.0 mg/dL (<2.0); WBC,Urine >182 /hpf (0-5)
[2020-05-09] MEDS ORDERED: cefTRIAXone IN SWFI 1,000 MG/10 ML SYRINGE IVP STA (21:49)
[2020-05-09] MEDS ORDERED: NALOXONE 0.4 MG/ML 1 ML VIAL IV PRN (21:50)
[2020-05-09] MEDS ORDERED: LORazepam 2 MG/ML INJ IV PRN (21:56)
[2020-05-09] MEDS: SODIUM CHLORIDE 0.9% 1,000 ML IV SCH (22:17)
[2020-05-10] MEDS: DIVALPROEX SPRINKLE 125 MG CAP.SPRINK PO SCH ×2 (00:07→10:24)
[2020-05-10] MEDS ORDERED: VALPROATE SODIUM 250 MG in SODIUM CHLORIDE 0.9% 100 ML IVPB SCH (09:30)
[2020-05-10 09:31] LABS: Basophils % (A) 0 %; Eosinophils # (A) 0.1 k/uL (0-0.7); Eosinophils % (A) 2 %; HCT 40.9 % (39.0-53.0); HGB 13.3 gm/dL (13.0-17.5); Lymphocytes # (A) 1.6 k/uL (1.0-4.8); Lymphocytes % (A) 24 %; MCH 30.3 pg (25.0-35.0); MCHC 32.5 g/dL (31.0-37.0); MCV 93.3 fL (80.0-100.0); Mean Platelet Volume 7.3; Monocytes # (A) 0.5 k/uL (0-1.0); Monocytes % (A) 8 %; Neutrophils # (A) 4.4 k/uL (1.3-7.7); Neutrophils % (A) 65 %; Platelet Count 300 k/uL (150-450); RBC 4.38 m/uL (4.30-5.90); RDW 13.1 % (11.5-15.5); WBC 6.9 k/uL (3.8-10.6)
[2020-05-10 09:35] LABS: Calcium 8.8 mg/dL (8.4-10.2)
[2020-05-10 10:17] LABS: Potassium 4.5 mmol/L (3.5-5.1)
--- NOTE | 2020-05-10 11:11 | P.CNNES ---
History of Present Illness Consult date: 05/10/20 Requesting physician: Liane Brooks Reason for Consult: new onset seizure History of Present Illness: Jimena 79-year-old gentleman with medical history of Alzheimer's dementia, UTI that presented to the emergency department on 05/09/2020 for new onset seizure. Per medical records and per . The patient was doing well yesterday up until 545 where the the family heard a noise. The son who is a physician in the ED s he stated that the he recognizes that the patient was having a seizure. The patient had tonic-clonic seizure. Patient had the gaze that fixation to the right. The episode lasted 7-1/2 minutes and that the patient was postictal confusion. There is no history of strokes or seizures in the past. There is no reported blunt head trauma. In the ED the patient was given 1 mg of Ativan around 1850 I also spoke with the patient's son Dr. Vaughn who is an ED physician, he stated that they heard a loud scream. He stated that the patient was sitting on a chair and the patient had generalized tonic-clonic seizure on mostly in the upper extremities. He also had the right the gaze deviation. The episode lasted for about 7-1/2 minutes. EMS was called as a result. Per the son the patient was back at baseline and in the ED. Initial vital signs is blood pressure of 129/87, heart rate of 78, respiration is 16, temperature of 97.5 Fahrenheit axillary and the pulse ox of 95 at room air. Workup in the ED consisted of CT of the head which was reported as exam is motion degraded despite being scanned twice at. There is moderate hydrocephalus which appears slightly increased from 2018 consider the possibility of normal pressure hydrocephalus. No definite acute intracranial hemorrhage or midline shift. No obvious extra axial fluid collection. I did review the CT of the head and I agree there is a lot of motion artifact throughout the study. The ventricles seem enlarged lateral third and fourth. EKG was reported as sinus rhythm with fusion complexes and premature atrial complexes with aberrant conduction. Left axis deviation. Incomplete right bundle branch block. Ventricular rate of 75. A shunt had a UA and the it appeared cloudy, the nitrate was negative leukocyte esterase was large, white blood cell was more than 182 and the urine bacteria is rare. Which seems consistent of urinary tract infection. Spoke with the patient's (Farhana) via phone: She stated his Dementia started in 2007. Initially having difficulty getting back home. His demenita was progresssively worsening with years but in the last 3 years had hospitalization for UTI and prostate issues and his memory was worsening the most. He has human services care specialist taken care of him. He has no been walking for the last 3 years but according to he has no focality at baseline. His baseline he's able to say 1 word at most but for the most part the is nonverbal. He is not oriented to self place. Patient was initially on the dementia medication during his onset of dementia but there were told that the medication wasn't helping so was stopped. He's currently not on any dementia medication. Review of Systems Review of system is limited that because of the patient condition but pertinent positive and negative as per HPI Past Medical History Past Medical History: Asthma, Dementia, Memory Impairment, Prostate Disorder Additional Past Medical History / Comment(s): Dementia/ALZHEIMERS, chronic bronchitis, History of Any Multi-Drug Resistant Organisms: MRSA Date of last positivie culture/infection: 12/24/17 MDRO Source:: CATH SITE Past Surgical History: No Surgical Hx Reported Additional Past Surgical History / Comment(s): darrian rotator cuff. FAMILY STATES OVER 30 YEARS AGO PT HAD SOME TYPE OF PROSTATE PROCEDURE. UNCERTAIN WHAT. prostate scraping to permit drainage Past Anesthesia/Blood Transfusion Reactions: No Reported Reaction Additional Past Anesthesia/Blood Transfusion Reaction / Comment(s): difficulty coming out slow to wake up Past Psychological History: No Psychological Hx Reported Past Alcohol Use History: None Reported Past Drug Use History: None Reported - Past Family History Father Family Medical History: Cancer Additional Family Medical History / Comment(s): lung ca Mother Family Medical History: Cancer Additional Family Medical History / Comment(s): ovarian cancer Son(s) Family Medical History: Cancer Additional Family Medical History / Comment(s): rhabdomyo sarcoma (SON). ADRENOCORTICOSARCONOMA (GRANDSON) Medications and Allergies Home Medications Medication Instructions Recorded Confirmed Type Aspirin [Adult Low Dose Aspirin EC] 81 mg PO DAILY 05/09/20 05/09/20 History Allergies Allergy/AdvReac Type Severity Reaction Status Date / Time No Known Allergies Allergy Verified 05/09/20 22:48 Physical Examination - Vital Signs Vital Signs: Vital Signs Temp Pulse Pulse Resp BP BP Pulse Ox 05/10/20 07:00 98.4 F 79 18 113/67 98 05/10/20 00:00 90 05/09/20 23:48 96.6 F L 90 16 127/83 98 05/09/20 18:40 97.5 F L 78 16 129/87 95 Intake and Output 05/09/20 05/10/20 05/10/20 22:59 06:59 14:59 Intake Total 160 Balance 160 Intake: Intake, IV Titration 160 Amount Sodium Chloride 0.9% 1, 160 000 ml @ 20 mls/hr IV . Q24H [facility] Rx#:[id number] Other: Voiding Method Diaper Incontinent Weight 84.007 kg GENERAL: The patient is lying in bed and is not in acute distress. HENT: Normocpehalic, atraumatic. Supple neck. Negative Brudzinksi sign. CHEST: The heart rate is regular rate rhythm. No murmurs to auscultation. No carotid bruit bilaterally. LUNG: Clear to auscultation bilaterally no wheezing noted throughout. Not labored breathing. ABDOMEN/GI: Bowel sounds present in all 4 quadrants. No tenderness to palpation throughout. NEUROLOGICAL: Limited because of patient's condition. Higher mental function: The patient is awake, alert. Is non-verbal (baseline). No following commands. Cranial nerves: The pupils are round, equal (3mm bilaterally) and reactive to light. Visual clemens are full to threat throughout. Extraocular movement is able to tract throughout room and no nystagmus appreciated. Facial sensation: unable to assess. The facial strength unable to assess. T Motor: Gait is defered because of patient cooperation. The strength is patient has good hand custodial laborer 5/5 bilaterally. Able to lift bilateral upper extremity and no focallity seen. While lower extremities was drawing to pain bilaterally and no focality seen. Normal tone and bulk. Cerebellum: Unable to assess. Sensation: Seems to be intact to painful stimuli. Reflexes (right/left): 2+ throughout except at ankles 1+. Plantars are downgoing bilaterally. Results PT of 10.2, INR 1.0, PTT of 25.9. AST of 25 ALTs of 26. BU and on initial presentation 21 over 1.27 follow-up is 21 over 1.35. Last vitamin B12 was on 2014 and was 484, folate was 11.1 also 2015. As well as the TSH during that time was normal. - Laboratory Findings CBC and BMP: 05/10/20 08:24 05/10/20 08:24 Abnormal Lab Findings: Abnormal Labs 05/09/20 05/09/20 05/10/20 19:38 20:51 08:24 Chloride 108 H BUN 21 H 21 H Creatinine 1.27 H 1.35 H Glucose 106 H 100 H Alkaline Phosphatase 129 H Urine Protein 1+ H Urine Blood Small H Ur Leukocyte Esterase Large H Urine RBC 9 H Urine WBC >182 H Urine WBC Clumps Occasional H Urine Bacteria Rare H Assessment and Plan Assessment: New onset seizure (seems to be provoked secondary due to urinary tract infection) Alzheimer's dementia Possibly Normal Pressure Hydrocephalus Urinary tract infection ROCHELLE Plan: Regarding the patient then new onset seizure ordered the a routine EEG and that is pending. The patient seem back to baseline. It Seems that the patient was started on valproic acid 250 mg every 12 hours as an inpatient by primary team. I spoke with the patient's son and he is in agreement we'll stop the Depakote since that this is a new onset seizure and likely provoked by urinary tract infection. If patient has further seizure down the line then will start the patient on seizure medication Routine EEG (05/10/20): This is an abnormal study suggestive of severe encephalopathy of unspecified etiology. There is no focal slowing, interictal seizure activity seen during the study. The study was limited because of significant myogenic artifact. From the imaging (CT Head) it seems that the patient has a component of normal pressure hydrocephalus but the current images is obscured because of artifact. 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 Consider possible further workup of normal pressure hydrocephalus as an outpatient if the family desires. I notified the patient's son and that the patient is to follow up with a neurologist as outpatient for further workup. Regarding that the patient urinary tract infection and acute kidney injury will defer the management to the primary team. Upon discharge the patient is to follow-up with neurologist as outpatient. Plan was discussed with the patient's as well as the son. Thank you for the consult. Eugene Garner M.D. Neuro-hospitalist Time with Patient: Greater than 30
--- NOTE | 2020-05-10 15:25 | EEG ---
ELECTROENCEPHALOGRAM REPORT DATE OF SERVICE: 05/10/2020 CLINICAL HISTORY: This is an 79-year-old gentleman with reported history of Alzheimer's dementia and urinary tract infection, nonverbal at baseline, who presented to the emergency department on 05/09/2020 for witnessed episode of new onset generalized tonic- clonic seizure by family members. This video EEG was obtained to evaluate for seizure and epileptiform activity. Relevant medication, patient is Depakote. EEG type is a 21 channel routine EEG recording utilizing the 10-20 international system with referential and bipolar montage was done. DESCRIPTION: Wakefulness is only obtained. During wakefulness, there is no posterior dominant rhythm seen on the bilateral hemisphere. There is a diffuse nonrhythmic, low-to- moderate voltage of 1.5-2.5 hertz delta activity over the bilateral hemisphere. There is no stage 2 sleep architecture seen bilaterally. Also, there is significant myogenic artifacts seen on bilateral hemisphere the right more than the left. The interictal and ictal is none. ACTIVATION PROCEDURE: Photic stimulation did not evoke a posterior driving response. Hyperventilation was not performed because of the patient clinical history. CLINICAL INTERPRETATION: This is an abnormal study suggestive of severe encephalopathy of unspecified etiology. There is no focal slowing. There is no interictal or seizure activity seen during the study. The study was limited because of significant myogenic artifact. Clinical correlation is recommended. NEELL / SHARANN: [id number] / MTDD
--- NOTE | 2020-05-10 16:25 | HP ---
HISTORY AND PHYSICAL CHIEF COMPLAINT: Seizure. HISTORY OF PRESENT ILLNESS: This is another admission for this 79-year-old white male with dementia. Apparently, he had a seizure at home and was brought to the hospital. This is the first seizure he has had. He has profound dementia. He is currently not on any medication. REVIEW OF SYSTEMS: Not obtainable. Past medical history, family history and personal and social histories are unobtainable and otherwise noted to be unremarkable. He has been maintained at home very well by his family. Past medical history, family history personal and social histories are all otherwise unremarkable and noncontributory. He does not smoke or drink. PHYSICAL EXAMINATION: Blood pressure is 141/80 with a pulse of 88, respirations of 34, and he is afebrile. In general, he appeared to be well nourished and well hydrated. Head, ears, eyes, nose, mouth, and throat were normal. Neck veins are not distended. The chest is clear to auscultation. Cardiac exam demonstrates sinus rhythm. No murmurs. Abdomen is soft and there are no masses. Extremities are normal and neurologically he is profoundly demented. 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 2. Dementia. 3. Urinary tract infection. PLAN: 1. Bed rest. 2. IV fluids. 3. Neurology consult. 4. EEG. 5. CT of the brain. 6. Treat urinary tract infection. 7. Started on anticonvulsant. 8. PT and OT. MMODL / IJN: [id number] /
--- NOTE | 2020-05-10 16:25 | PN ---
PROGRESS NOTE DATE OF SERVICE: 05/10/2020 CHIEF COMPLAINT: Seizure. HISTORY OF PRESENT ILLNESS: This gentleman has been stable overnight with no seizure activity. Review of systems is not obtainable. PHYSICAL EXAM: His vital signs are normal and he is afebrile. Head, ears, eyes, nose, mouth, and throat are normal. Chest is clear. Cardiac exam is normal, sinus rhythm. The abdomen is soft, nontender without any masses. Extremities are normal. IMPRESSION: 1. Seizure disorder. 2. Dementia. 3. Urinary tract infection. PLAN: Continue with current program and PT and OT have been ordered. He is being seen by Neurology. He has been started on Depakote. MMODL / IJN: [id number] /
[2020-05-10] MEDS: SODIUM CHLORIDE 0.9% 1,000 ML IV SCH (22:35)
[2020-05-11 13:36] VITALS: BP 127/65; PULSE 68; RESP 17; TEMP 98.5
--- NOTE | 2020-05-11 14:17 | P.PN ---
Subjective Progress Note Date: 05/11/20 The patient was seen at bedside and the there is no jerking or seizure-like activity per the nurse. He is nonverbal at baseline. Objective - Vital Signs Vital signs: Vital Signs Temp 98.5 F 05/11/20 13:36 Pulse 68 05/11/20 13:36 Resp 17 05/11/20 13:36 BP 127/65 05/11/20 13:36 Pulse Ox 97 05/11/20 13:36 Intake & Output 05/10/20 05/11/20 05/11/20 18:59 06:59 18:59 Intake Total 236 220 Balance 236 220 Intake: Intake, IV Titration 220 Amount Sodium Chloride 0.9% 1, 220 000 ml @ 20 mls/hr IV . [facility] Rx#:[id number] Oral 236 Other: Voiding Method Diaper Diaper Diaper Incontinent Incontinent # Voids 1 3 # Bowel Movements 1 3 1 - Exam GENERAL: The patient is lying in bed and is not in acute distress. HENT: Normocpehalic, atraumatic. Supple neck. CHEST: The heart rate is regular rate rhythm. No murmurs to auscultation. LUNG: Clear to auscultation bilaterally no wheezing noted throughout. Not labored breathing. ABDOMEN/GI: Bowel sounds present in all 4 quadrants. No tenderness to palpation throughout. NEUROLOGICAL: Limited because of patient's condition. Higher mental function: The patient is awake, alert. Is non-verbal (baseline). No following commands. Cranial nerves: The pupils are round, equal (3mm bilaterally) and reactive to light. Visual clemens are full to threat throughout. Extraocular movement is able to tract throughout room and no nystagmus appreciated. Facial sensation: unable to assess. The facial strength unable to assess. Motor: Gait is defered because of patient cooperation. 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 Able to lift bilateral upper extremity and no focallity seen. While lower extremities was drawing to pain bilaterally and no focality seen. Normal tone and bulk. Cerebellum: Unable to assess. Sensation: Seems to be intact to painful stimuli. Reflexes (right/left): 2+ throughout except at ankles 1+. Plantars are downgoing bilaterally. - Labs CBC & Chem 7: 05/10/20 08:24 05/10/20 08:24 Labs: Microbiology - Last 24 Hours (Table) 05/09/20 22:37 Blood Culture - Preliminary Blood No Growth after 24 hours Assessment and Plan Assessment: New onset seizure (seems to be provoked secondary due to urinary tract infection) Dementia (component of Normal Pressure Hydrocephalus and Possibly Alzheimer's) Possibly Normal Pressure Hydrocephalus Urinary tract infection ROCHELLE Plan: Routine EEG (05/10/20): This is an abnormal study suggestive of severe encephalopathy of unspecified etiology. There is no focal slowing, interictal seizure activity seen during the study. The study was limited because of significant myogenic artifact. The patient seem back to baseline. It Seems that the patient was started on valproic acid 250 mg every 12 hours as an inpatient by primary team. I spoke with the patient's son and he is in agreement we'll stop the Depakote since that this is a new onset seizure and likely provoked by urinary tract infection. If patient has further seizure down the line then will start the patient on seizure medication From the imaging (CT Head) it seems that the patient has a component of normal pressure hydrocephalus but the current images is obscured because of artifact. 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 The son did state that patient has confusion, urinary incontinence and gait disturbance. I notified the patient's son and that the patient is to follow up with a neurologist as outpatient for further workup. Regarding that the patient urinary tract infection and acute kidney injury will defer the management to the primary team. Upon discharge the patient is to follow-up with neurologist as outpatient. The plan was discussed with the patient's son. Eugene Garner M.D. Neuro-hospitalist Time with Patient: Greater than 30
[2020-05-11] MEDS ORDERED: AMOXICILLIN 250 MG CAP PO SCH ×2 (16:00)
[2020-05-12] MEDS ORDERED: LEVOFLOXACIN 250 MG TAB PO SCH (09:00)
--- NOTE | 2020-05-12 17:46 | DS ---
DISCHARGE SUMMARY CHIEF COMPLAINT: Grand mal seizure. HISTORY OF PRESENT ILLNESS AND PHYSICAL EXAMINATION: Details of this man's history and physical can be found in the initial workup. LABORATORY STUDIES: While he was in the hospital he had laboratory studies, details of which can be found in the laboratory section of his chart. COURSE IN THE HOSPITAL: After admission he was placed on bedrest and started on intravenous fluids and IV Depakote. He had no further abnormalities. He was seen by Neurology, who felt that it was reasonable to not treat him with an anticonvulsant at this time. He was found to have urinary tract infection and this will be treated. He was doing well. It was felt that he could return home on May 11, and he will be discharged on amoxicillin 250 mg per 5 mL 1 teaspoon 3 times a day for 10 days. He will be followed up with home care. FINAL DIAGNOSES: 1. Grand mal seizure. 2. Profound dementia. 3. Urinary tract infection. OPERATIONS: None. CONSULTATION: Neurology. He is improved. MMODL / IJN: [id number] /
== END 2020-05-11 16:12 | disposition home health service (06) ==
LOC: EC 18:36 → 4SSUR 21:58
PROVIDERS: ADMIT Family Medicine; ATTEND Family Medicine
DX: G40.409 Other generalized epilepsy and epileptic syndromes, not intractable, without status epilepticus (principal); F02.80 Dementia in other diseases classified elsewhere, unspecified severity, without behavioral disturbance, psychotic disturbance, mood disturbance, and anxiety; G30.9 Alzheimer's disease, unspecified; I45.10 Unspecified right bundle-branch block; I49.1 Atrial premature depolarization; J42 Unspecified chronic bronchitis; J45.909 Unspecified asthma, uncomplicated; N17.9 Acute kidney failure, unspecified; N39.0 Urinary tract infection, site not specified; Z79.82 Long term (current) use of aspirin; Z79.899 Other long term (current) drug therapy; Z80.1 Family history of malignant neoplasm of trachea, bronchus and lung
CPT/HCPCS: 96365; 96375; 99285; 36415; 95816; 93005; 92610; 80053; 80048; 83735; 84484; 85025 ×2; 85610; 85730; 81001; 87040; 71046; 70450; G0378 ×3; J2060; J0696

== ENCOUNTER 2020-09-30 09:08 | Inpatient (IN) | payer MEDICARE, BC ==
[2020-09-30 09:58] LABS: Basophils % (A) 0 %; Eosinophils # (A) 0.2 k/uL (0-0.7); Eosinophils % (A) 3 %; HCT 40.1 % (39.0-53.0); HGB 13.7 gm/dL (13.0-17.5); Lymphocytes # (A) 1.7 k/uL (1.0-4.8); Lymphocytes % (A) 28 %; MCH 31.6 pg (25.0-35.0); MCHC 34.1 g/dL (31.0-37.0); MCV 92.9 fL (80.0-100.0); Mean Platelet Volume 7.7; Monocytes # (A) 0.3 k/uL (0-1.0); Monocytes % (A) 5 %; Neutrophils # (A) 3.9 k/uL (1.3-7.7); Neutrophils % (A) 62 %; Platelet Count 277 k/uL (150-450); RBC 4.32 m/uL (4.30-5.90); RDW 13.7 % (11.5-15.5); WBC 6.2 k/uL (3.8-10.6)
--- NOTE | 2020-09-30 10:03 | ED ---
General Adult HPI - General Chief complaint: Seizure Stated complaint: seizure Time Seen by Provider: 09/30/20 09:21 Source: EMS Mode of arrival: EMS Limitations: altered mental status - History of Present Illness Initial comments: Dictation was produced using [employer] dictation software. please excuse any grammatical, word or spelling errors. This patient was cared for during a federal and state declared state of emergency secondary to Covid 19 Chief Complaint: 80-year-old male with progressive Alzheimer's dementia presents after a seizure. History of Present Illness: His 80-year-old male he was brought in by EMS. Patient was at home getting ready. He is a fairly high functioning dementia patient according to at bedside. Today he was getting ready to go to one of his programs when all of a sudden he began having convulsive-like movements that lasted for less than a minute. It is similar episode back in May of last year where he was admitted to the hospital and evaluated by neurology. At the time he had an EKG showing severe encephalopathy. He was value by neurology and it was decided that patient not be started on anticonvulsants at this time. Using fine since then went today he had another episode. EMS reports that patient is currently postictal. reports that at baseline he doesn't ambulate however gets around in a wheelchair. He is usually interactive and. Alert and oriented. Last year when he had a similar episode that was thought that he had a urinary tract infection that triggered seizure. Son is allegedly in emergency medicine doctor. He has been doing intermittent prescriptions for amoxicillin. The ROS documented in this emergency department record has been reviewed and confirmed by me. Those systems with pertinent positive or negative responses have been documented in the HPI. All other systems are other negative and/or noncontributory. PHYSICAL EXAM: General Impression: Not in acute distress, uncooperative, resist eyelid opening HEENT: Normocephalic atraumatic, extra-ocular movements intact, pupils equal and reactive to light bilaterally, mucous membranes moist. Cardiovascular: Heart regular rate and rhythm Chest: Able to complete full sentences, no retractions, no tachypnea Abdomen: abdomen soft, non-tender, non-distended, no organomegaly Musculoskeletal: Pulses present and equal in all extremities, no peripheral edema Motor: no focal deficits noted Neurological: Since his and withdraws to pain of all extremities with painful stimuli no lower extremity clonus, no hyperreflexia Skin: Intact with no visualized rashes Psych: Normal affect and mood ED course: 80-year-old male with severely progressed Alzheimer's dementia presents after seizure. Vital signs upon arrival are within acceptable limits. Laboratory evaluation obtained. CBC, cardiac panel is unremarkable. Metabolic panel is unremarkable. Urinalysis shows 17 red blood cells with 13 white blood cells. Patient has history of urinary tract infection. Previous microbiology specimens were obtained. Patient has history of pseudomonas and Enterobacter UTI. Patient will be admitted covered for possible pseudomonal urinary tract infection. Consultation was made to neurology. Patient given cefepime. Family was updated along with son who is allegedly in emergency medicine doctor. EKG interpretation: Ventricular rate 69, normal sinus rhythm,. Interval 184, QRS 90, QTc 445. No HI prolongation, no QTC prolongation, no ST or T-wave changes noted. Overall, this EKG is unremarkable - Related Data Home Medications Medication Instructions Recorded Confirmed Aspirin [Adult Low Dose Aspirin EC] 81 mg PO DAILY 05/09/20 09/30/20 Amoxicillin 500 mg PO BID 09/30/20 09/30/20 Allergies Allergy/AdvReac Type Severity Reaction Status Date / Time No Known Allergies Allergy Verified 09/30/20 11:01 Review of Systems ROS Statement: Those systems with pertinent positive or pertinent negative responses have been documented in the HPI. ROS Other: All systems not noted in ROS Statement are negative. Past Medical History Past Medical History: Asthma, Dementia, Memory Impairment, Prostate Disorder Additional Past Medical History / Comment(s): Dementia/ALZHEIMERS, chronic bronchitis, History of Any Multi-Drug Resistant Organisms: MRSA Date of last positivie culture/infection: 12/24/17 MDRO Source:: CATH SITE Past Surgical History: No Surgical Hx Reported Additional Past Surgical History / Comment(s): darrian rotator cuff. FAMILY STATES OVER 30 YEARS AGO PT HAD SOME TYPE OF PROSTATE PROCEDURE. UNCERTAIN WHAT. prostate scraping to permit drainage Past Anesthesia/Blood Transfusion Reactions: No Reported Reaction Additional Past Anesthesia/Blood Transfusion Reaction / Comment(s): difficulty coming out slow to wake up Past Psychological History: No Psychological Hx Reported Smoking Status: Unknown if ever smoked Past Alcohol Use History: None Reported Past Drug Use History: None Reported - Past Family History Father Family Medical History: Cancer Additional Family Medical History / Comment(s): lung ca Mother Family Medical History: Cancer Additional Family Medical History / Comment(s): ovarian cancer Son(s) Family Medical History: Cancer Additional Family Medical History / Comment(s): rhabdomyo sarcoma (SON). ADRENOCORTICOSARCONOMA (GRANDSON) General Exam Limitations: altered mental status Course Vital Signs 09/30/20 09/30/20 09:27 10:33 Temperature 96.1 F L Pulse Rate 65 58 L Respiratory 16 16 Rate Blood Pressure 122/64 115/75 O2 Sat by Pulse 98 98 Oximetry Medical Decision Making - Lab Data Result diagrams: 09/30/20 09:51 09/30/20 11:23 Lab Results 09/30/20 09/30/20 09/30/20 Range/Units 09:51 09:51 11:10 WBC 6.2 (3.8-10.6) k/uL RBC 4.32 (4.30-5.90) m/uL Hgb 13.7 (13.0-17.5) gm/dL Hct 40.1 (39.0-53.0) % MCV 92.9 (80.0-100.0) fL MCH 31.6 (25.0-35.0) pg MCHC 34.1 (31.0-37.0) g/dL RDW 13.7 (11.5-15.5) % Plt Count 277 (150-450) k/uL MPV 7.7 Neutrophils % 62 % Lymphocytes % 28 % Monocytes % 5 % Eosinophils % 3 % Basophils % 0 % Neutrophils # 3.9 (1.3-7.7) k/uL Lymphocytes # 1.7 (1.0-4.8) k/uL Monocytes # 0.3 (0-1.0) k/uL Eosinophils # 0.2 (0-0.7) k/uL Basophils # 0.0 (0-0.2) k/uL PT 10.3 (9.0-12.0) sec INR 1.0 (<1.2) APTT 25.8 (22.0-30.0) sec Sodium (137-145) mmol/L Potassium (3.5-5.1) mmol/L Chloride (98-107) mmol/L Carbon Dioxide (22-30) mmol/L Anion Gap mmol/L BUN (9-20) mg/dL Creatinine (0.66-1.25) mg/dL Est GFR (CKD-EPI)AfAm (>60 ml/min/1.73 sqM) Est GFR (CKD-EPI)NonAf (>60 ml/min/1.73 sqM) Glucose (74-99) mg/dL Calcium (8.4-10.2) mg/dL Magnesium (1.6-2.3) mg/dL Total Bilirubin (0.2-1.3) mg/dL AST (17-59) U/L ALT (4-49) U/L Alkaline Phosphatase (38-126) U/L Total Protein (6.3-8.2) g/dL Albumin (3.5-5.0) g/dL Urine Color Light Yellow Urine Appearance Clear (Clear) Urine pH 7.5 (5.0-8.0) Ur Specific [place] 1.011 (1.001-1.035) Urine Protein Trace H (Negative) Urine Glucose (UA) Negative (Negative) Urine Ketones Negative (Negative) Urine Blood Trace H (Negative) Urine Nitrite Negative (Negative) Urine Bilirubin Negative (Negative) Urine Urobilinogen <2.0 (<2.0) mg/dL Ur Leukocyte Esterase Small H (Negative) Urine RBC 17 H (0-5) /hpf Urine WBC 13 H (0-5) /hpf Urine Bacteria Rare H (None) /hpf Urine Mucus Rare H (None) /hpf Urine Sperm Rare (None) /hpf 09/30/20 Range/Units 11:23 WBC (3.8-10.6) k/uL RBC (4.30-5.90) m/uL Hgb (13.0-17.5) gm/dL Hct (39.0-53.0) % MCV (80.0-100.0) fL MCH (25.0-35.0) pg MCHC (31.0-37.0) g/dL RDW (11.5-15.5) % Plt Count (150-450) k/uL MPV Neutrophils % % Lymphocytes % % Monocytes % % Eosinophils % % Basophils % % Neutrophils # (1.3-7.7) k/uL Lymphocytes # (1.0-4.8) k/uL Monocytes # (0-1.0) k/uL Eosinophils # (0-0.7) k/uL Basophils # (0-0.2) k/uL PT (9.0-12.0) sec INR (<1.2) APTT (22.0-30.0) sec Sodium 140 (137-145) mmol/L Potassium 4.4 (3.5-5.1) mmol/L Chloride 109 H (98-107) mmol/L Carbon Dioxide 26 (22-30) mmol/L Anion Gap 5 mmol/L BUN 24 H (9-20) mg/dL Creatinine 1.07 (0.66-1.25) mg/dL Est GFR (CKD-EPI)AfAm 75 (>60 ml/min/1.73 sqM) Est GFR (CKD-EPI)NonAf 65 (>60 ml/min/1.73 sqM) Glucose 84 (74-99) mg/dL Calcium 9.1 (8.4-10.2) mg/dL Magnesium 2.1 (1.6-2.3) mg/dL Total Bilirubin 0.4 (0.2-1.3) mg/dL AST 30 (17-59) U/L ALT 44 (4-49) U/L Alkaline Phosphatase 122 (38-126) U/L Total Protein 6.4 (6.3-8.2) g/dL Albumin 3.3 L (3.5-5.0) g/dL Urine Color Urine Appearance (Clear) Urine pH (5.0-8.0) Ur Specific [place] (1.001-1.035) Urine Protein (Negative) Urine Glucose (UA) (Negative) Urine Ketones (Negative) Urine Blood (Negative) Urine Nitrite (Negative) Urine Bilirubin (Negative) Urine Urobilinogen (<2.0) mg/dL Ur Leukocyte Esterase (Negative) Urine RBC (0-5) /hpf Urine WBC (0-5) /hpf Urine Bacteria (None) /hpf Urine Mucus (None) /hpf Urine Sperm (None) /hpf Disposition Clinical Impression: Seizure Disposition: ADMITTED IP TO THIS [facility] Condition: Fair Referrals: Tyrone Ferrera MD [Primary Care Provider] - 1-2 days Decision Time: 12:21
[2020-09-30 10:09] LABS: Partial Thromboplastin Time 25.8 sec (22.0-30.0); Prothrombin Time 10.3 sec (9.0-12.0)
[2020-09-30 11:36] LABS: Appearance,Urine Clear (Clear); Bacteria,Urine Rare /hpf; Bilirubin,Urine Negative (Negative); Blood,Urine Trace (Negative); Color,Urine Light Yellow; Glucose,Urine (UA) Negative (Negative); Ketones,Urine Negative (Negative); Leukocyte Esterase,Urine Small (Negative); Mucus,Urine Rare /hpf; Nitrite,Urine Negative (Negative); PH, Urine 7.5 (5.0-8.0); Protein,Urine Trace (Negative); RBC,Urine 17 /hpf (0-5); Specific Gravity,Urine 1.011 (1.001-1.035); Sperm,Urine Rare /hpf; Urobilinogen,Urine <2.0 mg/dL (<2.0); WBC,Urine 13 /hpf (0-5)
[2020-09-30 11:59] LABS: Albumin 3.3 g/dL (3.5-5.0); Calcium 9.1 mg/dL (8.4-10.2); Magnesium 2.1 mg/dL (1.6-2.3); Potassium 4.4 mmol/L (3.5-5.1); Total Bilirubin 0.4 mg/dL (0.2-1.3); Total Protein 6.4 g/dL (6.3-8.2)
[2020-09-30] MEDS ORDERED: CEFEPIME 2 GM in SODIUM CHLORIDE 0.9% 100 ML IVPB STA (12:06)
[2020-09-30] MEDS ORDERED: NALOXONE 0.4 MG/ML 1 ML VIAL IV PRN (12:18)
[2020-09-30] MEDS ORDERED: LORazepam 2 MG/ML INJ IV PRN (12:19)
[2020-09-30] MEDS ORDERED: SODIUM CHLORIDE 0.9% 1,000 ML IV SCH (12:30)
[2020-09-30 13:57] VITALS: BP 150/69; PULSE 76; RESP 18; TEMP 98.7
[2020-09-30] MEDS ORDERED: VALPROATE SODIUM 1,000 MG in SODIUM CHLORIDE 0.9% 100 ML IVPB STA (16:54)
[2020-09-30] MEDS ORDERED: DIVALPROEX 500 MG TABLET.DR PO STA (17:52)
--- NOTE | 2020-09-30 20:55 | HP ---
HISTORY AND PHYSICAL CHIEF COMPLAINT: Grand mal seizure and dementia. HISTORY OF PRESENT ILLNESS: This gentleman has a long-standing history of dementia with a previous seizure several months ago. He was sent home without any medication. He had another seizure lasting about a minute, and his family brought him to the emergency room. He was evaluated there and it was felt that the patient could be discharged home, but the emergency room physician stated that the family wanted him admitted. REVIEW OF SYSTEMS: Unobtainable. Past medical history, family history, and personal and social histories are all otherwise unremarkable or unchanged from his previous admitting and discharge summaries and cannot further be obtained due to his dementia. Physical exam was deferred. IMPRESSION: 1. Dementia. 2. Grand mal seizure disorder. 3. Urinary tract infection. PLAN: 1. Bedrest. 2. IV fluids. 3. Antibiotics for urinary tract infection. 4. Sandoval Depakote. MMGEE / LEX: [id number] /
[2020-09-30] MEDS ORDERED: AMOXICILLIN 250 MG/5 ML 80 ML BOTTLE PO SCH (21:00)
[2020-09-30] MEDS ORDERED: DIVALPROEX 500 MG TABLET.DR PO SCH ×2 (21:00)
--- NOTE | 2020-09-30 23:40 | DS ---
DISCHARGE SUMMARY CHIEF COMPLAINT: Dementia and grand mal seizure. HISTORY OF PRESENT ILLNESS AND PHYSICAL EXAMINATION: Details of this man's history and physical can be found in the initial workup. LABORATORY STUDIES: While he was in the hospital he had laboratory studies, details of which can be found in the laboratory section of his chart. COURSE IN THE HOSPITAL: After admission he was placed on bedrest and started on intravenous fluids. The patient's came to the office and was extremely upset that her was admitted and that she was not able to see him because of the coronavirus pandemic. She apparently had not requested that he be admitted and wanted him to be discharged, with which I fully agreed. The plan was to give him 1 gram of Depakote IV before sending him home, but the pharmacy did not have IV Depakote. He will be given 500 mg orally once and sent home. He will be started on Depakote 500 mg twice a day at home along with Amoxil 250 t.i.d. for 10 days. FINAL DIAGNOSES: 1. Grand mal seizure disorder. 2. Dementia. 3. Urinary tract infection. OPERATIONS: None. CONSULTATIONS: None. He is improved. MMDOUGIEL / IJN: [id number] /
[2020-10-01] MEDS ORDERED: AMOXICILLIN 250 MG CAP PO SCH
[2020-10-01] MEDS ORDERED: ASPIRIN 81 MG PO SCH (09:00)
== END 2020-09-30 18:11 | disposition home or self-care (01) | DRG 101 ==
LOC: EC 09:08 → 4SSUR 12:18
PROVIDERS: ADMIT Family Medicine; ATTEND Family Medicine
DX: G40.409 Other generalized epilepsy and epileptic syndromes, not intractable, without status epilepticus (principal); N39.0 Urinary tract infection, site not specified; F02.80 Dementia in other diseases classified elsewhere, unspecified severity, without behavioral disturbance, psychotic disturbance, mood disturbance, and anxiety; G30.9 Alzheimer's disease, unspecified; J45.909 Unspecified asthma, uncomplicated; J42 Unspecified chronic bronchitis; Z79.82 Long term (current) use of aspirin; Z79.899 Other long term (current) drug therapy; Z80.1 Family history of malignant neoplasm of trachea, bronchus and lung; Z87.440 Personal history of urinary (tract) infections; Z80.41 Family history of malignant neoplasm of ovary
CPT/HCPCS: 36415; 80053; 81001; 83735; 85025; 85610; 85730; 87086; 93005; 99285

== ENCOUNTER → 2020-10-24 | Outpatient (CLI) | payer MEDICARE, BC | LOC: RADXRMAIN 14:27 | PROVIDERS: ATTEND Family Medicine | DX: Z53.9 Procedure and treatment not carried out, unspecified reason (principal) ==

== ENCOUNTER → 2020-10-24 | Outpatient (CLI) | payer MEDICARE, BC ==
--- NOTE | 2020-10-24 16:37 | XR ---
EXAMINATION TYPE: XR chest 2V DATE OF EXAM: 10/24/2020 COMPARISON: 05/09/2020 HISTORY: 80-year-old male R05, R06.89 TECHNIQUE: AP and lateral views FINDINGS: Suture anchors at the bilateral humeral heads from prior cuff repair. Heart upper limits of normal in size. Mild interstitial prominence. There is some patchy posterior basilar opacity on the lateral vi ew. No pleural effusion. IMPRESSION: 1. Some patchy posterior basilar opacity on the lateral view could represent atelectasis or developin g infiltrate. Correlate for any symptoms of pneumonia. 2. Otherwise, chronic changes, possible chronic bronchitis/asthma.
== END | disposition home or self-care (01) ==
LOC: RADXRMAIN 14:30
PROVIDERS: ATTEND Family Medicine
DX: R05 Cough (principal); R06.89 Other abnormalities of breathing; R91.8 Other nonspecific abnormal finding of lung field
CPT/HCPCS: 71046

== ENCOUNTER 2020-12-02 13:06 | Inpatient (IN) | payer MEDICARE, BC ==
--- NOTE | 2020-12-02 15:43 | XR ---
EXAMINATION TYPE: XR chest 2V DATE OF EXAM: 12/02/2020 COMPARISON: 10/24/2020 HISTORY: 81-year-old male confusion, altered mental status TECHNIQUE: AP and lateral views FINDINGS: The heart is upper limits of normal size. Aorta and pulmonary vasculature within normal limits. There may be early patchy infiltrate at the peripheral left lower lung. Suture anchors at the left humeral head from prior biopsy. IMPRESSION: There may be developing early patchy infiltrate in the periphery of the left lower lung. Correlate fo r symptoms of pneumonia. Follow-up recommended.
[2020-12-02] MEDS ORDERED: SODIUM CHLORIDE 0.9% 1,000 ML IV STA (18:08)
--- NOTE | 2020-12-02 18:09 | ED ---
Altered Mental Status HPI - General Chief Complaint: Altered Mental Status Stated Complaint: Altered Mental Status Time Seen by Provider: 12/02/20 17:44 Source: patient, family, RN notes reviewed Mode of arrival: wheelchair Limitations: no limitations - History of Present Illness Initial Comments: Patient is an 80-year-old male who has dementia that presents to emergency department after being sent by his primary care for increased lethargy and some suspicious lung sounds. Son notes that PCP noted some rumbling in his lungs. Son also notes that patient has been somnolent the last couple days sleeping more than usual and more lethargic. He was in no apparent distress pain while laying in bed during the exam and interview. Son did most of the talking. Unable to obtain ROS due to patient's mental state. - Related Data Home Medications Medication Instructions Recorded Confirmed Aspirin [Adult Low Dose Aspirin EC] 81 mg PO HS 05/09/20 12/02/20 levETIRAcetam [Keppra Oral 200 mg PO HS 12/02/20 12/02/20 Solution] Allergies Allergy/AdvReac Type Severity Reaction Status Date / Time No Known Allergies Allergy Verified 12/02/20 18:22 Review of Systems ROS Statement: Those systems with pertinent positive or pertinent negative responses have been documented in the HPI. ROS Other: All systems not noted in ROS Statement are negative. Past Medical History Past Medical History: Dementia, Memory Impairment, Prostate Disorder, Seizure Disorder Additional Past Medical History / Comment(s): Alzheimers, aspirates with some liquids, 05/2020 admitted with seizure and UTI, BPH/obstruction/retention with surgery, pt is incontinent of urine and stool History of Any Multi-Drug Resistant Organisms: MRSA Date of last positivie culture/infection: 12/24/17 MDRO Source:: [facility] Past Surgical History: Orthopedic Surgery, Prostate Surgery Additional Past Surgical History / Comment(s): TURP, bilateral rotator cuff surgeries Past Anesthesia/Blood Transfusion Reactions: No Reported Reaction Additional Past Anesthesia/Blood Transfusion Reaction / Comment(s): difficulty c oming out slow to wake up Past Psychological History: No Psychological Hx Reported Smoking Status: Never smoker Past Alcohol Use History: None Reported Past Drug Use History: None Reported - Past Family History Father Family Medical History: Cancer Additional Family Medical History / Comment(s): lung ca Mother Family Medical History: Cancer Additional Family Medical History / Comment(s): Mother had ovarian cancer and of this at the age of 44 yrs. Son(s) Family Medical History: Cancer Additional Family Medical History / Comment(s): rhabdomyo sarcoma (SON). ADRENOCORTICOSARCONOMA (GRANDSON) General Exam Limitations: altered mental status General appearance: alert, in no apparent distress Head exam: Present: atraumatic, normocephalic, normal inspection Eye exam: Present: normal appearance, PERRL, EOMI. Absent: scleral icterus, conjunctival injection, periorbital swelling Neck exam: Present: normal inspection. Absent: tenderness, meningismus, lympha denopathy Respiratory exam: Present: rhonchi (Left lower lobe.), decreased breath sounds. Absent: respiratory distress, wheezes, rales, stridor Cardiovascular Exam: Present: regular rate, normal rhythm, normal heart sounds. Absent: systolic murmur, diastolic murmur, rubs, gallop, clicks GI/Abdominal exam: Present: soft, normal bowel sounds. Absent: distended, tenderness, guarding, rebound, rigid Extremities exam: Present: normal inspection, full ROM, normal capillary refill. Absent: tenderness, pedal edema, joint swelling, calf tenderness Neurological exam: Present: alert, oriented X3, CN II-XII intact Psychiatric exam: Present: normal affect, normal mood Skin exam: Present: warm, dry, intact, normal color. Absent: rash Course Vital Signs 12/02/20 13:32 Temperature 97.4 F L Pulse Rate 84 Respiratory 16 Rate Blood Pressure 161/98 O2 Sat by Pulse 96 Oximetry Medical Decision Making - Medical Decision Making 80-year-old male with increased lethargy and altered mental status from baseline with some suspicious lung sounds sent by primary care. Labs, EKG, chest x-ray, Covid tests ordered. Labs unremarkable, Covid test positive. Chest x-ray shows some pneumonia. Case discussed with Dr. Bunch, patient will be admitted inpatient for IV antibiotic therapy. - Lab Data Result diagrams: 12/02/20 18:09 12/02/20 18:09 Lab Results 12/02/20 12/02/20 12/02/20 Range/Units 18:09 18:09 18:09 WBC 8.2 (3.8-10.6) k/uL RBC 4.27 L (4.30-5.90) m/uL Hgb 14.2 (13.0-17.5) gm/dL Hct 40.3 (39.0-53.0) % MCV 94.3 (80.0-100.0) fL MCH 33.2 (25.0-35.0) pg MCHC 35.2 (31.0-37.0) g/dL RDW 13.9 (11.5-15.5) % Plt Count 240 (150-450) k/uL MPV 7.5 Neutrophils % 79 % Lymphocytes % 9 % Monocytes % 9 % Eosinophils % 0 % Basophils % 0 % Neutrophils # 6.5 (1.3-7.7) k/uL Lymphocytes # 0.8 L (1.0-4.8) k/uL Monocytes # 0.7 (0-1.0) k/uL Eosinophils # 0.0 (0-0.7) k/uL Basophils # 0.0 (0-0.2) k/uL PT 10.1 (9.0-12.0) sec INR 0.9 (<1.2) APTT 27.3 (22.0-30.0) sec Sodium 135 L (137-145) mmol/L Potassium 4.7 (3.5-5.1) mmol/L Chloride 101 (98-107) mmol/L Carbon Dioxide 24 (22-30) mmol/L Anion Gap 10 mmol/L BUN 28 H (9-20) mg/dL Creatinine 1.13 (0.66-1.25) mg/dL Est GFR (CKD-EPI)AfAm 70 (>60 ml/min/1.73 sqM) Est GFR (CKD-EPI)NonAf 61 (>60 ml/min/1.73 sqM) Glucose 137 H (74-99) mg/dL Calcium 9.7 (8.4-10.2) mg/dL Total Bilirubin 0.4 (0.2-1.3) mg/dL AST 26 (17-59) U/L ALT 24 (4-49) U/L Alkaline Phosphatase 172 H (38-126) U/L Troponin I (0.000-0.034) ng/mL Total Protein 7.5 (6.3-8.2) g/dL Albumin 4.1 (3.5-5.0) g/dL Urine Color Urine Appearance (Clear) Urine pH (5.0-8.0) Ur Specific [place] (1.001-1.035) Urine Protein (Negative) Urine Glucose (UA) (Negative) Urine Ketones (Negative) Urine Blood (Negative) Urine Nitrite (Negative) Urine Bilirubin (Negative) Urine Urobilinogen (<2.0) mg/dL Ur Leukocyte Esterase (Negative) Urine WBC (0-5) /hpf Urine Bacteria (None) /hpf Urine Mucus (None) /hpf Urine Opiates Screen (NotDetected) Ur Oxycodone Screen (NotDetected) Urine Methadone Screen (NotDetected) Ur Propoxyphene Screen (NotDetected) Ur Barbiturates Screen (NotDetected) U Tricyclic Antidepress (NotDetected) Ur Phencyclidine Scrn (NotDetected) Ur Amphetamines Screen (NotDetected) U Methamphetamines Scrn (NotDetected) U Benzodiazepines Scrn (NotDetected) Urine Cocaine Screen (NotDetected) U Marijuana (THC) Screen (NotDetected) Coronavirus (PCR) (Not Detectd) 12/02/20 12/02/20 12/02/20 Range/Units 18:09 18:50 19:06 WBC (3.8-10.6) k/uL RBC (4.30-5.90) m/uL Hgb (13.0-17.5) gm/dL Hct (39.0-53.0) % MCV (80.0-100.0) fL MCH (25.0-35.0) pg MCHC (31.0-37.0) g/dL RDW (11.5-15.5) % Plt Count (150-450) k/uL MPV Neutrophils % % Lymphocytes % % Monocytes % % Eosinophils % % Basophils % % Neutrophils # (1.3-7.7) k/uL Lymphocytes # (1.0-4.8) k/uL Monocytes # (0-1.0) k/uL Eosinophils # (0-0.7) k/uL Basophils # (0-0.2) k/uL PT (9.0-12.0) sec INR (<1.2) APTT (22.0-30.0) sec Sodium (137-145) mmol/L Potassium (3.5-5.1) mmol/L Chloride (98-107) mmol/L Carbon Dioxide (22-30) mmol/L Anion Gap mmol/L BUN (9-20) mg/dL Creatinine (0.66-1.25) mg/dL Est GFR (CKD-EPI)AfAm (>60 ml/min/1.73 sqM) Est GFR (CKD-EPI)NonAf (>60 ml/min/1.73 sqM) Glucose (74-99) mg/dL Calcium (8.4-10.2) mg/dL Total Bilirubin (0.2-1.3) mg/dL AST (17-59) U/L ALT (4-49) U/L Alkaline Phosphatase (38-126) U/L Troponin I <0.012 (0.000-0.034) ng/mL Total Protein (6.3-8.2) g/dL Albumin (3.5-5.0) g/dL Urine Color Yellow Urine Appearance Clear (Clear) Urine pH 6.5 (5.0-8.0) Ur Specific [place] 1.013 (1.001-1.035) Urine Protein 1+ H (Negative) Urine Glucose (UA) Negative (Negative) Urine Ketones Negative (Negative) Urine Blood Negative (Negative) Urine Nitrite Negative (Negative) Urine Bilirubin Negative (Negative) Urine Urobilinogen <2.0 (<2.0) mg/dL Ur Leukocyte Esterase Trace H (Negative) Urine WBC 2 (0-5) /hpf Urine Bacteria Rare H (None) /hpf Urine Mucus Rare H (None) /hpf Urine Opiates Screen Not Detected (NotDetected) Ur Oxycodone Screen Not Detected (NotDetected) Urine Methadone Screen Not Detected (NotDetected) Ur Propoxyphene Screen Not Detected (NotDetected) Ur Barbiturates Screen Not Detected (NotDetected) U Tricyclic Antidepress Not Detected (NotDetected) Ur Phencyclidine Scrn Not Detected (NotDetected) Ur Amphetamines Screen Not Detected (NotDetected) U Methamphetamines Scrn Not Detected (NotDetected) U Benzodiazepines Scrn Not Detected (NotDetected) Urine Cocaine Screen Not Detected (NotDetected) U Marijuana (THC) Screen Not Detected (NotDetected) Coronavirus (PCR) Detected A (Not Detectd) - Radiology Data Radiology results: report reviewed, image reviewed Chest x-ray: There may be developing early patchy infiltrates in the periphery of the left lower lung. Correlate for symptoms of pneumonia. Follow-up recommended. Disposition Clinical Impression: COVID-19, Pneumonia due to COVID-19 virus Disposition: HOME SELF-CARE Condition: Stable Is patient prescribed a controlled substance at d/c from ED?: No Referrals: Tyrone Ferrera MD [Primary Care Provider] - 1-2 days Time of Disposition: 22:19
[2020-12-02 18:28] LABS: Basophils % (A) 0 %; Eosinophils % (A) 0 %; HCT 40.3 % (39.0-53.0); HGB 14.2 gm/dL (13.0-17.5); Lymphocytes # (A) 0.8 k/uL (1.0-4.8); Lymphocytes % (A) 9 %; MCH 33.2 pg (25.0-35.0); MCHC 35.2 g/dL (31.0-37.0); MCV 94.3 fL (80.0-100.0); Mean Platelet Volume 7.5; Monocytes # (A) 0.7 k/uL (0-1.0); Monocytes % (A) 9 %; Neutrophils # (A) 6.5 k/uL (1.3-7.7); Neutrophils % (A) 79 %; Platelet Count 240 k/uL (150-450); RBC 4.27 m/uL (4.30-5.90); RDW 13.9 % (11.5-15.5); WBC 8.2 k/uL (3.8-10.6)
[2020-12-02 18:37] LABS: INR 0.9 (<1.2); Partial Thromboplastin Time 27.3 sec (22.0-30.0); Prothrombin Time 10.1 sec (9.0-12.0)
[2020-12-02 18:38] LABS: Albumin 4.1 g/dL (3.5-5.0); Calcium 9.7 mg/dL (8.4-10.2); Total Bilirubin 0.4 mg/dL (0.2-1.3); Total Protein 7.5 g/dL (6.3-8.2)
[2020-12-02 19:00] LABS: Potassium 4.7 mmol/L (3.5-5.1)
[2020-12-02 19:32] LABS: Appearance,Urine Clear (Clear); Bacteria,Urine Rare /hpf; Bilirubin,Urine Negative (Negative); Blood,Urine Negative (Negative); Color,Urine Yellow; Glucose,Urine (UA) Negative (Negative); Ketones,Urine Negative (Negative); Leukocyte Esterase,Urine Trace (Negative); Mucus,Urine Rare /hpf; Nitrite,Urine Negative (Negative); PH, Urine 6.5 (5.0-8.0); Protein,Urine 1+ (Negative); Specific Gravity,Urine 1.013 (1.001-1.035); Urobilinogen,Urine <2.0 mg/dL (<2.0); WBC,Urine 2 /hpf (0-5)
[2020-12-02 19:39] LABS: Amphetamine Screen,Urine Not Detected (NotDetected); Barbiturate Screen,Urine Not Detected (NotDetected); Benzodiazepines Screen,Urine Not Detected (NotDetected); Cocaine Screen,Urine Not Detected (NotDetected); Methadone Screen, Urine Not Detected (NotDetected); Opiate Screen,Urine Not Detected (NotDetected); Phencyclidine Screen,Urine Not Detected (NotDetected); Tricyclic Antidepressant,Urine Not Detected (NotDetected); Urn Cannabinoid Scrn Not Detected (NotDetected)
[2020-12-02 19:40] LABS: Oxycodone Screen, Urine Not Detected (NotDetected)
[2020-12-02] MEDS ORDERED: NALOXONE 0.4 MG/ML 1 ML VIAL IV PRN (19:45)
[2020-12-02] MEDS ORDERED: AZITHROMYCIN 500 MG in SODIUM CHLORIDE 0.9% 250 ML IVPB STA (19:51)
[2020-12-02] MEDS: SODIUM CHLORIDE 0.9% 1,000 ML IV SCH (22:10)
[2020-12-02] MEDS ORDERED: cefTRIAXone IN SWFI 1,000 MG/10 ML SYRINGE IVP STA (22:44)
[2020-12-03] MEDS: SODIUM CHLORIDE 0.9% 1,000 ML IV SCH ×3 (10:38→20:39)
[2020-12-03] MEDS: ZINC SULFATE 220 MG CAP PO SCH (10:39)
[2020-12-03] MEDS: CHOLECALCIFEROL 25 MCG (1000 IU) TABLET PO SCH (10:39)
[2020-12-03] MEDS: ASCORBIC ACID 500 MG TAB PO SCH (10:39)
[2020-12-03 14:25] LABS: Appearance,Urine Clear (Clear); Bilirubin,Urine Negative (Negative); Blood,Urine Small (Negative); Color,Urine Yellow; Glucose,Urine (UA) Negative (Negative); Hyaline Casts,Urine 1 /lpf (0-2); Ketones,Urine Negative (Negative); Leukocyte Esterase,Urine Trace (Negative); Mucus,Urine Rare /hpf; Nitrite,Urine Negative (Negative); PH, Urine 5.5 (5.0-8.0); Protein,Urine 1+ (Negative); RBC,Urine 42 /hpf (0-5); Specific Gravity,Urine 1.017 (1.001-1.035); Urobilinogen,Urine <2.0 mg/dL (<2.0); WBC,Urine 11 /hpf (0-5)
--- NOTE | 2020-12-03 16:12 | HP ---
HISTORY AND PHYSICAL CHIEF COMPLAINT: Sudden mental status changes with lethargy. HISTORY OF PRESENT ILLNESS: This is another admission for this 80-year-old white male who has profound dementia. Normally he is on noncommunicative but conscious. He has been being maintained very well at home. He did have a seizure several months ago and he is on a small amount of Keppra and and, so far, he has had no with no further issues. The family brought him to the office on the day of admission completely unresponsive and slumped over in his wheelchair. He cannot be aroused. His vital signs are normal. He did have a rattly cough. He has also been prone to urinary tract infections. Because he could not be worked up in the office he was sent to the hospital where was found to have left lower lobe pneumonitis and he was positive for COVID. REVIEW OF SYSTEMS: Cannot be obtained. Past medical history, family history and personal and social histories are otherwise unobtainable or unchanged from his recent admitting and discharge summaries. PHYSICAL EXAMINATION: Blood pressure is 136/84 with a pulse of 72, respirations of 29, and he is afebrile. In general, he appeared to be unresponsive and unconscious. Skin color was normal. Skin was intact. Head, ears, eyes, nose and mouth were normal as well as could be evaluated. He did have a loose sounding cough. There is scattered rales and rhonchi in the chest exam. Cardiac exam demonstrated normal sinus rhythm. The abdomen soft extremities normal. IMPRESSION: 1. Mental status changes. 2. Lethargy. 3. Dementia. 4. History of urinary tract infection. 5. Rule out pneumonitis. PLAN: 1. Bedrest. 2. IV fluids. 3. Pulmonology consult for his COVID. MMODL / IJN: [id number] /
--- NOTE | 2020-12-03 16:43 | PN ---
PROGRESS NOTE CHIEF COMPLAINT: Mental status changes with lethargy. HISTORY OF PRESENT ILLNESS: The patient still remains minimally responsive. He is being treated for the left lower lobe pneumonitis and he will be seen by Pulmonology. He is also to be seen by Infectious Disease. Estevez catheter will be placed for UA and culture. PHYSICAL EXAMINATION: Chest is clear. Abdomen is soft and the cardiac exam is normal. He remains extremely lethargic. IMPRESSION: 1. Mental status changes. 2. Left lower lobe pneumonitis. 3. History of urinary tract infections. 4. SARs COV2 infection. 5. Dehydration. 6. Seizure disorder. PLAN: 1. Increase IV rate. 2. Estevez catheter, UA and culture. MMODL / IJN: [id number] /
[2020-12-03] MEDS: levETIRAcetam IV 200 MG in SODIUM CHLORIDE 0.9% 100 ML IVPB SCH (20:37)
[2020-12-03] MEDS ORDERED: levETIRAcetam ORAL SOLN 500 MG/5 ML CUP PO SCH (21:00)
[2020-12-04] MEDS ORDERED: ACETAMINOPHEN IV (For NPO) 1,000 MG in EMPTY BAG 1 BAG IVPB PRN
[2020-12-04] MEDS: SODIUM CHLORIDE 0.9% 1,000 ML IV SCH ×3 (06:51→19:57)
[2020-12-04] MEDS: ZINC SULFATE 220 MG CAP PO SCH (09:33)
[2020-12-04] MEDS: ASCORBIC ACID 500 MG TAB PO SCH (09:33)
[2020-12-04] MEDS: CHOLECALCIFEROL 25 MCG (1000 IU) TABLET PO SCH (09:33)
[2020-12-04 10:50] LABS: Basophils % (A) 0 %; Eosinophils % (A) 0 %; HCT 34.3 % (39.0-53.0); HGB 11.5 gm/dL (13.0-17.5); Lymphocytes # (A) 0.6 k/uL (1.0-4.8); Lymphocytes % (A) 19 %; MCH 31.9 pg (25.0-35.0); MCHC 33.5 g/dL (31.0-37.0); MCV 95.1 fL (80.0-100.0); Mean Platelet Volume 7.3; Monocytes # (A) 0.3 k/uL (0-1.0); Monocytes % (A) 9 %; Neutrophils # (A) 2.1 k/uL (1.3-7.7); Neutrophils % (A) 68 %; Platelet Count 178 k/uL (150-450); RDW 14.6 % (11.5-15.5)
[2020-12-04 10:59] LABS: ALT 20 U/L (4-49); AST 33 U/L (17-59); African American GFR (CKD) 71 (>60 ml/min/1.73 sqM); Albumin 2.7 g/dL (3.5-5.0); Alkaline Phosphatase 115 U/L (38-126); Anion Gap 5 mmol/L; Blood Urea Nitrogen 23 mg/dL (9-20); Calcium 8.2 mg/dL (8.4-10.2); Carbon Dioxide 25 mmol/L (22-30); Chloride 108 mmol/L (98-107); Globulin 2.7 g/dL; Glucose 81 mg/dL (74-99); Non-African American GFR(CKD) 61 (>60 ml/min/1.73 sqM); Sodium 138 mmol/L (137-145); Total Bilirubin 0.2 mg/dL (0.2-1.3); Total Protein 5.4 g/dL (6.3-8.2)
--- NOTE | 2020-12-04 12:07 | PN ---
PROGRESS NOTE DATE OF SERVICE: 12/04/2020 CHIEF COMPLAINT: Mental status changes, left lower lobe pneumonitis and dementia. HISTORY OF PRESENT ILLNESS: This gentleman is much improved. He is now awake and alert. He remains very confused with this, but this is his normal state. He is able swallow. PHYSICAL EXAMINATION: Chest is clear. Cardiac exam is normal. Abdomen is soft, nontender. IMPRESSION: 1. Left lower lobe pneumonitis. 2. Mental status changes. 3. Urinary tract infection. 4. Covid 19. 5. Dementia. PLAN: 1. Start to progress diet. 2. Continue on current treatment program. 3. Physical therapy and speech therapy. MMODL / IJN: [id number] /
--- NOTE | 2020-12-04 12:41 | XR ---
EXAMINATION TYPE: XR chest 2V DATE OF EXAM: 12/04/2020 COMPARISON: 12/02/2020 HISTORY: 80-year-old male pneumonitis, cough TECHNIQUE: AP and lateral views FINDINGS: Low lung volumes. Heart borderline to mildly enlarged. Interstitial changes increased. Patchy left mi dlung opacity remains. Suture anchors in both humeral heads from prior cuff repair. No sizable effusi on on the lateral view. IMPRESSION: Hypoventilatory changes. Increasing interstitial opacities. Atypical pneumonia not excluded.
[2020-12-04] MEDS: dexAMETHasone 2 MG TAB PO SCH (14:31)
[2020-12-04] MEDS: LEVOFLOXACIN 500 MG TAB PO SCH (14:31)
--- NOTE | 2020-12-04 15:52 | P.CNPUL ---
History of Present Illness Consult date: 12/04/20 Requesting physician: Tyrone Ferrera Chief complaint: Lethargy History of present illness: This is a 80-year-old male patient who follows with Dr. Kimberly herrera as his primary care provider. He has a history of dementia, seizure disorder, prostate disorder. He was brought into the emergency room on 12/02/2020 after being felt to have more lethargy and drowsiness than usual. Chest x-ray reveals early patchy infiltrate in the periphery of the left lower lobe. He was found to be positive for coronavirus. He is seen today in consultation on the regular medical floor. Currently nonverbal. Not answering any questions. He is awake and alert. White count 3.0. Hemoglobin 11.5. Lymphocytes 0.6. Sodium 138. Potassium 4.0. Creatinine 1.12. He been initiated on normal saline at 125 ML's per hour. Follow-up chest x-ray reveals hypoventilatory changes some increasing interstitial opacities, atypical pneumonia not excluded. Review of Systems ROS unobtainable: due to mental status Past Medical History Past Medical History: Dementia, Memory Impairment, Prostate Disorder, Seizure Disorder Additional Past Medical History / Comment(s): Alzheimers, aspirates with some liquids, 10/2020 admitted with seizure and UTI, BPH/obstruction/retention with surgery, pt is incontinent of urine and stool, wheelchair bound History of Any Multi-Drug Resistant Organisms: MRSA Date of last positivie culture/infection: 12/24/17 MDRO Source:: [facility] Past Surgical History: Orthopedic Surgery, Prostate Surgery Additional Past Surgical History / Comment(s): TURP, bilateral rotator cuff surgeries Past Anesthesia/Blood Transfusion Reactions: No Reported Reaction Additional Past Anesthesia/Blood Transfusion Reaction / Comment(s): difficulty coming out slow to wake up Past Psychological History: No Psychological Hx Reported Additional Psychological History / Comment(s): Pt resides at home with his spouse. He has alzheimer's and is normally oriented to person. He wears disposable briefs d/t incontinence. He is assisted by 2 to wheelchair. He can feed himself once food is on the utensil. He has [facility] caregivers and is in [facility] program. Smoking Status: Never smoker Past Alcohol Use History: None Reported Past Drug Use History: None Reported - Past Family History Father Family Medical History: Cancer Additional Family Medical History / Comment(s): lung ca Mother Family Medical History: Cancer Additional Family Medical History / Comment(s): Mother had ovarian cancer and of this at the age of 44 yrs. Son(s) Family Medical History: Cancer Additional Family Medical History / Comment(s): rhabdomyo sarcoma (SON). ADRENOCORTICOSARCONOMA ([place]) Medications and Allergies Home Medications Medication Instructions Recorded Confirmed Type Aspirin [Adult Low Dose Aspirin EC] 81 mg PO HS 05/09/20 12/02/20 History levETIRAcetam [Keppra Oral 200 mg PO HS 12/02/20 12/02/20 History Solution] Allergies Allergy/AdvReac Type Severity Reaction Status Date / Time No Known Allergies Allergy Verified 12/02/20 18:22 Physical Exam Vitals: Vital Signs Temp Pulse Resp BP Pulse Ox 12/04/20 15:00 97.0 F L 67 19 123/73 92 L 12/04/20 10:23 18 12/04/20 10:00 97.9 F 68 16 127/71 94 L 12/04/20 05:05 97.9 F 67 17 100/54 92 L 12/04/20 02:05 98.8 F 84 16 112/66 92 L 12/03/20 22:39 100.0 F H 80 18 114/67 91 L 12/03/20 18:00 97.0 F L 81 16 158/82 94 L Intake and Output 12/04/20 12/04/20 12/04/20 06:59 14:59 22:59 Intake Total 450 Output Total 1000 Balance -1000 450 Intake: Oral 450 Output: Urine 1000 Other: Voiding Method Incontinent Indwelling Catheter GENERAL EXAM: Alert, nonverbal 80-year-old gentleman with dementia, on room air, comfortable in no apparent distress. HEAD: Normocephalic. EYES: Normal reaction of pupils, equal size. NOSE: Clear with pink turbinates. THROAT: No erythema or exudates. NECK: No masses, no JVD. CHEST: No chest wall deformity. LUNGS: Equal air entry with faint crackles in the posterior bases CVS: S1 and S2 normal with no audible murmur, regular rhythm. ABDOMEN: No hepatosplenomegaly, normal bowel sounds, no guarding or rigidity. SPINE: No scoliosis or deformity SKIN: No rashes CENTRAL NERVOUS SYSTEM: No focal deficits, tone is normal in all 4 extremities. EXTREMITIES: There is no peripheral edema. No clubbing, no cyanosis. Peripheral pulses are intact. Results - Laboratory Findings CBC and BMP: 12/04/20 10:02 12/04/20 10:02 PT/INR, D-dimer PT 10.1 sec (9.0-12.0) 12/02/20 18:09 INR 0.9 (<1.2) 12/02/20 18:09 Abnormal lab findings: Abnormal Labs 12/02/20 12/02/20 12/02/20 18:09 18:09 18:50 WBC RBC 4.27 L Hgb Hct Lymphocytes # 0.8 L Sodium 135 L Chloride BUN 28 H Glucose 137 H Calcium Alkaline Phosphatase 172 H Total Protein Albumin Urine Protein Urine Blood Ur Leukocyte Esterase Urine RBC Urine WBC Urine Bacteria Urine Mucus Coronavirus (PCR) Detected A 12/02/20 12/03/20 12/04/20 19:06 13:47 10:02 WBC 3.0 L RBC 3.60 L Hgb 11.5 L Hct 34.3 L Lymphocytes # 0.6 L Sodium Chloride BUN Glucose Calcium Alkaline Phosphatase Total Protein Albumin Urine Protein 1+ H 1+ H Urine Blood Small H Ur Leukocyte Esterase Trace H Trace H Urine RBC 42 H Urine WBC 11 H Urine Bacteria Rare H Urine Mucus Rare H Rare H Coronavirus (PCR) 12/04/20 10:02 WBC RBC Hgb Hct Lymphocytes # Sodium Chloride 108 H BUN 23 H Glucose Calcium 8.2 L Alkaline Phosphatase Total Protein 5.4 L Albumin 2.7 L Urine Protein Urine Blood Ur Leukocyte Esterase Urine RBC Urine WBC Urine Bacteria Urine Mucus Coronavirus (PCR) - Diagnostic Findings Chest x-ray: image reviewed Assessment and Plan Assessment: 1 Acute CoVID 19 infection with early patchy infiltrates, on room air 2 Altered mental status secondary to above 3 History of dementia, currently nonverbal 4 History of seizures 5 BPH with previous TURP Plan: The patient was seen and evaluated by Dr. Gordon Chest x-ray and labs reviewed Add dexamethasone Add Levaquin. Empirically to rule out any bacterial infection Probable discharge in the a.m. I, the cosigning physician, performed a history & physical examination of the patient. Lungs sounds crackles in the posterior bases. Maintaining good O2 saturations in the 90s on room air. I discussed the assessment and plan of care with my nurse practitioner, Ludy Shelton. I attest to the above consultation as dictated by her.
[2020-12-04] MEDS: ASPIRIN 81 MG PO SCH (19:56)
[2020-12-04] MEDS: levETIRAcetam IV 200 MG in SODIUM CHLORIDE 0.9% 100 ML IVPB SCH (19:57)
[2020-12-05] MEDS: SODIUM CHLORIDE 0.9% 1,000 ML IV SCH ×3 (05:33→22:03)
[2020-12-05] MEDS: ZINC SULFATE 220 MG CAP PO SCH (09:46)
[2020-12-05] MEDS: CHOLECALCIFEROL 25 MCG (1000 IU) TABLET PO SCH (09:46)
[2020-12-05] MEDS: ASCORBIC ACID 500 MG TAB PO SCH (09:46)
[2020-12-05] MEDS: dexAMETHasone 2 MG TAB PO SCH (09:46)
[2020-12-05] MEDS: LEVOFLOXACIN 500 MG TAB PO SCH (12:19)
--- NOTE | 2020-12-05 19:00 | P.PN ---
Subjective Progress Note Date: 12/05/20 Principal diagnosis: Covid 19 pneumonia This is a 80-year-old male patient who follows with Dr. Kimberly herrera as his primary care provider. He has a history of dementia, seizure disorder, prostate disorder. He was brought into the emergency room on 12/02/2020 after being felt to have more lethargy and drowsiness than usual. Chest x-ray reveals early patchy infiltrate in the periphery of the left lower lobe. He was found to be positive for coronavirus. He is seen today in consultation on the regular medical floor. Currently nonverbal. Not answering any questions. He is awake and alert. White count 3.0. Hemoglobin 11.5. Lymphocytes 0.6. Sodium 138. Potassium 4.0. Creatinine 1.12. He been initiated on normal saline at 125 ML's per hour. Follow-up chest x-ray reveals hypoventilatory changes some increasing interstitial opacities, atypical pneumonia not excluded. On 12/05/2020 patient seen in follow-up on medical surgical floor, he is on room air, he is breathing comfortably, his chest x-ray shows more fluid overload pattern, clinically patient denies any worsening dyspnea. Pulse ox is 94% on room air, his been afebrile, hemodynamically stable, no complaint of chest pain no increasing cough dyspnea or chest congestion. Remains on Decadron 6 mg daily , empiric antibiotics in the form of Levaquin, IV fluids at 125 ML per hour of 0.9 normal saline, and vitamin C and zinc. Urine culture and blood cultures have been negative. His labs have been reviewed showing leukopenia, with Proventil, 3.0, lymphopenia with lymphocytic, 0.6, hemoglobin is 11.5, sodium is 138, potassium is 4.0, chloride is 108, B1 is 23 creatinine is 1.12. Urinalysis showed slightly increased leukocytes, trace leuks, with the possibility of urinary tract infection by urine culture was negative, and this patient has been started on empiric antibiotics in the form of Levaquin Objective - Vital Signs Vital signs: Vital Signs Temp 98.4 F 12/05/20 17:46 Pulse 66 12/05/20 17:46 Resp 17 12/05/20 17:46 BP 123/65 12/05/20 17:46 Pulse Ox 94 L 12/05/20 17:46 Intake & Output 12/04/20 12/05/20 12/05/20 18:59 06:59 18:59 Intake Total 450 Output Total 1200 1000 1650 Balance -750 -1000 -1650 Intake: Oral 450 Output: Urine 1200 1000 1650 Uretheral (Estevez) 700 Other: Voiding Method Incontinent Incontinent Indwelling Catheter Indwelling Catheter Indwelling Catheter - Exam GENERAL EXAM: Alert, very pleasant, 80-year-old white female, on room air, with a pulse ox of 94-95% comfortable in no apparent distress. HEAD: Normocephalic/atraumatic. EYES: Normal reaction of pupils, equal size. Conjunctiva pink, sclera white. NOSE: Clear with pink turbinates. THROAT: No erythema or exudates. NECK: No masses, no JVD, no thyroid enlargement, no adenopathy. CHEST: No chest wall deformity. Symmetrical expansion. LUNGS: Equal air entry with no crackles, wheeze, rhonchi or dullness. CVS: Regular rate and rhythm, normal S1 and S2, no gallops, no murmurs, no rubs ABDOMEN: Soft, nontender. No hepatosplenomegaly, normal bowel sounds, no guarding or rigidity. EXTREMITIES: No clubbing, no edema, no cyanosis, 2+ pulses and upper and lower extremities. MUSCULOSKELETAL: Muscle strength and tone normal. SPINE: No scoliosis or deformity SKIN: No rashes CENTRAL NERVOUS SYSTEM: Alert and oriented -3. No focal deficits, tone is normal in all 4 extremities. PSYCHIATRIC: Alert and oriented -3. Appropriate affect. Intact judgment and insight. - Labs CBC & Chem 7: 12/04/20 10:02 12/04/20 10:02 Labs: Abnormal Lab Results - Last 24 Hours (Table) 12/03/20 Range/Units 12:17 Levetiracetam 1.5 L (3.0-60.0) ug/mL Microbiology - Last 24 Hours (Table) 12/03/20 23:42 Blood Culture - Preliminary Blood No Growth after 24 hours 12/02/20 21:45 Blood Culture - Preliminary Blood No Growth after 48 hours 12/02/20 22:00 Blood Culture - Preliminary Blood No Growth after 48 hours 12/03/20 13:47 Urine Culture - Final Urine,Catheterized Assessment and Plan Plan: Assessment: #1. Acute COVID 19 pneumonia, chest x-ray showing a patchy infiltrates, not typical characteristic of COVID 19 pneumonia. On room air #2. Altered mental status, improving #3. History of dementia #4. History of seizures #5. History of BPH with previous TURP Plan: Patient has been stable from pulmonary perspective, he remains on room air, no worsening dyspnea or hypoxic, no fever or chills, no specific complaints, from pulmonary perspective he could be considered for discharge to home or ECF once cleared by medicine. Continue monitoring for any signs of worsening oxygenation or dyspnea, follow-up chest x-ray in the morning, we'll add Lovenox for anticoagulation prophylactic dose, obtain d-dimer in the morning I performed a history & physical examination of the patient and discussed their management with my nurse practitioner, Aziza Paul. I reviewed the nurse practitioner's note and agree with the documented findings and plan of care. Lung sounds are positive for diminished breath sounds The findings and the impression was discussed with the patient. I attest to the documentation by the nurse practitioner. Time with Patient: Less than 30
--- NOTE | 2020-12-05 20:39 | PN ---
PROGRESS NOTE CHIEF COMPLAINT: COVID pneumonia and dementia. HISTORY OF PRESENT ILLNESS: This gentleman is doing much better. He is much more awake and alert. He is eating. Estevez catheter still in place. PHYSICAL EXAMINATION: His chest is clear. The cardiac exam is normal. Abdomen is soft. He is much more awake and alert. IMPRESSION: 1. COVID pneumonia. 2. Dementia. 3. Urinary retention. PLAN: Progress diet and activity. Probably home tomorrow. MMODL / IJN: [id number] /
[2020-12-05] MEDS: levETIRAcetam IV 200 MG in SODIUM CHLORIDE 0.9% 100 ML IVPB SCH (22:02)
[2020-12-05] MEDS: ASPIRIN 81 MG PO SCH (22:02)
[2020-12-05] MEDS: ENOXAPARIN 40 MG/0.4 ML SYRINGE SQ SCH (22:09)
--- NOTE | 2020-12-06 07:52 | XR ---
The EXAMINATION TYPE: XR chest 1V portable DATE OF EXAM: 12/06/2020 HISTORY: Shortness of breath. COMPARISON: None. TECHNIQUE: Single view of the chest is submitted. FINDINGS: Demonstrated are scattered senescent parenchymal change. There is no evidence for focal infiltrate. Scattered interstitial prominence persists. Correlate clin ically for atypical pneumonia. The heart is stable. Hilar and mediastinal structures are within normal limits. Degenerative changes are seen of the dorsal spine. IMPRESSION: 1. There is no evidence for focal infiltrate. Scattered interstitial prominence persists. Correlate clinically for atypical pneumonia.
[2020-12-06] MEDS: CHOLECALCIFEROL 25 MCG (1000 IU) TABLET PO SCH (10:06)
[2020-12-06] MEDS: LEVOFLOXACIN 500 MG TAB PO SCH (10:06)
[2020-12-06] MEDS: dexAMETHasone 2 MG TAB PO SCH (10:06)
[2020-12-06] MEDS: ASCORBIC ACID 500 MG TAB PO SCH (10:20)
[2020-12-06] MEDS: SODIUM CHLORIDE 0.9% 1,000 ML IV SCH ×2 (10:20→23:26)
[2020-12-06] MEDS: ENOXAPARIN 40 MG/0.4 ML SYRINGE SQ SCH (10:20)
[2020-12-06] MEDS: ZINC SULFATE 220 MG CAP PO SCH (10:20)
[2020-12-06 13:33] LABS: African American GFR (CKD) 80.9 (60.0-200.0); Anion Gap 8.8 mmol/L (4.00-12.00); C Reactive Protein 1.8 mg/dL (0.0-0.8); Calcium 8.2 mg/dL (8.7-10.3); Carbon Dioxide 20.2 mmol/L (21.6-31.8); Non-African American GFR(CKD) 69.8 (60.0-200.0)
--- NOTE | 2020-12-06 14:07 | P.PN ---
Subjective Progress Note Date: 12/06/20 Principal diagnosis: Acute covid19 pneumonia without hypoxia This is a 80-year-old male patient who follows with Dr. Kimberly herrera as his primary care provider. He has a history of dementia, seizure disorder, prostate disorder. He was brought into the emergency room on 12/02/2020 after being felt to have more lethargy and drowsiness than usual. Chest x-ray reveals early patchy infiltrate in the periphery of the left lower lobe. He was found to be positive for coronavirus. He is seen today in consultation on the regular medical floor. Currently nonverbal. Not answering any questions. He is awake and alert. White count 3.0. Hemoglobin 11.5. Lymphocytes 0.6. Sodium 138. Potassium 4.0. Creatinine 1.12. He been initiated on normal saline at 125 ML's per hour. Follow-up chest x-ray reveals hypoventilatory changes some increasing interstitial opacities, atypical pneumonia not excluded. On 12/05/2020 patient seen in follow-up on medical surgical floor, he is on room air, he is breathing comfortably, his chest x-ray shows more fluid overload pattern, clinically patient denies any worsening dyspnea. Pulse ox is 94% on room air, his been afebrile, hemodynamically stable, no complaint of chest pain no increasing cough dyspnea or chest congestion. Remains on Decadron 6 mg daily, empiric antibiotics in the form of Levaquin, IV fluids at 125 ML per hour of 0.9 normal saline, and vitamin C and zinc. Urine culture and blood cultures have been negative. His labs have been reviewed showing leukopenia, with Proventil, 3.0, lymphopenia with lymphocytic, 0.6, hemoglobin is 11.5, sodium is 138, potassium is 4.0, chloride is 108, B1 is 23 creatinine is 1.12. Urinalysis showed slightly increased leukocytes, trace leuks, with the possibility of urinary tract infection by urine culture was negative, and this patient has been started on empiric antibiotics in the form of Levaquin Patient was reevaluated today on 12/06/2020, patient is doing well, he is on room air, not in any distress. Discharge planning is in progress on this patient, and I think that is very appropriate. Objective - Vital Signs Vital signs: Vital Signs Temp 97.9 F 12/06/20 10:59 Pulse 57 L 04/06/21 10:59 Resp 17 12/06/20 10:59 BP 136/81 12/06/20 10:59 Pulse Ox 96 12/06/20 10:59 Intake & Output 12/05/20 12/06/20 12/06/20 18:59 06:59 18:59 Output Total 1650 Balance -1650 Output: Urine 1650 Uretheral (Estevez) 700 Other: Voiding Method Indwelling Catheter Diaper # Voids 1 # Bowel Movements 1 - Exam GENERAL EXAM: Revealed an 80-year-old white male in no distress, sitting in bed on room air. HEAD: Normocephalic. EYES: Normal reaction of pupils, equal size. NOSE: Clear with pink turbinates. THROAT: No erythema or exudates. NECK: No masses, no JVD. CHEST: No chest wall deformity. LUNGS: Equal air entry minimal crackles at the bases. CVS: S1 and S2 normal with no audible murmur, regular rhythm. ABDOMEN: No hepatosplenomegaly, normal bowel sounds, no guarding or rigidity. SKIN: No rashes - Labs CBC & Chem 7: 12/04/20 10:02 12/06/20 06:55 Labs: Abnormal Lab Results - Last 24 Hours (Table) 12/06/20 12/06/20 Range/Units 06:55 06:55 D-Dimer 13.51 H (<0.60) mg/L FEU Chloride 114 H (96-109) mmol/L Carbon Dioxide 20.2 L (21.6-31.8) mmol/L BUN/Creatinine Ratio 25.00 H (12.00-20.00) Ratio Calcium 8.2 L (8.7-10.3) mg/dL C-Reactive Protein 1.8 H (0.0-0.8) mg/dL Microbiology - Last 24 Hours (Table) 12/03/20 23:42 Blood Culture - Preliminary Blood No Growth after 48 hours 12/02/20 22:00 Blood Culture - Preliminary Blood No Growth after 72 hours 12/02/20 21:45 Blood Culture - Preliminary Blood No Growth after 72 hours Assessment and Plan Assessment: Impression: Acute covid 19 pneumonia without hypoxia History of dementia History of seizure disorder Recommendation: Agree with discharge planning today. Patient is going to [facility] Follow-up on outpatient basis if necessary. Cleared for discharge from our perspective Time with Patient: Less than 30
[2020-12-06] MEDS: ASPIRIN 81 MG PO SCH (21:00)
[2020-12-06] MEDS: levETIRAcetam IV 200 MG in SODIUM CHLORIDE 0.9% 100 ML IVPB SCH (22:04)
[2020-12-06] MEDS: levETIRAcetam ORAL SOLN 500 MG/5 ML CUP PO SCH (22:15)
--- NOTE | 2020-12-06 22:34 | PN ---
PROGRESS NOTE CHIEF COMPLAINT: Dehydration, COVID pneumonia and urinary tract infection. HISTORY OF PRESENT ILLNESS: This gentleman is doing well, and he is as awake and alert as he normally is. He is eating and drinking. PHYSICAL EXAMINATION: His chest is clear. The cardiac exam is normal. The abdomen is soft and nontender. IMPRESSION: 1. COVID pneumonia. 2. Dehydration. 3. Urinary tract infection. PLAN: It was felt that the patient could go home today, but the family raised quite a bit of fear, stating that he was now unable to walk and had flexion contractures in his lower extremities. They came to the office and created quite a stir. It was decided that to settle them down, I would have him evaluated neurologically and have Physical Therapy continue working with him as they have been. JOE / LEX: [id number] /
[2020-12-07] MEDS: ASCORBIC ACID 500 MG TAB PO SCH (08:28)
[2020-12-07] MEDS: CHOLECALCIFEROL 25 MCG (1000 IU) TABLET PO SCH (08:28)
[2020-12-07] MEDS: dexAMETHasone 2 MG TAB PO SCH (08:28)
[2020-12-07] MEDS: ENOXAPARIN 40 MG/0.4 ML SYRINGE SQ SCH (08:28)
[2020-12-07] MEDS: ZINC SULFATE 220 MG CAP PO SCH (08:28)
--- NOTE | 2020-12-07 11:27 | P.PN ---
Subjective Progress Note Date: 12/07/20 Principal diagnosis: Acute covid19 pneumonia without hypoxia This is a 80-year-old male patient who follows with Dr. Kimberly herrera as his primary care provider. He has a history of dementia, seizure disorder, prostate disorder. He was brought into the emergency room on 12/02/2020 after being felt to have more lethargy and drowsiness than usual. Chest x-ray reveals early patchy infiltrate in the periphery of the left lower lobe. He was found to be positive for coronavirus. He is seen today in consultation on the regular medical floor. Currently nonverbal. Not answering any questions. He is awake and alert. White count 3.0. Hemoglobin 11.5. Lymphocytes 0.6. Sodium 138. Potassium 4.0. Creatinine 1.12. He been initiated on normal saline at 125 ML's per hour. Follow-up chest x-ray reveals hypoventilatory changes some increasing interstitial opacities, atypical pneumonia not excluded. On 12/05/2020 patient seen in follow-up on medical surgical floor, he is on room air, he is breathing comfortably, his chest x-ray shows more fluid overload pattern, clinically patient denies any worsening dyspnea. Pulse ox is 94% on room air, his been afebrile, hemodynamically stable, no complaint of chest pain no increasing cough dyspnea or chest congestion. Remains on Decadron 6 mg daily, empiric antibiotics in the form of Levaquin, IV fluids at 125 ML per hour of 0.9 normal saline, and vitamin C and zinc. Urine culture and blood cultures have been negative. His labs have been reviewed showing leukopenia, with Proventil, 3.0, lymphopenia with lymphocytic, 0.6, hemoglobin is 11.5, sodium is 138, potassium is 4.0, chloride is 108, B1 is 23 creatinine is 1.12. Urinalysis showed slightly increased leukocytes, trace leuks, with the possibility of urinary tract infection by urine culture was negative, and this patient has been started on empiric antibiotics in the form of Levaquin Patient was reevaluated today on 12/06/2020, patient is doing well, he is on room air, not in any distress. Discharge planning is in progress on this patient, and I think that is very appropriate. Patient was reevaluated today on 12/07/2020, remains on room air, not in any dis tress, patient could be discharged to ECF today. No labs ordered for today. Objective - Vital Signs Vital signs: Vital Signs Temp 97.6 F 12/07/20 06:30 Pulse 59 L 12/07/20 06:30 Resp 16 12/07/20 06:30 BP 123/61 12/07/20 06:30 Pulse Ox 95 12/07/20 06:30 Intake & Output 12/06/20 12/07/20 12/07/20 18:59 06:59 18:59 Intake Total 75 Balance 75 Intake: Oral 75 Other: Voiding Method Diaper Diaper # Voids 2 # Bowel Movements 1 - Exam GENERAL EXAM: Revealed an 80-year-old white male in no distress, sitting in bed on room air. Patient is nonverbal HEAD: Normocephalic. EYES: Normal reaction of pupils, equal size. NOSE: Clear with pink turbinates. THROAT: No erythema or exudates. NECK: No masses, no JVD. CHEST: No chest wall deformity. LUNGS: Equal air entry minimal crackles at the bases. CVS: S1 and S2 normal with no audible murmur, regular rhythm. ABDOMEN: No hepatosplenomegaly, normal bowel sounds, no guarding or rigidity. SKIN: No rashes - Labs CBC & Chem 7: 12/04/20 10:02 12/06/20 06:55 Labs: Abnormal Lab Results - Last 24 Hours (Table) 12/06/20 Range/Units 06:55 Chloride 114 H (96-109) mmol/L Carbon Dioxide 20.2 L (21.6-31.8) mmol/L BUN/Creatinine Ratio 25.00 H (12.00-20.00) Ratio Calcium 8.2 L (8.7-10.3) mg/dL C-Reactive Protein 1.8 H (0.0-0.8) mg/dL Microbiology - Last 24 Hours (Table) 12/03/20 23:42 Blood Culture - Preliminary Blood No Growth after 72 hours 12/02/20 22:00 Blood Culture - Preliminary Blood No Growth after 96 hours 12/02/20 21:45 Blood Culture - Preliminary Blood No Growth after 96 hours Assessment and Plan Assessment: Impression: Acute covid 19 pneumonia without hypoxia History of dementia History of seizure disorder Recommendation: Cleared for discharge from our perspective. Patient is going to ECF Follow-up on outpatient basis if necessary. Time with Patient: Less than 30
[2020-12-07] MEDS: SODIUM CHLORIDE 0.9% 1,000 ML IV SCH (12:31)
[2020-12-07] MEDS: LEVOFLOXACIN 500 MG TAB PO SCH (14:38)
--- NOTE | 2020-12-07 16:24 | P.CNNES ---
History of Present Illness Consult date: 12/07/20 Requesting physician: Tyrone Ferrera Reason for Consult: Weakness in legs, Covid 19 History of Present Illness: Patient is a 80-year-old male, with history of advanced dementia, came to the hospital on 12/02/2020 at 1:06 PM, referred by primary physician for increased lethargy. Patient has been somnolent in the last couple days, sleeping more than usual and more lethargic. Patient has been diagnosed with Alzheimer's dementia. Patient is incontinent of urine and stool. Vital signs on arrival blood pressure 161/98, pulse rate 84 temperature 97.4. Chest x-ray showed hypoventilatory changes. Increasing interstitial opacities. Atypical pneumonia not excluded. EKG shows sinus rhythm with first-degree AV block. Repeat chest x-ray from yesterday showed no evidence for focal infiltrate. Scattered interstitial prominence persists. Correlate clinically for atypical pneumonia. Patient's blood test shows normal CBC, PT/PTT, sodium 135 potassium 4.7, BUN slightly elevated 28, creatinine 1.13. Hepatic panel normal, UA negative. Urine drug screen negative. Patient's last hemoglobin A1c 6.8 on 11/22/2017. Patient takes aspirin 81 mg and Keppra 200 mg at bedtime. Patient has been seen by Dr. Eugene Garner in neurologic consultation previously on 05/10/2020 for new onset seizure. EEG shows background slowing. Patient was placed on Keppra. It was reported in his told that patient has history of dementia started in 2007. Patient was having difficulty getting back home. His dementia has progressively worsened over years but in the last 3-4 years, has gotten much worse. Patient is most of the time mute. Does speak some words. He was placed on dementia medication at one point, but was stopped, as it was not helping him. Dr. Garner felt patient has normal pressure hydrocephalus and was recommended outpatient workup. I spoke to patient's . She informed me that because of pandemic, patient's family never pursued with further workup for possible NPH. Even before he got sick, patient has been very strong. Patient able to walk, although outside the goes in the wheelchair. He is able to walk to his bed with help. She states that he usually listens, but does not answer verbally, but shakes his head and knows what you are doing. When his is changes his depends, he usually says "oh shit", and also states few syllables, when she is taking him for shower. Review of Systems ROS unobtainable: due to mental status Past Medical History Past Medical History: Dementia, Memory Impairment, Prostate Disorder, Seizure Disorder Additional Past Medical History / Comment(s): Alzheimers, aspirates with some liquids, 10/2020 admitted with seizure and UTI, BPH/obstruction/retention with surgery, pt is incontinent of urine and stool, wheelchair bound History of Any Multi-Drug Resistant Organisms: MRSA Date of last positivie culture/infection: 12/24/17 MDRO Source:: [facility] Past Surgical History: Orthopedic Surgery, Prostate Surgery Additional Past Surgical History / Comment(s): TURP, bilateral rotator cuff surgeries Past Anesthesia/Blood Transfusion Reactions: No Reported Reaction Additional Past Anesthesia/Blood Transfusion Reaction / Comment(s): difficulty coming out slow to wake up Past Psychological History: No Psychological Hx Reported Additional Psychological History / Comment(s): Pt resides at home with his spouse. He has alzheimer's and is normally oriented to person. He wears disposable briefs d/t incontinence. He is assisted by 2 to wheelchair. He can feed himself once food is on the utensil. He has [employer] caregivers and is in [employer] program. Smoking Status: Never smoker Past Alcohol Use History: None Reported Past Drug Use History: None Reported - Past Family History Father Family Medical History: Cancer Additional Family Medical History / Comment(s): lung ca Mother Family Medical History: Cancer Additional Family Medical History / Comment(s): Mother had ovarian cancer and of this at the age of 44 yrs. Son(s) Family Medical History: Cancer Additional Family Medical History / Comment(s): rhabdomyo sarcoma (SON). ADRENOCORTICOSARCONOMA (GRANDSON) Medications and Allergies Home Medications Medication Instructions Recorded Confirmed Type Aspirin [Adult Low Dose Aspirin EC] 81 mg PO HS 05/09/20 12/02/20 History levETIRAcetam [Keppra Oral 200 mg PO HS 12/02/20 12/02/20 History Solution] Levofloxacin [Levaquin] 250 mg PO Q24H #7 tab 12/06/20 Rx Allergies Allergy/AdvReac Type Severity Reaction Status Date / Time No Known Allergies Allergy Verified 12/02/20 18:22 Physical Examination - Vital Signs Vital Signs: Vital Signs Temp Pulse Resp BP Pulse Ox 12/07/20 13:31 98.7 F 62 16 137/68 95 12/07/20 06:30 97.6 F 59 L 16 123/61 95 12/07/20 02:00 97.6 F 51 L 16 108/59 94 L 12/06/20 23:18 97.8 F 58 L 17 123/68 95 12/06/20 18:09 97.7 F 61 18 124/66 96 Intake and Output 12/07/20 12/07/20 12/07/20 06:59 14:59 22:59 Intake Total 75 Balance 75 Intake: Oral 75 Other: Voiding Method Diaper # Voids 2 # Bowel Movements 1 On examination patient is an elderly male, in no acute distress. He is alert, awake. Patient has decreased eye contact. Patient is mute. Did not see even a single word. Patient follows minimal commands. His pupils could not be checked, as patient has paratonia, and strongly closes his eyes shut when the eyes are tried to open manually. Otherwise her gaze is midline. Extraocular muscles does appear intact and face is symmetric. Visual clemens could not be tested, patient did not protrude his tongue and palette could not be checked. Facial sensations could not be tested. Regarding muscle strength testing, patient's lifestyle block farmer is normal bilaterally. Patient did not cooperate with testing of rest of the extremities. He is extremely rigid in both arms >>> legs. Patient is holding his right hand on his right cheek. I tried to move his hand away from his face, but is very rigid. Likewise his left arm is partly flexed, and is extremely rigid. No tremors noted. Reflexes are 1+ and plantar is down on the left whereas possible up on the right. Bulk of muscles is normal. Chest is clear. Abdomen soft nontender. Peripheral pulses present. No edema, S1 and S2 audible, no carotid bruit. Results - Laboratory Findings CBC and BMP: 12/04/20 10:02 12/06/20 06:55 Abnormal Lab Findings: Abnormal Labs 12/02/20 12/02/20 12/02/20 18:09 18:09 18:50 WBC RBC 4.27 L Hgb Hct Lymphocytes # 0.8 L D-Dimer Sodium 135 L Chloride Carbon Dioxide BUN 28 H BUN/Creatinine Ratio Glucose 137 H Calcium Alkaline Phosphatase 172 H C-Reactive Protein Total Protein Albumin Urine Protein Urine Blood Ur Leukocyte Esterase Urine RBC Urine WBC Urine Bacteria Urine Mucus Levetiracetam Coronavirus (PCR) Detected A 12/02/20 12/03/20 12/03/20 19:06 12:17 13:47 WBC RBC Hgb Hct Lymphocytes # D-Dimer Sodium Chloride Carbon Dioxide BUN BUN/Creatinine Ratio Glucose Calcium Alkaline Phosphatase C-Reactive Protein Total Protein Albumin Urine Protein 1+ H 1+ H Urine Blood Small H Ur Leukocyte Esterase Trace H Trace H Urine RBC 42 H Urine WBC 11 H Urine Bacteria Rare H Urine Mucus Rare H Rare H Levetiracetam 1.5 L Coronavirus (PCR) 12/04/20 12/04/20 12/06/20 10:02 10:02 06:55 WBC 3.0 L RBC 3.60 L Hgb 11.5 L Hct 34.3 L Lymphocytes # 0.6 L D-Dimer 13.51 H Sodium Chloride 108 H Carbon Dioxide BUN 23 H BUN/Creatinine Ratio Glucose Calcium 8.2 L Alkaline Phosphatase C-Reactive Protein Total Protein 5.4 L Albumin 2.7 L Urine Protein Urine Blood Ur Leukocyte Esterase Urine RBC Urine WBC Urine Bacteria Urine Mucus Levetiracetam Coronavirus (PCR) 12/06/20 06:55 WBC RBC Hgb Hct Lymphocytes # D-Dimer Sodium Chloride 114 H Carbon Dioxide 20.2 L BUN BUN/Creatinine Ratio 25.00 H Glucose Calcium 8.2 L Alkaline Phosphatase C-Reactive Protein 1.8 H Total Protein Albumin Urine Protein Urine Blood Ur Leukocyte Esterase Urine RBC Urine WBC Urine Bacteria Urine Mucus Levetiracetam Coronavirus (PCR) Assessment and Plan Assessment: * Advanced dementia. Patient is almost nonverbal. * Severe rigidity, likely related to acute Covid-19 infection, although parkinsonism related to possible normal pressure hydrocephalus also a possibility. * Acute Covid infection * Urinary incontinence. Plan: * I discussed with patient's about patient's current condition. She wants further workup for evaluation of possible NPH. At this time we will check computed tomography scan of the head to follow-up on the hydrocephalus. We will perform therapeutic and diagnostic lumbar puncture to drain 20-25 mL of spinal fluid to see if it improves his mentation and mobility. * We will check B12, folate, TSH, RPR. * Discussed with patient's in detail. * We will discuss with primary physician. * Also spoke to patient's son Dr. Vaughn on the phone about patient's condition.
--- NOTE | 2020-12-07 18:39 | CT ---
EXAM: CT brain wo con CLINICAL HISTORY: Weakness and altered mental status. COMPARISON: 05/09/2020 TECHNIQUE: Contiguous axial noncontrast images of the brain were obtained. Coronal and sagittal refor mats were generated and reviewed. Automated dose control was used for this exam. FINDINGS: There is no evidence for intracranial hemorrhage, mass effect or midline shift. There is moderate whi te matter disease and parenchymal volume loss. Stable enlarged ventricles. The paranasal sinuses are clear. There is complete opacification of the left mastoid air cells and mi ld of the right mastoid air cells. No evidence for calvarial fracture. IMPRESSION: No acute intracranial abnormality. Stable ventriculomegaly versus chronic hydrocephalus. Mastoid air cell disease.
--- NOTE | 2020-12-07 20:19 | PN ---
PROGRESS NOTE CHIEF COMPLAINT: COVID pneumonia and dementia. HISTORY OF PRESENT ILLNESS: This gentleman is very difficult to arouse this morning. I understand that he woke up later in the day. His wanted him evaluated by Neurology and they will see him. PHYSICAL EXAMINATION: Chest is clear. Cardiac exam is normal. Abdomen is soft and nontender. He is difficult to arouse. IMPRESSION: 1. COVID pneumonia. 2. Dementia. 3. Lethargy. 4. Generalized weakness, probably secondary to Covid 19. PLAN: Await neurologic evaluation. MMODL / IJN: [id number] /
[2020-12-07] MEDS: ASPIRIN 81 MG PO SCH (21:05)
[2020-12-07] MEDS: levETIRAcetam ORAL SOLN 500 MG/5 ML CUP PO SCH (21:05)
[2020-12-08] MEDS: SODIUM CHLORIDE 0.9% 1,000 ML IV SCH ×2 (06:02→16:34)
[2020-12-08] MEDS: CHOLECALCIFEROL 25 MCG (1000 IU) TABLET PO SCH (08:49)
[2020-12-08] MEDS: ENOXAPARIN 40 MG/0.4 ML SYRINGE SQ SCH (08:49)
[2020-12-08] MEDS: dexAMETHasone 2 MG TAB PO SCH (08:50)
[2020-12-08] MEDS: ZINC SULFATE 220 MG CAP PO SCH (08:50)
[2020-12-08] MEDS: ASCORBIC ACID 500 MG TAB PO SCH (08:50)
[2020-12-08] MEDS: LEVOFLOXACIN 500 MG TAB PO SCH (12:35)
--- NOTE | 2020-12-08 16:55 | P.PN ---
Subjective Progress Note Date: 12/08/20 Patient was seen for a follow-up. Patient continues to be nonverbal, encephalopathic. Does not make eye contact. No complaints as patient is mute. Objective - Vital Signs Vital signs: Vital Signs Temp 98.5 F 12/08/20 14:00 Pulse 53 L 12/08/20 14:00 Resp 18 12/08/20 14:00 BP 116/60 12/08/20 14:00 Pulse Ox 98 12/08/20 14:00 Intake & Output 12/07/20 12/08/20 12/08/20 18:59 06:59 18:59 Intake Total 175 100 Balance 175 100 Intake: Oral 175 100 Other: Voiding Method Diaper Diaper Diaper # Voids 2 - Exam Patient continues to be mute. Patient does not make eye contact. Patient face is symmetric. Pupils appears round and reacting. Extraocular muscles appears intact. Patient has increased tone in the arms, at least moderate to severely bilaterally. Slightly better than yesterday. I was able to check for muscle tone. 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 Patient would not cooperate for rest of the examination. Patient has withdrawal plantars bilaterally. No obvious focality on the examination. - Labs CBC & Chem 7: 12/04/20 10:02 12/06/20 06:55 Labs: Microbiology - Last 24 Hours (Table) 12/03/20 23:42 Blood Culture - Preliminary Blood No Growth after 96 hours 12/02/20 22:00 Blood Culture - Preliminary Blood No Growth after 120 hours 12/02/20 21:45 Blood Culture - Preliminary Blood No Growth after 120 hours Assessment and Plan Assessment: * Advanced dementia Alzheimer's versus NPH versus frontotemporal. Patient is almost nonverbal. * Severe rigidity, likely related to acute Covid-19 infection, although parkinsonism related to possible normal pressure hydrocephalus also a poss ibility. * Acute Covid infection * Urinary incontinence. Plan: * Patient underwent repeat computed tomography scan of the head. It was reported as stable ventricular megaly versus chronic hydrocephalus. On my review, there is severe atrophy of the frontal and temporal lobes with compensatory dilation of the lateral ventricle, particularly in the frontal and temporal horns. Uncertain patient has frontotemporal dementia versus Alzheimer's versus NPH. * I discussed with patient's , patient's son and patient's primary physician in detail. It was mutually decided to proceed with diagnostic and therapeutic lumbar puncture, to see if it improves his mentation and mobility. No contraindication from Covid standpoint per primary physician. * Await B12, folate, TSH, RPR. Time with Patient: Greater than 30
--- NOTE | 2020-12-08 20:28 | PN ---
PROGRESS NOTE CHIEF COMPLAINT: COVID pneumonia and generalized weakness. HISTORY OF PRESENT ILLNESS: This gentleman is being evaluated by Neurology. Lumbar puncture is planned. PHYSICAL EXAMINATION: Good breath sounds are heard bilaterally and the cardiac exam is normal. He is more alert today. IMPRESSION: 1. COVID pneumonia. 2. Urinary retention. 3. Dementia. PLAN: Lumbar puncture today, and then Neurology will make further recommendations. MMODL / SHARANN: [id number] /
[2020-12-08] MEDS: levETIRAcetam ORAL SOLN 500 MG/5 ML CUP PO SCH (21:32)
[2020-12-08] MEDS: ASPIRIN 81 MG PO SCH (21:33)
[2020-12-08 23:20] LABS: Folate, Serum 16.1 ng/mL
[2020-12-09] MEDS: SODIUM CHLORIDE 0.9% 1,000 ML IV SCH ×2 (06:11→14:16)
[2020-12-09] MEDS: ZINC SULFATE 220 MG CAP PO SCH (08:21)
[2020-12-09] MEDS: dexAMETHasone 2 MG TAB PO SCH (08:21)
[2020-12-09] MEDS: CHOLECALCIFEROL 25 MCG (1000 IU) TABLET PO SCH (08:21)
[2020-12-09] MEDS: ASCORBIC ACID 500 MG TAB PO SCH (08:21)
[2020-12-09] MEDS: ENOXAPARIN 40 MG/0.4 ML SYRINGE SQ SCH (08:22)
[2020-12-09] MEDS: LEVOFLOXACIN 500 MG TAB PO SCH (13:50)
--- NOTE | 2020-12-09 17:34 | EEG ---
ELECTROENCEPHALOGRAM REPORT DATE OF SERVICE: 12/09/2020 PREAMBLE: This is a 80-year-old male with altered mental status, COVID and history of dementia, possible NPH. This study is performed to evaluate for any epileptiform activity. EEG FINDINGS: This is a 21-channel routine EEG recording in a patient utilizing 10/20 international system with referential and bipolar montages. Background consists of well-developed, poorly regulated, mixed frequencies of 4-5 hertz theta, with 2-3 hertz delta activity seen in bihemispheric regions. Sporadic myoclonic-type jerks were noted during the study, during which a single spike was seen in generalized distribution. A lot of myogenic activity was seen. Some drowsiness was seen, but deeper stages of sleep were not attained. No definitive epileptiform activity was seen. IMPRESSION: This is an abnormal EEG due to background slowing of at least moderate degree. This is suggestive of generalized cerebral dysfunction as can be seen with toxic metabolic encephalopathy or due to diffuse structural brain abnormality. The presence of intermittent myoclonic-type jerks was seen, associated with generalized spike. No electrographic seizure was recorded. MMODL / IJN: [id number] /
--- NOTE | 2020-12-09 19:38 | PN ---
PROGRESS NOTE CHIEF COMPLAINT: Mental status changes, COVID pneumonitis. HISTORY OF PRESENT ILLNESS: This gentleman remains the same. He is awake and alert, but not responding and not speaking. He is being worked up by Neurology and an LP is to be done. PHYSICAL EXAMINATION: Chest is clear. Cardiac exam is normal. The abdomen is soft and nontender. IMPRESSION: 1. COVID pneumonia. 2. Urinary tract infection. 3. Dementia. PLAN: Continue with neurologic evaluation. MMODL / IJN: [id number] /
[2020-12-09] MEDS: ASPIRIN 81 MG PO SCH (20:18)
[2020-12-09] MEDS: levETIRAcetam ORAL SOLN 500 MG/5 ML CUP PO SCH (20:18)
--- NOTE | 2020-12-09 21:54 | P.PN ---
Subjective Progress Note Date: 12/09/20 Patient was seen for a follow-up. Patient appears much more alert and awake. Patient apparently playing with the covers. Patient has occasional myoclonic jerks. He makes eye contact, but does not speak a word. Per nurse he has very occasionally uttered "yes". Patient continues to be nonverbal, much more alert. Objective - Vital Signs Vital signs: Vital Signs Temp 97.8 F 12/09/20 18:02 Pulse 70 12/09/20 18:02 Resp 16 12/09/20 18:02 BP 122/63 12/09/20 18:02 Pulse Ox 97 12/09/20 18:02 Intake & Output 12/09/20 12/09/20 12/10/20 06:59 18:59 06:59 Other: Voiding Method Diaper Diaper Diaper # Voids 2 - Exam Patient continues to be mute. Patient does make eye contact. Patient face is symmetric. Pupils appears round and reacting. Extraocular muscles appears intact. Patient's tone is moderately increased in the arms, but moderate to severely in the legs. Patient's skimmer is extremely strong. Patient has positive bilateral palmomental reflex, positive snout reflex, positive grasp reflex bilaterally. Per nurse, he cannot walk. Because his legs are so stiff. No obvious focality on the examination. - Labs CBC & Chem 7: 12/04/20 10:02 12/06/20 06:55 Labs: Abnormal Lab Results - Last 24 Hours (Table) 12/06/20 Range/Units 06:55 Vitamin B12 1982.0 H (200.0-944.0) pg/mL Microbiology - Last 24 Hours (Table) 12/03/20 23:42 Blood Culture - Preliminary Blood No Growth after 120 hours 12/02/20 22:00 Blood Culture - Final Blood No Growth after 144 hours 12/02/20 21:45 Blood Culture - Final Blood No Growth after 144 hours Assessment and Plan Assessment: * Advanced dementia Alzheimer's versus NPH versus frontotemporal. Patient is almost nonverbal. * Severe rigidity, likely related to acute Covid-19 infection, although parkinsonism related to possible normal pressure hydrocephalus also a possibility. * Acute Covid infection * Urinary incontinence. Plan: * Patient underwent repeat computed tomography scan of the head. It was reporte d as stable ventriculomegaly versus chronic hydrocephalus. On my review, there is severe atrophy of the frontal and temporal lobes with compensatory dilation of the lateral ventricle, particularly in the frontal and temporal horns. Uncertain patient has frontotemporal dementia versus Alzheimer's, vs NPH. * Await diagnostic and therapeutic lumbar puncture, to see if it improves his me ntation and mobility. If no improvement with lumbar puncture, then would recommend starting Sinemet 25/100, one tablet twice a day for parkinsonism. * Patient underwent EEG today, which was abnormal due to background slowing of at least moderate degree. This is suggestive of generalized cerebral dysfunction as can be seen with toxic metabolic encephalopathy or due to diffuse structural brain abnormality. The presence of intermittent myoclonic- type jerks was seen, which was associated with generalized spike. No electrographic seizure was recorded. Patient on very low-dose Keppra 200 mg at bedtime. We will increase Keppra to 250 mg twice a day. * B12 1984, folate 16.1, TSH 2.21, RPR nonreactive. * Dr. Cali will be covering neurology service over the weekend. Dr. Eugene Garner will resume neurology service on Saturday.
[2020-12-10] MEDS: ENOXAPARIN 40 MG/0.4 ML SYRINGE SQ SCH (07:05)
[2020-12-10] MEDS: ASCORBIC ACID 500 MG TAB PO SCH (07:05)
[2020-12-10] MEDS: CHOLECALCIFEROL 25 MCG (1000 IU) TABLET PO SCH (07:05)
[2020-12-10] MEDS: ZINC SULFATE 220 MG CAP PO SCH (07:06)
[2020-12-10] MEDS: SODIUM CHLORIDE 0.9% 1,000 ML IV SCH ×2 (07:06→20:11)
[2020-12-10] MEDS ORDERED: LACTATED RINGERS 1,000 ML IV ONE (08:00)
[2020-12-10] MEDS: dexAMETHasone 2 MG TAB PO SCH (08:29)
[2020-12-10] MEDS: levETIRAcetam ORAL SOLN 500 MG/5 ML CUP PO SCH ×2 (08:29→19:59)
--- NOTE | 2020-12-10 09:08 | P.PN ---
Progress Note - Text Progress Note Date: 12/10/20 80-year-old male for lumbar puncture. Positive for covid Ordered foraltered mental status. Coagulopathies: Coags normal, no antiplatelet, Lovenox 40 mg daily held this morning. Brain CT shows no mass effect this admission. Medications:Nothing significant. Consent obtained and confirmed Timeout performed at 737 hours Procedure start 738 Sterile protocol was used throughout procedure. L3 4 was identified and patient in left lateral decubitus. Chlorhexidine 2 was used to clean the patient's back. Lidocaine 1% 3 mL was used as local and was infiltrated. Spinal needle 20-gauge 3-1/2 inches was used in 2 attempt. CSF was obtained. No heme. Specimens collected 4-4 mL each. Opening pressure of 14, closing pressure of 5. Needle was withdrawn and Band-Aid applied. Patient tolerated procedure well without complication. Procedure end 755. Stable for transfer to floor.
[2020-12-10 11:20] LABS: Glucose,CSF 53 mg/dL (40-70); Total Protein,CSF 113 mg/dL (12-60)
[2020-12-10 11:54] LABS: Appearance,CSF Clear
[2020-12-10 11:55] LABS: CSF Tube Number 4; Nucleated Cells, CSF 5 u/L (0-5); Red Blood Cell,CSF 40 u/L (0-10)
[2020-12-10 12:03] LABS: Diff, Total Cells Cnt, CSF 100; Mononuclear WBC,CSF 80 %; Polynuclear WBC,CSF 20 %; Red Blood Cell, CSF Crenated 0 %; Red Blood Cell, CSF Fresh 100 %
[2020-12-10] MEDS: LEVOFLOXACIN 500 MG TAB PO SCH (15:06)
--- NOTE | 2020-12-10 16:26 | PN ---
PROGRESS NOTE CHIEF COMPLAINT: Dementia, Covid pneumonia and mental status changes. HISTORY OF PRESENT ILLNESS: This patient seems to be fairly stable at this time. He is being further evaluated and worked up by Neurology and we are waiting for those reports to be returned after which he will probably be able to be discharged home. PHYSICAL EXAMINATION: Chest is clear. Cardiac exam is normal. Abdomen is soft. He is awake but non-communicative. IMPRESSION: 1. COVID pneumonia. 2. Urinary tract infection. 3. Profound dementia. 4. Mental status changes. PLAN: Await the balance of his neurologic workup and then he will probably be able to be discharged home. MMODL / IJN: [id number] /
--- NOTE | 2020-12-10 17:04 | P.PN ---
Subjective Progress Note Date: 12/10/20 The patient is an 80-year-old male who is seen in neurologic follow-up on December 10, 2020 via teleneurology. The patient is reclining in the bed. According to the nurse was present in the room, the patient had his lumbar puncture this morning. He was awake and alert following the lumbar puncture. He ate breakfast. Continued to be nonverbal however. The patient reportedly has episodes, mostly occurring at night, when he is unresponsive. He keeps his eyes closed and follows no commands. Objective - Vital Signs Vital signs: Vital Signs Temp 97.9 F 12/10/20 14:00 Pulse 50 L 12/10/20 14:00 Resp 15 12/10/20 14:00 BP 121/57 12/10/20 14:00 Pulse Ox 95 12/10/20 14:00 Intake & Output 12/09/20 12/10/20 12/10/20 18:59 06:59 18:59 Intake Total 350 Balance 350 Weight 81.647 kg Intake: IV 150 Oral 200 Other: Voiding Method Diaper Diaper Diaper # Voids 3 - Exam General: The patient is reclining in the bed. He is in no acute distress. Neurological examination Mental status: The patient is nonverbal. He follows no commands. He resists passive eye opening. Cranial nerves: Pupils are unable to be visualized as the patient resists eye opening. There is no obvious facial asymmetry. Motor: The patient does move all 4 extremities. He does not follow instructions for strength testing. Tone is markedly increased throughout. Abnormal movements: There are occasional myoclonic jerking movements of the upper extremities. Sensation: The patient does withdraw all 4 extremities, from noxious stimulation. CSF initial results are reviewed. Protein is elevated at 113 WBC count 5 with 80% monocytes and 20% polys Glucose is normal RBC count is elevated at 40 - Labs CBC & Chem 7: 12/04/20 10:02 12/06/20 06:55 Labs: Abnormal Lab Results - Last 24 Hours (Table) 12/10/20 Range/Units 08:10 CSF RBC 40 H (0-10) u/L CSF Total Protein 113 H (12-60) mg/dL Microbiology - Last 24 Hours (Table) 12/03/20 23:42 Blood Culture - Final Blood No Growth after 144 hours Assessment and Plan Assessment: 1. Decreased responsiveness in a patient with baseline dementia. Patient is status post lumbar puncture. There is no significant change. 2. Abnormal CSF results with elevated protein, red count and white count 3. Occasional myoclonic jerks Plan: 1. Further CSF testing to include Gram stain and culture. Also viral panel will be added 2. We will begin Sinemet 25/100 twice daily Time with Patient: Less than 30 (Spent 15 minutes with patient via teleneurology)
[2020-12-10] MEDS: CARBIDOPA-LEVODOPA 25-100 MG 1 EACH TAB PO SCH (19:59)
[2020-12-10] MEDS: ASPIRIN 81 MG PO SCH (19:59)
[2020-12-11] MEDS: ENOXAPARIN 40 MG/0.4 ML SYRINGE SQ SCH (07:45)
[2020-12-11] MEDS: ASCORBIC ACID 500 MG TAB PO SCH (07:45)
[2020-12-11] MEDS: CHOLECALCIFEROL 25 MCG (1000 IU) TABLET PO SCH (07:45)
[2020-12-11] MEDS: CARBIDOPA-LEVODOPA 25-100 MG 1 EACH TAB PO SCH ×2 (07:45→19:34)
[2020-12-11] MEDS: dexAMETHasone 2 MG TAB PO SCH (07:45)
[2020-12-11] MEDS: ZINC SULFATE 220 MG CAP PO SCH (07:45)
[2020-12-11] MEDS: levETIRAcetam ORAL SOLN 500 MG/5 ML CUP PO SCH ×2 (07:46→19:33)
[2020-12-11] MEDS: SODIUM CHLORIDE 0.9% 1,000 ML IV SCH (10:12)
[2020-12-11] MEDS: LEVOFLOXACIN 500 MG TAB PO SCH (13:50)
[2020-12-11] MEDS: ASPIRIN 81 MG PO SCH (19:34)
[2020-12-12] MEDS: SODIUM CHLORIDE 0.9% 1,000 ML IV SCH ×3 (00:37→21:50)
[2020-12-12] MEDS: levETIRAcetam ORAL SOLN 500 MG/5 ML CUP PO SCH ×2 (07:05→20:47)
[2020-12-12] MEDS: ENOXAPARIN 40 MG/0.4 ML SYRINGE SQ SCH (07:06)
[2020-12-12] MEDS: dexAMETHasone 2 MG TAB PO SCH (07:06)
[2020-12-12] MEDS: CHOLECALCIFEROL 25 MCG (1000 IU) TABLET PO SCH (07:06)
[2020-12-12] MEDS: ASCORBIC ACID 500 MG TAB PO SCH (07:06)
[2020-12-12] MEDS: CARBIDOPA-LEVODOPA 25-100 MG 1 EACH TAB PO SCH ×2 (07:06→20:47)
[2020-12-12] MEDS: ZINC SULFATE 220 MG CAP PO SCH (07:06)
--- NOTE | 2020-12-12 12:47 | P.PN ---
Subjective Progress Note Date: 12/12/20 The patient is being seen by me for the first time for neurological management. Please refer to Dr. Horan as well as Dr. Cali's note for further neurological workup as well as details and neurological history details. Per the patient nurse she continues to be not per verbally responsible follow commands. And his condition has not improved. And no seizure-like activity seen by the patient's nurse. Objective - Vital Signs Vital signs: Vital Signs Temp 98.0 F 12/12/20 10:00 Pulse 44 L 12/12/20 10:00 Resp 16 12/12/20 10:00 BP 106/63 12/12/20 10:00 Pulse Ox 93 L 12/12/20 10:00 Intake & Output 12/11/20 12/12/20 12/12/20 18:59 06:59 18:59 Intake Total 100 Balance 100 Intake: Oral 100 Other: Voiding Method Diaper # Voids 2 4 - Exam General: The patient is reclining in the bed. He is in no acute distress. HENT: No nuchal ridigity. Neurological examination Mental status: The patient is nonverbal. He does not follows no commands. Cranial nerves: Pupils to manual opening them are 3mm and reactive to light bilaterally. There is no obvious facial asymmetry. Motor: Gait is deferred because of condition. The patient does withdrawl all 4 extremities to painful stimuli. He does not follow instructions for strength testing. Tone is increased throughout but I feel at time he has worsening of increase tone since he resist but at time when he relaxes tone is not as drastically increased. No sponatenous movement noted throughout. Sensation: The patient does withdraw all 4 extremities, from noxious stimulation. Relexes: 2+ throughout. Plantars: Downgoing bilaterally. - Labs CBC & Chem 7: 12/04/20 10:02 12/06/20 06:55 Labs: Microbiology - Last 24 Hours (Table) 12/10/20 08:10 CSF Gram Stain - Preliminary Cerebral Spinal Fluid CSF Culture - Preliminary Assessment and Plan Assessment: 1. Advanced dementia Alzheimer's versus frontotemporal dementia versus questionable normal pressure hydrocephalus. Patient is nonverbal. 2. Severe rigidity unknown exact etiology Possibly COVID 19 infection vs p arkinson's disease. I feel patient has exacerbation of tone since he resist. 3. Abnormal CSF results with elevated protein (113). Possibly due to underlying COVID 19 infection. Other possiblity is due to history of underlying diabetes mellitus and is on Dexamethasone for COVID 19. 4. Reported Occasional myoclonic jerks 5. COVID 19 pneumonia Plan: Looking at the lumbar procedure note mentioned the opening pressure was 14 and the closing pressure was 5 doesn't mention how much CSF was taken out I would assume possibly 9 but I'm not exactly sure. Usually for normal pressure hydrocephalus it's a large CSF and if the patient shows any benefit then possibly at [facility] shunt can be considered down the line. Recommend the patient to follow-up in dementia clinic as an outpatient for further workup. EEG on 12/09/2020: It is reported as abnormal EEG due to background slowing of at least moderate degree. This is suggestive of generalized cerebral dysfunction as can be seen with toxic metabolic encephalopathy or due to diffuse structural brain abnormality. The presence of intermittent myoclonic-type jerks was seen, associate with generalized spike. No electrographic seizure was recorded. The patient is on Keppra 250 mg 1 tablet twice a day that was started by Dr. Horan. I increased the Keppra to 500 mg 1 tablet twice a day since I felt the Keppra was a low-dose for his body weight. CSF Gram stain preliminary is no organisms seen. CSF culture is no growth after 24 hours. Pending viral CSF culture Also looking at the CSF since the patient had 5 nuclear cells that's normal and the therefore it's not suggestive of meningeal encephalitis. The elevated proteins is possibly due to patient history of diabetes versus Covid versus a combination of both. Vitamin B12 level is 1982 which is considered normal. Folate level is 16.1 which is considered normal. TSH is 2.2 which is normal. The patient is on Sinemet 25/100 1 tab bid. Upon seeing the patient I feel the patient's prognosis seems poor. I think the patient's CODE STATUS should be addressed. I will attempt to speak with the patient's family members. The plan is discussed with the patient's nurse. Will continue to follow. Eugene Garner MD Neuro-Hospitalist Time with Patient: Less than 30
[2020-12-12 15:37] VITALS: BMI 25.8
--- NOTE | 2020-12-12 20:09 | PN ---
PROGRESS NOTE DATE OF SERVICE: 12/11/2020 CHIEF COMPLAINT: COVID pneumonia and dementia. HISTORY OF PRESENT ILLNESS: This gentleman has been fairly stable. He is being followed and treatment recommended by Neurology. He had a spinal tap which was unremarkable. There is a question of treating him for Parkinson's disease. PHYSICAL EXAMINATION: Breath sounds are heard bilaterally. He is not communicative. He is developing flexion contractures in the upper extremities. IMPRESSION: 1. COVID pneumonia. 2. Dementia. PLAN: He could probably go home anytime. I will wait for any further recommendations from Neurology. MMODL / IJN: [id number] /
--- NOTE | 2020-12-12 20:12 | PN ---
PROGRESS NOTE DATE OF SERVICE: 12/12/2020 CHIEF COMPLAINT: COVID pneumonia and dementia with seizure disorder. HISTORY OF PRESENT ILLNESS: This gentleman seems to be stable. I am awaiting any further recommendations from Neurology. He is being considered for treatment with Sinemet for possible Parkinson's syndrome. PHYSICAL EXAMINATION: He is afebrile. Vital signs are normal. The chest is clear. Cardiac exam is normal. The abdomen is soft and non-tender. IMPRESSION: 1. COVID pneumonia. 2. Dementia. PLAN: Home once recommendations from Neurology are obtained. MMODL / IJN: [id number] /
[2020-12-12] MEDS: ASPIRIN 81 MG PO SCH (20:47)
[2020-12-13] MEDS: ASCORBIC ACID 500 MG TAB PO SCH (08:22)
[2020-12-13] MEDS: ZINC SULFATE 220 MG CAP PO SCH (08:22)
[2020-12-13] MEDS: dexAMETHasone 2 MG TAB PO SCH (08:22)
[2020-12-13] MEDS: CARBIDOPA-LEVODOPA 25-100 MG 1 EACH TAB PO SCH ×2 (08:22→20:48)
[2020-12-13] MEDS: levETIRAcetam ORAL SOLN 500 MG/5 ML CUP PO SCH ×2 (08:22→20:49)
[2020-12-13] MEDS: ENOXAPARIN 40 MG/0.4 ML SYRINGE SQ SCH (08:22)
[2020-12-13] MEDS: CHOLECALCIFEROL 25 MCG (1000 IU) TABLET PO SCH (08:22)
--- NOTE | 2020-12-13 19:34 | PN ---
PROGRESS NOTE DATE OF SERVICE: 12/13/2020 CHIEF COMPLAINT: COVID pneumonia and dementia with seizures. HISTORY OF PRESENT ILLNESS: This gentleman seems to be stable. Neurology has increased his Keppra and added Sinemet. He was slated to go to [facility] when a bed is available, but apparently he was turned down there. After a long discussion with the patient's , she believes that there may be a bed for him at [facility]. PHYSICAL EXAMINATION: His chest is clear. The cardiac exam is normal. The abdomen is soft. He is somewhat rigid. He is awake but not communicative. IMPRESSION: 1. COVID pneumonia. 2. Dementia. 3. Possible Parkinson's syndrome. 4. Urinary tract infection. PLAN: Continue to work on a discharge plan. JOE / LEX: [id number] /
[2020-12-13] MEDS: ASPIRIN 81 MG PO SCH (20:48)
[2020-12-14] MEDS: CARBIDOPA-LEVODOPA 25-100 MG 1 EACH TAB PO SCH (08:09)
[2020-12-14] MEDS: dexAMETHasone 2 MG TAB PO SCH (08:09)
[2020-12-14] MEDS: ENOXAPARIN 40 MG/0.4 ML SYRINGE SQ SCH (08:09)
[2020-12-14] MEDS: ASCORBIC ACID 500 MG TAB PO SCH (08:09)
[2020-12-14] MEDS: ZINC SULFATE 220 MG CAP PO SCH (08:09)
[2020-12-14] MEDS: levETIRAcetam ORAL SOLN 500 MG/5 ML CUP PO SCH (08:09)
[2020-12-14] MEDS: CHOLECALCIFEROL 25 MCG (1000 IU) TABLET PO SCH (08:09)
[2020-12-14 10:25] VITALS: BP 169/88; PULSE 74; RESP 23; TEMP 97.8
--- NOTE | 2020-12-14 11:45 | DS ---
DISCHARGE SUMMARY CHIEF COMPLAINT: Shortness of breath and pneumonitis. HISTORY OF PRESENT ILLNESS AND PHYSICAL EXAM: Details of this man's history and physical can be found in the initial workup. LABORATORY STUDIES: While he was in the hospital he had laboratory studies, details of which can be found in the laboratory section of his chart. COURSE IN THE HOSPITAL: After he was admitted for lethargy, he was found to have a pneumonitis and he was COVID positive. He was started on IV fluids and rehydrated and he became more awake and alert. He resumed his usual mental status, which was to be awake, but non- communicative. He had no seizures while he was in the hospital. He was doing well and it is felt that he could be discharged, but then the family wanted him to undergo an evaluation by Neurology. This kept him in the hospital several more days with CTs and eventual lumbar puncture, all of which were nondiagnostic. At that point, the family decided that they would not take him home and wanted him placed for physical therapy. He was not a candidate for skilled care and arrangements were made for him to go to [facility] and he will be followed there. FINAL DIAGNOSES: 1. COVID pneumonia. 2. Mental status changes. 3. Urinary tract infection. 4. Urinary retention. 5. Dementia with seizure disorder. OPERATIONS: None. CONSULTATIONS: Neurology. He is improved. JOE / LEX: [id number] /
--- NOTE | 2020-12-14 12:20 | P.PN ---
Progress Note - Text Progress Note Date: 12/14/20 Regarding why stated on my earlier note that he has diabetes was in our facility on 11/22/2017 his Hemoglobin A1c was 6.8 (normal levels should be 4-6). We do not have any repeat Hemoglin A1c in our system and his glucose in recent admission has be fairly well 80-90's on last two checks. Regarding the elevated protein on CSF it is due to likely COVID-19 infection. This was all explained to the patient's son (Tien) via phone.
== END 2020-12-14 14:22 | DRG 177 ==
LOC: EC 13:06 → 6NMEDSUR 12-03 03:22 → 4SSUR 12-03 06:57 → OBSVTOIN 12-05 07:45
PROVIDERS: ADMIT Family Medicine; ATTEND Family Medicine
PROC: 009U3ZX Drainage of Spinal Canal, Percutaneous Approach, Diagnostic (ICD-10-PCS; principal; 2020-12-10 07:30)
DX: U07.1 COVID-19 (principal); J12.82 Pneumonia due to coronavirus disease 2019; G92 Toxic encephalopathy; N39.0 Urinary tract infection, site not specified; N40.1 Benign prostatic hyperplasia with lower urinary tract symptoms; R33.8 Other retention of urine; G30.9 Alzheimer's disease, unspecified; F02.80 Dementia in other diseases classified elsewhere, unspecified severity, without behavioral disturbance, psychotic disturbance, mood disturbance, and anxiety; G20 Parkinson's disease; E86.0 Dehydration; I44.0 Atrioventricular block, first degree; N39.498 Other specified urinary incontinence; G40.909 Epilepsy, unspecified, not intractable, without status epilepticus; Z79.82 Long term (current) use of aspirin; Z80.8 Family history of malignant neoplasm of other organs or systems; Z79.899 Other long term (current) drug therapy; Z80.1 Family history of malignant neoplasm of trachea, bronchus and lung; Z80.41 Family history of malignant neoplasm of ovary; Z86.14 Personal history of Methicillin resistant Staphylococcus aureus infection; Z90.79 Acquired absence of other genital organ(s); Z98.890 Other specified postprocedural states
CPT/HCPCS: 36415; 62270; 70450; 71045; 71046; 80048; 80053; 80177; 80306; 81001; 82164; 82607; 82746; 82945; 83615; 84157; 84443; 84484; 85025; 85379; 85610; 85730; 86140; 86780; 87040; 87070; 87086; 87205; 87252; 87635; 89050; 93005; 95816; 96361; 96374; 99285

== ENCOUNTER 2020-12-15 07:02 | Inpatient (IN) | payer MEDICARE, BC ==
[2020-12-15] MEDS ORDERED: ACETAMINOPHEN TAB 500 MG TAB PO PRN (07:15)
[2020-12-15] MEDS ORDERED: ALBUTEROL HFA INHALER INHALATION STA (07:15)
[2020-12-15] MEDS ORDERED: ACETAMINOPHEN TAB 500 MG TAB PO STA (07:15)
[2020-12-15] MEDS ORDERED: ALBUTEROL HFA INHALER INHALATION PRN (07:15)
--- NOTE | 2020-12-15 07:27 | ED ---
General Adult HPI - General Chief complaint: Shortness of Breath Stated complaint: COVID+, low 02 Time Seen by Provider: 12/15/20 07:07 Source: patient, EMS, RN notes reviewed Mode of arrival: EMS Limitations: altered mental status, physical limitation - History of Present Illness Initial comments: Patient is an 80-year-old male presenting to the emergency department with difficulty in breathing. Onset of symptoms was unknown. Patient is a very poor historian. Patient does present from intermediate with dyspnea. Patient was recently in the hospital with covid pneumonia. - Related Data Home Medications Medication Instructions Recorded Confirmed Aspirin [Adult Low Dose Aspirin EC] 81 mg PO HS 05/09/20 12/02/20 Previous Rx's Medication Instructions Recorded Levofloxacin [Levaquin] 250 mg PO Q24H #7 tab 12/06/20 Carbidopa-Levodopa 25-100 mg 1 each PO BID #60 tab 12/14/20 [Sinemet 25-100 mg] levETIRAcetam ORAL SOLN [Keppra 500 mg PO BID 30 Days #120 ml 12/14/20 Oral Soln] Allergies Allergy/AdvReac Type Severity Reaction Status Date / Time No Known Allergies Allergy Verified 12/02/20 18:22 Review of Systems ROS Statement: Those systems with pertinent positive or pertinent negative responses have been documented in the HPI. ROS Other: All systems not noted in ROS Statement are negative. Limitations: ROS unobtainable due to patients medical condition Constitutional: Reports: as per HPI, fever Respiratory: Reports: dyspnea Past Medical History Past Medical History: Dementia, Memory Impairment, Prostate Disorder, Seizure Disorder Additional Past Medical History / Comment(s): Alzheimers, aspirates with some liquids, 10/2020 admitted with seizure and UTI, BPH/obstruction/retention with surgery, pt is incontinent of urine and stool, wheelchair bound History of Any Multi-Drug Resistant Organisms: MRSA Date of last positivie culture/infection: 12/24/17 MDRO Source:: [facility] Past Surgical History: Orthopedic Surgery, Prostate Surgery Additional Past Surgical History / Comment(s): TURP, bilateral rotator cuff surgeries Past Anesthesia/Blood Transfusion Reactions: No Reported Reaction Additional Past Anesthesia/Blood Transfusion Reaction / Comment(s): difficulty coming out slow to wake up Past Psychological History: No Psychological Hx Reported Smoking Status: Never smoker Past Alcohol Use History: None Reported Past Drug Use History: None Reported - Past Family History Father Family Medical History: Cancer Additional Family Medical History / Comment(s): lung ca Mother Family Medical History: Cancer Additional Family Medical History / Comment(s): Mother had ovarian cancer and of this at the age of 44 yrs. Son(s) Family Medical History: Cancer Additional Family Medical History / Comment(s): rhabdomyo sarcoma (SON). ADRENOCORTICOSARCONOMA (GRANDSON) General Exam Limitations: altered mental status, physical limitation General appearance: alert Head exam: Present: atraumatic Eye exam: Present: normal appearance, PERRL ENT exam: Present: mucous membranes dry Respiratory exam: Present: respiratory distress, decreased breath sounds Cardiovascular Exam: Present: tachycardia GI/Abdominal exam: Present: soft. Absent: tenderness Extremities exam: Present: normal inspection. Absent: pedal edema, calf tenderness Neurological exam: Present: alert, altered (Limited verbal. Limited ability to follow commands.), other (Moves all extremities) Psychiatric exam: Present: flat affect Skin exam: Present: normal color Course Vital Signs 12/15/20 12/15/20 07:04 08:00 Temperature 101.3 F H Pulse Rate 128 H 116 H Respiratory 30 H 28 H Rate Blood Pressure 126/96 122/84 O2 Sat by Pulse 95 93 L Oximetry EKG Findings - EKG Comments: EKG Findings:: Sinus tachycardia with rate 129. MD 162. QRS 88. QT 290. QTC 424 per left axis. Left anterior fascicular block. No acute ST change. Medical Decision Making - Medical Decision Making Case was discussed with patient's son who is the emergency physician as well. He states patient is DO NOT RESUSCITATE however BiPAP would be okay. Case also discussed with Dr. Ferrera who is familiar with this patient. He does want to have cath urinalysis and will admit. - Lab Data Result diagrams: 12/15/20 07:26 12/15/20 07:26 Lab Results 12/15/20 12/15/20 12/15/20 Range/Units 07:26 07:26 07:26 WBC 16.6 H (3.8-10.6) k/uL RBC 4.65 (4.30-5.90) m/uL Hgb 14.5 D (13.0-17.5) gm/dL Hct 44.7 (39.0-53.0) % MCV 96.1 (80.0-100.0) fL MCH 31.3 (25.0-35.0) pg MCHC 32.6 (31.0-37.0) g/dL RDW 14.2 (11.5-15.5) % Plt Count 579 H D (150-450) k/uL MPV 7.7 Neutrophils % 93 % Lymphocytes % 3 % Monocytes % 4 % Eosinophils % 0 % Basophils % 0 % Neutrophils # 15.4 H (1.3-7.7) k/uL Lymphocytes # 0.5 L (1.0-4.8) k/uL Monocytes # 0.6 (0-1.0) k/uL Eosinophils # 0.0 (0-0.7) k/uL Basophils # 0.0 (0-0.2) k/uL PT 11.4 (9.0-12.0) sec INR 1.1 (<1.2) APTT 24.1 (22.0-30.0) sec D-Dimer (<0.60) mg/L FEU Sodium 153 H (137-145) mmol/L Potassium 4.1 (3.5-5.1) mmol/L Chloride 117 H (98-107) mmol/L Carbon Dioxide 24 (22-30) mmol/L Anion Gap 12 mmol/L BUN 48 H (9-20) mg/dL Creatinine 1.37 H (0.66-1.25) mg/dL Est GFR (CKD-EPI)AfAm 55 (>60 ml/min/1.73 sqM) Est GFR (CKD-EPI)NonAf 48 (>60 ml/min/1.73 sqM) Glucose 161 H (74-99) mg/dL Plasma Lactic Acid Zohaib (0.7-2.0) mmol/L Calcium 9.4 (8.4-10.2) mg/dL Magnesium 2.3 (1.6-2.3) mg/dL Total Bilirubin 1.1 (0.2-1.3) mg/dL AST 28 (17-59) U/L ALT 29 (4-49) U/L Alkaline Phosphatase 173 H (38-126) U/L Lactate Dehydrogenase 806 H (313-618) U/L Total Protein 7.0 (6.3-8.2) g/dL Albumin 3.6 (3.5-5.0) g/dL Digoxin ng/mL 12/15/20 12/15/20 12/15/20 Range/Units 07:26 07:26 07:26 WBC (3.8-10.6) k/uL RBC (4.30-5.90) m/uL Hgb (13.0-17.5) gm/dL Hct (39.0-53.0) % MCV (80.0-100.0) fL MCH (25.0-35.0) pg MCHC (31.0-37.0) g/dL RDW (11.5-15.5) % Plt Count (150-450) k/uL MPV Neutrophils % % Lymphocytes % % Monocytes % % Eosinophils % % Basophils % % Neutrophils # (1.3-7.7) k/uL Lymphocytes # (1.0-4.8) k/uL Monocytes # (0-1.0) k/uL Eosinophils # (0-0.7) k/uL Basophils # (0-0.2) k/uL PT (9.0-12.0) sec INR (<1.2) APTT (22.0-30.0) sec D-Dimer 1.22 H (<0.60) mg/L FEU Sodium (137-145) mmol/L Potassium (3.5-5.1) mmol/L Chloride (98-107) mmol/L Carbon Dioxide (22-30) mmol/L Anion Gap mmol/L BUN (9-20) mg/dL Creatinine (0.66-1.25) mg/dL Est GFR (CKD-EPI)AfAm (>60 ml/min/1.73 sqM) Est GFR (CKD-EPI)NonAf (>60 ml/min/1.73 sqM) Glucose (74-99) mg/dL Plasma Lactic Acid Zohaib 1.6 (0.7-2.0) mmol/L Calcium (8.4-10.2) mg/dL Magnesium (1.6-2.3) mg/dL Total Bilirubin (0.2-1.3) mg/dL AST (17-59) U/L ALT (4-49) U/L Alkaline Phosphatase (38-126) U/L Lactate Dehydrogenase (313-618) U/L Total Protein (6.3-8.2) g/dL Albumin (3.5-5.0) g/dL Digoxin <0.4 ng/mL Disposition Clinical Impression: COVID-19 Disposition: ADMITTED IP TO THIS [facility] Condition: Serious Is patient prescribed a controlled substance at d/c from ED?: No Referrals: Tyrone Ferrera MD [Primary Care Provider] - 1-2 days Decision Time: 09:06
[2020-12-15] MEDS ORDERED: ACETAMINOPHEN SUPPOSITORY 650 MG SUPP RECTAL STA (07:43)
[2020-12-15 08:05] LABS: Basophils % (A) 0 %; Eosinophils % (A) 0 %; HCT 44.7 % (39.0-53.0); Lymphocytes # (A) 0.5 k/uL (1.0-4.8); Lymphocytes % (A) 3 %; MCH 31.3 pg (25.0-35.0); MCHC 32.6 g/dL (31.0-37.0); MCV 96.1 fL (80.0-100.0); Mean Platelet Volume 7.7; Monocytes # (A) 0.6 k/uL (0-1.0); Monocytes % (A) 4 %; Neutrophils # (A) 15.4 k/uL (1.3-7.7); Neutrophils % (A) 93 %; RBC 4.65 m/uL (4.30-5.90); RDW 14.2 % (11.5-15.5); WBC 16.6 k/uL (3.8-10.6)
[2020-12-15 08:08] LABS: Albumin 3.6 g/dL (3.5-5.0); Calcium 9.4 mg/dL (8.4-10.2); Magnesium 2.3 mg/dL (1.6-2.3); Potassium 4.1 mmol/L (3.5-5.1); Total Bilirubin 1.1 mg/dL (0.2-1.3)
[2020-12-15 08:09] LABS: HGB 14.5 gm/dL (13.0-17.5)
[2020-12-15 08:10] LABS: INR 1.1 (<1.2); Partial Thromboplastin Time 24.1 sec (22.0-30.0); Platelet Count 579 k/uL (150-450); Prothrombin Time 11.4 sec (9.0-12.0)
--- NOTE | 2020-12-15 08:18 | XR ---
EXAMINATION TYPE: XR chest 1V portable DATE OF EXAM: 12/15/2020 COMPARISON: Chest x-ray 9 days ago. HISTORY: Cough and fever. Shortness of breath. TECHNIQUE: Single frontal view of the chest is obtained. FINDINGS: The osseous structures remain demineralized. Metallic anchors from rotator cuff surgery bi laterally are redemonstrated. Cardiac silhouette size stable and within normal limits. Persistent chr onic parenchymal changes without definitive new focal airspace opacity, pleural effusion, or pneumoth orax seen bilaterally. Low lung volumes redemonstrated. IMPRESSION: Chronic changes without acute infiltrate clearly seen.
[2020-12-15] MEDS ORDERED: NALOXONE 0.4 MG/ML 1 ML VIAL IV PRN (09:09)
[2020-12-15 09:23] LABS: C Reactive Protein 175.7 mg/L (<10.0)
[2020-12-15] MEDS: ENOXAPARIN 40 MG/0.4 ML SYRINGE SQ SCH (09:51)
[2020-12-15] MEDS: DEXAMETHASONE SOD PHOSPHATE 10 MG/ML 1 ML VIAL IV SCH (09:51)
[2020-12-15] MEDS: SODIUM CHLORIDE 0.9% 1,000 ML IV SCH (09:54)
[2020-12-15] MEDS: ZINC SULFATE 220 MG CAP PO SCH (09:54)
[2020-12-15 09:55] LABS: Appearance,Urine Clear (Clear); Bilirubin,Urine Negative (Negative); Blood,Urine Moderate (Negative); Color,Urine Yellow; Glucose,Urine (UA) Negative (Negative); Ketones,Urine Trace (Negative); Leukocyte Esterase,Urine Large (Negative); Mucus,Urine Occasional /hpf; Nitrite,Urine Negative (Negative); PH, Urine 5.5 (5.0-8.0); Protein,Urine 1+ (Negative); RBC,Urine 57 /hpf (0-5); Specific Gravity,Urine 1.014 (1.001-1.035); Squamous Epithelial Cell,Urine 1 /hpf (0-4); WBC,Urine 31 /hpf (0-5)
[2020-12-15] MEDS: CEFEPIME 2 GM in SODIUM CHLORIDE 0.9% 100 ML IVPB SCH ×2 (14:30→22:49)
[2020-12-15] MEDS: ALBUTEROL HFA INHALER INHALATION SCH ×2 (16:27→20:37)
[2020-12-15] MEDS: DEXTROSE 5%-0.45% NACL 1,000 ML IV SCH (17:50)
--- NOTE | 2020-12-15 18:48 | HP ---
HISTORY AND PHYSICAL CHIEF COMPLAINT: Fever and tachycardia. HISTORY OF PRESENT ILLNESS: This is a return visit for this 80-year-old gentleman with dementia. He was just in the hospital recently for COVID pneumonia and urinary tract infection and was stabilized and was sent to [facility] on the [address]. In the middle of the night he developed a temperature of 103 and tachycardia. He was sent back to the emergency room. The likely source of his infection is either his urinary tract, where he has had problems before, and where a Estevez catheter was just removed, or the chest. In the emergency room his BUN was 48 with a creatinine of 1.31. Sodium was 153. White count was 16,600. Urine demonstrated WBCs and leukocyte esterase. CRP was elevated at 175. PHYSICAL EXAMINATION: Pulse is 130 and regular. Respirations are 36 and temperature is 101. Blood pressure is 130/82. In general he appeared to be slightly dehydrated. Skin was hot and dry. Head, ears, eyes, nose and mouth were unchanged except for some dry mucous membranes on exam. Chest demonstrated only occasional rales and rhonchi. Cardiac exam demonstrated tachycardia. The abdomen was soft and nontender. Extremities were normal. IMPRESSION: 1. Fever of unknown origin. 2. Tachycardia. 3. Urinary tract infection with cystitis. 4. Recent COVID pneumonia. 5. Rule out aspiration pneumonia. 6. Dementia. PLAN: 1. Bedrest. 2. Rehydrate. 3. IV antibiotics. 4. Consult Infectious Disease. MMODL / IJN: [id number] /
[2020-12-15] MEDS: CARBIDOPA-LEVODOPA 25-100 MG 1 EACH TAB PO SCH (22:39)
[2020-12-15] MEDS: levETIRAcetam ORAL SOLN 500 MG/5 ML CUP PO SCH (22:39)
[2020-12-15] MEDS: ASCORBIC ACID 500 MG TAB PO SCH (22:39)
--- NOTE | 2020-12-15 23:05 | CONS ---
CONSULTATION DATE OF SERVICE: 12/15/2020 REASON FOR CONSULTATION: Fever. HISTORY OF PRESENT ILLNESS: The patient is an 80-year-old male recently admitted to this facility, where the patient was treated for COVID infection. [facility] The patient has been brought back to the hospital for evaluation of difficulty in breathing, apparently getting worse since the patient left the hospital. The patient was noticed to be hypoxic in the prison. On presentation to hospital the patient did have a fever of 101.3 degrees Fahrenheit. The patient was tachycardic. Saturations were documented as 93% on 3 L nasal cannula. The patient did have a white count of 16.6 with a left shift. D-dimer mildly elevated. LDH, CRP elevated. Procalcitonin was also mildly elevated. Did have a positive UA. Chest x-ray was suggestive of chronic changes. The patient was admitted to the hospital. Infectious Disease was consulted for further recommendations. Most of the information has been obtained from review of the chart and talking to the nursing staff, as the patient was unable to provide any history. REVIEW OF SYSTEMS: Positive points have been mentioned in the HPI. Complete review could not be obtained because of mental status. PAST MEDICAL HISTORY: Dementia, memory impairment, history of prostate disorder, seizure disorder, recent COVID pneumonia. PAST SURGICAL HISTORY: TURP, bilateral rotator cuff surgery. SOCIAL HISTORY: No history of smoking, drinking or drug use. FAMILY HISTORY: Father with history of lung cancer. ALLERGIES: NO KNOWN DRUG ALLERGIES. MEDICATIONS: The patient is currently on Tylenol, Ventolin, vitamin C, Sinemet, vitamin D3, Decadron, Lovenox, Keppra, Narcan, magnesium sulfate. PHYSICAL EXAMINATION: Blood pressure 139/82 with a pulse of 78, temperature 98.7, T-max 101. He is 97% on 3 L nasal cannula. General description is an elderly male lying in bed in no distress. No tachypnea or accessory muscles of respiration use. HEENT: Examination shows no pallor or scleral icterus. Oral mucous membrane is dry. NECK: Trachea is central. No thyromegaly. LUNGS: Unlabored breathing. Decreased intensity of breath sounds. No wheeze. HEART: S1, S2. Regular rate and rhythm. ABDOMEN: Soft. No tenderness. No guarding or rigidity. EXTREMITIES: No edema of the feet. SKIN EXAMINATION: No rash or mass palpable. Neurologically the patient remains lethargic. Orientation could not be determined. LABS: Hemoglobin is 14.5, white count 16.6. D-dimer is 1.22. BUN of 48, creatinine is 1.37. Liver enzymes are normal. LDH and CRP elevated. Procalcitonin is mildly elevated. Urine is positive. DIAGNOSTIC IMPRESSION AND PLAN: 1. Patient admitted to the hospital with a fever and hypoxemia. Source is likely multifactorial in this patient with a recent admission to this facility and was treated for COVID infection. Chest x-ray, however, did not show any acute finding. He did have a positive UA with concern for possible UTI; however, underlying COVID infection responsible for his symptomatology. 2. Patient with elevated BUN and creatinine, likely component of dehydration. PLAN: 1. The patient will be started on cefepime 2 grams q.12, as the patient has previously grown pseudomonas in the urine. 2. The patient will be continued on dexamethasone, Lovenox, zinc, ascorbic acid for underlying COVID pneumonia. The patient is currently out of therapeutic window for remdesivir. 3. Gentle IV fluid. 4. We will follow his clinical condition and further adjust medication if needed. Thank you for this consultation. Will follow this patient along with you. MMODL / IJN: [id number] /
[2020-12-16] MEDS: ALBUTEROL HFA INHALER INHALATION SCH ×4 (01:09→20:28)
[2020-12-16] MEDS: CEFEPIME 2 GM in SODIUM CHLORIDE 0.9% 100 ML IVPB SCH ×2 (08:31→21:22)
[2020-12-16] MEDS: ENOXAPARIN 40 MG/0.4 ML SYRINGE SQ SCH (08:31)
[2020-12-16] MEDS: CHOLECALCIFEROL 25 MCG (1000 IU) TABLET PO SCH (10:46)
[2020-12-16] MEDS: CARBIDOPA-LEVODOPA 25-100 MG 1 EACH TAB PO SCH ×2 (10:46→20:29)
[2020-12-16] MEDS: levETIRAcetam ORAL SOLN 500 MG/5 ML CUP PO SCH ×2 (10:46→20:29)
[2020-12-16] MEDS: ASCORBIC ACID 500 MG TAB PO SCH ×2 (10:46→20:29)
[2020-12-16] MEDS: ZINC SULFATE 220 MG CAP PO SCH (10:47)
[2020-12-16] MEDS: DEXAMETHASONE SOD PHOSPHATE 10 MG/ML 1 ML VIAL IV SCH (10:55)
[2020-12-16 11:04] LABS: Glucose,Whole Blood 171 mg/dL (75-99)
[2020-12-16 12:18] LABS: Basophils % (A) 0 %; Eosinophils % (A) 0 %; HCT 39.7 % (39.0-53.0); HGB 13.1 gm/dL (13.0-17.5); Lymphocytes # (A) 0.7 k/uL (1.0-4.8); Lymphocytes % (A) 5 %; MCH 31.9 pg (25.0-35.0); MCHC 33.1 g/dL (31.0-37.0); MCV 96.5 fL (80.0-100.0); Mean Platelet Volume 7.7; Monocytes # (A) 0.5 k/uL (0-1.0); Monocytes % (A) 4 %; Neutrophils # (A) 13.5 k/uL (1.3-7.7); Neutrophils % (A) 91 %; Platelet Count 523 k/uL (150-450); RBC 4.12 m/uL (4.30-5.90); RDW 13.8 % (11.5-15.5); WBC 14.9 k/uL (3.8-10.6)
--- NOTE | 2020-12-16 12:23 | XR ---
EXAMINATION TYPE: XR chest 1V portable DATE OF EXAM: 12/16/2020 COMPARISON: 12/15/2020 INDICATION: Fever unknown origin,Covid TECHNIQUE: Single frontal view of the chest is obtained. FINDINGS: The heart size is normal. The pulmonary vasculature is normal. Some mild left basilar infiltrate is not excluded. IMPRESSION: 1. Suggestion of minimal left lower lobe infiltrate
[2020-12-16 12:41] LABS: ALT 27 U/L (4-49); AST 17 U/L (17-59); African American GFR (CKD) 55 (>60 ml/min/1.73 sqM); Albumin 2.7 g/dL (3.5-5.0); Albumin/Globulin Ratio 0.9; Alkaline Phosphatase 137 U/L (38-126); Anion Gap 7 mmol/L; Blood Urea Nitrogen 49 mg/dL (9-20); Calcium 8.6 mg/dL (8.4-10.2); Carbon Dioxide 26 mmol/L (22-30); Chloride 122 mmol/L (98-107); Globulin 2.9 g/dL; Glucose 180 mg/dL (74-99); Non-African American GFR(CKD) 47 (>60 ml/min/1.73 sqM); Sodium 155 mmol/L (137-145); Total Bilirubin 0.8 mg/dL (0.2-1.3); Total Protein 5.6 g/dL (6.3-8.2)
--- NOTE | 2020-12-16 17:36 | PN ---
PROGRESS NOTE DATE OF SERVICE: 12/16/2020 CHIEF COMPLAINT: Fever. HISTORY OF PRESENT ILLNESS: This gentleman is not responsive this morning. Skin is hot and dry. PHYSICAL EXAMINATION: Breath sounds are heard bilaterally. There are no significant rales. The cardiac exam is normal. The abdomen is soft and nontender. Estevez catheter is in place. IMPRESSION: 1. Elevated temperature. 2. Recent COVID pneumonia. 3. Urinary tract infection. 4. Dementia. PLAN: 1. Increase IV fluids. 2. Repeat lab work. 3. Wait for cultures. 4. Consult Infectious Disease. MMODL / IJN: [id number] /
[2020-12-16] MEDS ORDERED: VANCOMYCIN 1,750 MG in SODIUM CHLORIDE 0.9% 500 ML 500 ML IVPB ONE (20:00)
--- NOTE | 2020-12-16 20:11 | PN ---
PROGRESS NOTE DATE OF SERVICE: 12/16/2020 REASON FOR FOLLOWUP: Fever, concern for UTI/pneumonia. INTERVAL HISTORY: The patient's overall fever pattern has improved. The patient is requiring a non- rebreather for his the patient remains lethargic, unable to provide any history. No vomiting, diarrhea or any other changes reported by the nursing staff. PHYSICAL EXAMINATION: Blood pressure 127/75, pulse 59, temperature 98.6. He is 94% on a non-rebreather. General description is an elderly male lying in bed in no distress. RESPIRATORY SYSTEM: Unlabored breathing with decreased intensity of breath sounds. No wheeze. HEART: S1, S2. Regular rate and rhythm. ABDOMEN: Soft. No tenderness. LABS: Hemoglobin is 13.1, white count 14.9, BUN of 49, creatinine 1.38. Blood culture now with Staph aureus. DIAGNOSTIC IMPRESSION AND PLAN: Patient with a fever with evidence of Staphylococcus aureus bacteremia. Source is possible pneumonia versus UTI. Vancomycin added, Pharmacy to dose. Blood culture will be repeated to document clearance of his bacteremia and we will monitor his clinical course closely. MMODL / IJN: [id number] /
[2020-12-16] MEDS: DEXTROSE 5%-0.45% NACL 1,000 ML IV SCH (20:28)
[2020-12-16] MEDS: SODIUM CHLORIDE 0.9% 1,000 ML IV SCH (20:28)
[2020-12-16] MEDS: LACTATED RINGERS 1,000 ML IV SCH (20:29)
[2020-12-17] MEDS: LACTATED RINGERS 1,000 ML IV SCH ×3 (03:44→15:40)
[2020-12-17] MEDS: ASCORBIC ACID 500 MG TAB PO SCH ×2 (08:22→22:48)
[2020-12-17] MEDS: CHOLECALCIFEROL 25 MCG (1000 IU) TABLET PO SCH (08:22)
[2020-12-17] MEDS: CEFEPIME 2 GM in SODIUM CHLORIDE 0.9% 100 ML IVPB SCH (08:22)
[2020-12-17] MEDS: CARBIDOPA-LEVODOPA 25-100 MG 1 EACH TAB PO SCH ×2 (08:22→22:48)
[2020-12-17] MEDS: ENOXAPARIN 40 MG/0.4 ML SYRINGE SQ SCH (08:22)
[2020-12-17] MEDS: DEXAMETHASONE SOD PHOSPHATE 10 MG/ML 1 ML VIAL IV SCH (08:23)
[2020-12-17] MEDS: levETIRAcetam ORAL SOLN 500 MG/5 ML CUP PO SCH ×2 (08:24→22:48)
[2020-12-17] MEDS: SODIUM CHLORIDE 0.9% 1,000 ML IV SCH (08:24)
[2020-12-17] MEDS: ZINC SULFATE 220 MG CAP PO SCH (08:24)
[2020-12-17] MEDS: ALBUTEROL HFA INHALER INHALATION SCH ×3 (09:45→21:05)
[2020-12-17] MEDS: VANCOMYCIN 1,500 MG in SODIUM CHLORIDE 0.9% 250 ML IVPB SCH (11:23)
--- NOTE | 2020-12-17 14:41 | PN ---
PROGRESS NOTE DATE OF SERVICE: 12/17/2020 CHIEF COMPLAINT: Septicemia. HISTORY OF PRESENT ILLNESS: This gentleman remains unconscious. He has grown out MRSA positive from a blood culture. PHYSICAL EXAMINATION: He has somewhat agonal respirations, but his vital signs are normal. He is not arousable. He has bilateral rhonchi. Cardiac exam is normal. Abdomen is soft, nontender. IMPRESSION: 1. Septicemia. 2. Urinary tract infection. 3. Dementia. PLAN: 1. Continue with IV fluids and antibiotics. 2. Continue efforts to correct hyponatremia. MMODL / IJN: [id number] /
--- NOTE | 2020-12-17 18:33 | PN ---
PROGRESS NOTE DATE OF SERVICE: 12/17/20. REASON FOR FOLLOWUP: MRSA bacteremia source possible pneumonia. INTERVAL HISTORY: Patient remains to be afebrile. The patient remains to be lethargic, sleepy. Unable to provide any history. The patient is hypoxic requiring non-rebreather. Oral intake remains to be minimal. No vomiting, diarrhea or any other changes reported by nursing staff. PHYSICAL EXAMINATION: Blood pressure 152/74, pulse of 93, temperature 98.7. He is 89% on non-rebreather. General description is an elderly male lying in bed in no distress. Respiratory system: Unlabored breathing. Coarse breath sounds bilaterally. No wheeze. Heart S1, S2. Regular rate and rhythm. Abdomen soft, no tenderness. LABS: Hemoglobin is 13.8, white count 14.9, BUN of 49, creatinine 1.38. DIAGNOSTIC IMPRESSION AND PLAN: Patient with MRSA bacteremia source likely pneumonia. Patient is covered with vancomycin, cefepime. Overall prognosis remains to be guarded. Continue supportive care. MMODL / IJN: [id number] /
[2020-12-18] MEDS: VANCOMYCIN 1,500 MG in SODIUM CHLORIDE 0.9% 250 ML IVPB SCH (03:57)
[2020-12-18] MEDS: ENOXAPARIN 40 MG/0.4 ML SYRINGE SQ SCH (08:14)
[2020-12-18] MEDS: DEXAMETHASONE SOD PHOSPHATE 10 MG/ML 1 ML VIAL IV SCH (08:15)
[2020-12-18] MEDS: ASCORBIC ACID 500 MG TAB PO SCH ×2 (08:15→20:42)
[2020-12-18] MEDS: CHOLECALCIFEROL 25 MCG (1000 IU) TABLET PO SCH (08:15)
[2020-12-18] MEDS: CARBIDOPA-LEVODOPA 25-100 MG 1 EACH TAB PO SCH ×2 (08:15→20:42)
[2020-12-18] MEDS: ZINC SULFATE 220 MG CAP PO SCH (08:15)
[2020-12-18] MEDS: levETIRAcetam ORAL SOLN 500 MG/5 ML CUP PO SCH ×2 (08:15→20:43)
[2020-12-18] MEDS: ALBUTEROL HFA INHALER INHALATION SCH ×3 (08:29→20:28)
[2020-12-18] MEDS ORDERED: ACETAMINOPHEN IV (For NPO) 1,000 MG in EMPTY BAG 1 BAG IVPB STA (09:58)
[2020-12-18] MEDS ORDERED: SODIUM CHLORIDE 0.9% 500 ML 500 ML IV ONE (14:18)
[2020-12-18 15:32] VITALS: PULSE 73
[2020-12-18] MEDS: LACTATED RINGERS 1,000 ML IV SCH (17:15)
[2020-12-18] MEDS: DEXTROSE 5%-0.45% NACL 1,000 ML IV SCH ×2 (17:18→19:29)
--- NOTE | 2020-12-18 18:09 | PN ---
PROGRESS NOTE DATE OF SERVICE: 12/18/2020 REASON FOR FOLLOWUP: MRSA bacteremia likely pneumonia. INTERVAL HISTORY: The patient did spike another fever of 102.6 this morning. Patient is currently lethargic and on a non-rebreather. The patient did have marginal blood pressure. Oral intake remains to be minimal. No vomiting, diarrhea. No changes reported by nursing staff. PHYSICAL EXAMINATION: Blood pressure is 84/35, pulse of 73, temperature 100.1. He is 92% on non-rebreather. General description is an elderly male lying in bed in no distress. Respiratory system: Unlabored breathing, decreased intensity in breath sounds. No wheeze. Heart: S1-S2 regular rate and rhythm. Abdomen soft, no tenderness. LABS: Creatinine 1.96. Blood cultures with MRSA. DIAGNOSTIC IMPRESSION AND PLAN: Patient with MRSA bacteremia concern likely for a pneumonia in this patient with recent Covid 19 infection, now with worsening of his clinical condition and hypotension. Will give a 500 mL bolus in view of the hypotension. Will benefit from pulmonary critical care evaluation. Family was at the bedside. Their questions and concerns were answered. Blood cultures repeated to document clearance of bacteremia. Prognosis remains to be guarded. MMODL / IJN: [id number] /
[2020-12-18 18:16] VITALS: BP 67/43; RESP 24; TEMP 99.3
--- NOTE | 2020-12-18 19:18 | PN ---
PROGRESS NOTE DATE OF SERVICE: 12/18/2020 CHIEF COMPLAINT: Sepsis with coma. HISTORY OF PRESENT ILLNESS: This gentleman continues to hang on. He is comatose and respirations are shallow and agonal. Family is at his bedside. PHYSICAL EXAM: Temperature is 102.1, blood pressure is 64/35 with a pulse of 70 and regular. He is comatose. Breath sounds are heard bilaterally, but there are coarse rhonchi associated with them. Cardiac exam demonstrates sinus rhythm. Abdomen is soft. Extremities: Normal. IMPRESSION: 1. Septicemia with MRSA. 2. COVID pneumonia. 3. Dementia. 4. Seizure disorder. PLAN: The patient's family is at bedside and they will be counseled regarding what is happening and what is to be expected. They understand and wish that the patient be kept comfortable and he is not to be resuscitated. JOE / LEX: [id number] /
[2020-12-19] MEDS ORDERED: VANCOMYCIN 1,500 MG in SODIUM CHLORIDE 0.9% 250 ML IVPB SCH (06:00)
--- NOTE | 2020-12-19 23:14 | DS ---
DISCHARGE SUMMARY DATE OF DISCHARGE: 12/18/2020 CHIEF COMPLAINT: Fever, sepsis, COVID pneumonia. HISTORY OF PRESENT ILLNESS AND PHYSICAL EXAMINATION: Details of this man's history and physical can be found in the initial workup. LABORATORY STUDIES: While he was in the hospital he had laboratory studies, details of which can be found in the laboratory section of his chart. COURSE IN THE HOSPITAL: After admission he was placed on bedrest and started intravenous fluids and was seen and followed by Pulmonology and Infectious Disease. It was determined that he also had a urinary tract infection. He subsequently grew out a blood culture positive for MRSA. He was treated for this. Despite this, his blood pressure dropped into the 60s and he became more moribund. He remained in sinus rhythm and in shock despite the antibiotics and fluids. The family decided to make him DNR and he never exhibited anything to suggest discomfort. He on the evening of December 18. FINAL DIAGNOSES: 1. COVID pneumonia. 2. Urinary tract infection. 3. Urinary retention. 4. Positive methicillin-resistant Staphylococcus aeruginosa blood culture. 5. Dementia. OPERATIONS: None. CONSULTATION: Infectious Disease. He is not improved. He . MMODL / IJN: [id number] /
--- NOTE | 2021-01-09 09:27 | CDI ---
Documentation Clarification Form Mortality Review Date: 01/09/2021 09:07:19 AM From: Iris Britton RN, CCDS Admit Date: 12/15/2020 09:09:00 AM Patient Name: Ky Vaughn Visit Number: [id number] Discharge Date: 12/18/2020 09:20:00 PM ATTENTION: The Clinical Documentation Specialists (CDI) and [facility] Coding Staff appreciate your assistance in clarifying documentation. Please respond to the clarification below the line at the bottom and electronically sign. The CDI & [facility] Coding staff will review the response and follow-up if needed. Please note: Queries are made part of the Legal Health Record. If you have any questions, please contact the author of this message via ITS. Dr. Tyrone Ferrera Your patient has coarse lung sounds, agonal respirations, and requiring 100% NRB. Based on this information and the findings below, is there an additional diagnosis that is clinically appropriate for this patient? History/Risk Factors: Recent Covid pneumonia, MRSA pneumonia, Dementia Tobacco use: none documented Home oxygen: none documented Clinical Indicators: 12/17 Attending Progress Note: "He has somewhat agonal respirations, but his vital signs are normal. He is not arousable. He has bilateral rhonchi." 12/17 ID progress note: "Blood pressure 152/74, pulse of 93, temperature 98.7.He is 89% on non- rebreather." 12/18 Attending progress note: "This gentleman continues to hang on. He is comatose and respirations are shallow and agonal." 12/16 703 Admission Vital Signs: Temp 101.3, HR 128, RR 30, B/P 126/96, Spo2 95% on 100% NRB ABG/CBG: not preformed Treatment: Ventolin HFA 2 puffs Q6 hrs. OTC Pulse ox per unit protocol O2: 100 % NRB IV Vanco PTD Is there an additional diagnosis that is clinically appropriate for this patient? [ ] Acute Hypoxic Respiratory Failure (pO2 <60 mm Hg or SpO2 <91% on room air) [ ] Acute Hypercapnic Respiratory Failure (pCO2 >50 and pH <7.35) [ ] Acute on Chronic Respiratory Failure [ ] Other Diagnosis, please specify [ ] Unable to determine (Template Last Revised: October 2020) MTDD
--- NOTE | 2021-01-09 09:44 | CDI ---
Documentation Clarification Form Mortality Review Date: 01/09/2021 09:28:27 AM From: Iris Britton RN, CCDS Admit Date: 12/15/2020 09:09:00 AM Patient Name: Ky Vaughn Visit Number: [id number] Discharge Date: 12/18/2020 09:20:00 PM ATTENTION: The Clinical Documentation Specialists (CDI) and [facility] Coding Staff appreciate your assistance in clarifying documentation. Please respond to the clarification below the line at the bottom and electronically sign. The CDI & [facility] Coding staff will review the response and follow-up if needed. Please note: Queries are made part of the Legal Health Record. If you have any questions, please contact the author of this message via ITS. Dr. Tyrone Ferrera Your patient has the documented symptom of Altered Mental Status is documented in the EC notes. Additional clarification regarding the etiology/cause of this symptom is requested. History/Risk Factors: Covid 19 pneumonia, MRSA Pneumonia, recent hospitalization for Covid pneumonia Clinical Indicators: 12/15 EC Note: "Chief complaint: Limitations: altered mental status, physical limitation." 12/15 ID Consult: 'Neurologically the patient remains lethargic. Patient with elevated BUN and creatinine, likely component of dehydration" 12/18 ID Progress Notes: "Patient is currently lethargic and on a non- rebreather." 12/16 Attending Progress note: "This gentleman is not responsive this morning." 12/18 Attending Progress note: "He is comatose and respirations are shallow and agonal." Labs: WBC 16.6/14.9, Neutrophils 15.4/13.5, D-dimer 1.22, NA+ 153/155, BUN 48/49, Creatinine 1.37/1.38/1.96, procalcitonin .27, ferritin 474, LDH 806 12/15 Blood Cultures: 2 sets + for MRSA, 2 sets negative Urine Culture: Negative 12/16 Chest X Ray: Suggestion of minimal left lower lobe infiltrate Documented Infection: MRSA pneumonia, recent hx of Covid pneumonia with current Covid pneumonia Treatment: 100% NRB IV Vanco PTD 12/15-12/17 Cefepime 2gm IVPB Q12hrs 12/18 500 cc 0.9% IVF bolus 12/18 D5.45NS @ 100 cc/hr. Please clarify the etiology of the symptom of Altered Mental Status: [ ] Anoxic Encephalopathy due to (specify cause) [ ] Metabolic Encephalopathy due to (specify cause) [ ] Septic Encephalopathy due to (specify cause) - [ ] Other condition (please specify) [ ] Unable to determine (Template Last Revised: October 2020) MTDD
--- NOTE | 2021-01-09 09:55 | CDI ---
Documentation Clarification Form Mortality Review Date: 01/09/2021 09:54:08 AM From: Iris Britton RN, CCDS Admit Date: 12/15/2020 09:09:00 AM Patient Name: Ky Vaughn Visit Number: [id number] Discharge Date: 12/18/2020 09:20:00 PM ATTENTION: The Clinical Documentation Specialists (CDI) and [facility] Coding Staff appreciate your assistance in clarifying documentation. Please respond to the clarification below the line at the bottom and electronically sign. The CDI & [facility] Coding staff will review the response and follow-up if needed. Please note: Queries are made part of the Legal Health Record. If you have any questions, please contact the author of this message via ITS. Dr. Tyrone Ferrera 12/15 ID consult states "Patient with elevated BUN and creatinine, likely component of dehydration." Additional clarification regarding the elevated BUN and Creatinine for additional clinical significance is requested. History/Risk Factors: 12/06/20 Historical Labs: BUN 25, Creatinine 1, GFR: 71 Recent Hx of Covid pneumonia, urinary retention with IDC at [facility] recently removed, BPH, dementia Clinical Indicators: 12/15-12/18 Current BUN: 48/49 CR: 1.37/1.38/1.96 GFR: 55/36 Treatment: 12/18 D5.45NS @ 100 cc/hr. 12/18 500 cc 0.9%NS IVF Bolus Please clarify the acuity of renal failure, if known: [ ] Acute Renal Failure (specify cause if known) [ ] Acute Kidney Injury [ ] Other, please specify [ ] Unable to determine (Template Last Revised: October 2020) MTDD
--- NOTE | 2021-01-09 10:12 | CDI ---
Documentation Clarification Form Mortality Review Date: 01/09/2021 09:56:43 AM From: Iris Britton RN, CCDS Admit Date: 12/15/2020 09:09:00 AM Patient Name: Ky Vaughn Visit Number: [id number] Discharge Date: 12/18/2020 09:20:00 PM ATTENTION: The Clinical Documentation Specialists (CDI) and [facility] Coding Staff appreciate your assistance in clarifying documentation. Please respond to the clarification below the line at the bottom and electronically sign. The CDI & [facility] Coding staff will review the response and follow-up if needed. Please note: Queries are made part of the Legal Health Record. If you have any questions, please contact the author of this message via ITS. Dr. Tyrone Ferrera The patient presented with the fever and tachycardia. Additional clarification regarding the POA status of Sepsis is requested to accuratly reflect this patient's SOI/ROM. History/Risk Factors: Recent Covid 19 pneumonia, UTI with recent Estevez cath removal at [facility], halfway resident, Dementia Clinical Indicators: 12/15 07 Admission Vital Signs: Temp 101.3, HR 128, RR 30, B/P 126/96, Spo2 95% on 100% NRB 12/18 Attending Progress note: Sepsis with coma. Septicemia with MRSA.COVID pneumonia." 12/19 D/C Summary: "Fever, sepsis, COVID pneumonia." 12/15 EC Note: "Chief complaint: Limitations: altered mental status, physical limitation." 12/15 ID Consult: 'Neurologically the patient remains lethargic. Patient with elevated BUN and creatinine, likely component of dehydration" 12/18 ID Progress Notes: "Patient is currently lethargic and on a non- rebreather." 12/16 Attending Progress note: "This gentleman is not responsive this morning." 12/17 Attending Progress Note: "He has somewhat agonal respirations, but his vital signs are normal. He is not arousable. He has bilateral rhonchi." 12/18 Attending Progress note: "He is comatose and respirations are shallow and agonal." 12/16 Chest X Ray: Suggestion of minimal left lower lobe infiltrate 12/15-12/18 Labs: WBC 16.6/14.9, Neutrophils 15.4/13.5, D-dimer 1.22, NA+ 153/155, BUN 48/49, Creatinine 1.37/1.38/1.96, procalcitonin .27, ferritin 474, LDH 806 12/15 Blood Cultures: 2 sets + for MRSA, 2 sets negative Urine Culture: Negative Documented infection: Covid 19 Pneumonia, MRSA Pneumonia, UTI Treatment: 12/18 ID Consult: "Patient with MRSA bacteremia concern likely for a pneumonia in this patient with recent Covid 19 infection, now with worsening of his clinical condition and hypotension. Will give a 500 mL bolus in view of the hypotension." Antibiotics: IV Vanco PTD 12/18 IV Bolus: 500 cc 0.9% NS 12/15-12/17 Cefepime 2gm IVPB Q12hrs In your professional opinion, please clarify if these findings signify one of the following conditions: [ ] MRSA Pneumonia with Sepsis POA [ ] Covid 19 Pneumonia with Sepsis POA [ ] MRSA Pneumonia Sepsis, Not POA [ ] COVID19 Pneumonia Sepsis, Not POA [ ] Other, please specify [ ] Unable to determine SIRS Criteria: 2 or more of the following may indicate SIRS -Temperature < 96.8F (36C) or > 101.0F (38.3C) -Heart Rate > 90 bpm -Respiratory Rate > 20 breaths/min or PaCO2 < 32 mmHg -White Blood Cell Count > 12,000 or < 4,000 cells/mm3 or > 10% bands (Template Last Reviewed: October 2020) MTDD
--- NOTE | 2021-01-09 10:21 | CDI ---
Documentation Clarification Form Date: 01/09/2021 10:13:18 AM From: Iris Britton RN, CCDS Admit Date: 12/15/2020 09:09:00 AM Patient Name: yK Vaughn Visit Number: [id number] Discharge Date: 12/18/2020 09:20:00 PM ATTENTION: The Clinical Documentation Specialists (CDI) and [facility] Coding Staff appreciate your assistance in clarifying documentation. Please respond to the clarification below the line at the bottom and electronically sign. The CDI & [facility] Coding staff will review the response and follow-up if needed. Please note: Queries are made part of the Legal Health Record. If you have any questions, please contact the author of this message via ITS. Dr. Tyrone Ferrera Shock is documented in the D/C Summary and requires further specificity. Additional clarification regarding the type of shock is requested. Patient history/risk factors: Recent Covid 19 pneumonia, UTI with recent Estevez cath removal at long term, [facility] resident, Dementia Clinical Indicators: 12/18 Attending Progress note: Sepsis with coma. Septicemia with MRSA.COVID pneumonia." 12/19 D/C Summary: "Fever, sepsis, COVID pneumonia. He remained in sinus rhythm and in shock despite the antibiotics and fluids." 12/15 0704 Admission Vital Signs: Temp 101.3, HR 128, RR 30, B/P 126/96, Spo2 95% on 100% NRB 12/18 0957 Vital Signs: Temp 102.1, HR 70, RR 18, B/P 64/35, Spo2 92% 100% NRB Treatment: 12/18 500 cc 0.9% NS IVF Bolus 12/16 DNR Code Status 12/18 D5.45NS @ 100 cc/hr. Please clarify the type of shock, if known: [ ] Septic Shock [ ] Hypovolemic Shock [ ] Other, please specify [ ] Unable to determine (Template Last Revised: October 2020) MTDD
--- NOTE | 2021-01-10 22:02 | MISC ---
MISCELLANOUS REPORT Unable to determine. MMODL / IJN: [id number] /
--- NOTE | 2021-01-10 22:05 | MISC ---
MISCELLANOUS REPORT Covid pneumonia with sepsis present on admission. MMODL / IJN: [id number] /
--- NOTE | 2021-01-10 22:05 | MISC ---
MISCELLANOUS REPORT Acute kidney injury. MMODL / IJN: [id number] /
--- NOTE | 2021-01-10 22:05 | MISC ---
MISCELLANOUS REPORT Other condition: Alzheimer disease. MMODL / IJN: [id number] /
--- NOTE | 2021-01-10 22:05 | MISC ---
MISCELLANOUS REPORT Hypovolemic shock. MMODL / IJN: [id number] /
== END 2020-12-18 21:20 | disposition expired | DRG 871 ==
LOC: EC 07:02 → 4SSUR 09:09
PROVIDERS: ADMIT Family Medicine; ATTEND Family Medicine
DX: A41.89 Other specified sepsis (principal); U07.1 COVID-19; J12.82 Pneumonia due to coronavirus disease 2019; R40.20 Unspecified coma; N17.9 Acute kidney failure, unspecified; E87.0 Hyperosmolality and hypernatremia; A41.02 Sepsis due to Methicillin resistant Staphylococcus aureus; F02.80 Dementia in other diseases classified elsewhere, unspecified severity, without behavioral disturbance, psychotic disturbance, mood disturbance, and anxiety; R57.1 Hypovolemic shock; E86.0 Dehydration; G30.9 Alzheimer's disease, unspecified; G40.909 Epilepsy, unspecified, not intractable, without status epilepticus; N30.90 Cystitis, unspecified without hematuria; R09.02 Hypoxemia; Z66 Do not resuscitate; N39.498 Other specified urinary incontinence; R15.9 Full incontinence of feces; N40.1 Benign prostatic hyperplasia with lower urinary tract symptoms; Z79.82 Long term (current) use of aspirin; Z80.1 Family history of malignant neoplasm of trachea, bronchus and lung; Z80.41 Family history of malignant neoplasm of ovary; Z99.3 Dependence on wheelchair; Z87.440 Personal history of urinary (tract) infections; Z86.14 Personal history of Methicillin resistant Staphylococcus aureus infection; Z79.899 Other long term (current) drug therapy; Z90.79 Acquired absence of other genital organ(s); Z98.890 Other specified postprocedural states
CPT/HCPCS: 36415; 71045; 80053; 80162; 81001; 82565; 82728; 83605; 83615; 83735; 84145; 85025; 85379; 85610; 85730; 86140; 87040; 87077; 87086; 87186; 93005; 94640; 94760; 99285